=== PATIENT | female | born 1940 | race Caucasian/White ===

== ENCOUNTER 2020-08-22 08:57 | Outpatient (REF) | payer MEDICARE, SELFPAY | END 2020-08-22 08:58 | disposition home or self-care (01) | LOC: HO.RESP 08:57 | PROVIDERS: Visit Provider Hospitalist | DX: J44.9 Chronic obstructive pulmonary disease, unspecified (principal) | CPT/HCPCS: 94060; 94727; 94729; 99212 ==

== ENCOUNTER → 2021-01-23 15:07 | Outpatient (BNVA) | payer MEDICARE, SELFPAY | PROVIDERS: PCP Internal Medicine; Visit Provider Hospitalist | DX: R06.00 Dyspnea, unspecified (principal); J41.0 Simple chronic bronchitis; J01.00 Acute maxillary sinusitis, unspecified | CPT/HCPCS: 99212 ==

== ENCOUNTER → 2021-03-25 10:50 | Outpatient (BNVA) | payer MEDICARE, SELFPAY | PROVIDERS: PCP Family Medicine; Visit Provider Hospitalist | DX: R06.00 Dyspnea, unspecified (principal); J01.00 Acute maxillary sinusitis, unspecified; J41.0 Simple chronic bronchitis | CPT/HCPCS: 99212 ==

== ENCOUNTER 2021-05-30 09:24 | Outpatient (REF) | payer MEDICARE, SELFPAY ==
--- NOTE | ~2021-05-30 | XR_ITS ---
EXAMINATION: XR CHEST CLINICAL INFORMATION: Dyspnea COMPARISON: Previous chest x-ray March 2019 TECHNIQUE: 2 views of the chest were obtained. FINDINGS: The cardiac and mediastinal contours are stable. The lungs are clear. The lungs are well inflated. There is no pleural effusion or pneumothorax. There are degenerative changes of the spine. XR/XR chest 2V IMPRESSION: Well-inflated lungs. No evidence for acute disease in the chest.
== END 2021-05-30 09:25 | disposition home or self-care (01) ==
LOC: HO.XRAY 09:24
PROVIDERS: PCP Family Medicine; Visit Provider Hospitalist
DX: R06.00 Dyspnea, unspecified (principal); J41.0 Simple chronic bronchitis
CPT/HCPCS: 71046

== ENCOUNTER → 2021-10-22 11:12 | Outpatient (BNVA) | payer MEDICARE, SELFPAY | PROVIDERS: PCP Family Medicine; Visit Provider Hospitalist | DX: J41.0 Simple chronic bronchitis (principal); J01.00 Acute maxillary sinusitis, unspecified; Z79.899 Other long term (current) drug therapy | CPT/HCPCS: 99212 ==

== ENCOUNTER 2022-02-17 13:12 | Outpatient (REF) | payer MEDICARE, SELFPAY ==
--- NOTE | ~2022-02-17 | XR_ITS ---
EXAMINATION: XR CERVICAL SPINE CLINICAL INFORMATION: Neck pain. COMPARISON: Chest radiographs dated 05/30/2021. TECHNIQUE: 3 views of the cervical spine were obtained. FINDINGS: Mild cervicothoracic levoscoliosis is seen. There is normal cervical lordosis. Mild degenerative disc disease and grade 1 anterolisthesis is seen at C4-5 and C5-6. The vertebral bodies are intact. Mild to moderate multilevel facet arthropathy is seen. The odontoid process and spinous processes are intact. The soft tissues are unremarkable. XR/XR cervical spine 3V IMPRESSION: Mild cervical thoracic levoscoliosis and mild to moderate multilevel degenerative changes without acute abnormality.
== END 2022-02-17 13:13 | disposition home or self-care (01) ==
LOC: HO.HMGCX 13:12
PROVIDERS: Visit Provider Internal Medicine
DX: S13.9XXA Sprain of joints and ligaments of unspecified parts of neck, initial encounter (principal)
CPT/HCPCS: 72040

== ENCOUNTER → 2022-04-27 11:11 | Outpatient (BNVA) | payer MEDICARE, SELFPAY | PROVIDERS: PCP Family Medicine; Visit Provider Hospitalist | DX: M79.89 Other specified soft tissue disorders (principal); J41.0 Simple chronic bronchitis; R06.00 Dyspnea, unspecified | CPT/HCPCS: 99212 ==

== ENCOUNTER 2022-11-25 10:52 | Outpatient (REF) | payer MEDICARE, SELFPAY ==
--- NOTE | ~2022-11-25 | XR_ITS ---
EXAMINATION: XR CHEST CLINICAL INFORMATION: Dyspnea COMPARISON: Previous chest x-ray May 2021 TECHNIQUE: 2 views of the chest were obtained. FINDINGS: The cardiac and mediastinal contours are stable. Question small stable retrosternal nodule measuring 4 mm seen on the lateral view The lungs are otherwise clear. No pleural effusion or pneumothorax. Mild degenerative changes of the spine and scoliosis. XR/XR chest 2V IMPRESSION: No evidence for acute disease in the chest.
== END 2022-11-25 10:53 | disposition home or self-care (01) ==
LOC: HO.XRAY 10:52
PROVIDERS: PCP Family Medicine; Visit Provider Hospitalist
DX: R06.00 Dyspnea, unspecified (principal); J41.0 Simple chronic bronchitis; J01.00 Acute maxillary sinusitis, unspecified
CPT/HCPCS: 71046; 99212

== ENCOUNTER 2023-04-21 10:58 | Outpatient (REF) | payer MEDICARE, SELFPAY ==
--- NOTE | ~2023-04-21 | XR_ITS ---
EXAMINATION: XR CHEST CLINICAL INFORMATION: Solitary pulmonary nodule COMPARISON: 11/25/2022 TECHNIQUE: 3 views of the chest were obtained. FINDINGS: Similar appearance of previously questioned possible small stable 4 mm retrosternal pulmonary nodule. No evidence of pneumonia. Degenerative changes in the thoracic spine. No gross pleural effusion. No new focal consolidation to suggest pneumonia. Thoracolumbar scoliosis. Heart size is normal. XR/XR chest 2V IMPRESSION: Similar appearance of previously questioned possible small stable 4 mm retrosternal pulmonary nodule. No evidence of pneumonia.
== END 2023-04-21 10:59 | disposition home or self-care (01) ==
LOC: HO.XRAY 10:58
PROVIDERS: PCP Family Medicine; Visit Provider Hospitalist
DX: J41.0 Simple chronic bronchitis (principal); R06.00 Dyspnea, unspecified; J01.00 Acute maxillary sinusitis, unspecified; R91.1 Solitary pulmonary nodule; Z79.899 Other long term (current) drug therapy
CPT/HCPCS: 71046; 99212

== ENCOUNTER 2023-04-21 10:58 | Outpatient (AMB) | payer MEDICARE, SELFPAY ==
[2023-04-21 11:11] VITALS: BP 132/60; PULSE 57; O2SAT 95; BMI 27.2
--- NOTE | 2023-04-21 11:11 | A.OFFVIS_ITS ---
Intake Vital Signs 04/21/23 11:11 Height 5 ft 2 in Weight 149 lb BMI 27.2 BP 132/60 Blood Pressure Location Lt brachial Position Sitting Pulse 57 Pulse Source Pulse Oximeter Pulse Oximetry (%) 95 Oxygen Delivery Method Room Air Intake Visit Reasons: COPD Casualty Claims Supervisor Required: No Allergies codeine Allergy (Severe, Verified 04/21/23 11:12) Rapid Heartbeat morphine Allergy (Severe, Verified 04/21/23 11:12) Rapid Heartbeat quetiapine Allergy (Severe, Verified 04/21/23 11:12) Difficulty Breathing IV Contrast Dye Allergy (Severe, Uncoded 04/21/23 11:12) Rapid Heartbeat Sulfamethoxazole Allergy (Severe, Uncoded 04/21/23 11:12) Rapid Heartbeat HPI HPI Comments History of Present Illness Details The patient is a 83 y/o woman with a history of COPD. She was treated for COPD exacerbation during the last visit in this was a follow-up visit. Overall she is feeling a lot better. She completed the antibiotics and the prednisone. She is still having some cough which is nonproductive in nature. Mi [id number] severity. The inhalers have been helpful. We did review her blood work which resolved relatively benign. She however is having some difficulties with her medications because she hit the donut hole and cannot afford her Spiriva. Will try to find something more financially reasonable for the patient at this time. \ 11/25/2022 the patient is here for pulmon harsha follow-up visit. The patient overall has been doing fair. She has had significant headaches and sinus pressure. She has been struggling with this for some time. The patient was given loratadine but resulted in adverse effects and she could not take it. She also has a hard time tolerating prednisone because it affects her mood. She has been using her respiratory therapy with good effect. Denies any significant shortness of breath although she does have dyspnea with activity. Will have her undergo a chest x-ray. The meantime going to start her on additional nasal therapies to improve her nasal allergies are likely affecting her sinuses. Will be reasonable also to treat him hoarse for sinusitis with doxycycline. 04/21/2023 the patient is here for pulmo errol follow-up visit. The patient is still complaining of significant headaches. She feels like it is her sinus. She is been treated with multiple antibiotics for. It seems to be the case now lasting 4 months. She did have a sinus CT scan done at [facility] which I did review her. It appears that she does not have any evidence of sinusitis. The patient will be following up with ENT as well. I did recommend she gets evaluated for underlying headaches. The patient also having significant photosensitivity. She did follow-up with her eye doctor. At least from a respiratory status the patient is doing fairly well. She continues on the Spiriva and the Symbicort. She has not required her rescue inhaler. We did review her last chest x-ray demonstrating a small retrosternal pulmonary nodule. Will go ahead and repeat the chest x-ray at this time. The nodule still there we then will cuss a CT scan of the chest to better address the findings. [facility] Medical History (Updated 04/21/23 @ 11:33 by Randy Aquino MD) Pulmonary nodule Limb swelling Dyspnea COPD (chronic obstructive pulmonary disease) Social History (Updated 10/22/21 @ 11:31 by NUPUR Evans) Patient Tobacco Use Status: Former Tobacco user Tobacco use type: Cigarette Years Smoked: 35 years Review of Systems Const Reports headache(s) and Denies night sweats Eyes Reports photophobia ENT Denies change in voice, Reports headache(s), Denies lip swelling, Denies mouth pain, Reports neck pain, Reports sinus pain, Reports sinus pressure and Denies tongue swelling Card Denies chest pain, Reports leg edema and Reports dyspnea on exertion Resp Reports cough and Reports dyspnea on exertion GI Denies abdominal pain Musc Reports as per HPI, Reports back pain and Reports neck pain Neuro Denies Neuro-related abnormal movements and Reports headache(s) Psych Denies no additional complaints Dashawn/Lymph Denies easy bleeding and Denies lymphadenopathy Aller/Immun Denies lip swelling and Denies tongue swelling Physical Exam Vital Signs: Last Vital Signs Pulse 57 04/21/23 11:11 BP 132/60 04/21/23 11:11 Pulse Ox 95 04/21/23 11:11 Oxygen Delivery Method Room Air 04/21/23 11:11 BMI result Body Mass Index 27.2 Const Other: Patient in moderate distress due to pain. General: cooperative and healthy appearing Nutritional Appearance: well nourished Orientation/consciousness: patient oriented x3 Limitations: no limitations HEENT Head: Yes normal to inspection General nose exam: Abnormal external nose present and Nasal discharge present Eyes General: appearance normal, both eyes and all related structures Direct Ophthalmoscopy: photophobia Neck Neck: Yes supple Chest Chest palpation & inspection: normal palpation of entire chest wall Resp Effort & Inspection: normal respiratory effort Auscultation: diminished lung sounds Cardio Rate: regular rate Rhythm: regular rhythm Heart sounds: S1 normal heart sound present and S2 normal heart sound present GI Palpation (GI): Soft to palpation and nontender Auscultation: normal bowel sounds Neuro General: patient oriented x3 Assessment & Plan Assessment & Plan (1) Dyspnea: Comment: significant small airways disease. Responding very well to the bronchodilator therapy Code(s): R06.00 - Dyspnea, unspecified Qualifiers: Dyspnea type: dyspnea on exertion Qualified Code(s): R06.00 - Dyspnea, unspecified (2) COPD (chronic obstructive pulmonary disease): Code(s): J44.9 - Chronic obstructive pulmonary disease, unspecified Qualifiers: COPD type: chronic bronchitis Chronic bronchitis type: simple Qualifi ed Code(s): J41.0 - Simple chronic bronchitis (3) Sinusitis: Comment: ct SINUS was normal 04/20/23 Code(s): J32.9 - Chronic sinusitis, unspecified Qualifiers: Chronicity: subacute Sinusitis location: maxillary Qualified Code(s): J01.00 - Acute maxillary sinusitis, unspecified (4) Pulmonary nodule: Code(s): R91.1 - Solitary pulmonary nodule Plan short-acting beta agonist as needed continue Symbicort and Spiriva continue Fluticasone BID use Mucinex as needed CXR, if nodule persistent we will request a CT chest F/U 6 months Orders: Orders XR chest 2V Today R91.1 - Solitary pulmonary nodule Coding Level of Care Code Est Pt Level 4 (56418) Diagnoses Dyspnea on exertion R06.00 Dyspnea type: dyspnea on exertion Simple chronic bronchitis J41.0 COPD type: chronic bronchitis Chronic bronchitis type: simple Subacute maxillary sinusitis J01.00 Chronicity: subacute Sinusitis location: maxillary Pulmonary nodule R91.1 Time Spent (min) 17
== END 2023-04-21 11:38 | disposition home or self-care (01) ==
PROVIDERS: PCP Family Medicine; Visit Provider Hospitalist
DX: R06.00 Dyspnea, unspecified (principal); J41.0 Simple chronic bronchitis; J01.00 Acute maxillary sinusitis, unspecified; R91.1 Solitary pulmonary nodule
CPT/HCPCS: 99214

== ENCOUNTER 2023-07-07 12:47 | Outpatient (REF) | payer MEDICARE, SELFPAY ==
--- NOTE | ~2023-07-07 | CT_ITS ---
EXAMINATION: CT SINUS WITHOUT CONTRAST CLINICAL INFORMATION: Acute recurrent sinusitis. COMPARISON: No relevant prior imaging. TECHNIQUE: Drag Out Worker images were obtained. CT imaging of the sinuses was performed without contrast. Data was reformatted into multiplanar images at the acquisition workstation. This CT examination was performed using dose optimization techniques as appropriate, variously including the following: *Automated exposure control *Adjustment of mA and/or kV according to patient size (this includes techniques or standardized protocols for targeted exams where dose is matched to indication/reason for exam; i.e. extremities or head) *Use of iterative reconstruction technique DLP: 143 mGy-cm FINDINGS: Maxillary sinuses are well aerated and primary maxillary sinus ostia are patent. Uncinate processes are intact. No ostiomeatal unit dysfunction. Frontal sinuses are well aerated and frontal recesses are patent. There is trivial mucosal thickening within the ethmoid air cells. The sphenoid sinus is well aerated. Sphenoid sinus ostia are narrow or occluded. The nasal septum deviates to the right and there is a small rightward projecting nasal septal spur. Globes and extraocular muscles are symmetric. No abnormal retrobulbar mass or inflammation. Lamina papyracea and orbital floors are intact. Orbital apices are unremarkable. Limited visualization of the intracranial anatomy reveals no abnormal finding. Specifically no midline shift or hydrocephalus. CT/CT sinus wo IV con IMPRESSION: There is trivial mucosal thickening within the ethmoid air cells. Otherwise no active paranasal sinus disease. The sphenoid sinus ostia are narrow or occluded. The remainder of the major paranasal sinus drainage pathways are patent. The nasal septum deviates to the right and there is a small rightward projecting nasal septal spur.
== END 2023-07-07 12:48 | disposition home or self-care (01) ==
LOC: HO.CT 12:47
PROVIDERS: PCP Family Medicine; Visit Provider Hospitalist
DX: R91.1 Solitary pulmonary nodule (principal); J33.0 Polyp of nasal cavity; J01.91 Acute recurrent sinusitis, unspecified
CPT/HCPCS: 70486; 71250

== ENCOUNTER 2023-10-20 11:18 | Outpatient (AMB) | payer MEDICARE, SELFPAY ==
[2023-10-20 11:39] VITALS: BP 134/60; PULSE 60; O2SAT 93; BMI 28.2
--- NOTE | 2023-10-20 11:39 | A.OFFVIS_ITS ---
Intake Vital Signs 10/20/23 11:39 Height 5 ft 2 in Weight 154 lb BMI 28.2 BP 134/60 Blood Pressure Location Lt brachial Position Sitting Pulse 60 Pulse Source Pulse Oximeter Pulse Oximetry (%) 93 Oxygen Delivery Method Room Air Intake Visit Reasons: COPD Consultant Nurse Required: No Allergies codeine Allergy (Severe, Verified 10/20/23 11:42) Rapid Heartbeat morphine Allergy (Severe, Verified 10/20/23 11:42) Rapid Heartbeat quetiapine Allergy (Severe, Verified 10/20/23 11:42) Difficulty Breathing IV Contrast Dye Allergy (Severe, Uncoded 10/20/23 11:42) Rapid Heartbeat Sulfamethoxazole Allergy (Severe, Uncoded 10/20/23 11:42) Rapid Heartbeat HPI HPI Comments History of Present Illness Details The patient is a 83 y/o woman with a history of COPD. She was treated for COPD exacerbation during the last visit in this was a follow-up visit. Overall she is feeling a lot better. She completed the antibiotics and the prednisone. She is still having some cough which is nonproductive in nature. Mi [id number] severity. The inhalers have been helpful. We did review her blood work which resolved relatively benign. She however is having some difficulties with her medications because she hit the donut hole and cannot afford her Spiriva. Will try to find something more financially reasonable for the patient at this time. \ 11/25/2022 the patient is here for pulmon harsha follow-up visit. The patient overall has been doing fair. She has had significant headaches and sinus pressure. She has been struggling with this for some time. The patient was given loratadine but resulted in adverse effects and she could not take it. She also has a hard time tolerating prednisone because it affects her mood. She has been using her respiratory therapy with good effect. Denies any significant shortness of breath although she does have dyspnea with activity. Will have her undergo a chest x-ray. The meantime going to start her on additional nasal therapies to improve her nasal allergies are likely affecting her sinuses. Will be reasonable also to treat him hoarse for sinusitis with doxycycline. 04/21/2023 the patient is here for pulmo errol follow-up visit. The patient is still complaining of significant headaches. She feels like it is her sinus. She is been treated with multiple antibiotics for. It seems to be the case now lasting 4 months. She did have a sinus CT scan done at [facility] which I did review her. It appears that she does not have any evidence of sinusitis. The patient will be following up with ENT as well. I did recommend she gets evaluated for underlying headaches. The patient also having significant photosensitivity. She did follow-up with her eye doctor. At least from a respiratory status the patient is doing fairly well. She continues on the Spiriva and the Symbicort. She has not required her rescue inhaler. We did review her last chest x-ray demonstrating a small retrosternal pulmonary nodule. Will go ahead and repeat the chest x-ray at this time. The nodule still there we then will cuss a CT scan of the chest to better address the findings. 10/20/2023 the patient is here for a pulm onary follow-up visit. She continues to have significant frontal headaches. She did undergo CT scan of the sinuses which is reassuring. She is working closely with her pain specialist that she is having significant neck pain that may be contributing to her headaches. The patient also underwent a CT scan of the chest which was personally by me. The patient does have couple subcentimeter pulmonary nodules that will need follow-up. She also has [id number] emphysema secondary to her history of smoking. Patient continues on the Symbicort Spiriva which appeared to be effective. She also has a rescue inhaler but she does not use it often. At this point the patient will continue with current respiratory therapy and she will have a repeat CT scan sometime in June. Will follow-up after her CT scan. If she has any issues prior to that she will call for an earlier assessment. [facility] Medical History (Updated 04/21/23 @ 11:33 by Randy Aquino MD) Pulmonary nodule Limb swelling Dyspnea COPD (chronic obstructive pulmonary disease) Social History (Updated 10/22/21 @ 11:31 by NUPUR Evans) Patient Tobacco Use Status: Former Tobacco user Tobacco use type: Cigarette Years Smoked: 35 years Review of Systems Const Reports headache(s) and Denies night sweats Eyes Reports photophobia ENT Denies change in voice, Reports headache(s), Denies lip swelling, Denies mouth pain, Reports neck pain, Reports sinus pain, Reports sinus pressure and Denies tongue swelling Card Denies chest pain, Reports leg edema and Reports dyspnea on exertion Resp Reports cough and Reports dyspnea on exertion GI Denies abdominal pain Musc Reports as per HPI, Reports back pain and Reports neck pain Neuro Denies Neuro-related abnormal movements and Reports headache(s) Psych Denies no additional complaints Dashawn/Lymph Denies easy bleeding and Denies lymphadenopathy Aller/Immun Denies lip swelling and Denies tongue swelling Physical Exam Vital Signs: Last Vital Signs Pulse 60 10/20/23 11:39 BP 134/60 10/20/23 11:39 Pulse Ox 93 10/20/23 11:39 Oxygen Delivery Method Room Air 10/20/23 11:39 BMI result Body Mass Index 28.2 Const Other: Patient in moderate distress due to pain. General: cooperative and healthy appearing Nutritional Appearance: well nourished Orientation/consciousness: patient oriented x3 Limitations: no limitations HEENT Head: Yes normal to inspection General nose exam: Abnormal external nose present and Nasal discharge present Eyes General: appearance normal, both eyes and all related structures Direct Ophthalmoscopy: photophobia Neck Neck: Yes supple Chest Chest palpation & inspection: normal palpation of entire chest wall Resp Effort & Inspection: normal respiratory effort Auscultation: diminished lung sounds Cardio Rate: regular rate Rhythm: regular rhythm Heart sounds: S1 normal heart sound present and S2 normal heart sound present GI Palpation (GI): Soft to palpation and nontender Auscultation: normal bowel sounds Neuro General: patient oriented x3 Assessment & Plan Assessment & Plan (1) Dyspnea: Comment: significant small airways disease. Responding very well to the bronchodilator therapy Code(s): R06.00 - Dyspnea, unspecified Qualifiers: Dyspnea type: dyspnea on exertion Qualified Code(s): R06.00 - Dyspnea, unspecified (2) COPD (chronic obstructive pulmonary disease): Code(s): J44.9 - Chronic obstructive pulmonary disease, unspecified Qualifiers: COPD type: chronic bronchitis Chronic bronchitis type: simple Qualified Code(s): J41.0 - Simple chronic bronchitis (3) Sinusitis: Comment: ct SINUS was normal 04/20/23 Code(s): J32.9 - Chronic sinusitis, unspecified Qualifiers: Chronicity: subacute Sinusitis location: maxillary Qualified Code(s): J01.00 - Acute maxillary sinusitis, unspecified (4) Pulmonary nodule: Code(s): R91.1 - Solitary pulmonary nodule Plan short-acting beta agonist as needed continue Symbicort and Spiriva continue Fluticasone BID use Mucinex as needed Repeat CT chest 07/2024 Bloodwork F/U July 2024 Orders: Orders Complete Blood Count Auto Diff Today J01.00 - Acute maxillary sinusitis, unspecified, R91.1 - Solitary pulmonary nodule Erythrocyte Sedimentation Rate Today J01.00 - Acute maxillary sinusitis, unspecified, R91.1 - Solitary pulmonary nodule BHARATH Reflex Titer and Pattern Today J01.00 - Acute maxillary sinusitis, unspecified, R91.1 - Solitary pulmonary nodule Immunoglobulin E Today J01.00 - Acute maxillary sinusitis, unspecified, R91.1 - Solitary pulmonary nodule CT chest wo IV con 07/12/24 R91.1 - Solitary pulmonary nodule Coding Level of Care Code Est Pt Level 4 (12265) Diagnoses Dyspnea on exertion R06.00 Dyspnea type: dyspnea on exertion Simple chronic bronchitis J41.0 COPD type: chronic bronchitis Chronic bronchitis type: simple Subacute maxillary sinusitis J01.00 Chronicity: subacute Sinusitis location: maxillary Pulmonary nodule R91.1 Time Spent (min) 18
== END 2023-10-20 12:10 | disposition home or self-care (01) ==
PROVIDERS: PCP Family Medicine; Visit Provider Hospitalist
DX: R06.00 Dyspnea, unspecified (principal); J41.0 Simple chronic bronchitis; J01.00 Acute maxillary sinusitis, unspecified; R91.1 Solitary pulmonary nodule
CPT/HCPCS: 99214

== ENCOUNTER → 2023-10-20 11:18 | Outpatient (BNVA) | payer MEDICARE, SELFPAY | PROVIDERS: PCP Family Medicine; Visit Provider Hospitalist | DX: J01.00 Acute maxillary sinusitis, unspecified (principal); R91.1 Solitary pulmonary nodule; J41.0 Simple chronic bronchitis; R06.00 Dyspnea, unspecified | CPT/HCPCS: 99212 ==

== ENCOUNTER 2023-10-29 11:35 | Outpatient (REF) | payer MEDICARE, SELFPAY ==
[2023-10-29 11:46] LABS: MANUAL DIFF FLAG NO
[2023-10-29 12:19] LABS: Basophils Percent Auto 0.7 % (0-2); Eosinophils Absolute Auto 0.1 X10*3/uL (0.0-0.4); Hematocrit 39.9 % (37.0-47.0); Imm Gran Abs Auto 0.01 X10*3/uL (0.00-0.03); Imm Gran Pct Auto 0.2 % (0.0-0.4); Lymphocytes Absolute Auto 0.8 X10*3/uL (1.2-4.9); Lymphocytes Percent Auto 13.7 % (20-40); Mean Corpuscular HGB Conc 32.6 g/dl (31.0-35.0); Mean Corpuscular Volume 91.9 fL (80.0-98.0); Mean Platelet Volume 10.6 fL (9.4-12.3); Monocytes Absolute Auto 0.4 X10*3/uL (0.1-1.2); Monocytes Percent Auto 6.9 % (2-11); Neutrophils Absolute Auto 4.7 x10*3/uL (2.0-8.3); Neutrophils Percent Auto 77.5 % (45-73); Platelet Count 263 X10*3/uL (160-400); Red Blood Count 4.34 X10*6/uL (4.20-5.50); Red Cell Distribution Width 13.7 % (11.0-16.0); White Blood Count 6.1 X10*3/uL (4.8-10.8)
[2023-10-29 13:11] LABS: Erythrocyte Sedimentation Rate 22 MM/HR (0-20)
[2023-10-30 20:58] LABS: Anti Nuclear Antibody Screen NEGATIVE (NEGATIVE)
[2023-11-01 21:09] LABS: Immunoglobulin E 136 kU/L (<OR=114)
== END 2023-10-29 11:36 | disposition home or self-care (01) ==
LOC: HO.LAB 11:35
PROVIDERS: PCP Family Medicine; Visit Provider Hospitalist
DX: R91.1 Solitary pulmonary nodule (principal); J01.00 Acute maxillary sinusitis, unspecified
CPT/HCPCS: 36415; 82785; 85025; 85652; 86038

== ENCOUNTER 2023-11-18 08:31 | Outpatient (AMB) | payer MEDICARE, SELFPAY ==
--- NOTE | 2023-11-18 08:34 | MHC.OFFVIS ---
Vital Signs 11/18/23 08:35 Height 5 ft 2 in Weight 151 lb BMI 27.6 BP 124/60 Blood Pressure Location Lt brachial Position Sitting Pulse 52 Pulse Source Pulse Oximeter Pulse Oximetry (%) 96 Oxygen Delivery Method Room Air Intake Visit Reasons: Review lab results Fisher Eel Spear Required: No Allergies codeine Allergy (Severe, Verified 11/18/23 08:41) Rapid Heartbeat morphine Allergy (Severe, Verified 11/18/23 08:41) Rapid Heartbeat quetiapine Allergy (Severe, Verified 11/18/23 08:41) Difficulty Breathing IV Contrast Dye Allergy (Severe, Uncoded 11/18/23 08:41) Rapid Heartbeat Sulfamethoxazole Allergy (Severe, Uncoded 11/18/23 08:41) Rapid Heartbeat HPI Comments Details: The patient is a 83 y/o woman with a history of COPD. She was treated for COPD exacerbation during the last visit in this was a follow-up visit. Overall she is feeling a lot better. She completed the antibiotics and the prednisone. She is still having some cough which is nonproductive in nature. Ydgz-[id number] severity. The inhalers have been helpful. We did review her blood work which resolved relatively benign. She however is having some difficulties with her medications because she hit the donut hole and cannot afford her Spiriva. Will try to find something more financially reasonable for the patient at this time. \ 11/25/2022 the patient is here for pulmonary follow-up visit. The patient overall has been doing fair. She has had significant headaches and sinus pressure. She has been struggling with this for some time. The patient was given loratadine but resulted in adverse effects and she could not take it. She also has a hard time tolerating prednisone because it affects her mood. She has been using her respiratory therapy with good effect. Denies any significant shortness of breath although she does have dyspnea with activity. Will have her undergo a chest x-ray. The meantime going to start her on additional nasal therapies to improve her nasal allergies are likely affecting her sinuses. Will be reasonable also to treat him hoarse for sinusitis with doxycycline. 04/21/2023 the patient is here for pulmonary follow-up visit. The patient is still complaining of significant headaches. She feels like it is her sinus. She is been treated with multiple antibiotics for. It seems to be the case now lasting 4 months. She did have a sinus CT scan done at [facility] which I did review her. It appears that she does not have any evidence of sinusitis. The patient will be following up with ENT as well. I did recommend she gets evaluated for underlying headaches. The patient also having significant photosensitivity. She did follow-up with her eye doctor. At least from a respiratory status the patient is doing fairly well. She continues on the Spiriva and the Symbicort. She has not required her rescue inhaler. We did review her last chest x-ray demonstrating a small retrosternal pulmonary nodule. Will go ahead and repeat the chest x-ray at this time. The nodule still there we then will cuss a CT scan of the chest to better address the findings. 10/20/2023 the patient is here for a pulmonary follow-up visit. She continues to have significant frontal headaches. She did undergo CT scan of the sinuses which is reassuring. She is working closely with her pain specialist that she is having significant neck pain that may be contributing to her headaches. The patient also underwent a CT scan of the chest which was personally by me. The patient does have couple subcentimeter pulmonary nodules that will need follow-up. She also has [id number] emphysema secondary to her history of smoking. Patient continues on the Symbicort Spiriva which appeared to be effective. She also has a rescue inhaler but she does not use it often. At this point the patient will continue with current respiratory therapy and she will have a repeat CT scan sometime in June. Will follow-up after her CT scan. If she has any issues prior to that she will call for an earlier assessment. 11/18/2023 the patient is here for a pulmonary follow-up visit. The patient overall has been doing well. She still complaining of findings headaches from the headaches. Moderate severity. The lights still bothering her. She did try the Astelin nasal spray but she did not tolerated as it made her jittery and bad taste. She has been using the fluticasone nasal spray and also the singular at nighttime. She continues on the Symbicort and Spiriva. Will go ahead and start her on small dose of antihistamine therapy. I do believe that she needs it. We did review her blood work demonstrating an elevated IgE consistent with allergies. In addition to that she had a CT scan of the sinuses demonstrating thickening of the mucosa of the ethmoid sinuses all the other sinus or okay. Respiratory garcia patient is doing well. She will continue with the current respiratory therapy. If the patient is no better she will need a referral to Allergy. [facility] Medical History (Updated 11/18/23 @ 12:42 by Randy Aquino MD) Pulmonary nodule Limb swelling Dyspnea COPD (chronic obstructive pulmonary disease) Social History (Updated 10/22/21 @ 11:31 by Meeta Garsia Ascencion) Patient Tobacco Use Status: Former Tobacco user Tobacco use type: Cigarette Years Smoked: 35 years Review of Systems Const Reports headache(s) and Denies night sweats Eyes Reports photophobia ENT Denies change in voice, Reports headache(s), Denies lip swelling, Denies mouth pain, Reports neck pain, Reports sinus pain, Reports sinus pressure and Denies tongue swelling Card Denies chest pain, Reports leg edema and Reports dyspnea on exertion Resp Reports cough and Reports dyspnea on exertion GI Denies abdominal pain Musc Reports as per HPI, Reports back pain and Reports neck pain Neuro Denies Neuro-related abnormal movements and Reports headache(s) Psych Denies no additional complaints Dashawn/Lymph Denies easy bleeding and Denies lymphadenopathy Aller/Immun Denies lip swelling and Denies tongue swelling Physical Exam Vital Signs: Last Vital Signs Pulse 52 11/18/23 08:35 BP 124/60 11/18/23 08:35 Pulse Ox 96 11/18/23 08:35 Oxygen Delivery Method Room Air 11/18/23 08:35 BMI result Body Mass Index 27.6 Const Other: Patient in moderate distress due to pain. General: cooperative and healthy appearing Nutritional Appearance: well nourished Orientation/consciousness: patient oriented x3 Limitations: no limitations HEENT Head: Yes normal to inspection General nose exam: Abnormal external nose present and Nasal discharge present Eyes General: appearance normal, both eyes and all related structures Direct Ophthalmoscopy: photophobia Neck Neck: Yes supple Chest Chest palpation & inspection: normal palpation of entire chest wall Resp Effort & Inspection: normal respiratory effort Auscultation: clear to auscultation bilaterally Cardio Rate: regular rate Rhythm: regular rhythm Heart sounds: S1 normal heart sound present and S2 normal heart sound present GI Palpation (GI): Soft to palpation and nontender Auscultation: normal bowel sounds Neuro General: patient oriented x3 Assessment & Plan Assessment & Plan (1) Dyspnea: Comment: significant small airways disease. Responding very well to the bronchodilator therapy Code(s): R06.00 - Dyspnea, unspecified Category: Medical Qualifiers: Dyspnea type: dyspnea on exertion Qualified Code(s): R06.00 - Dyspnea, unspecified (2) COPD (chronic obstructive pulmonary disease): Code(s): J44.9 - Chronic obstructive pulmonary disease, unspecified Category: Medical Qualifiers: COPD type: chronic bronchitis Chronic bronchitis type: simple Qualified Code(s): J41.0 - Simple chronic bronchitis (3) Sinusitis: Comment: ct SINUS was normal 04/20/23 Code(s): J32.9 - Chronic sinusitis, unspecified Category: Medical Qualifiers: Chronicity: chronic Sinusitis location: ethmoidal Qualified Code(s): J32.2 - Chronic ethmoidal sinusitis (4) Pulmonary nodule: Code(s): R91.1 - Solitary pulmonary nodule Category: Medical Plan short-acting beta agonist as needed continue Symbicort and Spiriva No astelin start desloratidine continue Fluticasone daily start Neti bottle with distilled water and packet use Mucinex as needed Repeat CT chest 07/2024 F/U July 2024 Medications: New desloratadine (Clarinex) 5 mg PO DAILY 30 tabs 3RF 30 days Coding Level of Care Code Est Pt Level 4 (65306) Diagnoses Dyspnea on exertion R06.00 Dyspnea type: dyspnea on exertion Simple chronic bronchitis J41.0 COPD type: chronic bronchitis Chronic bronchitis type: simple Chronic ethmoidal sinusitis J32.2 Chronicity: chronic Sinusitis location: ethmoidal Pulmonary nodule R91.1 Time Spent (min) 17
[2023-11-18 08:35] VITALS: BP 124/60; PULSE 52; O2SAT 96; BMI 27.6
== END 2023-11-18 09:01 | disposition home or self-care (01) ==
PROVIDERS: PCP Family Medicine; Visit Provider Hospitalist
DX: R06.00 Dyspnea, unspecified (principal); J41.0 Simple chronic bronchitis; J32.2 Chronic ethmoidal sinusitis; R91.1 Solitary pulmonary nodule
CPT/HCPCS: 99214

== ENCOUNTER → 2023-11-18 08:31 | Outpatient (BNVA) | payer MEDICARE, SELFPAY | PROVIDERS: PCP Family Medicine; Visit Provider Hospitalist | DX: R06.00 Dyspnea, unspecified (principal); J41.0 Simple chronic bronchitis; J32.2 Chronic ethmoidal sinusitis; R91.1 Solitary pulmonary nodule | CPT/HCPCS: 99212 ==

== ENCOUNTER 2024-03-08 09:59 | Outpatient (AMB) | payer MEDICARE, SELFPAY ==
[2024-03-08 10:12] VITALS: BP 138/60; PULSE 60; O2SAT 96; BMI 27.1
--- NOTE | 2024-03-08 10:12 | MHC.OFFVIS ---
Vital Signs 03/08/24 10:12 Height 5 ft 2 in Weight 147 lb 14.883 oz BMI 27.1 BP 138/60 Blood Pressure Location Lt brachial Position Sitting Pulse 60 Pulse Source Pulse Oximeter Pulse Oximetry (%) 96 Oxygen Delivery Method Room Air Intake Visit Reasons: COPD Slip Cover Operator Required: No Allergies codeine Allergy (Severe, Verified 03/08/24 10:14) Rapid Heartbeat morphine Allergy (Severe, Verified 03/08/24 10:14) Rapid Heartbeat quetiapine Allergy (Severe, Verified 03/08/24 10:14) Difficulty Breathing IV Contrast Dye Allergy (Severe, Uncoded 03/08/24 10:14) Rapid Heartbeat Sulfamethoxazole Allergy (Severe, Uncoded 03/08/24 10:14) Rapid Heartbeat HPI Comments Details: The patient is a 84 y/o woman with a history of COPD. She was treated for COPD exacerbation during the last visit in this was a follow-up visit. Overall she is feeling a lot better. She completed the antibiotics and the prednisone. She is still having some cough which is nonproductive in nature. Nqdp-[id number]-[id number] severity. The inhalers have been helpful. We did review her blood work which resolved relatively benign. She however is having some difficulties with her medications because she hit the donut hole and cannot afford her Spiriva. Will try to find something more financially reasonable for the patient at this time. \ 11/25/2022 the patient is here for pulmonary follow-up visit. The patient overall has been doing fair. She has had significant headaches and sinus pressure. She has been struggling with this for some time. The patient was given loratadine but resulted in adverse effects and she could not take it. She also has a hard time tolerating prednisone because it affects her mood. She has been using her respiratory therapy with good effect. Denies any significant shortness of breath although she does have dyspnea with activity. Will have her undergo a chest x-ray. The meantime going to start her on additional nasal therapies to improve her nasal allergies are likely affecting her sinuses. Will be reasonable also to treat him hoarse for sinusitis with doxycycline. 04/21/2023 the patient is here for pulmonary follow-up visit. The patient is still complaining of significant headaches. She feels like it is her sinus. She is been treated with multiple antibiotics for. It seems to be the case now lasting 4 months. She did have a sinus CT scan done at [facility] which I did review her. It appears that she does not have any evidence of sinusitis. The patient will be following up with ENT as well. I did recommend she gets evaluated for underlying headaches. The patient also having significant photosensitivity. She did follow-up with her eye doctor. At least from a respiratory status the patient is doing fairly well. She continues on the Spiriva and the Symbicort. She has not required her rescue inhaler. We did review her last chest x-ray demonstrating a small retrosternal pulmonary nodule. Will go ahead and repeat the chest x-ray at this time. The nodule still there we then will cuss a CT scan of the chest to better address the findings. 10/20/2023 the patient is here for a pulmonary follow-up visit. She continues to have significant frontal headaches. She did undergo CT scan of the sinuses which is reassuring. She is working closely with her pain specialist that she is having significant neck pain that may be contributing to her headaches. The patient also underwent a CT scan of the chest which was personally by me. The patient does have couple subcentimeter pulmonary nodules that will need follow-up. She also has fwxu-tp-kpchjkiw emphysema secondary to her history of smoking. Patient continues on the Symbicort Spiriva which appeared to be effective. She also has a rescue inhaler but she does not use it often. At this point the patient will continue with current respiratory therapy and she will have a repeat CT scan sometime in June. Will follow-up after her CT scan. If she has any issues prior to that she will call for an earlier assessment. 11/18/2023 the patient is here for a pulmonary follow-up visit. The patient overall has been doing well. She still complaining of findings headaches from the headaches. Moderate severity. The lights still bothering her. She did try the Astelin nasal spray but she did not tolerated as it made her jittery and bad taste. She has been using the fluticasone nasal spray and also the singular at nighttime. She continues on the Symbicort and Spiriva. Will go ahead and start her on small dose of antihistamine therapy. I do believe that she needs it. We did review her blood work demonstrating an elevated IgE consistent with allergies. In addition to that she had a CT scan of the sinuses demonstrating thickening of the mucosa of the ethmoid sinuses all the other sinus or okay. Respiratory garcia patient is doing well. She will continue with the current respiratory therapy. If the patient is no better she will need a referral to Allergy. 03/08/2024 the patient is here for a pulmonary follow-up visit. Overall she is doing well from a respiratory status. Her allergies are better controlled at this time. She was able to back off on the allergy medicine. She continues on the Spiriva and Symbicort. This has been affecting beneficial. The patient gets the Spiriva donated. In addition to that she does have a CT scan scheduled for 07/31/2024 to follow-up with the pulmonary nodules. No further recommendations at this time. Will follow-up in 6-8 months. The patient has any issues or any abnormal findings on the CT scan will go ahead and see her sooner. [facility] Medical History (Updated 11/18/23 @ 12:42 by Randy Aquino MD) Pulmonary nodule Limb swelling Dyspnea COPD (chronic obstructive pulmonary disease) Social History (Updated 10/22/21 @ 11:31 by NUPUR Evans) Patient Tobacco Use Status: Former Tobacco user Tobacco use type: Cigarette Years Smoked: 35 years Review of Systems Const Denies headache(s) and Denies night sweats ENT Denies change in voice, Denies headache(s), Denies lip swelling, Denies mouth pain and Denies tongue swelling Card Denies chest pain and Reports dyspnea on exertion Resp Reports cough and Reports dyspnea on exertion GI Denies abdominal pain Musc Reports as per HPI and Reports back pain Neuro Denies Neuro-related abnormal movements and Denies headache(s) Psych Denies no additional complaints Dashawn/Lymph Denies easy bleeding and Denies lymphadenopathy Aller/Immun Denies lip swelling and Denies tongue swelling Physical Exam Vital Signs: Last Vital Signs Pulse 60 03/08/24 10:12 BP 138/60 03/08/24 10:12 Pulse Ox 96 03/08/24 10:12 Oxygen Delivery Method Room Air 03/08/24 10:12 BMI result Body Mass Index 27.1 Const Other: Patient in moderate distress due to pain. General: cooperative and healthy appearing Nutritional Appearance: well nourished Orientation/consciousness: patient oriented x3 Limitations: no limitations HEENT Head: Yes normal to inspection General nose exam: Abnormal external nose present and Nasal discharge present Eyes General: appearance normal, both eyes and all related structures Neck Neck: Yes supple Chest Chest palpation & inspection: normal palpation of entire chest wall Resp Effort & Inspection: normal respiratory effort Auscultation: diminished lung sounds Cardio Rate: regular rate Rhythm: regular rhythm Heart sounds: S1 normal heart sound present and S2 normal heart sound present GI Palpation (GI): Soft to palpation and nontender Auscultation: normal bowel sounds Neuro General: patient oriented x3 Assessment & Plan Assessment & Plan (1) Dyspnea: Comment: significant small airways disease. Responding very well to the bronchodilator therapy Code(s): R06.00 - Dyspnea, unspecified Category: Medical Qualifiers: Dyspnea type: dyspnea on exertion Qualified Code(s): R06.00 - Dyspnea, unspecified (2) COPD (chronic obstructive pulmonary disease): Code(s): J44.9 - Chronic obstructive pulmonary disease, unspecified Category: Medical Qualifiers: COPD type: chronic bronchitis Chronic bronchitis type: simple Qualified Code(s): J41.0 - Simple chronic bronchitis (3) Pulmonary nodule: Code(s): R91.1 - Solitary pulmonary nodule Category: Medical Plan short-acting beta agonist as needed continue Symbicort and Spiriva No astelin continue Fluticasone daily Neti bottle with distilled water and packet use Mucinex as needed Repeat CT chest 07/2024 F/U 6-8 months Coding Level of Care Code Est Pt Level 4 (05316) Diagnoses Dyspnea on exertion R06.00 Dyspnea type: dyspnea on exertion Simple chronic bronchitis J41.0 COPD type: chronic bronchitis Chronic bronchitis type: simple Pulmonary nodule R91.1 Time Spent (min) 16
== END 2024-03-08 10:34 | disposition home or self-care (01) ==
PROVIDERS: PCP Family Medicine; Visit Provider Hospitalist
DX: R06.00 Dyspnea, unspecified (principal); J41.0 Simple chronic bronchitis; R91.1 Solitary pulmonary nodule
CPT/HCPCS: 99214

== ENCOUNTER → 2024-03-08 09:59 | Outpatient (BNVA) | payer MEDICARE, SELFPAY | PROVIDERS: PCP Family Medicine; Visit Provider Hospitalist | DX: J41.0 Simple chronic bronchitis (principal); R06.00 Dyspnea, unspecified; R91.1 Solitary pulmonary nodule | CPT/HCPCS: 99212 ==

== ENCOUNTER 2024-06-26 10:52 | Outpatient (REF) | payer MEDICARE, SELFPAY ==
--- OUTSIDE RECORDS SUMMARY | 2024-06-26 10:56 | XMS_ITS | Continuity of Care Document ---
Author Organization [facility] Address [address] [place] [address] [address] [place] [phone] Phone Care Team Providers Care Breakfast Host Name Role Phone Giovanni OVALLE, MELECIO, [place], Jimy Unavailable U navailable Procedures Procedure Date Duplex Scan-extrem Veins; Uni/ CT & MA M Advance Directives Directive Yes / No Effective Date File Name No Information Encounters Encounter Description Practice Location Reason(s) For Visit Diagnoses Date Provider Providers Copied on Encounter [facility], [address] [place] [address] [address], [place], [id number], [place] tel:[phone] [facility] [place] Pain in left leg 4 Giovanni OVALLE, MELECIO, [place] Ahn. [address] [facility] 302, [facility] [place], [id number] , [place]. tel:[phone] Referring Provider: Gavin Villareal MD, 36[address] [facility] 207 3640 [facility] 207, [facility] [place], [address]. tel:[phone] Family History Family Member Type Diagnosis Age At Onset No Information Payers Payer name Insurance type Covered green party ID Authoriza tion(s) Medicare ALBERTO DELATORRE [id number] BCBS ALBERTO BRADLEY [id number] Social History Type Description Quantity Date Captured [...]
== END 2024-06-26 10:53 | disposition home or self-care (01) ==
LOC: HO.CT 10:52
PROVIDERS: PCP Family Medicine; Visit Provider Hospitalist
DX: R91.1 Solitary pulmonary nodule (principal)
CPT/HCPCS: 71250

== ENCOUNTER → 2024-06-26 10:54 | Outpatient (BNV) | payer MEDICARE, SELFPAY | PROVIDERS: PCP Family Medicine; Visit Provider Radiology Diagnostic Radiology | DX: R91.1 Solitary pulmonary nodule (principal); I25.84 Coronary atherosclerosis due to calcified coronary lesion | CPT/HCPCS: 71250 ==

== ENCOUNTER 2024-10-16 11:05 | Outpatient (AMB) | payer MEDICARE, SELFPAY ==
--- NOTE | 2024-10-16 11:07 | A.OFFVIS_ITS ---
Vital Signs 10/16/24 11:08 Height 5 ft 2 in Weight 126 lb 12.253 oz BMI 23.2 BP 126/60 Blood Pressure Location Lt brachial Position Sitting Pulse 61 Pulse Source Pulse Oximeter Pulse Oximetry (%) 95 Oxygen Delivery Method Room Air Intake Visit Reasons: COPD Allergies codeine Allergy (Severe, Verified 10/16/24 11:12) Rapid Heartbeat morphine Allergy (Severe, Verified 10/16/24 11:12) Rapid Heartbeat quetiapine Allergy (Severe, Verified 10/16/24 11:12) Difficulty Breathing IV Contrast Dye Allergy (Severe, Uncoded 10/16/24 11:12) Rapid Heartbeat Sulfamethoxazole Allergy (Severe, Uncoded 10/16/24 11:12) Rapid Heartbeat HPI Comments Details: The patient is a 84 y/o woman with a history of COPD. She was treated for COPD exacerbation during the last visit in this was a follow-up visit. Overall she is feeling a lot better. She completed the antibiotics and the prednisone. She is still having some cough which is nonproductive in nature. Hchi-af-zrflsggm severity. The inhalers have been helpful. We did review her blood work which resolved relatively benign. She however is having some difficulties with her medications because she hit the donut hole and cannot afford her Spiriva. Will try to find something more financially reasonable for the patient at this time. \ 11/25/2022 the patient is here for pulmonary follow-up visit. The patient overall has been doing fair. She has had significant headaches and sinus pressure. She has been struggling with this for some time. The patient was given loratadine but resulted in adverse effects and she could not take it. She also has a hard time tolerating prednisone because it affects her mood. She has been using her respiratory therapy with good effect. Denies any significant shortness of breath although she does have dyspnea with activity. Will have her undergo a chest x-ray. The meantime going to start her on additional nasal therapies to improve her nasal allergies are likely affecting her sinuses. Will be reasonable also to treat him hoarse for sinusitis with doxycycline. 04/21/2023 the patient is here for pulmonary follow-up visit. The patient is still complaining of significant headaches. She feels like it is her sinus. She is been treated with multiple antibiotics for. It seems to be the case now lasting 4 months. She did have a sinus CT scan done at [facility] which I did review her. It appears that she does not have any evidence of sinusitis. The patient will be following up with ENT as well. I did recommend she gets evaluated for underlying headaches. The patient also having significant photosensitivity. She did follow-up with her eye doctor. At least from a respiratory status the patient is doing fairly well. She continues on the Spiriva and the Symbicort. She has not required her rescue inhaler. We did review her last chest x-ray demonstrating a small retrosternal pulmonary nodule. Will go ahead and repeat the chest x-ray at this time. The nodule still there we then will cuss a CT scan of the chest to better address the findings. 10/20/2023 the patient is here for a pulmonary follow-up visit. She continues to have significant frontal headaches. She did undergo CT scan of the sinuses which is reassuring. She is working closely with her pain specialist that she is having significant neck pain that may be contributing to her headaches. The patient also underwent a CT scan of the chest which was personally by me. The patient does have couple subcentimeter pulmonary nodules that will need follow- up. She also has notc-he-ljxwxrgi emphysema secondary to her history of smoking. Patient continues on the Symbicort Spiriva which appeared to be effective. She also has a rescue inhaler but she does not use it often. At this point the patient will continue with current respiratory therapy and she will have a repeat CT scan sometime in June. Will follow-up after her CT scan. If she has any issues prior to that she will call for an earlier assessment. 11/18/2023 the patient is here for a pulmonary follow-up visit. The patient overall has been doing well. She still complaining of findings headaches from the headaches. Moderate severity. The lights still bothering her. She did try the Astelin nasal spray but she did not tolerated as it made her jittery and bad taste. She has been using the fluticasone nasal spray and also the singular at nighttime. She continues on the Symbicort and Spiriva. Will go ahead and start her on small dose of antihistamine therapy. I do believe that she needs it. We did review her blood work demonstrating an elevated IgE consistent with allergies. In addition to that she had a CT scan of the sinuses demonstrating thickening of the mucosa of the ethmoid sinuses all the other sinus or okay. Respiratory garcia patient is doing well. She will continue with the current respiratory therapy. If the patient is no better she will need a referral to Allergy. 03/08/2024 the patient is here for a pulmonary follow-up visit. Overall she is doing well from a respiratory status. Her allergies are better controlled at this time. She was able to back off on the allergy medicine. She continues on the Spiriva and Symbicort. This has been affecting beneficial. The patient gets the Spiriva donated. In addition to that she does have a CT scan scheduled for 07/31/2024 to follow-up with the pulmonary nodules. No further recommendations at this time. Will follow-up in 6-8 months. The patient has any issues or any abnormal findings on the CT scan will go ahead and see her soone 10/16/2024 the patient is here for a pulmonary follow-up visit. She has been having hard time with the breathing for the last few weeks. She did go on a prednisone taper that did improve her breathing significantly but then she ran out started getting worse again. She does use her respiratory inhalers as prescribed. She is wondering if she needs oxygen. She does state also that she has episodes of shortness of breath and chest tightness that wake her up at nighttime. Moderate severity. She does respond well to the nebulized treatment. The patient did have a CT scan back in 2023 which we personally reviewed. She appears to have a hiatal hernia. In addition to that emphysematous lungs were hyperinflated due to the COPD. We did go for a 6 minute walk test. The patient did not desaturate enough to need oxygen. Although she did go to 93 % for period of time. The patient will undergo an overnight oximetry while sleeping to see if she needs any oxygen with sleep. In the meantime because of a hiatal hernia on her pancreatic disease and gallbladder disease I worry that she could be having some micro aspirations resulting in bronchospasms at nighttime. Therefore did ask her to sleep elevated with risers or a wedge. In the meantime will start her on omeprazole to see if this provides some relief and also will do a lower dose prednisone for longer to help with the current wheezing. She will continue with the current respiratory therapy. Will follow-up in 2-3 months. [facility] Medical History (Updated 10/16/24 @ 21:48 by Randy Aquino MD) Hiatal hernia Pulmonary nodule Limb swelling Dyspnea COPD (chronic obstructive pulmonary disease) Social History Patient Tobacco Use Status: Former Tobacco user Tobacco use type: Cigarette Years Smoked: 35 years Review of Systems Const Denies headache(s), Denies night sweats and Reports weight loss ENT Denies change in voice, Denies headache(s), Denies lip swelling, Denies mouth pain and Denies tongue swelling Card Denies chest pain, Reports dyspnea and Reports dyspnea on exertion Resp Reports cough, Reports dyspnea, Reports dyspnea on exertion and Reports wheezing GI Denies abdominal pain Musc Reports as per HPI and Reports back pain Neuro Denies Neuro-related abnormal movements and Denies headache(s) Psych Denies no additional complaints Dashawn/Lymph Denies easy bleeding and Denies lymphadenopathy Aller/Immun Denies lip swelling, Denies tongue swelling and Reports wheezing Physical Exam Vital Signs: Last Vital Signs Pulse 61 10/16/24 11:08 BP 126/60 10/16/24 11:08 Pulse Ox 95 10/16/24 11:08 Oxygen Delivery Method Room Air 10/16/24 11:08 BMI result Body Mass Index 23.2 Const Other: Patient in moderate distress due to pain. General: cooperative and healthy appearing Nutritional Appearance: well nourished Orientation/consciousness: patient oriented x3 Limitations: no limitations HEENT Head: Yes normal to inspection General nose exam: Abnormal external nose present and Nasal discharge present Eyes General: appearance normal, both eyes and all related structures Neck Neck: Yes supple Chest Chest palpation & inspection: normal palpation of entire chest wall Resp Effort & Inspection: normal respiratory effort Auscultation: wheezes and diminished lung sounds Cardio Rate: regular rate Rhythm: regular rhythm Heart sounds: S1 normal heart sound present and S2 normal heart sound present GI Palpation (GI): Soft to palpation and nontender Auscultation: normal bowel sounds Neuro General: patient oriented x3 Assessment & Plan Assessment & Plan (1) Dyspnea: Comment: significant small airways disease. Responding very well to the bronchodilator therapy Code(s): R06.00 - Dyspnea, unspecified Category: Medical Qualifiers: Dyspnea type: dyspnea on exertion Qualified Code(s): R06.00 - Dyspnea, unspecified (2) COPD (chronic obstructive pulmonary disease): Code(s): J44.9 - Chronic obstructive pulmonary disease, unspecified Category: Medical Qualifiers: COPD type: chronic bronchitis Chronic bronchitis type: simple Qualified Code(s): J41.0 - Simple chronic bronchitis (3) Pulmonary nodule: Code(s): R91.1 - Solitary pulmonary nodule Category: Medical (4) Hiatal hernia: Code(s): K44.9 - Diaphragmatic hernia without obstruction or gangrene Category: Medical Plan short-acting beta agonist as needed continue Symbicort and Spiriva start Prednisone taper continue Fluticasone daily Neti bottle with distilled water and packet use Mucinex as needed sleep with HOB elevated start PPI reflux diet Overnight oximetry on RA F/U 3-4 months Orders: Orders Overnight Pulse Oximetry Today J41.0 - Simple chronic bronchitis Medications: New omeprazole 40 mg PO DAILY 30 days 30 caps 1RF prednisone PO daily; Take 2 tabs daily x 7 days, then 1 tab daily x 14 days 21 days 28 tabs 0RF Coding Level of Care Code Est Pt Level 4 (21469) Complex EM visit Add On G2211 Diagnoses Dyspnea on exertion R06.00 Dyspnea type: dyspnea on exertion Simple chronic bronchitis J41.0 COPD type: chronic bronchitis Chronic bronchitis type: simple Pulmonary nodule R91.1 Hiatal hernia K44.9 Time Spent (min) 17
[2024-10-16 11:08] VITALS: BP 126/60; PULSE 61; O2SAT 95; BMI 23.2
--- OUTSIDE RECORDS SUMMARY | 2024-10-16 13:15 | XMS_ITS | Clinical Summary ---
Author Organization [facility] [address] [facility] Address [address] [place] [address] Phone Care Team Providers Care Product Safety Associate Name Role Phone Gavin Villareal MD Primary Care Provider [phone] Allergies Active Allergy Reactions Criticality Noted Date Comments Codeine 07/24/2016 Iodinated Contrast Media 07/24/2016 Iv Contrast Dye Morphine 06/21/2017 Sulfa (Sulfonamide Antibiotics) 06/11 Sulfa Drugs Medications albuterol HFA (PROAIR HFA ; PROVENTIL HFA ; VENTOLIN HFA) 90 mcg/actuation inhaler Inhale 2 Puffs into the lungs every 4 hours as needed. Active atorvastatin (LIPITOR) 10 mg tablet Take 10 mg by mouth daily. Active BABY ASPIRIN ORAL Take 1 Tab by mouth daily. Active calcium carbonate-vitamin D3 600 mg-5 mcg (200 unit) per tablet Take by mouth. Active escitalopram (LEXAPRO) 10 mg tablet Take 10 mg by mouth daily. 2 tabs Active levothyroxine (SYNTHROID, LEVOTHROID) 75 mcg tablet Take 75 mcg by mouth daily. Active multivit-min/iron /folic acid/K (ADULTS MULTIVITAMIN ORAL) Multiple Vitamins-Mine rals (MULTIVITAMIN ADULT) Tab Take by mouth. Active omega-3 acid ethyl esters (LOVAZA) 1 gram capsule Take by mouth. Active traZODone (DESYREL) 50 mg tablet Take 50 mg by mouth at bedtime. Active Active Problems Problem Noted Date Diagnosed Date Hyperlipidemia 08/11/2017 Hypothyroid 08/11/2017 Rheumatoid arthritis, adult 08/11/2017 Chronic obstructive pulmonary disease 06/21/2017 Encounters Date Type Department Care Team Description 08/02/2024 Telephone Gastroenterology - [address] [phone] Qi Burkett MA 08/01/2024 Telephone Gastroenterology - [address] [place] [phone] Qi Burkett MA 07/31/2024 Telephone Gastroenterology - [address] [place] [phone] Qi Burkett MA 07/31/2024 Telephone Gastroenterology - [address] [place] [phone] Lissett Cano NP 07/28/2024 2:20 PM EST Office Visit Gastroenterology - [address] [facility] [address] [phone] Lissett Cano, RASHAD Right upper quadrant abdominal pain (Primary Dx) from Last 3 Months Medical History Medical History Date Comments Chronic obstructive pulmonar y disease ([facility]) 06/21/2017 DX:Chronic obstructive pulmo nary disease ([facility]) Hyperlipidemia 08/11/2017 DX:Hyperlipidemi a Hypothyroid 08/11/2017 DX:Hypothyroid Rheumatoid arthritis, adult ([facility]) 08/11/2017 DX:Rheumatoid arthritis, adult ([facility]) Social History Tobacco Use Types Packs/Day Years Used Date Smoking Tobacco: Former Smokeless Tobacco: Never Comments Unknown Sex and Gender Information Value Date Recorded Sex Assigned at Not on file Legal Sex Female 7:24 PM EST Gender Identity Not on file Sexual Orientation Not on file Obstetrics History Last Filed Vital Signs Vital Sign Reading Time Taken Comments Blood Pressure - - Pulse - - Temperature - - Respiratory Rate - - Oxygen Saturation - - Inhaled Oxygen Concentration - - Weight 62.1 kg (137 lb) 07/28/2024 2:36 PM EST Height 154.9 cm (5' 1 ) 07/28/2024 2:36 PM EST Body Mass Index 25.89 07/28/2024 2:36 PM EST Plan of Treatment Health Maintenance Due Date Last Done Comments Cholesterol Screening (Lipid Panel) 06/13/2022 Depression Screening 06/13/2022 Falls Risk Assessment 06/13/2022 Medicare Annual Wellness Visit 06/13/2022 Osteoporosis Screening (Bone Density Screening) 06/13/2022 Social Influencers of Health Screening 06/13/2022 COVID-19 Vaccine ( season) 2024 05/18/2021, 09/17/2020, 08/26/2020 Hypertension/CHF/CAD Annual BMP Blood Test 07/28/2025 07/28/2024 DTaP,Tdap,and Td Vaccines (3 - Td or Tdap) 07/22/2028 07/22/2018, 03/28/2008 Pneumococcal Vaccine: 50+ Years Completed 08/02/2015, 08/15/2008, 08/14/2004 Zoster Vaccines Completed 04/29/2019, 07/0 02/2019, 12/10/2010 RSV Immunization Adult Patients Completed 07/24/2023 Influenza Vaccine Completed 05/14/2024, , 05/11/2022, Additional history exists HIB Vaccines Aged Out No longer eligi ble based on patient's age to complete this topic HPV Vaccines Aged Out No longer eligi ble based on patient's age to complete this topic Hepatitis A Vaccines Aged Out No long er eligible based on patient's age to complete this topic Hepatitis B Vaccines Aged Out No long er eligible based on patient's age to complete this topic IPV Vaccines Aged Out No longer eligi ble based on patient's age to complete this topic MMR Vaccines Aged Out No longer eligi ble based on patient's age to complete this topic Meningococcal ACWY Vaccine Aged Out N o longer eligible based on patient's age to complete this topic Meningococcal B Vacine Aged Out No lo nger eligible based on patient's age to complete this topic RSV Immunization Patients Under 20 months Aged Out No longer eligible based on patient's age to complete this topic Varicella Vaccines Aged Out No longer eligible based on patient's age to complete this topic Procedures Procedure Name Priority Date/Time Associated Diagnosis Comments CBC WITH AUTO DIFFERENTIAL Routine 07/28/2024 3:11 PM EST Right upper quadrant abdominal pain LIPASE Routine 07/28/2024 3:11 PM EST Right upper quadrant pain AMYLASE Routine 07/28/2024 3:11 PM EST Right upper quadrant pain CBC AND DIFFERENTIAL Routine 07/28/2024 3:11 PM EST Right upper quadrant abdominal pain COMPREHENSIVE METABOLIC PANEL Routine 07/28/2024 3:11 PM EST Right upper quadrant abdominal pain from Last 3 Months Results * CBC auto differential (07/28/2024 3:11 PM EST) WBC 5.8 4.8 - 10.8 K/mcL LAB HEMETOLOGY METHOD 07/28/2024 6:25 PM [facility] RBC 4.20 3.80 - 4.80 M/mcL LAB HEMETOLOGY METHOD 07/28/2024 6:25 PM [facility] Hemoglobin 12.9 11.5 - 16.0 g/dL LAB HEMETOLOGY METHOD 07/28/2024 6:25 PM [facility] Hematocrit 39.9 35.0 - 47.0 % LAB HEMETOLOGY METHOD 07/28/2024 6:25 PM [facility] MCV 94.3 79.0 - 98.0 FL LAB HEMETOLOGY METHOD 07/28/2024 6:25 PM [facility] MCH 30.5 27.0 - 32.0 pcg LAB HEMETOLOGY METHOD 07/28/2024 6:25 PM [facility] MCHC 32.3 32.0 - 37.0 g/dL LAB HEMETOLOGY METHOD 07/28/2024 6:25 PM [facility] RDW 13.3 11.0 - 15.0 % LAB HEMETOLOGY METHOD 07/28/2024 6:25 PM [facility] Platelets 271 130 - 400 K/mcL LAB HEMETOLOGY METHOD 07/28/2024 6:25 PM [facility] MPV 10.9 7.0 - 11.0 FL LAB HEMETOLOGY METHOD 07/28/2024 6:25 PM [facility] NRBC 0.0 <1.0 % LAB HEMETOLOGY METHOD 07/28/2024 6:25 PM [facility] NRBC Absolute 0.00 <0.10 K/mcL LAB HEMETOLOGY METHOD 07/28/2024 6:25 PM [facility] Neutrophils Relative 69.0 % LAB HEMETOLOGY METHOD 07/28/2024 6:25 PM [facility] Lymphocytes Relative 20.7 % LAB HEMETOLOGY METHOD 07/28/2024 6:25 PM [facility] Monocytes Relative 8.0 % LAB HEMETOLOGY METHOD 07/28/2024 6:25 PM [facility] Eosinophils Relative 1.2 % LAB HEMETOLOGY METHOD 07/28/2024 6:25 PM [facility] Basophils Relative 0.9 % LAB HEMETOLOGY METHOD 07/28/2024 6:25 PM [facility] Immature Granulocytes Relative 0.2 % LAB HEMETOLOGY METHOD 07/28/2024 6:25 PM [facility] Neutrophils Absolute 3.98 1.50 - 7.00 K/mcL LAB HEMETOLOGY METHOD 07/28/2024 6:25 PM [facility] Lymphocytes Absolute 1.19 1.00 - 5.00 K/mcL LAB HEMETOLOGY METHOD 07/28/2024 6:25 PM [facility] Monocytes Absolute 0.46 0.20 - 1.00 K/mcL LAB HEMETOLOGY METHOD 07/28/2024 6:25 PM [facility] Eosinophils Absolute 0.07 0.00 - 0.50 K/mcL LAB HEMETOLOGY METHOD 07/28/2024 6:25 PM [facility] Basophils Absolute 0.05 0.00 - 0.20 K/mcL LAB HEMETOLOGY METHOD 07/28/2024 6:25 PM [facility] Immature Granulocytes Absolute 0.01 0.00 - 0.03 K/mcL LAB HEMETOLOGY METHOD 07/28/2024 6:25 PM EST [facility] Blood Venous blood specimen / Unknown Venipuncture / Unknown 07/28/2024 3:11 PM EST 07/28/2024 6:25 PM EST Lissett Cano SERVICE SUPERVISOR LAB BLOOD ORDERABLES Final Re sult Performing Organization Address City/[facility]/ZIP Co de Phone Number [facility] [address] [place] [address], [place] [phone] * Lipase (07/28/2024 3:11 PM EST) Lipase 22 13 - 75 unit/L LAB CHEMISTRY METHOD 07/28/2024 10:48 PM EST [facility] Blood Venous blood specimen / Unknown Venipuncture / Unknown 07/28/2024 3:11 PM EST 07/28/2024 10:48 PM EST us Lissett Cano SERVICE SUPERVISOR LAB BLOOD ORDERABLES Final Re sult Performing Organization Address [facility]/ZIP Co de Phone Number [facility] [address] [place] [address], [place] [phone] * Amylase (07/28/2024 3:11 PM EST) Amylase 81 25 - 115 unit/L LAB CHEMISTRY METHOD 07/28/2024 10:48 PM EST [facility] Blood Venous blood specimen / Unknown Venipuncture / Unknown 07/28/2024 3:11 PM EST 07/28/2024 10:48 PM EST us Lissett Cano SERVICE SUPERVISOR LAB BLOOD ORDERABLES Final Re sult Performing Organization Address City/[facility]/ZIP Co de Phone Number [facility] [address] [place] [address], [place] [phone] * Comprehensive metabolic panel (07/28/2024 3:11 PM EST) [facility] Sodium 138 133 - 145 mmol/L LAB CHEMISTRY METHOD 07/28/2024 10:56 PM [facility] Potassium 4.0 3.5 - 5.5 mmol/L LAB CHEMISTRY METHOD 07/28/2024 10:56 PM [facility] Chloride 105 96 - 110 mmol/L LAB CHEMISTRY METHOD 07/28/2024 10:56 PM [facility] CO2 29 21 - 32 mmol/L LAB CHEMISTRY METHOD 07/28/2024 10:56 PM [facility] Anion Gap 4 3 - 11 LAB CHEMISTRY METHOD 07/28/2024 10:56 PM [facility] Glucose 75 70 - 100 mg/dL LAB CHEMISTRY METHOD 07/28/2024 10:56 PM [facility] BUN 14 5 - 25 mg/dL LAB CHEMISTRY METHOD 07/28/2024 10:56 PM [facility] Creatinine 0.62 0.50 - 1.10 mg/dL LAB CHEMISTRY METHOD 07/28/2024 10:56 PM [facility] eGFR 89 >=60 mL/min/1. 73m2 LAB CHEMISTRY METHOD 07/28/2024 10:56 PM [facility] Comment:Calculation based on the??Chronic Kidney Disease Epidemiology Collaboration (CKD-EPI) equation refit??without adjustment for race. BUN/Creatinine Ratio 22.6 LAB CHEMISTRY METHOD 07/28/2024 10:56 PM [facility] Calcium 9.3 8.5 - 10.5 mg/dL LAB CHEMISTRY METHOD 07/28/2024 10:56 PM [facility] AST (SGOT) 16 10 - 42 unit/L LAB CHEMISTRY METHOD 07/28/2024 10:56 PM [facility] ALT (SGPT) 20 10 - 60 unit/L LAB CHEMISTRY METHOD 07/28/2024 10:56 PM EST [facility] Alkaline Phosphatase 72 42 - 121 unit/L LAB CHEMISTRY METHOD 07/28/2024 10:56 PM EST [facility] Total Protein 6.7 6.0 - 8.0 g/dL LAB CHEMISTRY METHOD 07/28/2024 10:56 PM EST [facility] Albumin 4.1 3.2 - 5.0 g/dL LAB CHEMISTRY METHOD 07/28/2024 10:56 PM [facility] Total Bilirubin 0.3 0.0 - 1.4 mg/dL LAB CHEMISTRY METHOD 07/28/2024 10:56 PM [facility] Blood Venous blood specimen / Unknown Venipuncture / Unknown 07/28/2024 3:11 PM EST 07/28/2024 10:48 PM EST Lissett Cano SERVICE SUPERVISOR LAB BLOOD ORDERABLES Final Re sult [facility] [address] [place] [address], from Last 3 Months Insurance MEDICARE [facility] Care Teams Product Safety Associate Relationship Specialty Start Date End Date Gavin Villareal MD [address] [phone] PCP - General Family Medicine 07/24/24
== END 2024-10-16 11:44 | disposition home or self-care (01) ==
LOC: HO.HPS 11:05
PROVIDERS: PCP Family Medicine; Visit Provider Hospitalist
DX: R06.00 Dyspnea, unspecified (principal); J41.0 Simple chronic bronchitis; R91.1 Solitary pulmonary nodule; K44.9 Diaphragmatic hernia without obstruction or gangrene
CPT/HCPCS: 99214; G2211

== ENCOUNTER → 2024-10-16 11:05 | Outpatient (BNVA) | payer MEDICARE, SELFPAY | PROVIDERS: PCP Family Medicine; Visit Provider Hospitalist | DX: J41.0 Simple chronic bronchitis (principal); R91.1 Solitary pulmonary nodule; R06.00 Dyspnea, unspecified; K44.9 Diaphragmatic hernia without obstruction or gangrene; Z87.891 Personal history of nicotine dependence | CPT/HCPCS: 99212 ==

== ENCOUNTER 2024-12-12 13:42 | Outpatient (AMB) | payer MEDICARE, SELFPAY ==
[2024-12-12 13:44] VITALS: BP 144/58; PULSE 61; O2SAT 94; BMI 22.4
--- NOTE | 2024-12-12 13:44 | A.OFFVIS_ITS ---
Vital Signs 12/12/24 13:44 Height 5 ft 2 in Weight 122 lb 5.705 oz BMI 22.4 BP 144/58 H Blood Pressure Location Lt brachial Position Sitting Pulse 61 Pulse Source Pulse Oximeter Pulse Oximetry (%) 94 Oxygen Delivery Method Room Air Intake Visit Reasons: Shorness of breath, chest tightness Header Set Up Operator Required: No Allergies codeine Allergy (Severe, Verified 12/12/24 16:47) Rapid Heartbeat morphine Allergy (Severe, Verified 12/12/24 16:47) Rapid Heartbeat quetiapine Allergy (Severe, Verified 12/12/24 16:47) Difficulty Breathing IV Contrast Dye Allergy (Severe, Uncoded 12/12/24 16:47) Rapid Heartbeat Sulfamethoxazole Allergy (Severe, Uncoded 12/12/24 16:47) Rapid Heartbeat HPI Comments Details: The patient is a 84 y/o woman with a history of COPD. She was treated for COPD exacerbation during the last visit in this was a follow-up visit. Overall she is feeling a lot better. She completed the antibiotics and the prednisone. She is still having some cough which is nonproductive in nature. [id number] severity. The inhalers have been helpful. We did review her blood work which resolved relatively benign. She however is having some difficulties with her medications because she hit the donut hole and cannot afford her Spiriva. Will try to find something more financially reasonable for the patient at this time. \ 11/25/2022 the patient is here for pulmonary follow-up visit. The patient overall has been doing fair. She has had significant headaches and sinus pressure. She has been struggling with this for some time. The patient was given loratadine but resulted in adverse effects and she could not take it. She also has a hard time tolerating prednisone because it affects her mood. She has been using her respiratory therapy with good effect. Denies any significant shortness of breath although she does have dyspnea with activity. Will have her undergo a chest x-ray. The meantime going to start her on additional nasal therapies to improve her nasal allergies are likely affecting her sinuses. Will be reasonable also to treat him hoarse for sinusitis with doxycycline. 04/21/2023 the patient is here for pulmonary follow-up visit. The patient is still complaining of significant headaches. She feels like it is her sinus. She is been treated with multiple antibiotics for. It seems to be the case now lasting 4 months. She did have a sinus CT scan done at [facility] which I did review her. It appears that she does not have any evidence of sinusitis. The patient will be following up with ENT as well. I did recommend she gets evaluated for underlying headaches. The patient also having significant photosensitivity. She did follow-up with her eye doctor. At least from a respiratory status the patient is doing fairly well. She continues on the Spiriva and the Symbicort. She has not required her rescue inhaler. We did review her last chest x-ray demonstrating a small retrosternal pulmonary nodule. Will go ahead and repeat the chest x-ray at this time. The nodule still there we then will cuss a CT scan of the chest to better address the findings. 10/20/2023 the patient is here for a pulmonary follow-up visit. She continues to have significant frontal headaches. She did undergo CT scan of the sinuses which is reassuring. She is working closely with her pain specialist that she is having significant neck pain that may be contributing to her headaches. The patient also underwent a CT scan of the chest which was personally by me. The patient does have couple subcentimeter pulmonary nodules that will need follow- up. She also has [id number] emphysema secondary to her history of smoking. Patient continues on the Symbicort Spiriva which appeared to be effective. She also has a rescue inhaler but she does not use it often. At this point the patient will continue with current respiratory therapy and she will have a repeat CT scan sometime in June. Will follow-up after her CT scan. If she has any issues prior to that she will call for an earlier assessment. 11/18/2023 the patient is here for a pulmonary follow-up visit. The patient overall has been doing well. She still complaining of findings headaches from the headaches. Moderate severity. The lights still bothering her. She did try the Astelin nasal spray but she did not tolerated as it made her jittery and bad taste. She has been using the fluticasone nasal spray and also the singular at nighttime. She continues on the Symbicort and Spiriva. Will go ahead and start her on small dose of antihistamine therapy. I do believe that she needs it. We did review her blood work demonstrating an elevated IgE consistent with allergies. In addition to that she had a CT scan of the sinuses demonstrating thickening of the mucosa of the ethmoid sinuses all the other sinus or okay. Respiratory garcia patient is doing well. She will continue with the current respiratory therapy. If the patient is no better she will need a referral to Allergy. 03/08/2024 the patient is here for a pulmonary follow-up visit. Overall she is doing well from a respiratory status. Her allergies are better controlled at this time. She was able to back off on the allergy medicine. She continues on the Spiriva and Symbicort. This has been affecting beneficial. The patient gets the Spiriva donated. In addition to that she does have a CT scan scheduled for 07/31/2024 to follow-up with the pulmonary nodules. No further recommendati ons at this time. Will follow-up in 6-8 months. The patient has any issues or any abnormal findings on the CT scan will go ahead and see her soone 10/16/2024 the patient is here for a pulmonary follow-up visit. She has been having hard time with the breathing for the last few weeks. She did go on a prednisone taper that did improve her breathing significantly but then she ran out started getting worse again. She does use her respiratory inhalers as prescribed. She is wondering if she needs oxygen. She does state also that she has episodes of shortness of breath and chest tightness that wake her up at nighttime. Moderate severity. She does respond well to the nebulized treatment. The patient did have a CT scan back in 2023 which we personally reviewed. She appears to have a hiatal hernia. In addition to that emphysematous lungs were hyperinflated due to the COPD. We did go for a 6 minute walk test. The patient did not desaturate enough to need oxygen. Although she did go to 93 % for period of time. The patient will undergo an overnight oximetry while sleeping to see if she needs any oxygen with sleep. In the meantime because of a hiatal hernia on her pancreatic disease and gallbladder disease I worry that she could be having some micro aspirations resulting in bronchospasms at nighttime. Therefore did ask her to sleep elevated with risers or a wedge. In the meantime will start her on omeprazole to see if this provides some relief and also will do a lower dose prednisone for longer to help with the current wheezing. She will continue with the current respiratory therapy. Will follow-up in 2-3 months. 12/12/2024 the patient is here for a pulmonary sick visit. She wishes seen about 2 months ago and the patient was given further antibiotics over the phone because of worsening respiratory symptoms. She was initially on doxycycline and then was not responding she was placed on Augmentin. Although give her diarrhea and she stopped it after a couple days. She went back on doxycycline but she just has not felt well. She feels very short of breath and also complaining of chest pressure and pain. The patient could not tolerate the symptoms and a amanda tita made her sick visit. During the visit we did take her for walking oximetry the patient did desaturate briefly to 88% walking on room air. She did good just on 1 L nasal cannula. She already has oxygen for the nighttime so which is added a portable tank order for her to have with be cylinders. In the meantime we also had get blood work. Her D-dimer did come back significantly elevated actually critically elevated at 1500. I did call her explained to her the seriousness of the matter the patient was agreeable to go to the ER today. [facility] Medical History (Updated 12/12/24 @ 23:22 by DESEAN Means) Bradycardia Hiatal hernia Pulmonary nodule Limb swelling Dyspnea COPD (chronic obstructive pulmonary disease) Social History Patient Tobacco Use Status: Former Tobacco user Tobacco use type: Cigarette Years Smoked: 35 years Smoked in Last 30 Days: No Use of substances other than those prescribed or required for medical reasons: No Advance Directives: Yes Advance Directives Information Provided: Yes Advance Directives on File: No Nutrition Risks: No Nutritional Risk Review of Systems Const Denies headache(s), Denies night sweats, Reports weakness and Reports weight loss ENT Denies change in voice, Denies headache(s), Denies lip swelling, Denies mouth pain and Denies tongue swelling Card Reports chest pain, Reports dyspnea and Reports dyspnea on exertion Resp Reports cough, Reports dyspnea, Reports dyspnea on exertion and Reports wheezing GI Denies abdominal pain Musc Reports as per HPI and Reports back pain Neuro Denies Neuro-related abnormal movements, Denies headache(s) and Reports weakness Psych Denies no additional complaints Dashawn/Lymph Denies easy bleeding and Denies lymphadenopathy Aller/Immun Denies lip swelling, Denies tongue swelling and Reports wheezing Physical Exam Vital Signs: Last Vital Signs Pulse 61 12/12/24 13:44 BP 144/58 H 12/12/24 13:44 Pulse Ox 94 12/12/24 13:44 Oxygen Delivery Method Room Air 12/12/24 13:44 BMI result Body Mass Index 22.4 Const Other: Patient in moderate distress due to pain. General: cooperative and healthy appearing Nutritional Appearance: well nourished Orientation/consciousness: patient oriented x3 Limitations: no limitations HEENT Head: Yes normal to inspection General nose exam: Abnormal external nose present and Nasal discharge present Eyes General: appearance normal, both eyes and all related structures Neck Neck: Yes supple Chest Chest palpation & inspection: normal palpation of entire chest wall Resp Effort & Inspection: normal respiratory effort Auscultation: no wheezes and diminished lung sounds Cardio Rate: regular rate Rhythm: regular rhythm Heart sounds: S1 normal heart sound present and S2 normal heart sound present GI Palpation (GI): Soft to palpation and nontender Auscultation: normal bowel sounds Neuro General: patient oriented x3 Office Procedures 6 Minute Walk Time:: 08:18 SPO2 % at rest: 95 Pulse at rest: 59 SPO2 % during excercise: 88 Pulse during excercise: 65 Distance in yards walked: 100 Stella Score: 6 Supplemental Oxygen: placed on 1l/min oxygen with activity and maintained pox 94% [id number] - 6 Minute Walk Assessment & Plan Assessment & Plan (1) Dyspnea: Comment: significant small airways disease. Responding very well to the bronchodilator therapy Code(s): R06.00 - Dyspnea, unspecified Category: Medical Qualifiers: Dyspnea type: dyspnea on exertion Qualified Code(s): R06.00 - Dyspnea, unspecified (2) COPD (chronic obstructive pulmonary disease): Code(s): J44.9 - Chronic obstructive pulmonary disease, unspecified Category: Medical Qualifiers: COPD type: chronic bronchitis Chronic bronchitis type: simple Qualified Code(s): J41.0 - Simple chronic bronchitis (3) Pulmonary nodule: Code(s): R91.1 - Solitary pulmonary nodule Category: Medical (4) Hiatal hernia: Code(s): K44.9 - Diaphragmatic hernia without obstruction or gangrene Category: Medical (5) Bradycardia: Code(s): R00.1 - Bradycardia, unspecified Category: Medical Plan short-acting beta agonist as needed continue Symbicort and Spiriva completed Prednisone taper continue Fluticasone daily Neti bottle with distilled water and packet use Mucinex as needed sleep with HOB elevated reflux diet Overnight oximetry on RA cardiology eval for bradycardia start oxygen 1l/min with activity and 2L/min while sleeping Addendum: Ddimer >1500 sent to the ED to r/o PE Orders: Orders Complete Blood Count Auto Diff 12/12/24 R00.1 - Bradycardia, unspecified, R06.00 - Dyspnea, unspecified Troponin-I High Sensitivity 12/12/24 R00.1 - Bradycardia, unspecified, R06.00 - Dyspnea, unspecified Basic Metabolic Panel 12/12/24 R00.1 - Bradycardia, unspecified, R06.00 - Dyspnea, unspecified Immunoglobulin E 12/12/24 R00.1 - Bradycardia, unspecified, R06.00 - Dyspnea, unspecified D Dimer High Sensitivity 12/12/24 R00.1 - Bradycardia, unspecified, R06.00 - Dyspnea, unspecified Venous Blood Gas 12/12/24 R00.1 - Bradycardia, unspecified, R06.00 - Dyspnea, unspecified Erythrocyte Sedimentation Rate 12/12/24 R00.1 - Bradycardia, unspecified, R06.00 - Dyspnea, unspecified XR chest 2V 12/12/24 R00.1 - Bradycardia, unspecified, R06.00 - Dyspnea, unspecified Referrals Cardiology Referral R00.1 - Bradycardia, unspecified Coding Level of Care Code Est Pt Level 5 (68380) Diagnoses Dyspnea on exertion R06.00 Dyspnea type: dyspnea on exertion Simple chronic bronchitis J41.0 COPD type: chronic bronchitis Chronic bronchitis type: simple Pulmonary nodule R91.1 Hiatal hernia K44.9 Bradycardia R00.1 CPT Codes Coding ([id number]) Time Spent (min) 70
--- OUTSIDE RECORDS SUMMARY | 2024-12-12 15:24 | XMS_ITS | Data Portability ---
Author Organization [facility], Main Office Address [address] [place] [address] Care Team Providers Care Peoplesoft Hcm Consultant Name Role Phone JASWINDER LIMON Conference Center Manager [phone] GARY AQUINO [employer] Faculty Member KAREN MAHONEY Vascular Surgeon [facility] RANCHO BENSON Phys. Med. & Rehab HEATHER VILLAREAL Primary Care Provider [phone] ROJAS GREENE Sewer Pipe Layer Helper [facility] Neurologist NAN COULTER Events Administrative Assistant MAGDI PATINO Senior Account Manager [facility] Ur[facility] Assessment Encounter Date Assessment Date Assessment LastModified by Organization Details LastModified Time 06/05/2024 06/05/2024 Apparent AECB wi th no evidence of severe resp insufficiency, so outpatient management is appropriate. 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 PHone follow up in 1-2 days. Viral testing as ordered. [email or web address] Not available 06/07/2024 17:18:13 Plan of Treatment Reminders Order Date Submit Date Provider Last Modified By Organization Details Last Modified Time Details Appointments [id number] 2024 11:15A Brittany Villareal MD Not available Not available Not available Lab rapid SARS CoV 2 Ag, QL IA, respir atory specim en 2024 025 [facility] In-Office Order, Internal Use Only DO Not Attach Compendium DO Not Attach Compendium, Do Not Delete/merge, [id number] 12/02/2024 11:38:32 strep group A, DNA, swab 2024 [email or web address] In-Office Order, Internal Use Only DO Not Attach Compendium DO Not Attach Compendium, Do Not Delete/merge, [id number] 12/02/2024 12:34:12 CMP, serum or plasma 2023 024 [facility] (Centralized Electronic Ordering - All Locations), Patient Can Go To The Location Of Their Choice, [id number] 06/16/2024 18:05:50 gamma- glutam yl transf erase (ggt), serum 2023 024 DEBBY [facility] (Centralized Electronic Ordering - All Locations), Patient Can Go To The Location Of Their Choice, [id number] 06/16/2024 18:05:53 amylas e + lipase , serum 2023 DEBB[facility] (Centralized Electronic Ordering - All Locations), Patient Can Go To The Location Of Their Choice, [id number] 06/16/2024 18:05:52 lactic acid, blood 2023 DEBB[facility] (Centralized Electronic Ordering - All Locations), Patient Can Go To The Location Of Their Choice, [id number] 06/16/2024 18:05:54 C reacti ve protei n, QN, serum or plasma 2023 024 [facility] (Centralized Electronic Ordering - All Locations), Patient Can Go To The Location Of Their Choice, [id number] 06/16/2024 18:05:54 CBC 2023 024 [facility] (Centralized Electronic Ordering - All Locations), Patient Can Go To The Location Of Their Choice, [id number] 06/16/2024 18:05:51 rapid flu (A+B) 2023 [facility] In-Office Order, Internal Use Only DO Not Attach Compendium DO Not Attach Compendium, Do Not Delete/merge, [id number] 06/05/2024 15:19:38 rsv (respi ratory syncyt ial virus) , sasha, della leblanc 2023 [place] In-Office Order, Internal Use Only DO Not Attach Compendium DO Not Attach Compendium, Do Not Delete/merge, [id number] 06/06/2024 08:56:59 Referral None record ed. Procedures None record ed. Surgeries None record ed. Imaging XR, ribs, unilat eral 2023 [facility], [address], [address], [place], [address], 06/16/2024 08:37:13 XR, abdome n - eval for any stool retent ion. 2023 024 [facility], [address], [address], [place], [address], 06/14/2024 19:58:51 Medication Orders doxycy virgen hyclat e 100 mg capsul e 2024 025 [facility] #[id number], [address] [place] [address], [id number], 12/02/2024 11:39:38 predni sone 20 mg tablet 2023 [facility]24 [id number], [address] [place] [address], [id number], 11/14/2024 14:10:14 Zithro max Z-Yuri 250 mg tablet 2023 024 [facility] #[id number], [address] [place] [address], [id number], 11/14/2024 14:09:59 Patient TargetsNo targets recorded. Patient Instructions Encounter Date Encounter Id Patient Instructions Last Modified By Organization Details Last Modified Time 06/05/2024 [id number] shortness of breath: care instructions [email or web address] Not available 06/05/2024 14:54:49 06/13/2024 [id number] medical record request* [email or web address] Not available 06/26/2024 10:30:08 high blood pressure: care instructions [email or web address] Not available 06/13/2024 12:00:10 learning about high blood pressure ckokar Not available 06/13/2024 12:00:10 11/22/2024 [id number] varicose veins: care instructions [email or web address] Not available 11/22/2024 11:53:58 high blood pressure: care instructions [email or web address] Not available 11/22/2024 11:53:58 learning about high blood pressure ckokar Not available 11/22/2024 11:53:58 chronic obstructive pulmonary disease (COPD): care instructions [email or web address] Not available 11/22/2024 11:51:43 learning about copd and how to prevent lung infections ckokar Not available 11/22/2024 11:51:43 Reason for Referral None Reported. Results Created Date Observation Date Name Description Value Unit Range Abnormal Flag Note LastModifiedBy Organization Detail LastModifiedTime 05/31/20 24 05/31/2024 CMP14 (REFL EX HGB A1C) glucose 103 mg/dL 70-99 above high normal Not Available [facility] ([facility]) [address] [place], [address], 06/01/2024 16:06:53 05/31/20 24 05/31/2024 CMP14 (REFL EX HGB A1C) BUN 13 mg/dL 8-27 normal Not Available [facility] ([facility]) [address] [place], [address], 06/01/2024 16:06:53 05/31/20 24 05/31/2024 CMP14 (REFL EX HGB A1C) creatinine 0.73 mg/dL 0.57-1 .00 normal Not Available [facility] ([facility]) [address] [place], [address], 06/01/2024 16:06:53 05/31/20 24 05/31/2024 CMP14 (REFL EX HGB A1C) eGFR 82 mL/mi n/1.7 3 >59 normal Not Available [facility] ([facility]) [address] [place], [address], 06/01/2024 16:06:53 05/31/20 24 05/31/2024 CMP14 (REFL EX HGB A1C) BUN/creatini ne ratio 18 12-28 normal Not Available [facility] ([facility]) [address] [place], [address], 06/01/2024 16:06:53 05/31/20 24 05/31/2024 CMP14 (REFL EX HGB A1C) sodium 143 mmol/ L 134-14 4 normal Not Available [facility] ([facility]) [address] [place], [address], 06/01/2024 16:06:53 05/31/20 24 05/31/2024 CMP14 (REFL EX HGB A1C) potassium 4.5 mmol/ L 3.5-5. 2 normal Not Available [facility] ([facility]) [address] [place], [address], 06/01/2024 16:06:53 05/31/20 24 05/31/2024 CMP14 (REFL EX HGB A1C) chloride 102 mmol/ L 96-106 normal Not Available [facility] ([facility]) [address] [place], [address], 06/01/2024 16:06:53 05/31/20 24 05/31/2024 CMP14 (REFL EX HGB A1C) carbon dioxide, total 23 mmol/ L 20-29 normal Not Available [facility] ([facility]) [address] [place], [address], 06/01/2024 16:06:53 05/31/20 24 05/31/2024 CMP14 (REFL EX HGB A1C) calcium 9.4 mg/dL 8.7-10 .3 normal Not Available [facility] ([facility]) [address] [place], [address], 06/01/2024 16:06:53 05/31/20 24 05/31/2024 CMP14 (REFL EX HGB A1C) protein, total 6.6 g/dL 6.0-8. 5 normal Not Available [facility] ([facility]) [address] [place], [address], 06/01/2024 16:06:53 05/31/20 24 05/31/2024 CMP14 (REFL EX HGB A1C) albumin 4.3 g/dL 3.7-4. 7 normal Not Available [facility] ([facility]) [address] [place], [address], 06/01/2024 16:06:53 05/31/20 24 05/31/2024 CMP14 (REFL EX HGB A1C) globulin, total 2.3 g/dL 1.5-4. 5 Not Available [facility] ([facility]) [address] [place], [address], 06/01/2024 16:06:53 05/31/20 24 05/31/2024 CMP14 (REFL EX HGB A1C) bilirubin, total 0.4 mg/dL 0.0-1. 2 normal Not Available [facility] ([facility]) [address] [place], [address], 06/01/2024 16:06:53 05/31/20 24 05/31/2024 CMP14 (REFL EX HGB A1C) alkaline phosphatase 73 IU/L 44-121 normal Not Available [facility] ([facility]) [address] [place], [address], 06/01/2024 16:06:53 05/31/20 24 05/31/2024 CMP14 (REFL EX HGB A1C) AST (SGOT) 22 IU/L 0-40 normal Not Available [facility] ([facility]) [address] [place], [address], 06/01/2024 16:06:53 05/31/20 24 05/31/2024 CMP14 (REFL EX HGB A1C) ALT (SGPT) 14 IU/L 0-32 normal Not Available [facility] ([facility]) [address] [place], [address], 06/01/2024 16:06:53 05/31/20 24 06/01/2024 CMP14 (REFL EX HGB A1C) hemoglobin A1C 5.4 % 4.8-5. 6 normal Predi abete s: 5.7 - 6.4 Diabe rodríguez: >6.4 Glyce lexie contr ol for adult s with diabe rodríguez: <7.0 Not Available [facility] ([facility]) [address] [facility], [place], [address], 06/01/2024 16:06:53 05/31/20 24 05/31/2024 TSH+F REE T4 TSH 1.930 uIU/m L 0.450- 4.500 normal Not Available [facility] ([facility]) [address] [place], [address], 06/01/2024 16:06:54 05/31/20 24 05/31/2024 TSH+F REE T4 T4,free(dire ct) 1.44 NG/dL 0.82-1 .77 normal Not Available [facility] ([facility]) [address] [place], [address], 06/01/2024 16:06:54 05/31/20 24 05/31/2024 CBC WITH DIFFE RENTI AL/PL ATELE T WBC 7.5 x10e3 /uL 3.4-10 .8 normal Eff ectiv e Decem eboni [address] [place] [id number] 5 WBC will be made* * non-o rdera ble as a stand -thelma e order code. Not Available [facility] ([facility]) [address] [place], [address], 06/01/2024 16:06:55 05/31/20 24 05/31/2024 CBC WITH DIFFE RENTI AL/PL ATELE T RBC 4.09 x10e6 /uL 3.77-5 .28 normal Not Available [facility] ([facility]) [address] [place], [address], 06/01/2024 16:06:55 05/31/20 24 05/31/2024 CBC WITH DIFFE RENTI AL/PL ATELE T hemoglobin 12.3 g/dL 11.1-1 5.9 normal Not Available [facility] ([facility]) [address] [place], [address], 06/01/2024 16:06:55 05/31/20 24 05/31/2024 CBC WITH DIFFE RENTI AL/PL ATELE T hematocrit 38.0 % 34.0-4 6.6 normal Not Available [facility] ([facility]) [address] [place], [address], 06/01/2024 16:06:55 05/31/20 24 05/31/2024 CBC WITH DIFFE RENTI AL/PL ATELE T MCV 93 fL 79-97 normal Not Available [facility] ([facility]) [address] [place], [address], 06/01/2024 16:06:55 05/31/20 24 05/31/2024 CBC WITH DIFFE RENTI AL/PL ATELE T MCH 30.1 pg 26.6-3 3.0 normal Not Available [facility] ([facility]) [address] [place], [address], 06/01/2024 16:06:55 05/31/20 24 05/31/2024 CBC WITH DIFFE RENTI AL/PL ATELE T MCHC 32.4 g/dL 31.5-3 5.7 normal Not Available [facility] ([facility]) [address] [place], [address], 06/01/2024 16:06:55 05/31/20 24 05/31/2024 CBC WITH DIFFE RENTI AL/PL ATELE T RDW 12.4 % 11.7-1 5.4 Not Available [facility] ([facility]) [address] [facility], [place], [address], 06/01/2024 16:06:55 05/31/20 24 05/31/2024 CBC WITH DIFFE RENTI AL/PL ATELE T platelets 289 x10e3 /uL 150-45 0 normal Not Available [facility] ([facility]) [address] [facility], [place], [address], 06/01/2024 16:06:55 05/31/20 24 05/31/2024 CBC WITH DIFFE RENTI AL/PL ATELE T neutrophils 75 % not estab. normal Not Available [facility] ([facility]) [address] [facility], [place], [address], 06/01/2024 16:06:55 05/31/20 24 05/31/2024 CBC WITH DIFFE RENTI AL/PL ATELE T lymphs 17 % not estab. normal Not Available [facility] ([facility]) [address] [facility], [place], [address], 06/01/2024 16:06:55 05/31/20 24 05/31/2024 CBC WITH DIFFE RENTI AL/PL ATELE T monocytes 6 % not estab. normal Not Available [facility] ([facility]) [address] [facility], [place], [address], 06/01/2024 16:06:55 05/31/20 24 05/31/2024 CBC WITH DIFFE RENTI AL/PL ATELE T eos 1 % not estab. normal Not Available [facility] ([facility]) [address] [place], [address], 06/01/2024 16:06:55 05/31/20 24 05/31/2024 CBC WITH DIFFE RENTI AL/PL ATELE T basos 1 % not estab. normal Not Available [facility] ([facility]) [address] [place], [address], 06/01/2024 16:06:55 05/31/20 24 05/31/2024 CBC WITH DIFFE RENTI AL/PL ATELE T immature cells MAINTAINABILITY ENGINEER Not Available [facility] ([facility]) [address] [place], [address], 06/01/2024 16:06:55 05/31/20 24 05/31/2024 CBC WITH DIFFE RENTI AL/PL ATELE T neutrophils (absolute) 5.6 x10e3 /uL 1.4-7. 0 normal Not Available [facility] ([facility]) [address] [place], [address], 06/01/2024 16:06:55 05/31/20 24 05/31/2024 CBC WITH DIFFE RENTI AL/PL ATELE T lymphs (absolute) 1.3 x10e3 /uL 0.7-3. 1 normal Not Available [facility] ([facility]) [address] [place], [address], 06/01/2024 16:06:55 05/31/20 24 05/31/2024 CBC WITH DIFFE RENTI AL/PL ATELE T monocytes(ab solute) 0.5 x10e3 /uL 0.1-0. 9 normal Not Available [facility] ([facility]) [address] [place], [address], 06/01/2024 16:06:55 05/31/20 24 05/31/2024 CBC WITH DIFFE RENTI AL/PL ATELE T eos (absolute) 0.1 x10e3 /uL 0.0-0. 4 normal Not Available [facility] ([facility]) [address] [place], [address], 06/01/2024 16:06:55 05/31/20 24 05/31/2024 CBC WITH DIFFE RENTI AL/PL ATELE T baso (absolute) 0.1 x10e3 /uL 0.0-0. 2 normal Not Available [facility] ([facility]) [address] [place], [address], 06/01/2024 16:06:55 05/31/20 24 05/31/2024 CBC WITH DIFFE RENTI AL/PL ATELE T immature granulocytes 0 % not estab. Not Available [facility] ([facility]) [address] [facility], [place], [address], 06/01/2024 16:06:55 05/31/20 24 05/31/2024 CBC WITH DIFFE RENTI AL/PL ATELE T immature grans (abs) 0.0 x10e3 /uL 0.0-0. 1 Not Available [facility] ([facility]) [address] [facility], [place], [address], 06/01/2024 16:06:55 05/31/20 24 05/31/2024 CBC WITH DIFFE RENTI AL/PL ATELE T NRBC MAINTAINABILITY ENGINEER Not Available [facility] ([facility]) [address] [place], [address], 06/01/2024 16:06:55 05/31/20 24 05/31/2024 CBC WITH DIFFE RENTI AL/PL ATELE T hematology comments: MAINTAINABILITY ENGINEER Not Available [facility] ([facility]) [address] [place], [address], 06/01/2024 16:06:55 05/31/20 24 05/31/2024 LIPID PANEL cholesterol, total 243 mg/dL 100-19 9 above high normal Not Available [facility] ([facility]) [address] [place], [address], 06/01/2024 16:06:56 05/31/20 24 05/31/2024 LIPID PANEL triglyceride s 69 mg/dL 0-149 normal Not Available [facility] ([facility]) [address] [place], [address], 06/01/2024 16:06:56 05/31/20 24 05/31/2024 LIPID PANEL HDL cholesterol 72 mg/dL >39 normal Not Available [facility] ([facility]) [address] [place], [address], 06/01/2024 16:06:56 05/31/20 24 05/31/2024 LIPID PANEL VLDL cholesterol qiana 12 mg/dL 5-40 Not Available [facility] ([facility]) [address] [place], [address], 06/01/2024 16:06:56 05/31/20 24 05/31/2024 LIPID PANEL LDL chol calc ([facility]) 159 mg/dL 0-99 above high normal Not Available [facility] ([facility]) [address] [place], [address], 06/01/2024 16:06:56 05/31/20 24 05/31/2024 LIPID PANEL LDL calc comment: MAINTAINABILITY ENGINEER Not Available [facility] ([facility]) [address] [facility], [place], [address], 06/01/2024 16:06:56 05/31/20 24 06/01/2024 MAGNE SIUM magnesium 2.2 mg/dL 1.6-2. 3 normal Not Available [facility] ([facility]) [address] [place], [address], 06/01/2024 16:06:57 06/05/20 24 06/05/2024 rapid flu (A+B) Flu A negati ve Not Available In-Office Order Internal Use Only DO Not Attach Compendium DO Not Attach Compendium, Do Not Delete/merge, [id number] 06/05/2024 14:54:31 06/05/20 24 06/05/2024 rapid flu (A+B) Flu B negati ve Not Available In-Office Order Internal Use Only DO Not Attach Compendium DO Not Attach Compendium, Do Not Delete/merge, [id number] 06/05/2024 14:54:31 06/06/20 24 06/06/2024 rsv (resp irato ry syncy tial virus ), rapid , nasop haryn geal RSV, RAPID negati ve Not Available In-Office Order Internal Use Only DO Not Attach Compendium DO Not Attach Compendium, Do Not Delete/merge, [id number] 06/05/2024 14:54:40 06/14/20 24 06/14/2024 COMP. METAB OLIC PANEL (14) glucose 137 mg/dL 70-99 above high normal Not Available [facility] ([facility]) [address] [place], [address], 06/16/2024 18:05:50 06/14/20 24 06/14/2024 COMP. METAB OLIC PANEL (14) BUN 16 mg/dL 8-27 normal Not Available [facility] ([facility]) [address] [place], [address], 06/16/2024 18:05:50 06/14/20 24 06/14/2024 COMP. METAB OLIC PANEL (14) creatinine 0.79 mg/dL 0.57-1 .00 normal Not Available [facility] ([facility]) [address] [place], [address], 06/16/2024 18:05:50 06/14/20 24 06/14/2024 COMP. METAB OLIC PANEL (14) eGFR 75 mL/mi n/1.7 3 >59 normal Not Available [facility] ([facility]) [address] [place], [address], 06/16/2024 18:05:50 06/14/20 24 06/14/2024 COMP. METAB OLIC PANEL (14) BUN/creatini ne ratio 20 12-28 normal Not Available [facility] ([facility]) [address] [place], [address], 06/16/2024 18:05:50 06/14/20 24 06/14/2024 COMP. METAB OLIC PANEL (14) sodium 142 mmol/ L 134-14 4 normal Not Available [facility] ([facility]) [address] [place], [address], 06/16/2024 18:05:50 06/14/20 24 06/14/2024 COMP. METAB OLIC PANEL (14) potassium 4.9 mmol/ L 3.5-5. 2 normal Not Available [facility] ([facility]) [address] [place], [address], 06/16/2024 18:05:50 06/14/20 24 06/14/2024 COMP. METAB OLIC PANEL (14) chloride 100 mmol/ L 96-106 normal Not Available [facility] ([facility]) [address] [place], [address], 06/16/2024 18:05:50 06/14/20 24 06/14/2024 COMP. METAB OLIC PANEL (14) carbon dioxide, total 25 mmol/ L 20-29 normal Not Available [facility] ([facility]) [address] [place], [address], 06/16/2024 18:05:50 06/14/20 24 06/14/2024 COMP. METAB OLIC PANEL (14) protein, total 6.7 g/dL 6.0-8. 5 normal Not Available [facility] ([facility]) [address] [place], [address], 06/16/2024 18:05:50 06/14/20 24 06/14/2024 COMP. METAB OLIC PANEL (14) albumin 4.4 g/dL 3.7-4. 7 normal Not Available [facility] ([facility]) [address] [place], [address], 06/16/2024 18:05:50 06/14/20 24 06/14/2024 COMP. METAB OLIC PANEL (14) globulin, total 2.3 g/dL 1.5-4. 5 Not Available [facility] ([facility]) [address] [facility], [place], [address], 06/16/2024 18:05:50 06/14/20 24 06/14/2024 COMP. METAB OLIC PANEL (14) bilirubin, total 0.4 mg/dL 0.0-1. 2 normal Not Available [facility] ([facility]) [address] [facility], [place], [address], 06/16/2024 18:05:50 06/14/20 24 06/14/2024 COMP. METAB OLIC PANEL (14) alkaline phosphatase 75 IU/L 44-121 normal Not Available [facility] ([facility]) [address] [facility], [place], [address], 06/16/2024 18:05:50 06/14/20 24 06/14/2024 COMP. METAB OLIC PANEL (14) AST (SGOT) 16 IU/L 0-40 normal Not Available [facility] ([facility]) [address] [facility] [place], [address], 06/16/2024 18:05:50 06/14/20 24 06/14/2024 COMP. METAB OLIC PANEL (14) ALT (SGPT) 14 IU/L 0-32 normal Not Available [facility] ([facility]) [address] [facility] [place], [address], 06/16/2024 18:05:50 06/14/20 24 06/15/2024 COMP. METAB OLIC PANEL (14) calcium 9.8 mg/dL 8.7-10 .3 normal Not Available [facility] ([facility]) [address] [facility] [place], [address], 06/16/2024 18:05:50 06/14/20 24 06/14/2024 CBC, PLATE LET, NO DIFFE RENTI AL WBC 5.3 x10e3 /uL 3.4-10 .8 normal Not Available [facility] ([facility]) [address] [facility], [place], [address], 06/16/2024 18:05:51 06/14/20 24 06/14/2024 CBC, PLATE LET, NO DIFFE RENTI AL RBC 4.43 x10e6 /uL 3.77-5 .28 normal Not Available [facility] ([facility]) [address] [facility], [place], [address], 06/16/2024 18:05:51 06/14/2006/14/2024 CBC, PLATE LET, NO DIFFE RENTI AL hemoglobin 13.8 g/dL 11.1-1 5.9 normal Not Available [facility] ([facility]) [address] [facility], [place], [address], 06/16/2024 18:05:51 06/14/20 24 06/14/2024 CBC, PLATE LET, NO DIFFE RENTI AL hematocrit 41.4 % 34.0-4 6.6 normal Not Available [facility] ([facility]) [address] [facility], [place], [address], 06/16/2024 18:05:51 06/14/20 24 06/14/2024 CBC, PLATE LET, NO DIFFE RENTI AL MCV 94 fL 79-97 normal Not Available [facility] ([facility]) [address] [place], [address], 06/16/2024 18:05:51 06/14/20 24 06/14/2024 CBC, PLATE LET, NO DIFFE RENTI AL MCH 31.2 pg 26.6-3 3.0 normal Not Available [facility] ([facility]) [address] [facility], [place], [address], 06/16/2024 18:05:51 06/14/20 24 06/14/2024 CBC, PLATE LET, NO DIFFE RENTI AL MCHC 33.3 g/dL 31.5-3 5.7 normal Not Available [facility] ([facility]) [address] [place], [address], 06/16/2024 18:05:51 06/14/20 24 06/14/2024 CBC, PLATE LET, NO DIFFE RENTI AL RDW 12.2 % 11.7-1 5.4 Not Available [facility] ([facility]) [address] [place], [address], 06/16/2024 18:05:51 06/14/20 24 06/14/2024 CBC, PLATE LET, NO DIFFE RENTI AL platelets 342 x10e3 /uL 150-45 0 normal Not Available [facility] ([facility]) [address] [place], [address], 06/16/2024 18:05:51 06/14/20 24 06/14/2024 CBC, PLATE LET, NO DIFFE RENTI AL NRBC MAINTAINABILITY ENGINEER Not Available [facility] ([facility]) [address] [place], [address], 06/16/2024 18:05:51 06/14/20 24 06/15/2024 NORBERTO+L IPASE amylase 80 U/L 31-110 normal Not Available [facility] ([facility]) [address] [place], [address], 06/16/2024 18:05:51 06/14/20 24 06/15/2024 NORBERTO+L IPASE lipase 23 U/L 14-85 normal Not Available [facility] ([facility]) [address] [place], [address], 06/16/2024 18:05:51 06/14/20 24 06/15/2024 GGT GGT 10 IU/L 0-60 normal Not Available [facility] ([facility]) [address] [place], [address], 06/16/2024 18:05:53 06/14/20 24 06/16/2024 LACTI C ACID, PLASM A lactic acid, plasma 15.2 mg/dL 4.8-25 .7 Not Available [facility] ([facility]) [address] [facility], [place], [address], 06/16/2024 18:05:54 06/14/20 24 06/15/2024 C-KYLER CTIVE PROTE IN, QUANT C-reactive protein, quant <1 mg/L 0-10 Not Available [facility] ([facility]) [address] [facility], [place], [address], 06/16/2024 18:05:54 07/28/19 25 07/28/2024 CBC WITH AUTO DIFFE RENTI AL WBC 5.8 K/mcL 4.8-10 .8 Not Available [address], [address], 07/28/2024 18:27:15 07/28/19 25 07/28/2024 CBC WITH AUTO DIFFE RENTI AL RBC 4.20 M/mcL 3.80-4 .80 Not Available [address], [address], 07/28/2024 18:27:15 07/28/19 25 07/28/2024 CBC WITH AUTO DIFFE RENTI AL hemoglobin 12.9 g/dL 11.5-1 6.0 Not Available [address], [address], 07/28/2024 18:27:15 07/28/19 25 07/28/2024 CBC WITH AUTO DIFFE RENTI AL hematocrit 39.9 % 35.0-4 7.0 Not Available [address], [address], 07/28/2024 18:27:15 07/28/19 25 07/28/2024 CBC WITH AUTO DIFFE RENTI AL MCV 94.3 fL 79.0-9 8.0 Not Available [address], [address], 07/28/2024 18:27:15 07/28/19 25 07/28/2024 CBC WITH AUTO DIFFE RENTI AL MCH 30.5 pcg 27.0-3 2.0 Not Available [address], [address], 07/28/2024 18:27:15 07/28/19 25 07/28/2024 CBC WITH AUTO DIFFE RENTI AL MCHC 32.3 g/dL 32.0-3 7.0 Not Available [address], [address], 07/28/2024 18:27:15 07/28/19 25 07/28/2024 CBC WITH AUTO DIFFE RENTI AL RDW 13.3 % 11.0-1 5.0 Not Available [address], [address], 07/28/2024 18:27:15 07/28/19 25 07/28/2024 CBC WITH AUTO DIFFE RENTI AL platelets 271 K/mcL 130-40 0 Not Available [address], [address], 07/28/2024 18:27:15 07/28/19 25 07/28/2024 CBC WITH AUTO DIFFE RENTI AL MPV 10.9 fL 7.0-11 .0 Not Available [address], [address], 07/28/2024 18:27:15 07/28/19 25 07/28/2024 CBC WITH AUTO DIFFE RENTI AL NRBC 0.0 % <1.0 Not Available [address], [address], 07/28/2024 18:27:15 07/28/19 25 07/28/2024 CBC WITH AUTO DIFFE RENTI AL NRBC absolute 0.00 K/mcL <0.10 Not Available [address], [address], 07/28/2024 18:27:15 07/28/19 25 07/28/2024 CBC WITH AUTO DIFFE RENTI AL neutrophils relative 69.0 % Not Available [address], [address], 07/28/2024 18:27:15 07/28/19 25 07/28/2024 CBC WITH AUTO DIFFE RENTI AL lymphocytes relative 20.7 % Not Available [address], [address], 07/28/2024 18:27:15 07/28/19 25 07/28/2024 CBC WITH AUTO DIFFE RENTI AL monocytes relative 8.0 % Not Available [address], [address], 07/28/2024 18:27:15 07/28/19 25 07/28/2024 CBC WITH AUTO DIFFE RENTI AL eosinophils relative 1.2 % Not Available [address], [address], 07/28/2024 18:27:15 07/28/19 25 07/28/2024 CBC WITH AUTO DIFFE RENTI AL basophils relative 0.9 % Not Available [address], [address], 07/28/2024 18:27:15 07/28/19 25 07/28/2024 CBC WITH AUTO DIFFE RENTI AL immature granulocytes relative 0.2 % Not Available [address], [address], 07/28/2024 18:27:15 07/28/19 25 07/28/2024 CBC WITH AUTO DIFFE RENTI AL neutrophils absolute 3.98 K/mcL 1.50-7 .00 Not Available [address], [address], 07/28/2024 18:27:15 07/28/19 25 07/28/2024 CBC WITH AUTO DIFFE RENTI AL lymphocytes absolute 1.19 K/mcL 1.00-5 .00 Not Available [address], [address], 07/28/2024 18:27:15 07/28/19 25 07/28/2024 CBC WITH AUTO DIFFE RENTI AL monocytes absolute 0.46 K/mcL 0.20-1 .00 Not Available [address], [address], 07/28/2024 18:27:15 07/28/19 25 07/28/2024 CBC WITH AUTO DIFFE RENTI AL eosinophils absolute 0.07 K/mcL 0.00-0 .50 Not Available [address], [address], 07/28/2024 18:27:15 07/28/19 25 07/28/2024 CBC WITH AUTO DIFFE RENTI AL basophils absolute 0.05 K/mcL 0.00-0 .20 Not Available [address], [address], 07/28/2024 18:27:15 07/28/19 25 07/28/2024 CBC WITH AUTO DIFFE RENTI AL immature granulocytes absolute 0.01 K/mcL 0.00-0 .03 Not Available [address], [address], 07/28/2024 18:27:15 07/28/19 25 07/28/2024 CBC WITH AUTO DIFFE RENTI AL note See Report [facility], [address], [place], [facility] [place] [address] Not Available [address], [address], 07/28/2024 18:27:15 07/28/19 25 07/28/2024 AMYLA SE amylase 81 unit/ L 25-115 Not Available [address], [address], 07/28/2024 22:49:39 07/28/19 25 07/28/2024 AMYLA SE note See Report [facility], [address] [facility], [place], [place] [address] Not Available [address], [address], 07/28/2024 22:49:39 07/28/19 25 07/28/2024 LIPAS E lipase 22 unit/ L 13-75 Not Available [address], [address], 07/28/2024 22:49:42 07/28/19 25 07/28/2024 LIPAS E note See Report [facility], [address] [facility], [place], [facility] [address] Not Available [address], [address], 07/28/2024 22:49:42 07/28/19 25 07/28/2024 COMPR EHENS SHIMON METAB OLIC PANEL sodium 138 mmol/ L 133-14 5 Not Available [address], [address], 07/28/2024 22:58:58 07/28/19 25 07/28/2024 COMPR EHENS SHIMON METAB OLIC PANEL potassium 4.0 mmol/ L 3.5-5. 5 Not Available [address], [address], 07/28/2024 22:58:58 07/28/19 25 07/28/2024 COMPR EHENS SHIMON METAB OLIC PANEL chloride 105 mmol/ L 96-110 Not Available [address], [address], 07/28/2024 22:58:58 07/28/19 25 07/28/2024 COMPR EHENS SHIMON METAB OLIC PANEL CO2 29 mmol/ L 21-32 Not Available [address], [address], 07/28/2024 22:58:58 07/28/19 25 07/28/2024 COMPR EHENS SHIMON METAB OLIC PANEL anion gap 4 3-11 Not Available [address], [address], 07/28/2024 22:58:58 07/28/19 25 07/28/2024 COMPR EHENS SHIMON METAB OLIC PANEL glucose 75 mg/dL 70-100 Not Available [address], [address], 07/28/2024 22:58:58 07/28/19 25 07/28/2024 COMPR EHENS SHIMON METAB OLIC PANEL BUN 14 mg/dL 5-25 Not Available [address], [address], 07/28/2024 22:58:58 07/28/19 25 07/28/2024 COMPR EHENS SHIMON METAB OLIC PANEL creatinine 0.62 mg/dL 0.50-1 .10 Not Available [address], [address], 07/28/2024 22:58:58 07/28/19 25 07/28/2024 COMPR EHENS SHIMON METAB OLIC PANEL eGFR 89 mL/mi n/1.7 3m2 >=60 Calcu latio n based on the?C hroni c Kidne y Disea se Epide miolo gy Colla borat ion (CKD- EPI) equat ion refit ?with out adjus tment for race. Not Available [address], [address], 07/28/2024 22:58:58 07/28/19 25 07/28/2024 COMPR EHENS SHIMON METAB OLIC PANEL BUN/creatini ne ratio 22.6 Not Available [address], [address], 07/28/2024 22:58:58 07/28/19 25 07/28/2024 COMPR EHENS SHIMON METAB OLIC PANEL calcium 9.3 mg/dL 8.5-10 .5 Not Available [address], [address], 07/28/2024 22:58:58 07/28/19 25 07/28/2024 COMPR EHENS SHIMON METAB OLIC PANEL AST (SGOT) 16 unit/ L 10-42 Not Available [address], [address], 07/28/2024 22:58:58 07/28/19 25 07/28/2024 COMPR EHENS SHIMON METAB OLIC PANEL ALT (SGPT) 20 unit/ L 10-60 Not Available [address], [address], 07/28/2024 22:58:58 07/28/19 25 07/28/2024 COMPR EHENS SHIMON METAB OLIC PANEL alkaline phosphatase 72 unit/ L 42-121 Not Available [address], [address], 07/28/2024 22:58:58 07/28/19 25 07/28/2024 COMPR EHENS SHIMON METAB OLIC PANEL total protein 6.7 g/dL 6.0-8. 0 Not Available [address], [address], 07/28/2024 22:58:58 07/28/19 25 07/28/2024 COMPR EHENS SHIMON METAB OLIC PANEL albumin 4.1 g/dL 3.2-5. 0 Not Available [address], [address], 07/28/2024 22:58:58 07/28/19 25 07/28/2024 COMPR EHENS SHIMON METAB OLIC PANEL total bilirubin 0.3 mg/dL 0.0-1. 4 Not Available [address], [address], 07/28/2024 22:58:58 07/28/19 25 07/28/2024 COMPR EHENS SHIMON METAB OLIC PANEL note See Report [facility], [address], [place], [facility] [place] [address] Not Available [address], [address], 07/28/2024 22:58:58 12/03/19 25 12/02/2024 strep group A, DNA, swab ID NOW Strep A 2 (rapid molecular test) negati ve Not Available In-Office Order Internal Use Only DO Not Attach Compendium DO Not Attach Compendium, Do Not Delete/merge, [id number] 12/02/2024 11:49:54 12/03/19 25 12/02/2024 rapid SARS CoV 2 Ag, QL IA, respi rator y speci men RAPID SARS COV 2 negati ve Not Available In-Office Order Internal Use Only DO Not Attach Compendium DO Not Attach Compendium, Do Not Delete/merge, [id number] 12/02/2024 11:24:46 06/14/20 24 06/14/2024 XR, ribs, unila teral No observ ation record ed. [email or web address] [facility] Orders [address], [place], [address], 06/16/2024 08:37:13 06/14/20 24 06/14/2024 XR, ribs, unila teral , w/ PA chest PA chest and left RIBS 5 views dated Dece er 2023. Compar dean chest x-rays from September 29, 2012. HISTOR Y: Pain. FINDIN GS: The cardia c silhou ette is within normal limits for size. Hilar and medias tinal struct ures are unrema rkable . No airspa ce infilt rate or pleura l effusi on is identi fied. No displa tejas rib fractu re or pneumo thorax is seen. IMPRES PAULINE: No eviden ce of acute pulmon harsha diseas e. No displa tejas rib fractu re or pneumo thorax is noted. Examin ation [id number]. Thank you for allowi tung me to partic ipate in the care of this patien t. WSN: [id number] Orderi tung Physic lindsey: Demetrio Villareal Dictat ed By: Alex Carr MD Dictat ed Date/T corinne: 7:53 pm Review ed By: Alex Carr MD Signed By: Alex Carr MD Signed Date/T corinne: 7:53 pm Transc ribed By: DEVAN Transc ribed Date/T corinne: 7:53 pm Patien t Class: [facility] [address] [place] [place] [address], [address], 06/16/2024 08:13:11 06/14/20 24 06/14/2024 XR, abdom en Supine view of the abdome n and pelvis dated [facility] er 2023. No prior studie s are availa ble. HISTOR Y: Pain. The bowel gas patter n is nonobs tructe d. There is a large calcif icatio n consis tent with a gallst one. Degene rative change s are presen t in the spine and hips. There is a convex left thorac olumba r scolio sis. IMPRES PAULINE: No eviden ce of bowel obstru ction. Cholel ithias is. Examin ation [id number]. Thank you for frank ruby me to partic ipate in the care of this patien t. WSN: [id number] Orderi ng Physic lindsey: Demetrio Villareal Dictat ed By: Alex Carr MD Dictat ed Date/T corinne: 7:54 pm Review ed By: Alex Carr MD Signed By: Alex Carr MD Signed Date/T corinne: 7:54 pm Transc ribed By: DEVAN Transc ribed Date/T corinne: 7:54 pm Patien t Class: Outpat ient [email or web address] [facility] (Outpt Imaging) [address], [place], [address], 06/16/2024 09:19:09 06/14/20 24 06/14/2024 XR, abdom en No observ ation record ed. [facility] Orders [address], [place], [address], 06/16/2024 08:37:22 06/28/20 24 06/27/2024 US, abdom en, limit ed US RUQ Reason : Gallst one on x-ray. COMPAR DEAN: Radiog raph 024. FINDIN GS: Liver: Normal in size and echote xture. No focal lesion . Smooth hepati c contou r. Main portal vein patent with normal hepato petal direct ion of flow. Gallbl adder: Solita ry mobile 2.3 cm gallst one. Rounde d hypere choic focus along the machine gun mechanic ior wall measur ing up to 0.2 cm may repres ent a polyp. Normal wall thickn ess. No perich olecys tic fluid. Negati ve Fortune sign. Biliar y Tree: No intrah epatic or extrah epatic bile duct dilati on is identi fied. Common duct measur es: 0.6 cm. Pancre as: No abnorm ality in the visual ized portio ns of the pancre as. Right kidney : 9.8 cm in length . Normal parenc hymal echote xture and thickn ess. No hydron ephros is, stone or mass. IMPRES PAULINE: Cholel ithias is withou t sonogr aphic eviden ce of acute cholec ystiti s. Probab le 0.2 cm gallbl adder polyp. Low Risk catego ry. Recomm end no follow -up per Johnathan Vegas et al. Manage ment of Incide ntally Detect ed Gallbl adder Polyps : Societ y of Radiol ogists in Ultras ound Consen lyudmila Confer ence Recomm endati ons. Radiol ogy 2021; 305:27 7-289. https: //doi. org/10 .1148/ radiol .10921 9 WSN: [id number] Orderi ng Physic lindsey: Demetrio Villareal Dictat ed By: Mervin aCrter MD Dictat ed Date/T corinne: 9:04 am Review ed By: Mervin Carter MD Signed By: Mervin Carter MD Signed Date/T corinne: 9:04 am Transc ribed By: DEVAN Transc ribed Date/T corinne: 8:40 am Patien t Class: Outpat ient [email or web address] [facility] (Outpt Imaging) [address] [place], [address], 06/30/2024 15:48:48 06/28/20 24 06/27/2024 US, abdom en, limit ed No observ ation record ed. [email or web address] [facility] (Ultrasound) [address] [place], [address], 06/28/2024 12:33:16 08/08/19 25 06/26/2024 CT, chest , w/o contr ast No observ ation record ed. [facility] (Medical Records) [address] [place], [address], 08/08/2024 13:51:40 Result Notes None recorded. Problems Name Problem SNOMED Code Status Onset Date Resolution Date Notes Provider Name and Address Organization Details Recorded Time Mammogra phy abnormal 650829396 Completed 12/24/2017 Chris Boss MD [address] [facility] [address], [place], [address] , [facility] 8 14:17:14 Inflamma tory disorder of extremit y 023674739 Completed 200801/23/2014 RECORDED 03/20/20 09 8:43AM BY BRICE SIERRA ON/ADD DUM ALBERTO Kaur, [facility] 6 10:53:01 Acute secretor y otitis media 573489693 Completed 200701/23/2014 IMPRESSI ON: LEFT TM WITH LARGE EFFUSION , PT WITH MILD VERTIGO, NOT DRIVING DUE TO THIS CURRENTL Y, TREAT WITH ZPAK; RECORDED 03/28/20 08 11:04AM BY ANEUDY CAMARGO MA, BRICE ON/ADDEN DUM ALBERTO Kaur, [facility] 6 10:53:01 Acute pharyngi tis 408512013 Completed 200701/23/2014 RECORDED 03/28/20 08 11:04AM BY ANEUDY CAMARGO MA, BRICE ON/ADD ALBERTO Boateng, [facility] 5 10:59:22 Acute sinusiti s 17071186 Completed 200701/23/2014 IMPRESSI ON: 1 WEEK OF SYMPTOMS , LOTS OF SINUS PRESSURE AND VERTIGO; RECORDED 03/28/20 08 11:04AM BY ANEUDY CAMARGO MA, ANNOTATI ON/ADD DUM ALBERTO Kaur, [facility] 6 11:07:08 Allergic rhinitis 39778719 Active Not Available [facility] 0 13:22:56 Anxiety state 418120753 Active Not Available [facility] 0 13:22:56 Screenin g for malignan t neoplasm of breast Completed 201101/23/2014 RECORDED 06/22/20 12 10:05AM BY ANEUDY CAMARGO MA, BRICE ON/ADDEN DUM ALBERTO Kaur, [facility] 6 10:53:01 Disorder of bursa of shoulder region 16460767 Completed 12/24/2017 Chris Bsos MD [address], [place], [address] , [facility] 8 14:16:54 Neck pain 08508318 Completed 201101/23/2014 RECORDED 06/22/20 12 10:05AM BY ANEUDY CAMARGO MA, ANNOTATI ON/ADDEN DUM Heather Villareal MD [address], [place], [address] , [facility] 2 09:56:35 Cough 42931145 Completed 201307/26/2014 RECORDED 07/25/19 14 2:43PM BY ANEUDY CAMARGO MA, OFFICE VISIT ALBERTO Kaur, [facility] 6 10:53:01 Concussi on injury of brain 846356826 Completed 201101/23/2014 STORY: BRIEF LOC AFTER FALL IN RESTAURA NT 06/06. CT HEAD NEGATIVE ; RECORDED 06/22/20 12 10:05AM BY ANEUDY CAMARGO MA, ANNOTATI ON/ADDEN DUM ALBERTO Kaur, [facility] 6 10:53:01 Respirat ory finding 351217542 Completed 200801/23/2014 RECORDED 03/20/20 09 8:42AM BY BRICE SIERRA ON/ADDEN DUM ALBERTO Kaur, [facility] 6 10:53:01 Essentia l hyperten pauline 25088837 Active Not Available [facility] 0 13:22:56 Malaise and fatigue 644712690 Completed 06/16/2016 ALBERTO Kaur, [facility] 6 11:07:17 Influenz a vaccine needed 69477428370 06 Completed 201201/23/2014 RECORDED 04/28/20 13 11:07AM BY ANEUDY CAMARGO MA, NURSE VISIT ALBERTO Kaur, [facility] 6 10:53:01 Adult health examinat ion Completed 201201/23/2014 RECORDED 10/14/19 13 1:06PM BY ANEUDY CAMARGO MA, ANNOTKAM ON/ADDEN DUM ALBERTO Kaur, [facility] 6 10:53:01 Gastroes ophageal reflux disease 483923031 Completed 201201/23/2014 RECORDED 09/30/19 13 1:08PM BY KOSTA ROD MA, ANNOTKAM ON/ADDEN DUM ALBERTO Kaur, [facility] 6 10:53:01 Gastroes ophageal reflux disease 367356944 Active Not Available [facility] 0 13:22:56 Pure hypercho lesterol emia 451388821 Completed 05/24/2023 Heather Villareal MD [address] [facility] [address], [facility] [place], [address] , [facility] 3 12:01:08 Hyperlip idemia 83093692 Active Not Available [facility] 0 13:22:56 Hypothyr oidism 49441268 Active Not Available [facility] 0 13:22:56 Hypothyr oidism 87373338 Completed 201201/23/2014 RECORDED 08/02/19 13 8:56AM BY ANEUDY CAMARGO MA, BRICE ON/ADDEN DUM ALBERTO Kaur, [facility] 6 10:53:01 Antibody measurem ent 3731503 Completed 201101/23/2014 RECORDED 06/22/20 12 10:05AM BY ANEUDY CAMARGO MA, ANNOTKAM ON/ADDEN DUM ALBERTO Kaur, [facility] 6 10:53:01 Influenz a with respirat ory manifest ation other than pneumoni a Completed 201201/23/2014 RECORDED 09/30/19 13 1:08PM BY KOSTA ROD MA, ANNOTATI ON/ADD DUM ALBERTO Kaur, [facility] 6 10:53:01 Lumbar sprain 863681434 Completed 200801/23/2014 RECORDED 03/20/20 09 8:43AM BY ALBERTO CALLAWAY, BRICE ON/ADD ALBERTO Kaur, [facility] 6 10:53:01 Active or passive immuniza tion Completed 200801/23/2014 RECORDED 08/15/19 09 11:18AM BY CHRIS BOSS MD, OFFICE VISIT ALBERTO Kaur, [facility] 6 10:53:01 Administ ration of viral vaccine Completed 201101/23/2014 RECORDED 06/22/20 12 10:05AM BY ANEUDY CAMARGO MA, ANNOTATI ON/ADD ALBERTO Kaur, [facility] 6 10:53:01 Administ ration of diphther ia and tetanus vaccine Completed 200701/23/2014 RECORDED 03/28/20 08 10:58AM BY ANEUDY CAMARGO MA, OFFICE VISIT ALBERTO Kaur, [facility] 6 10:53:01 Obesity 445986349 Completed 05/26/2024 Heather Villareal MD [address] [facility] [address], [place], [address] , [facility] 4 13:17:25 Neuralgi a 26756158 Completed 200601/23/2014 RESOLVED DATE: 12/16/19 07; RECORDED 12/16/19 07 2:03PM BY CHRIS BOSS MD, OFFICE VISIT ALBERTO Kaur, [facility] 6 10:53:01 Malignan t neoplasm of lip, oral cavity and pharynx 874307622 Completed 200701/23/2014 RECORDED 03/28/20 08 10:32PM BY CHRIS BOSS MD, ANNOTATI ON/ADDEN DUM ALBERTO Kaur, [facility] 6 10:53:01 Osteopor osis 31490869 Completed 12/24/2017 Chris Boss MD [address] [facility] [address], [place], [address] , [facility] 8 14:16:50 Osteopor osis 17326787 Completed 201201/23/2014 RECORDED 08/02/19 13 8:56AM BY ANEUDY CAMARGO MA, ANNOTATI ON/ADDEN DUM Chris Boss MD [address] [facility] [address], [place], [address] , [facility] 8 14:16:50 Pain in thoracic spine 098178245 Completed 200701/23/2014 RECORDED 03/28/20 08 10:32PM BY CHRIS BOSS MD, ANNOTATI ON/ADDEN DUM ALBERTO Kaur, [facility] 6 10:53:01 Parotiti s 35789155 Completed 200901/23/2014 RECORDED 12/26/19 10 1:32PM BY CHRIS BOSS MD, ANNOTATI ON/ADDEN DUM ALBERTO Kaur, [facility] 6 10:53:01 Speciali naresh medical examinat ion Completed 200701/23/2014 RECORDED 03/28/20 08 11:04AM BY ANEUDY CAMARGO MA, TRUDYATI ON/ADD ALBERTO Kaur, [facility] 6 10:53:01 Cramp in lower leg associat ed with rest 457466986 Completed 05/24/2023 Heather Villareal MD [address] [facility] [address] [address] , [facility] 3 12:00:10 Screenin g for malignan t neoplasm of colon Completed 200801/23/2014 RECORDED 03/20/20 09 8:42AM BY BRICE SIERRA ON/ ALBERTO Kaur [facility] 6 10:53:01 Urinary tract infectio us disease 80089153 Completed 06/16/2016 ALBERTO Kaur [facility] 6 11:07:26 Varicose veins of lower extremit y 90990636 Active Not Available [facility] 0 13:22:56 Candidal vulvovag initis 42764794 Completed 06/16/2016 ALBERTO Kaur, [facility] 6 11:07:30 Chronic obstruct shimon pulmonar y disease 65810699 Active Not Available [facility] 0 13:22:56 Fatigue 77421284 Completed 06/16/2016 ALBERTO Kaur [facility] 6 11:07:36 Inflamma tory disorder of extremit y 684433909 Completed 200802/15/2014 RECORDED 03/20/20 09 8:43AM BY ALBERTO CALLAWAY, BRICE ON/ADD ALBERTO Kaur [facility] 6 10:53:01 Acute secretor y otitis media 525759243 Completed 200702/15/2014 IMPRESSI ON: LEFT TM WITH LARGE EFFUSION , PT WITH MILD VERTIGO, NOT DRIVING DUE TO THIS CURRENTL Y, TREAT WITH ZPAK; RECORDED 03/28/20 08 11:04AM BY ANEUDY CAMARGO MA, ANNOTATI ON/ADDEN DUM ALBERTO Kaur, [facility] 6 10:53:01 Acute pharyngi tis 478647171 Completed 200702/15/2014 RECORDED 03/28/20 08 11:04AM BY ANEUDY CAMARGO MA, TRUDYATI ON/ADDEN DUM Sin tello MA null, [facility] 5 10:59:22 Acute sinusiti s 69015921 Completed 200702/15/2014 IMPRESSI ON: 1 WEEK OF SYMPTOMS , LOTS OF SINUS PRESSURE AND VERTIGO; RECORDED 03/28/20 08 11:04AM BY ANEUDY CAMARGO MA, BRICE ON/ADDEN DUM ALBERTO Kaur, [facility] 6 11:07:08 Screenin g for malignan t neoplasm of breast Completed 201102/15/2014 RECORDED 06/22/20 12 10:05AM BY ANEUDY CAMARGO MA, TRUDYATI ON/ADDEN DUM ALBERTO Kaur, [facility] 6 10:53:01 Neck pain 17958271 Completed 201102/15/2014 RECORDED 06/22/20 12 10:05AM BY ANEUDY CAMARGO MA, ANNOTATI ON/ADDEN DUM Heather Villareal MD [address] [facility] [address], [place], [address] , [facility] 2 09:56:35 Concussi on injury of brain 268233257 Completed 201102/15/2014 STORY: BRIEF LOC AFTER FALL IN RESTAURA NT 06/06. CT HEAD NEGATIVE ; RECORDED 06/22/20 12 10:05AM BY ANEUDY CAMARGO MA, ANNOTATI ON/ADDEN DUM ALBERTO Kaur, [facility] 6 10:53:01 Respirat ory finding 433551566 Completed 200802/15/2014 RECORDED 03/20/20 09 8:42AM BY ALBERTO CALLAWAY, ANNOTKAM ON/ADDEN DUM ALBERTO Kaur, [facility] 6 10:53:01 Feces contents abnormal 270330564 Completed 201307/26/2014 RECORDED 12/28/19 14 12:51PM BY CHRIS BOSS MD, PHONE ENCOUNTE R ALBERTO Kaur, [facility] 6 10:53:01 Influenz a vaccine needed 14609627991 06 Completed 201202/15/2014 RECORDED 04/28/20 13 11:07AM BY ANEUDY CAMARGO MA, NURSE VISIT ALBERTO Kaur, [facility] 6 10:53:01 Gastroes ophageal reflux disease 218444902 Completed 201202/15/2014 RECORDED 09/30/19 13 1:08PM BY KOSTA ROD MA, ANNOTKAM ON/ADDEN DUM ALBERTO Kaur, [facility] 6 10:53:01 Antibody measurem ent 0474423 Completed 201102/15/2014 RECORDED 06/22/20 12 10:05AM BY ANEUDY CAMARGO MA, ANNOTKAM ON/ADDEN DUM ALBERTO Kaur, [facility] 6 10:53:01 Influenz a with respirat ory manifest ation other than pneumoni a Completed 201202/15/2014 RECORDED 09/30/19 13 1:08PM BY KOSTA ROD MA, ANNOTKAM ON/ADDEN DUM ALBERTO Kaur, [facility] 6 10:53:01 Lumbar sprain 599362440 Completed 200802/15/2014 RECORDED 03/20/20 09 8:43AM BY ALBERTO CALLAWAY, ANNOTATI ON/ADDEN DUM ALBERTO Karu, [facility] 6 10:53:01 Active or passive immuniza tion Completed 200802/15/2014 RECORDED 08/15/19 09 11:18AM BY CHRIS BOSS MD, OFFICE VISIT ALBERTO Kaur, [facility] 6 10:53:01 Administ ration of viral vaccine Completed 201102/15/2014 RECORDED 06/22/20 12 10:05AM BY ANEUDY CAMARGO MA, ANNOTATI ON/ADDEN DUM ALBERTO Kaur, [facility] 6 10:53:01 Administ ration of diphther ia and tetanus vaccine Completed 200702/15/2014 RECORDED 03/28/20 08 10:58AM BY ANEUDY CAMARGO MA, OFFICE VISIT ALBERTO Kaur [facility] 6 10:53:01 Neuralgi a 06795588 Completed 200602/15/2014 RESOLVED DATE: 12/16/19 07; RECORDED 12/16/19 07 2:03PM BY CHRIS BOSS MD, OFFICE VISIT ALBERTO Kaur, [facility] 6 10:53:01 Malignan t neoplasm of lip, oral cavity and pharynx 802646667 Completed 200702/15/2014 RECORDED 03/28/20 08 10:32PM BY CHRIS BOSS MD, ANNOTATI ON/ADDEN DUM ALBERTO Kaur, [facility] 6 10:53:01 Pain in thoracic spine 968075241 Completed 200702/15/2014 RECORDED 03/28/20 08 10:32PM BY CHRIS BOSS MD, ANNOTATI ON/ADDEN DUM ALBERTO Kaur, [facility] 6 10:53:01 Parokarly s 11114553 Completed 200902/15/2014 RECORDED 12/26/19 10 1:32PM BY CHRIS BOSS MD, ANNOTATI ON/ADDEN DUM ALBERTO Kaur, [facility] 6 10:53:01 Lopez infante medical examinat ion Completed 200702/15/2014 RECORDED 03/28/20 08 11:04AM BY ANEUDY CAMARGO MA, ANNOTATI ON/ADDEN DUM ALBERTO Kaur, [facility] 6 10:53:01 Inflamma tory disorder of extremit y [id number] Completed 200802/16/2014 RECORDED 03/20/20 09 8:43AM BY BRICE SIERRA ON/ADDEN DUM ALBERTO Kaur, [facility] 6 10:53:01 Acute secretor y otitis media [id number] Completed 200702/16/2014 IMPRESSI ON: LEFT TM WITH LARGE EFFUSION , PT WITH MILD VERTIGO, NOT DRIVING DUE TO THIS CURRENTL Y, TREAT WITH ZPAK; RECORDED 03/28/20 08 11:04AM BY ANEUDY CAMARGO MA, ANNOTATI ON/ADDEN DUM ALBERTO Kaur, [facility] 6 10:53:01 Acute pharyngi tis [id number] Completed 200702/16/2014 RECORDED 03/28/20 08 11:04AM BY ANEUDY CAMARGO MA, ANNOTATI ON/ADDEN DUM ALBERTO Boateng MA - [facility] [facility] 5 10:59:22 Acute sinusiti s [id number] Completed 200702/16/2014 IMPRESSI ON: 1 WEEK OF SYMPTOMS , LOTS OF SINUS PRESSURE AND VERTIGO; RECORDED 03/28/20 08 11:04AM BY ANEUDY CAMARGO MA, BRICE ON/ADDEN DUM ALBERTO Kaur, [facility] 6 11:07:08 Screenin g for malignan t neoplasm of breast Completed 201102/16/2014 RECORDED 06/22/20 12 10:05AM BY ANEUDY CAMARGO MA, BRICE ON/ADDEN DUM ALBERTO Kaur, [facility] 6 10:53:01 Neck pain [id number] Completed 201102/16/2014 RECORDED 06/22/20 12 10:05AM BY ANEUDY CAMARGO MA, BRICE ON/ADDEN DUM Heather Villareal MD [address] [facility] [address], [place], [address] , [facility] 2 09:56:35 Concussi on injury of brain [id number] Completed 201102/16/2014 STORY: BRIEF LOC AFTER FALL IN RESTAURA NT 06/06. CT HEAD NEGATIVE ; RECORDED 06/22/20 12 10:05AM BY ANEUDY CAMARGO MA, BRICE ON/ADDEN DUM ALBERTO Kaur, [facility] 6 10:53:01 Respirat ory finding [id number] Completed 200802/16/2014 RECORDED 03/20/20 09 8:42AM BY BRICE SIERRA ON/ADDEN DUM ALBERTO Kaur, [facility] 6 10:53:01 Influenz a vaccine needed [id number] 06 Completed 201202/16/2014 RECORDED 04/28/20 13 11:07AM BY ANEUDY CAMARGO MA, NURSE VISIT ALBERTO Kaur, [facility] 6 10:53:01 Gastroes ophageal reflux disease [id number] Completed 201202/16/2014 RECORDED 09/30/19 13 1:08PM BY KOSTA ROD MA, BRICE ON/ADDEN DUM ALBERTO Kaur [facility] 6 10:53:01 Antibody measurem ent [id number] Completed 201102/16/2014 RECORDED 06/22/20 12 10:05AM BY ANEUDY CAMARGO MA, BRICE ON/ADDEN DUM ALBERTO Kaur [facility] 6 10:53:01 Influenz a with respirat ory manifest ation other than pneumoni a Completed 201202/16/2014 RECORDED 09/30/19 13 1:08PM BY KOSTA ROD MA, BRICE ON/ADDEN DUM ALBERTO Kaur, [facility] 6 10:53:01 Lumbar sprain [id number] Completed 200802/16/2014 RECORDED 03/20/20 09 8:43AM BY ALBERTO CALLAWAY, BRICE ON/ADDEN DUM ALBERTO Kaur [facility] 6 10:53:01 Active or passive immuniza tion Completed 200802/16/2014 RECORDED 08/15/19 09 11:18AM BY CHRIS BOSS MD, OFFICE VISIT ALBERTO Kaur [facility] 6 10:53:01 Administ ration of viral vaccine Completed 201102/16/2014 RECORDED 06/22/20 12 10:05AM BY ANEUDY CAMARGO MA, ANNOTATI ON/ADDEN DUM ALBERTO Kaur, [facility] 6 10:53:01 Administ ration of diphther ia and tetanus vaccine Completed 200702/16/2014 RECORDED 03/28/20 08 10:58AM BY ANEUDY CAMARGO MA, OFFICE VISIT ALBERTO Kaur, [facility] 6 10:53:01 Neuralgi a [id number] Completed 200602/16/2014 RESOLVED DATE: 12/16/19 07; RECORDED 12/16/19 07 2:03PM BY CHRIS BOSS MD, OFFICE VISIT ALBERTO Kaur, [facility] 6 10:53:01 Malignan t neoplasm of lip, oral cavity and pharynx [id number] Completed 200702/16/2014 RECORDED 03/28/20 08 10:32PM BY CHRIS BOSS MD, ANNOTATI ON/ADDEN DUM ALBERTO Kaur, [facility] 6 10:53:01 Pain in thoracic spine [id number] Completed 200702/16/2014 RECORDED 03/28/20 08 10:32PM BY CHRIS BOSS MD, ANNOTKAM ON/ADDEN DUM ALBERTO Kaur, [facility] 6 10:53:01 Parotiti s [id number] Completed 200902/16/2014 RECORDED 12/26/19 10 1:32PM BY CHRIS BOSS MD, ANNOTKAM ON/ADDEN DUM ALBERTO Kaur, [facility] 6 10:53:01 Lopez infante medical examinat ion Completed 200702/16/2014 RECORDED 03/28/20 08 11:04AM BY ANEUDY CAMARGO MA, ANNOTKAM ON/ADDEN DUM ALBERTO Kaur, [facility] 6 10:53:01 Degenera tion of lumbar interver tebral disc [id number] Active Not Available [facility] 0 13:22:56 Tubular adenoma 475243363 Active Not Available [facility] 0 13:22:56 Poor short-te rm memory 130127130 Active Not Available [facility] 0 13:22:56 On examinat ion - varicose veins Completed 06/16/2016 ALBERTO Kaur, [facility] 6 11:07:44 Menopaus e present [id number] Completed 05/22/2022 Heather Villareal MD [address], [place], [address] , [facility] 2 06:31:30 Osteopen ia [id number] Active 2014 Not Available [facility] 0 13:22:56 Acute sinusiti s [id number] Completed 06/16/2016 ALBERTO Kaur, [facility] 6 11:07:07 Vaginiti s [id number] Completed 06/16/2016 ALBERTO Kaur, [facility] 6 11:07:21 Acute exacerba tion of chronic obstruct shimon pulmonar y disease 962547662 Completed 12/24/2017 Chris Boss MD [address], [place], [address] , [facility] 8 14:17:10 Chronic neck pain 08425137321 07 Active 2018 Not Available [facility] 0 13:22:56 Cervical spondylo sis [id number] Active Not Available [facility] 0 13:22:56 Chavez' s esophagu s 559645869 Active 2021 Heather Villareal MD [address], [place], [address] , [facility] 2 08:18:35 Irritabl e bowel syndrome 17478933 Active 2021 Heather Villareal MD [address], [place], [address] , [facility] 2 12:12:58 Elevated blood-pr essure reading without diagnosi s of hyperten pauline 410214747 Completed 202103/04/2022 Heather Villareal MD [address], [place], [address] , [facility] 2 13:02:11 Pancreat ic insuffic iency 70728310 Active 2021 Heather Villareal MD [address], [place], [address] , [facility] 2 06:31:53 COVID-19 [id number] Completed 202110/15/2022 Soy Coleman MD [address], [place], [address] , [facility] 3 15:03:48 Generali zed aches and pains [id number] Completed 202105/26/2024 Heather Villareal MD [address], [place], [address] , [facility] 4 13:16:55 Dysuria [id number] Completed 202305/26/2024 Heather Villareal MD [address], [address] , [facility] 4 13:16:50 Increase d frequenc y of urinatio n 821575785 Completed 202305/26/2024 Heather Villareal MD [address], [address] , [facility] 4 13:17:01 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 2023 Heather Villareal MD [address], [place], [address] , [facility] 4 13:18:24 Cheryl geiger [id number] Active 2023 Heather Villareal MD [address], [place], [address] , [facility] 4 21:03:59 Vascular insuffic iency 30163300 Active 2024 Heather Villareal MD [address] [facility] [address], [place], [address] , [facility] 5 11:51:56 Acute pharyngi tis 570979521 Active 2024 Sin tello [place] [facility], [facility] 5 10:59:22 Problem Notes None recorded. Procedures Surgical History Date Name Laterality Status Provider Name and Address Organization Details Recorded Time 05/26/20 24 Advanced Care Planning completed Karis Silva [facility] 06/05/2024 13:16:09 02/22/20 24 Cataract Surgery completed Heather Villareal MD [address] [facility] [address] [facility], [place], [address], [facility] 05/26/2024 13:20:11 02/17/20 24 Most Recent Mammogram completed Elmira Black [facility] 02/18/2024 08:33:56 05/24/20 23 Advanced Care Planning completed Heather Villareal MD [address] [address], [place], [address], [facility] 05/23/2023 17:55:11 05/22/20 22 Advanced Care Planning completed Heather Villareal MD [address] [address], [place], [address], [facility] 05/22/2022 09:50:39 02/27/20 21 Advanced Care Planning completed Heather Villareal MD [address] [facility] [address], [place], [address], [facility] 02/26/2021 06:36:54 03/01/20 20 Six-Item Cognitive Test completed Aneudy johnson MA [facility] 03/01/2020 14:33:08 02/21/20 19 Mini-Cog Test completed Aneudy Dougherty-Mat ALBERTO johnson [facility] 02/20/2019 11:06:55 12/25/19 18 Mini-Cog Test completed Aneudy johnson MA [facility] 12/24/2017 13:31:17 12/17/19 18 Mammogram screening completed Batool Loza [facility] 12/16/2017 16:33:01 12/22/19 17 Fall Risk Assessment completed Aneudy johnson MA [facility] 12/21/2016 10:15:56 12/22/19 17 Mini-Cog Test completed Aneudy johnson MA [facility] 12/21/2016 10:16:43 07/31/19 16 Fall Risk Assessment completed Aneudy Dougherty-Cristopher johnson MA [facility] 07/31/2015 11:03:38 07/31/19 16 Mini-Cog Test completed Aneudy johnson MA [facility] 07/31/2015 11:06:58 03/20/20 15 Most Recent Bone Density completed Aneudy johnson MA [facility] 07/31/2015 10:54:43 07/26/19 15 Fall Risk Assessment completed Aneudy johnson MA [facility] 07/26/2014 10:39:22 07/26/19 15 Mini-Cog Test completed Aneudy johnson MA [facility] 07/26/2014 10:43:08 06/01/20 14 Date of Last Colonoscopy completed Aneudy johnson MA [facility] 12/21/2016 10:13:16 06/01/20 14 Colonoscopy completed Aneudy johnson MA [facility] 12/21/2016 10:13:08 06/01/20 14 endoscopy and biopsy of upper gastrointestinal tract completed Aneudy johnson MA [facility] 09/02/2019 09:18:07 Breast Biopsy completed Aneudy johnson MA [facility] 07/26/2014 10:25:34 Arthroscopic Surgery completed Aneudy johnson MA [facility] 07/26/2014 10:25:34 Imaging Results None recorded. Procedure Notes None recorded. Medical Equipment None Reported. Allergies Allergen ID Allergen Name Allergen Category Reaction Reaction Severity Criticality Documentation Date Start Date Code Code System Note Provider Name and Address Organization Details Recorded Time 88715 melon extract food Not available Not available Not available 07/31/2015 67921 10 RxNorm ALBERTO Orta [facility] 6 10:48:50 3373 codeine medicatio n tachycard ia Not available Not available 01/23/2014 2670 RxNorm ALBERTO Orta [facility] 0 14:14:39 3375 banana extract food,medi cation other Not available Not available 01/23/2014 59662 9 RxNorm RANDA Mary [address] [facility] [address] [address] , [facility] 5 21:22:42 3376 Iodinated contrast media (substanc e) medicatio n anaphylax is severe Not available 01/23/2014 23297 2004 SNOMED ALBERTO Orta [facility] 0 14:15:47 67770 methylpre dnisolone medicatio n tachycard ia Not available Not available 06/30/2022 6902 RxNorm ALBERTO Zaragoza [facility] 2 13:26:19 52466 ondansetr on medicatio n headache Not available Not available 06/30/2022 24418 RxNorm [place] null, [facility] 2 13:27:11 40262 Fioricet medicatio n Not available Not available [facility] 05/24/2023 90964 4 RxNorm confu pauline. Heather Villareal MD [address] [address], [facility] [address], [facility] 3 11:59:29 Medications Name Sig Start Date Stop Date Status Note LastModified by Organization Details LastModified Time nifedipin e ER 30 mg tablet,ex tended release 24 hr TAKE 1 TABLET BY MOUTH EVERY DAY FOR HYPERTEN PAULINE 2024 active Not Available Not Available Not Avai lable quetiapin e 25 mg tablet TAKE 1/2 TO 1 TABLET BY MOUTH DAILY AT BEDTIME NEEDED FOR INSOMNIA 12/06 completed Not Available Not Available Not Available celecoxib 200 mg capsule TAKE 1 CAPSULE BY MOUTH EVERY DAY 02/20 completed Not Available Not Available Not Available amoxicill in 500 mg capsule TAKE 2 CAPSULES BY MOUTH THREE TIMES DAILY FOR 7 DAYS 11/23 completed Not Available Not Available Not Available fluconazo le 100 mg tablet 10/02 completed Not Available Not Available Not Available azelastin e 0.05 % eye drops INSTILL 1 DROP IN AFFECTED EYE(S) TWICE DAILY 12/07 completed Not Available Not Available Not Available prednison e 10 mg tablet TAKE 2 TABLETS BY MOUTH DAILY FOR 7 DAYS THEN 1 TABLET DAILY FOR 14 DAYS 11/14 completed Not Available Not Available Not Available doxycycli ne hyclate 100 mg capsule TAKE 1 CAPSULE BY MOUTH TWICE DAILY FOR 7 DAYS DIRECTED active Not Available Not Available No t Available atorvasta tin 20 mg tablet TAKE 1 TABLET BY MOUTH DAILY IN THE EVENING 08/24 completed changed to simvasta tin Not Available Not Available Not Available clindamyc in HCl 300 mg capsule active Not Available Not Available Not Available albuterol sulfate 2.5 mg/3 mL (0.083 %) solution for nebulizat ion INHALE 3ML BY MOUTH VIA NEBULIZE R TWICE DAILY NEEDED FOR SHORTNES S OF BREATH OR WHEEZING active Not Available Not Available No t Available trazodone 50 mg tablet Take 2 tablets every day by oral route at bedtime. active Not Available Not Available No t Available cetirizin e 10 mg tablet Take 1 tablet every day by oral route for 30 days. 03/01 completed Not Available Not Available Not Available azithromy tierra 250 mg tablet TAKE 2 TABLETS BY MOUTH FOR 1 DAY THEN TAKE 1 TABLET BY MOUTH DAILY FOR 4 DAYS 11/14 completed Not Available Not Available Not Available ofloxacin 0.3 % eye drops INSTILL 1 DROP IN RIGHT EYE TWICE DAILY WHILE CONTACT LENS IN PLACE 05/26 completed Not Available Not Available Not Available fluconazo le 150 mg tablet TAKE 1 TABLET BY MOUTH ONCE MAY REFILL SECOND DOSE AFTER 72 HOURS IF SYMPTOMS OF YEAST INFECTIO N PERSIST 11/23 completed Not Available Not Available Not Available ranitidin e 300 mg tablet Take 1 tablet every day by oral route at bedtime for 90 days. 04/09 completed Not Available Not Available Not Available clarithro mycin 500 mg tablet Take 1 tablet twice a day by oral route for 10 days. active Not Available Not Available No t Available meloxicam 15 mg tablet Take 1 tablet every day by oral route for 30 days. 05/18 completed Not Available Not Available Not Available ondansetr on HCl 4 mg tablet TAKE 2 TABLETS BY MOUTH TWICE DAILY FOR 10 DAYS NEEDED 06/30 completed Not Available Not Available Not Available prednison e 20 mg tablet TAKE 2 TABLETS BY MOUTH ONCE DAILY FOR 5 DAYS THEN 1 TABLET DAILY FOR 5 DAYS 11/14 completed Not Available Not Available Not Available clonazepa m 0.5 mg tablet BID 06/25 completed RECORDED 06/25/20 10 9:44AM BY ANEUDY CAMARGO MA, OFFICE VISIT;QA YAM Not Available Not Available Not Available gabapenti n 400 mg capsule QHS / HS 01/14 completed RECORDED 03/03/20 07 1:19PM BY CHRIS BOSS MD, MEDICATI ON AUTO-JEANE CTIVATIO N;WILL TAPER AND STOP Not Available Not Available Not Available topiramat e 25 mg tablet Take 1 tablet by mouth at bedtime x 7d, then 1 in the am & 1 at bedtime x 7d, then 1 in the am & 2 at bedtime x 7d, then use 50mg pills. 02/20 completed Not Available Not Available Not Available nifedipin e ER 30 mg tablet,ex tended release TAKE 1 TABLET BY MOUTH EVERY DAY IN THE EVENING 05/26 completed Not Available Not Available Not Available doxepin 10 mg capsule TAKE 1 CAPSULE BY MOUTH EVERY DAY AT BEDTIME 12/27 completed Not Available Not Available Not Available sulfameth oxazole 800 mg-trimet hoprim 160 mg tablet BID 05/26 completed RECORDED 06/02/20 13 1:47PM BY TESSIE CELIS MEDICATI ON AUTO-JEANE CTIVATIO N; Not Available Not Available Not Available omeprazol e 40 mg capsule,d elayed release TAKE 1 CAPSULE BY MOUTH DAILY active Not Available Not Available No t Available doxycycli ne monohydra te 100 mg tablet TAKE 1 TABLET BY MOUTH TWICE DAILY FOR 14 DAYS 01/06 completed Not Available Not Available Not Available tramadol 50 mg tablet TAKE 1 TABLET BY MOUTH EVERY 6 HOURS NEEDED FOR PAIN. MAY FILL FOR LESSER QUANTITY active Not Available Not Available No t Available TobraDex 0.3 %-0.1 % eye ointment APPLY TO LOWER EYELID OF BOTH EYES AT BEDTIME FOR 2 WEEKS 06/05 completed Not Available Not Available Not Available pantopraz ole 20 mg tablet,de layed release TAKE 2 TABLETS BY MOUTH EVERY DAY 09/07 completed disconti nued due to concerns Not Available Not Available Not Available levothyro xine 75 mcg tablet TAKE 1 TABLET BY MOUTH EVERY DAY active Not Available Not Available No t Available ketorolac 0.5 % eye drops INSTILL 1 DROP INTO RIGHT EYE FOUR TIMES DAILY FOR 6 WEEKS POSTOPER ATIVELY 05/26 completed Not Available Not Available Not Available meloxicam 7.5 mg tablet Take 1 tablet every day by oral route for 10 days. 04/28 completed Not Available Not Available Not Available oxycodone -acetamin ophen 5 mg-325 mg tablet Q 4-6 HRS PRN active Not Available Not Available No t Available calcium 600 mg (as calcium carbonate 1,500 mg) tablet DAILY active RECORDED 06/22/20 12 10:10AM BY ANEUDY CAMARGO MA, OFFICE VISIT; Not Available Not Available Not Available flaxseed oil 1,000 mg capsule Take 1 capsule every day by oral route. active Not Available Not Available No t Available Fluticaso ne Propionat e (Inhal) 50 mcg/BLIST inhl powd Inhale 2 inhalati ons every day by inhalati on route as needed. 2012 active Not Available Not Available Not Avai lable amoxicill in 875 mg tablet Take 1 tablet twice a day by oral route for 14 days. 07/14 completed Not Available Not Available Not Available magnesium oxide 400 mg (241.3 mg magnesium ) tablet TAKE 1 TABLET BY MOUTH DAILY active Not Available Not Available No t Available Vitamin C 1,000 mg tablet Take 1 tablet every day by oral route. active contains billy hips and acerola Not Available Not Available Not Available lorazepam 0.5 mg tablet TAKE 1/2 TABLET BY MOUTH DAILY NEEDED active Not Available Not Available No t Available Fosamax 70 mg tablet Q WEEK 06/25 completed RECORDED 06/25/20 10 10:14AM BY CHRIS BOSS MD, ANNOTATI ON/ADDEN DUM; Not Available Not Available Not Available trazodone 100 mg tablet 09/02 completed unable to swallow due to size of pill Not Available Not Available Not Available benzonata te 100 mg capsule TAKE 1 CAPSULE BY MOUTH THREE TIMES DAILY FOR 10 DAYS NEEDED FOR COUGH 02/08 completed Not Available Not Available Not Available doxycycli ne monohydra te 100 mg capsule TAKE 1 CAPSULE BY MOUTH TWICE DAILY FOR 10 DAYS 02/08 completed Not Available Not Available Not Available pantopraz ole 40 mg tablet,de layed release Take 1 tablet as needed by oral route at bedtime for 90 days. 06/10 completed Not Available Not Available Not Available simvastat in 20 mg tablet TAKE 1 TABLET BY MOUTH EVERY DAY AT BEDTIME 06/05 completed Not Available Not Available Not Available erythromy tierra 5 mg/gram (0.5 %) eye ointment APPLY A THIN LAYER TO THE LOWER LIP OF EACH EYE THREE TIMES DAILY FOR 7 DAYS 11/23 completed Not Available Not Available Not Available oseltamiv ir 75 mg capsule 2 TIMES PER DAY FOR 5 DAYS FOR INFLUENZ A 08/07 completed RECORDED 09/30/19 13 1:08PM BY CHRIS BOSS MD, MEDICATI ON AUTO-JEANE CTIVATIO N; Not Available Not Available Not Available ranitidin e 300 mg capsule AT BEDTIME 2014 active Not Available Not Available Not Avai lable lidocaine 5 % topical patch APPLY 1 PATCH TO THE SKIN TOPICALL Y EVERY DAY MAY WEAR UP TO 12 HOURS 03/12 completed PA denied; pt states she doesn't need it Not Available Not Available Not Available polymyxin B sulfate 10,000 unit-trim ethoprim 1 mg/mL eye drops INSTILL 1 DROP INTO AFFECTED EYE(S) BY OPHTHALM IC ROUTE EVERY 6 HOURS FOR 7 DAYS 12/27 completed Not Available Not Available Not Available Advair Diskus 250 mcg-50 mcg/dose powder for inhalatio n Inhale 2 puffs twice a day by inhalati on route for 30 days. active Not Available Not Available No t Available monteluka st 10 mg tablet TAKE 1 TABLET BY MOUTH DAILY active Not Available Not Available No t Available hydroxyzi ne HCl 25 mg tablet Take 2 tablets twice a day by oral route for 30 days. 12/06 completed Not Available Not Available Not Available magnesium 250 mg tablet Take 1 tablet every day by oral route in the evening. 05/22 completed Not Available Not Available Not Available pravastat in 20 mg tablet TAKE 1 TABLET BY MOUTH EVERY DAY AT BEDTIME 2024 active Not Available Not Available Not Avai lable gabapenti n 100 mg capsule Take 1 capsule 3 times a day by oral route as needed for 30 days. 12/06 completed Not Available Not Available Not Available azelastin e 137 mcg (0.1 %) nasal spray [place] 1 spray twice a day by intranas al route in the evening for 30 days. 12/07 completed Not Available Not Available Not Available diazepam 10 mg tablet Take 1 tablet 30 minutes prior to procedur e. 2013 active Not Available Not Available Not Avai lable polyethyl bryce glycol 3350 17 gram/dose oral powder MIX AND DRINK 17 GRAMS BY MOUTH EVERY DAY 12/27 completed Not Available Not Available Not Available levofloxa tierra 500 mg tablet TAKE 1 TABLET BY MOUTH DAILY 02/26 completed Not Available Not Available Not Available methylpre dnisolone 4 mg tablets in a dose pack FOLLOW PACKAGE DIRECTIO NS 06/30 completed Not Available Not Available Not Available albuterol sulfate HFA 90 mcg/actua tion aerosol inhaler INHALE 2 PUFFS BY MOUTH EVERY 6 HOURS NEEDED FOR SHORTNES S OF BREATH OR WHEEZING active Not Available Not Available No t Available Terazol 7 0.4 % vaginal cream Insert 1 applicat orful every day by vaginal route at bedtime for 7 days. 11/15 completed Not Available Not Available Not Available fluticaso ne propionat e 50 mcg/actua tion nasal spray,lyudmila pension SHAKE LIQUID AND USE 2 SPRAYS IN EACH NOSTRIL DAILY active Not Available Not Available No t Available dicyclomi ne 10 mg capsule TAKE 1 CAPSULE BY MOUTH EVERY 8 HOURS DIRECTED 08/24 completed Not Available Not Available Not Available Calcium + D 600 mg-5 mcg (200 unit) tablet Take 3 tablets every day by oral route at dinner. 07/14 completed Not Available Not Available Not Available loratadin e 10 mg tablet TAKE 1 TABLET BY MOUTH DAILY 03/03 completed Pt stopped taking, made her restless Not Available Not Available Not Available naproxen 500 mg tablet 08/23 completed Not Available Not Available Not Available Motrin 400 mg tablet 08/28 completed RECORDED 08/28/19 11 2:19PM BY BRICE HOBBS ON/TAMIKA HOLLIS;THIS ORDER DISCONTI NUED PER MEDI-SPA N. Not Available Not Available Not Available diazepam 5 mg tablet active Not Available Not Available Not Available amoxicill in 875 mg-potass ium clavulana te 125 mg tablet TAKE 1 TABLET BY MOUTH TWICE DAILY FOR 10 DAYS active Not Available Not Available No t Available oxycodone 5 mg tablet TABLET 1 TABLET EVERY 4-6 HOURS NEEDED 11/22 completed Not Available Not Available Not Available clindamyc in 1 % lotion Apply 1 applicat ion as needed by topical route for 15 days. active Not Available Not Available No t Available Adult Aspirin 81 mg tablet Take 1 tablet every day by oral route. 08/12 completed Not Available Not Available Not Available albuterol (refill) 90 mcg/actua tion aerosol inhaler Q 4-6 HRS PRN COUGH/WH EEZE 2012 active RECORDED 07/25/19 14 2:43PM BY ANEUDY CAMARGO MA, OFFICE VISIT; Not Available Not Available Not Available azithromy tierra 500 mg tablet Take 1 tablet every day by oral route for 7 days. active Not Available Not Available No t Available escitalop magdi 10 mg tablet TAKE 2 TABLETS BY MOUTH EVERY MORNING active Not Available Not Available No t Available escitalop magdi 20 mg tablet 03/01 completed Not Available Not Available Not Available metaxalon e 800 mg tablet QID 04/16 completed RECORDED 04/25/20 07 11:13AM BY MILENA CAMACHO, MEDICATI ON AUTO-JAENE CTIVATIO N; Not Available Not Available Not Available topiramat e 50 mg tablet Take 1 tablet twice a day by oral route for 30 days. 02/20 completed Not Available Not Available Not Available Readi-Cat 2 2.1 % (w/v), 2.0 % (w/w) oral suspensio n Take 450 mL twice a day by oral route as directed for 1 day. 12/13 completed Not Available Not Available Not Available Hampton Saline 0.65 % nasal drops Take 1 drop every day by nasal route in the morning for 30 days. active Not Available Not Available No t Available nitrofura ntoin monohydra te/macroc rystals 100 mg capsule TAKE 1 CAPSULE BY MOUTH TWICE DAILY FOR 7 DAYS 02/24 completed Not Available Not Available Not Available chlorhexi dine gluconate 0.12 % mouthwash SWISH AND SPIT 15 ML BY MOUTH IN THE MORNING AND IN THE EVENING FOR 2 WEEKS 11/22 completed Not Available Not Available Not Available pancreati n 1,400 mg po 3 x day active Not Available Not Available No t Available B Complex 1 tablet po daily 04/09 completed Not Available Not Available Not Available Vicodin Q 6HR/PRN 04/16 completed RECORDED 04/25/20 07 11:13AM BY VICKI ANDERSON, GNP, MEDICATI ON AUTO-JEANE CTIVATIO N; Not Available Not Available Not Available Fish Oil DAILY 07/25 completed RECORDED 07/25/19 14 2:55PM BY ANEUDY CAMARGO MA, OFFICE VISIT; Not Available Not Available Not Available Citracal DAILY active RECORDED 07/25/19 14 2:43PM BY ANEUDY CAMARGO MA, OFFICE VISIT; Not Available Not Available Not Available Glucosami ne Complex 1 PO DAILY active Not Available Not Available No t Available multivita min 1 tablet po daily active Not Available Not Available No t Available Calcium 600 + D(3) 3 chewable s po per day 02/20 completed Not Available Not Available Not Available red yeast rice 600 mg capsule Take 1 capsule every day by oral route. 06/05 completed Not Available Not Available Not Available Zostavax (PF) 19,400 unit/0.65 mL subcutane ous suspensio n SAM X 1 12/23 completed RECORDED 12/25/19 11 12:55PM BY CHRIS BOSS MD, MEDICATI ON AUTO-JEANE CTIVATIO N; Not Available Not Available Not Available MoviPrep 100 gram-7.5 gram-2.69 1 gram oral powder packet active Not Available Not Available Not Available Symbicort 160 mcg-4.5 mcg/actua tion HFA aerosol inhaler INHALE 2 PUFFS BY MOUTH TWICE DAILY active Not Available Not Available No t Available Symbicort 80 mcg-4.5 mcg/actua tion HFA aerosol inhaler Inhale 2 puffs twice a day by inhalati on route for 90 days. 12/21 completed Not Available Not Available Not Available Mucinex 1,200 mg tablet, extended release Take 1 tablet every 12 hours by oral route for 7 days. 07/14 completed Not Available Not Available Not Available cholecalc iferol (vitamin D3) 50 mcg (2,000 unit) capsule Take 1 capsule every day by oral route. 04/09 completed Not Available Not Available Not Available Creon 12,000-38 ,000-60,0 00 unit capsule,d elayed release TAKE 2 CAPSULES BY MOUTH WITH MEALS AND 1 CAPSULE WITH SNACKS 09/07 completed on hold Not Available Not Available Not Available butalbita l-acetami nophen-ca ffeine 50 mg-300 mg-40 mg capsule TAKE 1 CAPSULE BY MOUTH EVERY 6 HOURS FOR 3 DAYS NEEDED FOR HEADACHE 11/23 completed Not Available Not Available Not Available Probiotic 1 capsule po daily active Not Available Not Available No t Available Systane (PF) active Not Available Not Available Not Available azelastin e 137 mcg-fluti casone 50 mcg/spray nasal spray [place] 1 spray twice a day by intranas al route for 30 days. 04/28 completed Not Available Not Available Not Available Tudorza Pressair 400 mcg/actua tion breath activated Inhale 1 puff twice a day by inhalati on route as directed for 30 days. 06/14 completed Not Available Not Available Not Available Spiriva Respimat 2.5 mcg/actua tion solution for inhalatio n Inhale 2 puffs every day by inhalati on route for 30 days. active gets free samples from a friend Not Available Not Available Not Available Complete [place] 700 mg-1,500 mg capsule Take 1 capsule every day by oral route. active Not Available Not Available No t Available peppermin t oil 50 mg capsule,d elayed release Take 1 capsule 3 times a day by oral route before meals. 11/23 completed Not Available Not Available Not Available Readi-Cat 2 2 % (w/v) oral suspensio n 08/29 completed Not Available Not Available Not Available Shingrix (PF) 50 mcg/0.5 mL intramusc ular suspensio n, kit 09/02 completed Not Available Not Available Not Available Clenpiq 10 mg-3.5 gram-12 gram/160 mL oral solution 11/25 completed Not Available Not Available Not Available COVID-19 test specimen collectio n TEST DIRECTED TODAY 06/10 completed Not Available Not Available Not Available Fluzone High-Dose Quad 2020-21 (PF) 240 mcg/0.7 mL IM syringe ADM 0.7ML IM UTD 08/23 completed Not Available Not Available Not Available BinaxNOW COVID-19 Ag Self Test kit TEST DIRECTED TODAY 01/06 completed Not Available Not Available Not Available Paxlovid 300 mg (150 mg x 2)-100 mg tablets in a dose pack TAKE 3 TABLETS BY MOUTH TWICE DAILY FOR 5 DAYS DIRECTED 06/23 completed Not Available Not Available Not Available Vitals Date Recorded Body height Body mass index (BMI) Body weight Heart rate Oxygen saturation Oxygen saturation in Arterial blood by Pulse oximetry Body temperature Systolic blood pressure Diastolic blood pressure Provider Name and Address Organization Details Last Updated DateTime 5 156.21 cm 23.8 kg/m2 66077.1 g 58 /min 94 % 94 % 97.8 [degF] 138 mm[Hg] 55 mm[Hg] Aneudy hernandez [facility] 5 14:09:37 Date Recorded Body height Body mass index (BMI) Body weight Heart rate Oxygen saturation Oxygen saturation in Arterial blood by Pulse oximetry Body temperature Systolic blood pressure Diastolic blood pressure Systolic blood pressure Diastolic blood pressure Provider Name and Address Organization Details Last Updated DateTime 5 156.21 cm 23.6 kg/m2 64355.2 3 g 66 /min 95 % 95 % 97.8 [degF] 151 mm[Hg] 61 mm[Hg] 136 mm[Hg] 60 mm[Hg] [facility] 5 11:57:40 Date Recorded Body height Body mass index (BMI) Body weight Heart rate Oxygen saturation Oxygen saturation in Arterial blood by Pulse oximetry Body temperature Systolic blood pressure Diastolic blood pressure Provider Name and Address Organization Details Last Updated DateTime 5 156.21 cm 23 kg/m2 32322.4 5 g 87 /min 96 % 96 % 98.2 [degF] 131 mm[Hg] 55 mm[Hg] [facility] 5 11:04:31 Date Recorded Body height Body mass index (BMI) Body weight Heart rate Oxygen saturation Oxygen saturation in Arterial blood by Pulse oximetry Body temperature Systolic blood pressure Diastolic blood pressure Provider Name and Address Organization Details Last Updated DateTime 4 156.21 cm 26.6 kg/m2 84992.7 1 g 64 /min 95 % 95 % 98.7 [degF] 158 mm[Hg] 67 mm[Hg] Katie Mahoney LPN [facility] 4 14:17:13 Date Recorded Body height Body mass index (BMI) Body weight Heart rate Oxygen saturation Oxygen saturation in Arterial blood by Pulse oximetry Body temperature Systolic blood pressure Diastolic blood pressure Systolic blood pressure Diastolic blood pressure Systolic blood pressure Diastolic blood pressure Provider Name and Address Organization Details Last Updated DateTime 4 156.21 cm 26 kg/m2 92600.9 3 g 65 /min 95 % 95 % 98.1 [degF] 154 mm[Hg] 65 mm[Hg] 137 mm[Hg] 65 mm[Hg] 136 mm[Hg] 70 mm[Hg] Aneudy hernandez MA [facility] 4 11:47:35 Social History Question Answer Notes LastModified by Organizat ion Details LastModified Time Tobacco Smoking Status [facility] 16:42:43 Do You Have An Advance Directive? Yes Power Of Surgical Clinical Reviewer And MOLST Information not available 05/24/2023 Is Blood Transfusion Acceptable In An Emergency? Yes Information not available 07/31/2015 What Is Your Level Of Caffeine Consumption? Moderate Coffee, 2 Cups A Day Information not available 02/26/2021 How Much Tobacco Do You Chew? None Information not available 07/31/2015 What Type Of Diet Are You Following? REGULAR Information not available 07/26/2014 Which Illicit Or Recreational Drugs Have You Used? None Information not available 07/26/2014 When Did You Quit Smoking? 16+yearssin shona loganolbymonrodolfo Information not available 11/22/2024 Live Alone Or With Others? Alone Information not available 07/26/2014 Do You Take Precautions To Prevent Distracted Driving? Yes Information not available 07/31/2015 How Often Do You Need To Have Someone Help You When You Read Instructions, Pamphlets, Or Other Written Material From Your Doctor Or Pharmacy? Never Information not available 07/31/2015 Have You Served In The ? No Information not available 06/16/2016 Have You Or Anyone In Your Household Had Any Of The Following Symptoms In The Last 14 Days: Sore Throat, Cough, Chills, Body Aches For Unknown Reasons, Shortness Of Breath For Unknown Reasons, Loss Of Smell, Loss Of Taste, Fever At Or Greater Than 100 Degrees Fahrenheit? No Information not available 03/01/2020 Are You Or Anyone In Your Household A Health Care Provider Or Emergency Responder? No Information not available 03/01/2020 To The Best Of Your Knowledge Have You Been In Close Proximity To Any Individual Who Tested Positive For COVID-19? No Information not available 03/01/2020 *AWV ONLY* Are You Presently Prescribed Opioid Medication By PCP Or Specialist? If YES -Provider Assess The Benefit For Other, Non-opioid Pain Therapies Instead, Even If The Patient Does Not Have OUD But Is Possibly At Risk. No Information not available 03/19/2020 Have You Recently Traveled To A COVID-19 High Risk Area Or Gathering In The Last 10 Days? No abolcun Information not available 08/23/2020 What Was The Date Of Your Most Recent Tobacco Screening? 11/22/2024 [facility] Information not available 11/22/2024 How Many Children Do You Have? 4 1 Due To Umbilical Cord Strangulation Information not available 01/25/2014 What Is Your Current Pack Years? 20-29packye ars Information not available 11/22/2024 Seat Belts Used Routinely Yes Information not available 07/31/2015 Are You Sexually Active? No Information not available 07/31/2015 Smoke Alarm In Home Yes Information not available 07/31/2015 At What Age Did You Start Smoking Tobacco? 27 1964 Information not available 11/22/2024 Are You Passively Exposed To Smoke? No Information not available 07/31/2015 How Much Tobacco Do You Smoke? 0.5 PPD Information not available 07/26/2014 Do You Use Sunscreen Routinely? No During The Summer Information not available 07/31/2015 How Many Years Have You Smoked Tobacco? 42 Information not available 07/31/2015 Sex: Unknown Functional Status Question Answer Note LastModified by Organizat ion Details LastModified Time Do you use any illicit or recreational drugs? No Information not available 02/26/2021 Do you or have you ever used any other forms of tobacco or nicotine? No Information not available 02/26/2021 What is your level of alcohol consumption? Occasional wine, 2 x month Information not available 07/26/2014 Do you or have you ever used smokeless tobacco? Never used smokeless tobacco Information not available 09/02/2019 Are you currently employed? Yes retired Information not available 07/26/2014 Are you able to walk? YESASSIST occasionally uses a cane Information not available 05/24/2023 Are you able to care for yourself? 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 Never used electronic cigarettes Information not available 09/02/2019 What is your exercise level? Occasional walking (in good weather) Information not available 02/26/2021 Mental Status None recorded. Family History Relationship Description Onset Age of this Age Resolved Age Notes LastModified by Organization Details LastModified Time Father Malignant tumor of kidney bsolivanmatto s Not available 01/25/2014 10:47:41 Father Asthma bsolivanmatto s Not available 01/25/2014 10:47:41 Mother Myocardial infarction bsolivanmatto s Not available 01/25/2014 10:47:41 Mother Type 1 diabetes mellitus bsolivanmatto s Not available 01/25/2014 10:47:41 Daughter Rheumatoid arthritis bsolivanmatto s Not available 01/25/2014 10:47:41 Daughter Total replacement of hip bsolivanmatto s Not available 01/25/2014 10:47:41 Son Asthma bsolivanmatto s Not available 01/25/2014 10:47:41 Son Back problem bsolivanmat to s Not available 01/25/2014 10:47:41 Sister Diabetes mellitus phelmuth Not available 2015 11:38:48 Sister Parkinson's disease ckokar Not available 2022 12:12:13 Medical History Condition Response Anxiety Disorder Y High Cholesterol Y Congestive Heart Failure (CHF) N Acid Reflux (GERD) Y Hypertension Y Hypothyroidism Y Depression Y COPD Y Gynecological History Statement/Question Response Date of Last Colonoscopy 06/01/2014 Most Recent Mammogram 02/17/2024 Most Recent Bone Density 03/20/2015 Obstetrics History GPAL:G 0 P 0 0 0 0 Immunizations Vaccine Type Date Status Note Provider Nam e and Address Organization Details Recorded Time Td (adult) 8 completed Xin magdaleno [facility] 04/16/2020 11:10:19 Influenza, split virus, trivalent, PF 5 completed Xin magdaleno [facility] 04/16/2020 11:10:20 Pneumococcal conjugate PCV 13 6 completed ALBERTO Chacko [facility] 03/04/2022 10:51:01 zoster recombinant 9 completed ALBERTO Chakco, [facility] 06/10/2021 15:33:36 zoster recombinant 9 completed ALBERTO Chacko, [facility] 06/10/2021 15:33:35 Influenza, high-dose, trivalent, PF 9 completed Xin magdaleno [facility] 04/16/2020 11:10:20 Influenza, high-dose, quadrivalent, PF 0 completed ALBERTO Zaragoza, [facility] 02/24/2022 11:04:29 COVID-19, mRNA, LNP-S, PF, 30 mcg/0.3 mL dose 1 completed AneudyALBERTO Nunez [facility] 06/10/2021 15:33:35 COVID-19, mRNA, LNP-S, PF, 30 mcg/0.3 mL dose 1 completed ALBERTO Chacko, [facility] 06/10/2021 15:33:35 Influenza, adjuvanted, quadrivalent, PF 1 completed ALBERTO Chacko, [facility] 06/10/2021 15:33:35 zoster live 1 completed ALBERTO Chacko, [facility] 06/10/2021 15:33:35 COVID-19, mRNA, LNP-S, PF, 30 mcg/0.3 mL dose 1 completed ALBERTO Chacko, [facility] 06/10/2021 15:33:35 Influenza, high-dose, trivalent, PF 8 completed ALBERTO Chacko, [facility] 06/10/2021 15:33:35 zoster live 9 completed ALBERTO Chacko, [facility] 06/10/2021 15:33:36 Influenza, split virus, trivalent, PF 4 completed ALBERTO Chacko, [facility] 03/04/2022 10:51:01 Td (adult), 2 Lf tetanus toxoid, preservative free, adsorbed 9 completed ALBERTO Chacko, [facility] 03/04/2022 10:51:01 Influenza, high-dose, trivalent, PF 6 completed ALBERTO Chacko, [facility] 03/04/2022 10:51:01 Influenza, high-dose, trivalent, PF 7 completed Aneudy Dallas MA null, [facility] 03/04/2022 10:51:01 Influenza, high-dose, quadrivalent, PF 2 completed Rancho Silveira MA null, [facility] 06/17/2022 10:59:18 Influenza, high-dose, quadrivalent, PF 3 completed Aneudy Dallas MA null, [facility] 04/28/2023 11:20:14 RSV, recombinant, protein subunit RSVpreF, adjuvant reconstituted, 0.5 mL, PF 4 completed Renata Castro MA null, [facility] 11/24/2023 10:53:14 Influenza, adjuvanted, trivalent, PF 4 completed Katie Mahoney LPN null, [facility] 06/05/2024 14:17:27 Pneumococcal conjugate PCV 13 6 completed Not Available [facility] 12/02/2024 10:42:35 Influenza, split virus, trivalent, preservative 3 completed Xin magdaleno, [facility] 04/16/2020 11:10:20 pneumococcal polysaccharide PPV23 5 completed Xin magdaleno, [facility] 04/16/2020 11:10:20 Influenza, split virus, trivalent, preservative 6 completed Xin Servin null, [facility] 04/16/2020 11:10:20 Influenza, split virus, trivalent, preservative 7 completed Xin Servin null, [facility] 04/16/2020 11:10:20 Influenza, split virus, trivalent, preservative 8 completed Xin magdaleno, [facility] 04/16/2020 11:10:20 pneumococcal polysaccharide PPV23 9 completed Xin magdaleno, [facility] 04/16/2020 11:10:20 Influenza, split virus, trivalent, preservative 9 completed Xin Servin null, [facility] 04/16/2020 11:10:20 Novel [id number], all formulations 0 completed Xin Servin null, [facility] 04/16/2020 11:10:20 Influenza, split virus, trivalent, preservative 0 completed Xin Servin null, [facility] 04/16/2020 11:10:20 Influenza, split virus, trivalent, preservative 1 completed Xin Servin null, [facility] 04/16/2020 11:10:20 Influenza, split virus, trivalent, preservative 2 completed Xin Servin null, [facility] 04/16/2020 11:10:20 Influenza, split virus, trivalent, preservative 3 completed Xin Servin null, [facility] 04/16/2020 11:10:20 Past Encounters Encounter ID Performer Location Encounter Start Date Encounter Closed Date Diagnosis/Indication Diagnosis SNOMED-CT Code Diagnosis ICD10 Code Diagnosis Note [id number] Chris Boss MD Main Office [address] [address] 01/25/2014 10:17:09 01/25/2014 11:36:27 Hypothyroidism 22296117 Essential hypertension 84016683 Hyperlipidemia 97086838 Chronic ob structive pulmonary disease 85051911 Fatigue 09070868 [id number] autoEComm erce [address] [facility] [place] [address] 08/19/2005 00:00:00 [id number] autoEComm erce [address] [facility] [address] [place] [address] 10/19/2005 00:00:00 [id number] autoEComm erce [address] [facility] [address] [place] [address] 02/02/2006 00:00:00 [id number] [place] [address] 05/07/2006 00:00:00 [id number] autoEComm erce [address] [facility] [address] [place] [address] 10/25/2006 00:00:00 [id number] autoEComm erce [address] [facility] [place] [address] 11/09/2006 00:00:00 [id number] autoEComm erce [address] [facility] [place] [address] 12/01/2006 00:00:00 [id number] autoEComm erce [address] [facility] [place] [address] 12/15/2006 00:00:00 [id number] autoEComm erce [address] [facility] [place] [address] 03/17/2007 00:00:00 [id number] autoEComm erce [address] [facility] [place] [address] 03/23/2007 00:00:00 [id number] autoEComm erce [address] [facility] [place] [address] 06/22/2007 00:00:00 [id number] autoEComm erce [address] [facility] [place] [address] 07/13/2007 00:00:00 [id number] autoEComm erce [address] [facility] [place] [address] 10/05/2007 00:00:00 [id number] autoEComm erce [address] [facility] [place] [address] 12/21/2007 00:00:00 [id number] autoEComm erce [address] [facility] [place] [address] 03/28/2008 00:00:00 [id number] autoEComm erce [address] [facility] [place] [address] 07/26/2008 00:00:00 [id number] [address] [place] [address] 08/15/2008 00:00:00 [id number] [address]Comm er[address] [place] [address] 09/25/2008 00:00:00 [id number] auto[employer]Comm erce [address] [place] [address] 03/20/2009 00:00:00 [id number] [address] erce [address] [place] [address] 09/18/2009 00:00:00 [id number] auto[address]Comm erce [address] [place] [address] 12/19/2009 00:00:00 [id number] autoEComm erce [address] [facility] [place] [address] 12/25/2009 00:00:00 [id number] autoEComm erce [address] [facility] [place] [address] 06/11/2010 00:00:00 [id number] autoEComm erce [address] [facility] [address] [place] [address] 06/25/2010 00:00:00 [id number] autoEComm erce [address] [facility] [place] [address] 12/22/2010 00:00:00 [id number] autoEComm erce [address] [facility] [place] [address] 06/17/2011 00:00:00 [id number] autoEComm erce [address] [facility] [place] [address] 12/23/2011 00:00:00 [id number] autoEComm erce [address] [facility] [address] [place] [address] 06/22/2012 00:00:00 [id number] autoEComm erce [address] [facility] [address] [place] [address] 09/29/2012 00:00:00 [id number] autoEComm erce [address] [facility] [place], [place] [address] 10/13/2012 00:00:00 [id number] autoEComm erce [address] [facility] [place], [place] [address] 12/14/2012 00:00:00 [id number] autoEComm erce [address] [facility] [place], [place] [address] 07/25/2013 00:00:00 [id number] Chris Boss MD Main Office [address] [facility] [address] [place] [address] 04/18/2014 11:22:53 04/18/2014 12:16:44 Neck pain [id number] [id number] Chris Boss MD Main Office [address] [address] [place] [address] 05/10/2014 16:24:32 05/10/2014 16:37:59 Needs influenza immunization [id number] Chris Boss MD Main Office [address] [facility] [address] [place] [address] 07/26/2014 10:28:44 07/26/2014 11:29:56 Adult health examination [id number] G0439 Hypothyroidism 57828164 Hyperlipidemia 83473832 Gastroesop hageal reflux disease 107034931 Tubular adenoma 400395259 05/2014 Poor short -term memory 689811260 Neck pain 78910745 [id number] Chris Boss MD Main Office [address] [facility] [address] [place] [address] 01/24/2015 10:27:30 01/24/2015 11:19:35 Hyperlipidemia 49036355 Hypothyroidism 74259633 Essential hypertension 79802529 On examina tion - varicose veins 643616647 Fatigue 52664669 Body mass index 30+ - obesity 895236512 Menopause present [id number] [id number] Chris Boss MD Main Office [address] [address] [place] [address] 04/03/2015 13:38:32 04/03/2015 14:35:36 Acute sinusitis 80079512 Vaginitis 74411438 [id number] Emily Navarrete PA-C Main Office [address] [address] [place] [address] 06/11/2015 11:28:13 06/11/2015 11:56:21 Acute exacerbation of chronic obstructive pulmonary disease 483436437 J44.1 Acute exacerb. of COPD. Start Zithromax at 500 mg qd for 1 week. Mucinex 600 mg BID. Increase Symbicort to 160 mcg 2 puffs BID and ProAir PRN. Rest and fluids. Return in 1 week if not significan tly improved. [id number] Chris Boss MD Main Office [address] [address] [place] [address] 07/31/2015 10:43:29 07/31/2015 11:42:24 Adult health examination 527107065 Z00.00 G0439 Essential hypertension 46448727 I10 Hypothyroidism 52081700 E03.9 Anxiety state 273438016 F41.1 Varicose v eins of lower extremity 53660015 I83.819 Administra tion of pneumococcal vaccine 96161637 Z23 Hyperlipidemia 24876904 E78.5 Chronic ob structive pulmonary disease 59736657 J44.9 [id number] Chris Boss MD Main Office [address] [address] [place] [address] 03/13/2016 10:58:43 03/13/2016 11:57:53 Pure hypercholesterolemia 071869269 E78.0 Essential hypertension 26909394 I10 Hypothyroidism 25803506 E03.9 Influenza vaccine needed 6122230892 106 Z23 Body mass index 30+ - obesity 970340846 Z68.30 Acute exac erbation of chronic obstructive pulmonary disease 822496102 J44.1 Followed by Dr. Aquino for pulmonary [id number] Chris Boss MD Main Office [address] [address] [place] [address] 06/16/2016 10:58:08 06/16/2016 11:46:36 Essential hypertension 27768504 I10 Hypothyroidism 01959944 E03.9 Hyperlipidemia 36727419 E78.5 [id number] Chris Boss MD Main Office [address] [address] [place] [address] 12/21/2016 10:00:17 12/21/2016 10:44:18 Adult health examination 800120363 Z00.00 Essential hypertension 38193996 I10 Hypothyroidism 06765742 E03.9 Anxiety state 368883576 F41.1 Hyperlipidemia 28502130 E78.5 Chronic ob structive pulmonary disease 97701531 J44.[address] Aquino [id number] RANDA Mary Main Office [address] [address] 04/09/2017 10:38:19 04/09/2017 11:55:00 Cough 70632658 R05 Likely associated with recent illness and allergic rhinitis, instructed to take plenty of fluids and have adequate rest. Acute sinusitis 29883466 J01.90 Discussed to start regimen of doxycyclin e and fluticason e as directed. Instructed to stay hydrated with adequate rest Allergic rhinitis 242168 04 J30.9 Advised to take cetirizine as directed throughout remainder of Fall season for relief. [id number] America choi MD Main Office [address] [address] 04/24/2017 10:29:53 04/26/2017 15:46:29 Influenza vaccine needed 3876832173 106 Z23 [id number] Emily Navarrete PA-C Main Office [address] [address] 06/14/2017 10:42:30 06/14/2017 11:29:30 Acute exacerbation of chronic obstructive pulmonary disease 023673921 J44.1 Pt has 5 day history of productive cough with yellow sputum and COPD.Start Doxycyclin e 100 mg BID for 10 days. Pt. had multiple side effects with Prednisone in the past. Would like not to take now.Start Mucinex 1200 mg BID. Continue inhalers as per pulmonolog ist. Pt. has pulm. f/u in July. Call office if symptoms are NOT improved in 2-3 days.Use proair inhaler as needed for symptomati c reliefFoll ow up if no improvemen t in symptoms or worsening symptoms [id number] Chris Boss MD Main Office [address] [address] 06/25/2017 10:52:48 06/25/2017 11:53:59 Essential hypertension 37676793 I10 Acute exac erbation of chronic bronchitis 271660626 J44.1 Candidiasis of vagina 72 274607 B37.3 [id number] Emily Navarrete PA-C Main Office [address] [address] [place] [address] 07/14/2017 12:55:11 07/14/2017 14:14:35 Chronic obstructive pulmonary disease 87441278 J44.9 Post COPD exacerbati on. Seen by pulmonolog ist and had steroid taper with improvemen t in symptoms. F/u with pulm. as scheduled . Essential hypertension 53095963 I10 sO FAR BORDERLINE ELEVATED WITHOUT MEDS. pt. IS ADVISED TO KEEP SODIUM DOWN and check BP at home. If BP is 150 or over systolic, pt. is advised to return to the office to be started on meds. Fatigue 97962988 R53.83 Ordered cbc to r/o anemia will tx if abnormal findings.H /o hypothyroi dism check TSH, pt on [id number] Alber Navarrete PA-C Main Office [address] [address] [place] [address] 11/15/2017 15:06:30 11/15/2017 16:55:17 Pain of wrist region 47715428 M25.531 will check xray for further eval - if + fx will refer to neos. if neg - then go to OT as dir. wear wrist splint [id number] Chris Boss MD Main Office [address] [address] [place] [address] 12/24/2017 13:11:33 12/24/2017 14:34:59 Essential hypertension 67915840 I10 Pure hypercholesterolemia 879610993 E78.00 Hypothyroidism 63265824 E03.9 Administra tion of diphtheria, pertussis, and tetanus vaccine 933196958 Z23 Varicella vaccination 68 888964 Z23 Varicose v eins of lower extremity 76940080 I83.819 Chronic constipation 236 447915 K59.09 Chronic ob structive pulmonary disease 43505835 J44.[address] Aquino Obesity 475245968 E66.9 Body mass index 30+ - obesity 166558695 Z68.32 Osteopenia 125119740 M85 .80 Mild on DEXA 2015. Repeat 2019 [id number] Chris Boss MD Main Office [address] [facility] [address] [place] [address] 07/22/2018 10:26:49 07/22/2018 11:47:38 Chronic obstructive pulmonary disease 32738540 J44.[address] Aquino Requires a tetanus booster 061895504 Z23 Hypothyroidism 19810183 E03.9 Chronic he adache disorder 942478215 G44.89 Chronic neck pain 459671 6248 107 M54.2 Dizziness 818862724 R42 Dyspnea on exertion 6084 5006 R06.09 [id number] Soy Coleman MD Main Office [address] [address] [place] [address] 12/12/2018 15:39:09 12/12/2018 16:39:58 Neck pain 87880102 M54.2 chronic - worse lately - no radicular symptoms - will get pmr eval, trial c celebrex - advised pt to stop advil but could still use tyl prn, cont moist heat [id number] Chris Boss MD Main Office [address] [address] [place] [address] 02/20/2019 10:39:53 02/20/2019 11:48:14 Adult health examination 079381738 Z00.00 Pure hypercholesterolemia 766691472 E78.00 Essential hypertension 59172055 I10 Hypothyroidism 45376471 E03.9 Skin tag 122716531 L91.8 Chronic neck pain 488333 9987 107 M54.2 Chronic ob structive pulmonary disease 62064221 J44.[address] Aquino Obesity 220828944 E66.9 Z68.30 [id number] Chris Boss MD Main Office [address] [address] [place] [address] 09/02/2019 09:11:20 09/02/2019 10:09:06 Essential hypertension 55118171 I10 Hypothyroidism 17043550 E03.9 Hyperlipidemia 91642563 E78.5 Chronic ob structive pulmonary disease 85679277 J44.[address] Aquino [id number] Soy Coleman MD Main Office [address] [address] [place] [address] 10/01/2019 08:46:45 10/11/2019 10:49:31 Pruritic disorder 630442059 L29.9 Sounds like an allergic reaction. Not sure it's related to the antibiotic . No evidence of systemic allergic reaction. See if prednisone helps while arranging office eval. Acute exac erbation of chronic bronchitis 360470061 J44.1 [id number] Soy Coleman MD Main Office [address] [address] [place] [address] 10/03/2019 08:57:36 10/03/2019 11:03:46 Allergic reaction 229577464 T78.40XD ? if related to recent infection or other potential allergen. Responding well to prednisone but pt has not tolerated very well. Will accelerate the taper by dropping to 30mg and decreasing dose by 10mg every 2 days. Advised to call if still having side effects or if symptoms recur. [id number] Chris Boss MD [address] [address] [place] [address] 03/01/2020 12:49:27 03/04/2020 11:06:45 Adult health examination 418231798 Z00.00 Essential hypertension 87255957 I10 Hypothyroidism 61883808 E03.9 Pure hypercholesterolemia 786058871 E78.00 Body mass index 30+ - obesity 550151385 E66.9 Cervical spondylosis 387 125324 M47.812 Chronic neck pain 541142 2794 107 M54.2 Chronic ob structive pulmonary disease 24159262 J44.[address] Miles Velasquez on of lumbar intervertebral disc 95151341 M51.36 Hyperlipidemia 77130610 E78.5 [id number] Soy Coleman MD [facility] [address] [address] [place] [address] 03/19/2020 08:35:12 03/19/2020 10:42:25 Chronic neck pain 0598418773 107 M54.2 encouraged pt to stop nsaids, cont tyl, moist heat, hep, and to give pssp a call for f/u visit - to consider jus injxn - - meanwhile, trial of low dose gabapentin - advised pt to cut traz dose at hs in 1/2 so as not to get too sedated [id number] [facility] [address] [facility] [address] [place] [address] 08/23/2020 08:22:44 08/23/2020 10:50:17 Chronic obstructive pulmonary disease 09192049 J44.[address] qAuino Cervical spondylosis 387 271748 M47.812 Chronic neck pain 362565 2616 107 M54.2 Essential hypertension 61862585 I10 Hyperlipidemia 31410252 E78.5 Hypothyroidism 41330551 E03.9 Body mass index 30+ - obesity 559094959 E66.9 Osteopenia 456684903 M85 .80 Mild on DEXA 2014. Fatigue 34738566 R53.83 [id number] Chris Boss MD [facility] [address] [address] [place], [place] [address] 12/06/2020 14:25:32 12/10/2020 12:45:18 Fatigue 17899316 R53.83 Hypothyroidism 30410423 E03.9 Essential hypertension 96745423 I10 Increased frequency of urination 029480592 R35.0 [id number] Heather Villareal MD Main Office [address] [place], [place] [address] 12/11/2020 09:56:12 12/11/2020 10:50:39 Abdominal pain 82973900 R10.9 I suspect this is unlikely IBD related as history not consistent (non bloody bowel movement and only had 2 episodes) However for reassuranc e will get ESR/CRP.-P atient symptoms are very vague and difuse given age will get CT with just PO contrast and not IV as she cannot tolerate IV contrast due to allergies. Counseling 692883865 Z71 .9 Referral for counseling with Sonia / SETH Bloom. Please provide patient with contact info to schedule their appointmen anjali [email or web address]# email: [email or web address] Acute conjunctivitis 531 48594 H10.33 poor vision due to cataracts was suppose to see Dr. England 2 weeks ago for f/u but missed apt. Advised her to reschedule sam.I suspect she has allergic vs bacterial conjunctiv itis (due to yellow crusting) Will have her to abx eye drop and antihistam ine eye drops. Anxiety state 477675187 F41.1 On celexa 10, does not want to increase does open to counseling , will give her referral for counseling . Essential hypertension 73974132 I10 HTN is on her problem list however I don't see her on any medication .Lifestyle modificati on advised, will f/u for BP check in 2 days if still elevated will start tx.Red flags discussed. [id number] Heather Villareal MD Main Office [address] [facility] [address] [place] [address] 12/13/2020 08:56:17 12/13/2020 09:47:23 Essential hypertension 69041769 I10 BP stable without medication . With dizziness and age will hold meds and provide cuff to check. Dizziness 732342903 R42 EKG WNLOrthost atic preformed: 122/80, 57 sukiuzk438 /82, 56 yammpg220/ 80, 60 standingDi x hallpike suggestive of BPPV, with advance age, soft HR will hold meclizine for now and opt for PT for BPPV.In addition HR on softer side which could be due to trazadone which patient did not want to adjust - will monitor. Abdominal pain 35742068 R10.9 Cw to have pain will do trial of PPI at bed time.Advis ed to avoid food triggers, avoid eating 2 hrs before bed and keeping head of bed elevated.C T pending. Hypothyroidism 09685649 E03.9 [id number] Heather Villareal MD Main Office [address] [address] 12/27/2020 09:30:12 12/27/2020 10:15:07 Essential hypertension 97182872 I10 BP stable without medication . With dizziness and age will hold meds advised to continue to check BP Cw lifestyle modificati on Dizziness 007080951 R42 Resolved - has PT if needed for BPPV Abdominal pain 35913536 R10.9 Resolved - result reviewed with patient Acute conjunctivitis 534 88405 H10.33 Stable with eye drops, refilled today. Gallstone 476403913 K80. 20 Asymptomat ic, counseling provided. Diverticul osis of colon without diverticulitis 441707942 K57.30 High fiber diet encouraged and education provided. Anxiety state 271844086 F41.1 Reached out to ashley Doss to hear back.[facility] [place] [id number] Heather Villareal MD Main Office [address] [facility] [address] [place] [address] 02/26/2021 10:26:46 02/26/2021 11:13:12 Adult health examination 830339889 Z00.00 Patient was counseled on healthy diet, exercise and nutrition due to Body mass index is 31.2 kg/m? ? ?. Last Colonoscop y: Date: 06/01/14 Result: Plan: in the process of obtaining path. Last Mammogram: Date: 12/16/17 Result: Birad-2 Plan:risk for breast ca needs genetic testing, declines genetic testing but ok to get mamogram. Last Pap smear No longer screening due to age. Bone density scan Date: 09/25/20 Result: osteopenia Plan: weight bearing exercise advised Vaccines: Td: 07/22/18 Zoster: 01/16/19, 04/29/19 PCV13: 08/02/15 PPSV23: 08/15/08 Influenza: 04/12/2020 Covid: 08/26/20, 09/17/20 Routine labs reviewed. Immunizati on status reviewed. Will screen based on risk factors. Regular dental and ophtho care advised as well as seat belt and sunscreen use. Distracted driving discussed. Medication reconciled . Advance directives discussed. Advance di rective discussed with patient 201589865 Z71.89 MOLST and HCP provided to patient she will review with family and bring back to me at next visit. Screening for malignant neoplasm of breast 863477316 Z12.39 high risk per screening in 2018, will repeat. Hypothyroidism 38924413 E03.9 stable on levothyrox ine [id number] Heather Villareal MD Main Office [address] [facility] [address] [place] [address] 06/10/2021 15:25:14 06/10/2021 16:46:13 Abdominal pain 96001832 R10.9 Epigastric pain, not worsened with eating or described by patient as reflux but concerning for GERD or gastritis. Had tolerated PPI in the past with positive response so will trial this again now w/ 20 mg BID.Will test for h. pylori to rule this out though seems less likely and may have false positive given starting PPI as above.No fevers, chills, no acute abdomen, no rebound tenderness and no indication for ED at this time.Will consider CT scan if any lab work derangemen t's. Hypothyroidism 55404170 E03.9 stable on levothyrox inewill retest TSH given ongoing fatigue and weakness Diarrhea 62812935 R19.7 Could consider c.diff given recent atbx use so will test for this as well but also seems less likely.Lik ariana IBS flare w/ intermitte nt diarrhea and constipati on secondary to dietary changes.Al so could consider diverticul osis but unlikely to be diverticul itis at this time. Malaise and fatigue 2717 36259 R53.81 pt concerned about having the flu given weakness and fatigue, will order testing but seems less likely. [id number] Heather Villareal MD Main Office [address] [facility] [address] [facility] [place] [address] 08/29/2021 11:23:00 08/29/2021 12:10:30 Chronic obstructive pulmonary disease 14369176 J44.9 No symptoms, stable on inhalerCw follow up with pulmonolog ist Dr. Aquino Chavez's esophagus 3029 23498 K22.70 Advised to follow up with GI to schedule EGD Tubular adenoma 34687626 7 D36.9 Over due for colonscopy advised follow up with GI as she had declined on recent visit.She tells me she will call them to schedule for October. Hypothyroidism 14106809 E03.9 stable on levothyrox inewill retest TSH Irritable bowel syndrome 32049948 K58.9 Good control with bentyl, refilled today. Essential hypertension 57780059 I10 BP stable without medication . With dizziness and age will hold meds advised to continue to check BP Cw lifestyle modificati on [id number] Heather Villareal MD Main Office [address] [facility] [address] [facility] [place] [address] 11/25/2021 13:41:42 11/25/2021 14:41:58 Upper abdominal pain 63967627 R10.10 DDx include:Ga stritis/Ga stroenteri tis: as tender in epigastric regionIBSA dvised to take PPI BIDHas had multiple imaging, is passing gas so unlikely obstructio nsHas EGD/colo with GI soon, also advised follow up with GI.Will get labs an stool studies again.Also advised at home covid testHydrat ion and BRAT diet discussedR ed flag discussed and when to go to ED. Diarrhea 74312054 R19.7 Will get stool studies Anxiety state 402130136 F41.1 Was following psychiatry PA who no longer reached out to her needs new therapist will provide referral. [id number] Heather Villareal MD Main Office [address] [facility] [address] [place] [address] 02/24/2022 11:01:35 02/24/2022 12:01:42 Acute cervical sprain 640881143 S13.4XXA Pt. reports doing well taking tramadol. recommend to take twice daily with tylenol ER in between or 600 mg of advil. Heat alternatin g with cold packs 10 min each every few hrs for 1-2 days. Elevated blood-pressure reading without diagnosis of hypertension 015821135 R03.0 likely secondary to pain. better pain control is advised. Pt. has AWV scheduled in 1 week to recheck BP. [id number] Heather Villareal MD Main Office [address] [facility] [address] [place] [address] 03/04/2022 10:44:38 03/04/2022 12:10:41 Screening for malignant neoplasm of breast 512243691 Z12.39 high risk per screening in 2018, will repeat. Hypothyroidism 77792755 E03.9 stable on levothyrox ine Cervical spondylosis 387 438682 M47.812 Will start light PT, Lidocaine patch.Shor t course of tramadol at bed time only. Risk of sedation discussed. Will also refer to physiatry. Dizziness 033311310 R42 I believe triggered to by neck issues.No red flags. Essential hypertension 78683673 I10 BP slightly elevated, could be due to discomfort at pain will hold adjustment . Chavez's esophagus 3029 70474 K22.70 On PPI concerned about bone health.dis cussed that we can consider reducing to 20mg next vist. Neck pain 73832419 M54.2 [id number] Heather Villareal MD Main Office [address] [facility] [address] [place] [address] 04/07/2022 10:58:42 04/07/2022 11:34:33 Cervical spondylosis 285858089 M47.812 Notes doing better with PT Essential hypertension 64583686 I10 BP well controlled today. Chavez's esophagus 3029 00263 K22.70 cw ppi given barretts [id number] Heather Villareal MD Main Office [address] [facility] [address] [facility] [place] [address] 05/22/2022 09:26:48 05/22/2022 10:24:40 Adult health examination 296670393 Z00.00 Patient was counseled on healthy diet, exercise and nutrition due to Body mass index is 29.9 kg/m? ? ?. Last Colonoscop y:Date: 01/07/22Res ult: tubular adenomaPla n: following GI Last Mammogram: Date: 04/07/21Res ult: Birad-2Pla n:risk for breast ca needs genetic testing, declines genetic testing but ok to get mammogram. Last Pap smearNo longer screening due to age. Bone density scanDate: 09/25/20Res ult: osteopenia Plan: weight bearing exercise advised Vaccines:T d: 07/22/18Zos ter: 01/16/19, 04/29/19PC V13: 08/02/15PPS V23: 08/15/08Infl uenza: 05/11/22Co vid: 08/26/20, 09/17/20, 05/18/21, bivalent advised Routine labs reviewed. Immunizati on status reviewed. Will screen based on risk factors. Regular dental and ophtho care advised as well as seat belt and sunscreen use. Distracted driving discussed. Medication reconciled . Advance directives discussed. Advance di rective discussed with patient 803216904 Z71.89 MOLST and HCP provided to patient she will review with family and bring back to me at next visit. Screening for malignant neoplasm of breast 465305064 Z12.39 high risk per screening in 2018, will repeat. Pure hypercholesterolemia 492673465 E78.00 [id number] Lasha Alejandro MD [facility] [address] [facility] [address] [facility] [place] [address] 06/17/2022 08:40:24 06/17/2022 13:53:40 COVID-19 673076171 U07.1 Hydration, rest, if feeling better quarantine x 5 days then mask for 5 days. If not better after 5 days quarantine for full 10 days. Tylenol/ advil as needed, OTC cough med as needed. Call/ return for worsening sx or concerns.- If sob or wheezing, take rescue inhaler and wait 30 mins if no relief use nebulizer txED precaution s reviewed- shortness of breath not relieved by proair and or nebulizer, nausea/ vomiting and unable to tolerate PO, Fever not resolved with tylenol or advil. please go to ED- Will f.u by phone in 1 week to ensure she is feeling better, she can call/ return for any concerns in the meantime.( she will stop statin while on paxlovid) Generalize d aches and pains 44775379 R52 patient states everythin g hurts, don't want to get up . Requests short script for tramadol to help with pain. Will refill, encouraged to ensure she is takign deep breaths, may lay prone as needed. Chronic ob structive pulmonary disease 31440762 J44.9 Using her inhalers and montelukas t as directed, not having any SOB at this time. [id number] MELIA DE LA FUENTE MD Main Office [address] [place] [address] 06/23/2022 14:42:14 06/23/2022 15:27:14 COVID-19 047804022 U07.1 - pt was diagnosed with COVID-19 on 06/17- pt was treated with paxlovid- pt continues to have fatigue and SOB- it could be that symptoms at this point are most likely due to rebound effects from the paxlovid- ordered blood work for (1) as pt is having diarrhea wanted to check diarrhea and (2) to ensure WBC count is not elevated which may indicate a secondary bacterial infection- pt is at high risk of developing complicati ons therefore will follow-up in one week Acute diarrhea 127106024 R19.7 - most likely due to paxlovid- pt just finished the course of medication therefore most likely still the likely cause her diarrhea- pt advised to stay hydrated with pedialyte or Gatorade- pt advised to continue the BRAT diet Chronic ob structive pulmonary disease 54331752 J44.9 - pt has hx of COPD and since being diagnosed with COVID-19 pt has been having SOB- will give course of steroids to help with SOB- c/w albuterol inhaler and nebulizer as needed- c/w spiriva and symbicort- ED precaution s given Nausea and vomiting 1692 1999 R11.2 - pt is complainin g of nausea, ordered zofran to be taking as needed Dysuria 54283445 R30.0 - pt complainin g of dysuria- will check UA, if positive will send antibiotic s [id number] Lasha Alejandro MD [facility] [address] [facility] [address] [place] [address] 06/24/2022 09:36:47 06/24/2022 10:33:00 COVID-19 704174244 U07.1 Hydration, rest, if feeling better quarantine x 5 days then mask for 5 days. If not better after 5 days quarantine for full 10 days. Tylenol/ advil as needed, OTC cough med as needed. Call/ return for worsening sx or concerns.- If sob or wheezing, take rescue inhaler and wait 30 mins if no relief use nebulizer txED precaution s reviewed- shortness of breath not relieved by proair and or nebulizer, nausea/ vomiting and unable to tolerate PO, Fever not resolved with tylenol or advil. please go to ED- Will f.u by phone in 1 week to ensure she is feeling better, she can call/ return for any concerns in the meantime.( she will stop statin while on paxlovid) [id number] MELIA DE LA FUENTE MD Main Office [address] [facility] [address] [place] [address] 06/30/2022 12:47:52 06/30/2022 14:10:27 COVID-19 375104503 U07.1 - pt was diagnosed with COVID-19 on 06/17- pt was treated with paxlovid- it could be that symptoms at this point are most likely due to rebound effects from the paxlovid- blood work was WNL Acute diarrhea 098581154 R19.7 - now resolved- most likely due to paxlovid- pt just finished the course of medication therefore most likely still the likely cause her diarrhea- pt advised to stay hydrated with pedialyte or Gatorade Chronic ob structive pulmonary disease 80520068 J44.9 - SOB has improved- pt did not complete course of steroids due to anxiety that occurred with medication - c/w albuterol inhaler and nebulizer as needed- c/w spiriva and symbicort- ED precaution s given Nausea and vomiting 1691999 R11.2 - resolved- pt is complainin g of nausea, ordered zofran to be taking as needed Fatigue 43906574 R53.83 - pt continues to have weakness after COVID-19- symptoms are most likely due to the virus- RTC in two week to check for improvemen t [id number] MELIA DE LA FUENTE MD Main Office [address] [facility] [address] [facility] [place] [address] 07/14/2022 10:43:57 07/14/2022 14:26:46 Fatigue 67756543 R53.83 - pt continues to have weakness after COVID-19- symptoms are most likely due to the virus- symptoms can last up to 3 months, there is concern however that patient could become physically decontione d because she is spending most of time either in bed or on the couch. COVID-19 365204223 U07.1 - pt was diagnosed with COVID-19 on 06/17- pt was treated with paxlovid- it could be that symptoms at this point are most likely due to rebound effects from the paxlovid- blood work was WNL Physical deconditioning 4806550206 9102 R68.89 - pt has spent about one month in bed or on the couch and there is concern that patient could start physically becoming weaker- pt advised that even though there is fatigue she should try to move around the house- recommende d physical therapy however patient refused- pt advised to continue MMV and possibly supplement with ensure- pt advised to get as much help from her family as she is currently living alone and managing alone [id number] Heather Villareal MD Main Office [address] [facility] [address] [facility] [place] [address] 08/24/2022 12:55:54 08/24/2022 13:38:05 Hyperlipidemia [id number] E78.5 We discussed, choosing wisely campaign regarding statin use, she has not had a stroke and heart attack and is now 82 we had a shared decision that we will do a low potent statin first then consider to discontinu e after. Essential hypertension 81355981 I10 Low sodium diet discussedC ounseled on medication adherence - will start ccb home bp has been elevated. Side affects discussed. Counseled on diet/exerc iseAdvised to keep BP daily BP log and technique counseled. Red flags of HTN emergency discussed and when to go to ED. [id number] Heather Villareal MD Main Office [address] [facility] [address] [facility] [place] [address] 09/07/2022 13:42:14 09/07/2022 14:22:08 Essential hypertension 29154762 I10 Low sodium diet discussedC ounseled on medication adherence - tolerating ccb without side affect, bp acceptable for age, will hold further adjustment .Counseled on diet/exerc iseAdvised to keep BP daily BP log and technique counseled. Red flags of HTN emergency discussed and when to go to ED. [id number] Soy Coleman MD Main Office [address] [facility] [address] [facility] [place] [address] 10/15/2022 14:07:23 10/15/2022 15:16:33 Chronic obstructive pulmonary disease 56458721 J44.9 Did not tolerate Medrol last Fall, so will try prednisone instead. Cough 01459794 R05.9 Currently it seems that allergies are triggering her COPD. Will focus on reducing inflammati on. INB/worse would consider CXR and possibly abx depending on symptoms. Allergic rhinitis 852133 04 J30.9 Try adding antihistam ine. Regular nasal saline irrigation advised as well. [id number] Heather Villareal MD Main Office [address] [facility] [address] [place] [address] 01/06/2023 13:09:16 01/06/2023 13:57:33 Essential hypertension 90710227 I10 BP stable. Continue medication s as directed. Limit amount of salts and carbs and sugars. Polyuria 61627407 R35.89 Cervical spondylosis [id number] 115816 M47.812 pt is requesting few tramadol for her neck pain. [id number] DESEAN RAMIREZ Main Office [address] [facility] [address] [place] [address] 03/03/2023 10:34:36 03/03/2023 11:15:41 Acute sinusitis 58396147 J01.90 [id number] Heather Villareal MD Main Office [address] [address] [place] [address] 03/05/2023 09:36:53 03/05/2023 10:24:15 Pain of shoulder region 03098010 M25.511 Will do meloxicam advised not use other otc nsaidWill get XR. Advised PT only if XR wnl.Will refer to physiatry as she will likely need injections , she cannot tolerated PO steroid inject but likely could do IM. [id number] Heather Villareal MD Main Office [address] [address] [place] [address] 04/05/2023 14:00:42 04/05/2023 15:35:08 Weight loss 63624439 R63.4 Weight stablized will continue to monitor. Acute sinusitis 98223832 J01.90 Will do doxy, since augmentin did not work. Advised to avoid sunlight and avoid ca2+ rich food. But take with food to avoid nausea.Cov id neg.Will do low dose prednisone since higher dose affects her stomach.Co vid today neg.Will also do flonase combo with azelastine .Will do azelastine . eye dropCont. ayr saline spray. Essential hypertension 49323642 I10 bp high today, she is in pain from sinuses, otherwise asymptomat ic, will have her keep checking bp.Will follow up 1mo. [id number] Heather Villareal MD Main Office [address] [address] [place] [address] 04/14/2023 13:47:28 04/14/2023 14:25:36 Essential hypertension 57263909 I10 bp better today. Sinusitis 13249152 J32.9 Cont, nasal spray, despite 2abx still having sx will get CT sinus and refer to ent. Watering of eyes have improved. [id number] Heather Villareal MD Main Office [address] [address] [place] [address] 04/28/2023 11:08:07 04/28/2023 12:25:52 Headache 58979714 R51.9 Likely migraine variant vs rebound headaches from excess analgesic use. Given all her meds and age will hold triptans will refer to neuro, will also get neuro imaging as she tells me she can't live with these headaches. Advised to avoid otc tylenol due to rebound and bc fioricet contains little tylenol.Co ol compress advised. Allergic rhinitis 290088 04 J30.9 Cont. current tx add [id number] Heather Villareal MD Main Office [address] [facility] [address] [facility] [place], [place] [address] 05/24/2023 11:08:52 05/24/2023 12:19:15 Advance directive discussed with patient 017597208 Z71.89 MOLST and HCP provided to patient she will review with family and bring back to me at next visit after reviewing he choices today. Adult heal th examination 388946638 Z00.00 Patient was counseled on healthy diet, exercise and nutrition due to Body mass index is 29.9 kg/m? ? ?. Last Colonoscop y:Date: 01/07/22Res ult: tubular adenomaPla n: following GI Last Mammogram: Date: 04/07/21Res ult: Birad-2Pla n:risk for breast ca needs genetic testing, declines genetic testing but ok to get mammogram. Last Pap smearNo longer screening due to age. Bone density scanDate: 09/25/20Res ult: osteopenia Plan: weight bearing exercise advised Vaccines:T d: 07/22/18Zos ter: 01/16/19, 04/29/19PC V13: 08/02/15PPS V23: 08/15/08PCV2 0: Advised she is eligibleIn fluenza: 04/19/23Cov id: 08/26/20, 09/17/20, 05/18/21, encouraged updated vaccineRSV : Encouraged Routine labs reviewed. Immunizati on status reviewed. Will screen based on risk factors. Regular dental and ophtho care advised as well as seat belt and sunscreen use. Distracted driving discussed. Medication reconciled . Advance directives discussed. Screening for malignant neoplasm of breast 124422150 Z12.39 high risk per screening in 2018, will repeat. Fatigue 59700224 R53.83 Z00.00 Hyperlipidemia 98703175 E78.5 Z00.00 We discussed, choosing wisely campaign regarding statin use, she has not had a stroke and heart attack and is now 82 we had a shared decision that we will do a low potent statin first then consider to discontinu e after. Essential hypertension 05703984 I10 Bp stable. Hypothyroidism 45428026 E03.9 stable on levothyrox ine Administra tion of pneumococcal vaccine 37077377 Z23 [id number] Heather Villareal MD Main Office [address] [facility] [address] [place] [address] 11/24/2023 10:40:09 11/24/2023 11:23:22 Allergic rhinitis 11689125 J30.9 Could not tolerate antihistam ine.Will refer to title i coordinator. Chronic ob structive pulmonary disease 84695017 J44.9 No symptoms, stable on inhalerCw follow up with pulmonolog ist Dr. Aquino Chronic neck pain 413658 4046 107 M54.2 Follows [facility] Chavez's esophagus 3029 92033 K22.70 cw ppi given barretts, follows GI Pain of left calf 483316 7794 970020 M79.662 Milton DVT score 1, calf tenderness present.Wi ll try to get urgent DVT r/o, if wnl coud be 2/2 to PVD.Milton DVT: 1 [id number] Lasha Alejandro MD Main Office [address] [facility] [address] [facility] [address] 12/02/2023 09:35:13 12/02/2023 10:08:16 Cough 48282836 R05.9 negative for flu Viral uppe r respiratory tract infection 601244304 J06.9 x4 days of URI symptoms; cough, congestion , body aches, fatigue-co nservative measuremen ts of steam showers, honey with tea, and neti pot provides some relief-PE; lungs were CTA b/l-in office flu test was negative-d iscussed with pt to continue with conservati ve measuremen ts and discussed OTC medication s for symptomati c relief [id number] MELIA DE LA FUENTE MD [facility] [address] [facility] [address] [facility] [place] [address] 12/05/2023 14:43:45 12/08/2023 10:10:28 Pneumonia 017146209 J18.9 - pt has been having a cough with worsening shortness of breath now for 7 days- concern that patient is now needing to use nebulized albuterol which patient does not usually use on a regular basis therefore due to this will treat with antibiotic s- will start patient on doxycline 100mg BID for 10 days- to help with SOB patient was give a short course of steroids 10mg for 5 days> pt cannot tolerate higher doses at it makes her anxious and agitated- Tylenol OTC, not to exceed package insert for pain or fever q4-6h advised prn. Counselled on not exceeding more than 3g/day. - Throat Lozenges otc prn for sore throat - adequate hydration enforced - saline sprays - Also advised can use a teaspoon honey for cough- return and ED precaution s given Dyspnea on exertion 6084 5006 R06.09 - please see above [id number] Lasha Alejandro MD Main Office [address] [facility] [address] [facility] [place] [address] 12/08/2023 14:27:23 12/08/2023 15:24:26 Cough 22079437 R05.9 She cannot take codeine because of tachycardi a. Acute exac erbation of chronic obstructive pulmonary disease 283456216 J44.1 Complete course of prednisone and doxycyclin e. [id number] Lasha Alejandro MD Main Office [address] [facility] [address] [facility] [place] [address] 02/09/2024 10:06:26 02/09/2024 10:34:35 Pre-surgery evaluation 029028846 Z01.818 No medical contraindi cations to proposed procedure. Edmundo Perioperat shimon Cardiac Risk was calculated and the risk for perioperat shimon MS is 0.1%. May proceed to surgery as planned.-n o ekg or labwork were requested by surgeon Cataract [id number] H26.9 pre-operat shimon medical clearance for right eye cataract surgery with Dr. Rojas Greene (NPI#: [id number] ) of [facility] on 02/22/24. Under topical anesthesia . Essential hypertension 69583745 I10 In office BP of 151/63 then 136/68-on nifedipine 30mg QD [id number] Soy Coleman MD Main Office [address] [place] [address] 03/14/2024 09:51:39 03/14/2024 11:59:44 Dysuria 35964941 R30.0 Urine dip is negative. Increased frequency of urination 395697569 R35.0 30 minutes spent assessing patient, reviewing labs and prior data.Uncle ar etiology of urinary frequency as urine dip is completely normal. Urine will be sent for culture. lower back pain x 3 days is likely flare of her lumbar arthropath y.Recommen d Tylenol ES for pain every 4-6 hrs. Advised her to return to clinic if symptoms worsens or no improvemen anjali Velasquez on of lumbar intervertebral disc 70148377 M51.36 Recommend to take otc pain meds, apply hitting pad and stretch. PT. was reassured. [id number] Heather Villareal MD Main Office [address] [place] [address] 05/26/2024 12:52:15 05/26/2024 14:03:49 Adult health examination 979308159 Z00.00 Patient was counseled on healthy diet, exercise and nutrition due to Body mass index is 27.3 kg/m? ? ?. Last Colonoscop y:Date: 01/07/22Res ult: tubular adenomaPla n: following GI Last Mammogram: Date: 02/17/24Resu lt: Birad-2Pla n: risk for breast ca needs genetic testing, declines genetic testing but ok to get mammogram. Last Pap smearNo longer screening due to age. Bone density scanDate: 09/25/20Res ult: osteopenia Plan: weight bearing exercise advised Vaccines:T d: 07/22/18Zos ter: 01/16/19, 04/29/19PC V13: 08/02/15PPS V23: 08/15/08PCV2 0: Advised she is eligibleIn fluenza: 05/14/2024 Covid: encouraged updated vaccineRSV : 07/24/23 Routine labs reviewed. Immunizati on status reviewed. Will screen based on risk factors. Regular dental and ophtho care advised as well as seat belt and sunscreen use. Distracted driving discussed. Medication reconciled . Advance directives discussed. Advance di rective discussed with patient 067029261 Z71.89 MOLST and HCP provided to patient she will review with family and bring back to me at next visit after reviewing he choices today. Fatigue 82295294 R53.83 Z00.00 R73.01 Hyperlipidemia 99750117 E78.5 Z00.00 Essential hypertension 34354388 I10 bp borderline she was little under the weather otherwise at home it was acceptable . She will come back in 2 weeks for a follow up. She is otherwise asymptomat ic, advised to bring bp cuff. Hypothyroidism 68617178 E03.9 stable on levothyrox ine [id number] Chris Boss MD Main Office [address] [facility] [address] [place] [address] 06/05/2024 14:06:12 06/05/2024 15:19:11 Acute exacerbation of chronic obstructive pulmonary disease 629511719 J44.[address] Aquino for pulmonary Dyspnea 568852038 R06.00 [id number] Heather Villareal MD Main Office [address] [place] [address] 06/13/2024 11:01:19 06/13/2024 12:13:27 Essential hypertension 34762957 I10 BP well controlled will continue current regimen. She brought home, cuff and it was compared to office cuff.Will continue current regimen. Upper abdominal pain 831 18364 R10.10 Was seen in urgent care, sx resolved will get notes. She will follow up PRN. Left upper quadrant pain 208184388 R10.12 Pain was sharp radiating to back.Sx better now.Ddx include constipati on, diverticul itis, pancreatit is. Given it is better will get labs and monitor for now. If sx worse will get CT for now xray to also check for stool retention might help.She will also follow GI.Denies urinary sx.Exam more consistent with rib pain. Discussed with patient the signs/symp toms warranted for a return to office visit and/or an ER visit. Patient understood and agreed with the plan. Rib pain 467240966 R07.8 1 suspected costo.Will get xray ensure no fx.Denies trauma hx.Warm compress advisedNo rash noted.If pain does not improve call for follow up. [id number] Heather Villareal MD Main Office [address] [facility] [address] [place] [address] 11/14/2024 13:49:54 11/14/2024 14:29:28 Laceration of ear region 786064952 S01.312A No signs of infection: Skin barrier is compromise d, advised otc bacitracin for 1 week. Avoid irritant like sunglasses , peroxide etoh.preca utions discussed. No role for PO abx for now. Follow up 11/22/24 [id number] Heather Villareal MD Main Office [address] [place] [address] 11/22/2024 11:12:31 11/22/2024 11:58:54 Chronic obstructive pulmonary disease 90825163 J44.9 No symptoms, stable on inhalerCw follow up with pulmonolog ist Dr. Miles barrera laceration 718079448 T14.8XXA Improving, no signs of infection. Chronic neck pain 893334 5262 107 M54.2 Follows [facility] Vascular insufficiency 77736845 I87.2 Essential hypertension 71524723 I10 BP well controlled will continue current regimen. She had brought home cuff in the past and it was comparable to office cuff.Will continue current regimen. Varicose v eins of lower extremity 92434765 I83.819 [id number] Lasha Alejandro MD Main Office [address] [place] [address] 12/02/2024 10:41:53 12/02/2024 11:41:07 Acute pharyngitis 167346763 J02.9 Still able to eat and swallow w/o problems making acute pharyngiti s less of an issue. Acute exac erbation of chronic obstructive pulmonary disease 730223841 J44.1 Breathing does not appear labored and exam is normal so will not do a course of prednisone . She will take an abx for a week and call if she worsens or the symptoms persist. Health Concerns Section Related Observation LastModified by Organization Detai ls LastModified Time None Recorded Concern Status LastModified by Organization Details LastModified Time None Recorded Advance Directives Directive Y: Power of Surgical Clinical Reviewer and MOL ST Payers Encounter Date Sequence Insurance Name Policy Number Policy Sanchez Covered Member ID Sanchez Member ID Guarantor Name 06/05/2024 1 [place] [employer] Staceybrent Christiebert [id number] Stacey Stevenson 06/05/2024 2 [place] [id number] Stacey Stevenson [id number] Stacey Stevenson 06/13/2024 1 [place] [facility] [employer] [place] Stacey C Stevenson [id number] Stacey Stevenson 06/13/2024 2 [place] [id number] Stacey Stevenson [id number] Stacey Stevenson 11/14/2024 1 [place] [facility] [employer] Stacey C Stevenson [id number] Stacey Stevenson 11/14/2024 2 [place] [id number] Stacey Stevenson [id number] Stacey Stevenson 11/22/2024 1 [place] [employer] [employer] Stacey Benito Graham [id number] Stacey Stevenson 11/22/2024 2 [place] [id number] Stacey Stevenson [id number] Stacey Stevenson 12/02/2024 1 [place] [employer] [employer] Stacey Stevenson [id number] Stacey Stevenson 12/02/2024 2 [place] [id number] Stacey Stevenson [id number] Stacey Stevenson Notes Date Note Type Note Provider Name and Address Organization Details Recorded Time 06/05/2024 text/html 84yo with histor y of COPD, presents with fatigue and symptoms of myalgias for 3d. Notes cough, which is slightly worse than baseline and productive of sputum. No fevers to her knowledge. COVID test negative. No GI symptoms, including no change in bowel habits, N/V/D. No symptoms. May have some worsening dyspnea, but not significantly different than baseline. Reports good adherence to inhaled medications for COPD Chris Boss MD [address] [address], [place], [address], [facility] 06/07/2024 17:19:13 06/13/2024 text/html Emergency Depart ment Follow-Up RecordReported bypatient.Discharge Informationname of ED Local Urgent Care; emergency department discharge date: (Please enter in format 'MM/DD/YYYY') (06/05/24); date of follow-up phone call: (Please enter in format 'MM/DD/YYYY') (06/13/24)Notes:Went for LUQ pain, had ECG done.Pain was sharp radiating to back.Pain much better today. She was supposed to go to ED but did not go.Hypertension F/UReported bypatient.Associated Symptoms:no dizziness; no lightheadedness; no chest pain; no shortness of breath; no palpitations; no edema; no calf pain with exertion Lifestyle:limiting/av oiding salt;not exercising regularly Medications:taking medications as directed; no side effects from medication; checks blood pressure at home, range: (home under 140/90) Heather Villareal MD [address] [address], [place], [phone], [facility] 06/13/2024 12:08:56 11/14/2024 text/html Skin LesionRepor radha bypatient.Location:le ft ear Quality:painful; tender; sore Duration:started 2 week(s) ago Onset/Timing:abrupt Context:no known trigger Associated Symptoms:no fever; no cold symptoms; no nausea; no vomiting; no diarrhea; no urinary symptoms; no skin flakes; no scabbing; no bruising; no draining; no lesions multiplying; no lesions spreadingNotes:Tried otc alcohol, peroxide Karis Silva null, [facility] 11/27/2024 13:06:14 11/22/2024 text/html Hypertension F/UReported bypatient.Associated Symptoms:no chest pain; no shortness of breath; no palpitations; no calf pain with exertion Lifestyle:limiting/av oiding salt;not exercising regularly Medications:taking medications as directed; no side effects from medication; checks blood pressure at home, range: (home under 140/90) Follow up for superficial laceration of ear, which is healing.-Also seen by pulm for COPD, is getting oxygen.-Followed by vascular for venous insufficiency. Heather Villareal MD [address], [phone], [facility] 11/22/2024 12:14:23 12/02/2024 text/html She has been hav ing a sore throat, body aches, LIANG and chills over the last 3 days. Also with fatigue and a mild dry cough. She denies any fever. Has taken tylenol and advil with some help. No known ill contacts. She states that she uses oxygen over night. She has COPD and is followed by Dr Aquino. Lasha Alejandro MD [address] [address], [place], [address], [facility] 12/02/2024 13:06:58 OBGyn Episode No OBEpisode recorded.
[2024-12-13 08:19] VITALS: PULSE 59; O2SAT 95
== END 2024-12-12 14:20 | disposition home or self-care (01) ==
LOC: HO.HPS 13:42
PROVIDERS: PCP Family Medicine; Visit Provider Hospitalist
DX: R06.00 Dyspnea, unspecified (principal); J41.0 Simple chronic bronchitis; R91.1 Solitary pulmonary nodule; K44.9 Diaphragmatic hernia without obstruction or gangrene; R00.1 Bradycardia, unspecified
CPT/HCPCS: 94618; 99215

== ENCOUNTER 2024-12-12 13:42 | Outpatient (REF) | payer MEDICARE, SELFPAY ==
--- NOTE | ~2024-12-12 | XR_ITS ---
EXAMINATION: XR CHEST CLINICAL INFORMATION: R06.00 - Dyspnea, unspecified COMPARISON: None available. TECHNIQUE: 2 views of the chest were obtained. FINDINGS: The lungs are hyperinflated but clear of acute process. The heart size and pulmonary vascularity is normal. There is mild dextroscoliosis. No gross bony abnormality seen. XR/XR chest 2V IMPRESSION: Hyperinflated lungs without acute process. Electronically signed by: Hank Arellano MD 12/12/2024 03:21 PM EDT
[2024-12-12 14:41] LABS: MANUAL DIFF FLAG NO
[2024-12-12 14:43] LABS: Venous Blood Gas Refer to POC result
[2024-12-12 14:44] LABS: Basophils Absolute Auto 0.1 X10*3/uL (0.0-0.2); Basophils Percent Auto 0.9 % (0-2); Eosinophils Absolute Auto 0.1 X10*3/uL (0.0-0.4); Hematocrit 37.7 % (37.0-47.0); Hemoglobin 12.7 g/dl (12.0-16.0); Imm Gran Abs Auto 0.01 X10*3/uL (0.00-0.03); Imm Gran Pct Auto 0.2 % (0.0-0.4); Lymphocytes Absolute Auto 0.8 X10*3/uL (1.2-4.9); Lymphocytes Percent Auto 12.3 % (20-40); Mean Corpuscular HGB Conc 33.7 g/dl (31.0-35.0); Mean Corpuscular Hemoglobin 30.9 pg (27.0-33.0); Mean Corpuscular Volume 91.7 fL (80.0-98.0); Mean Platelet Volume 10.5 fL (9.4-12.3); Monocytes Absolute Auto 0.5 X10*3/uL (0.1-1.2); Monocytes Percent Auto 7.2 % (2-11); Neutrophils Absolute Auto 5.1 x10*3/uL (2.0-8.3); Neutrophils Percent Auto 77.4 % (45-73); Platelet Count 191 X10*3/uL (160-400); Red Blood Count 4.11 X10*6/uL (4.20-5.50); Red Cell Distribution Width 14.2 % (11.0-16.0); White Blood Count 6.6 X10*3/uL (4.8-10.8)
[2024-12-12 14:47] LABS: VBG Base Excess 7.4 mmol/L; VBG HCO3 33 mmol/L (22-26); VBG pCO2 54 mmHg; VBG pO2 33 mmHg
[2024-12-12 14:55] LABS: D Dimer High Sensitivity 1527 NG/ML
[2024-12-12 14:56] LABS: Anion Gap 11 (12-20); Blood Urea Nitrogen 12 mg/dL (9-16); Calcium 9.4 mg/dL (8.4-10.2); Carbon Dioxide 30 mmol/L (22-29); Chloride 106 mmol/L (96-108); Estimated Glomerular Filt Rate > 60; Glucose Random 97 mg/dL (60-115); Potassium 4.1 mmol/L (3.3-5.1); Sodium 143 mmol/L (135-145)
[2024-12-12 15:20] LABS: Erythrocyte Sedimentation Rate 10 MM/HR (0-20)
[2024-12-12 15:24] LABS: Troponin-I High Sensitivity < 2.7 ng/L (<3.5-17.0)
[2024-12-13 06:08] LABS: Immunoglobulin E 222 kU/L (<OR=114)
== END 2024-12-12 13:43 | disposition home or self-care (01) ==
LOC: HO.XRAY 13:42
PROVIDERS: PCP Family Medicine; Visit Provider Hospitalist
DX: Z13.89 Encounter for screening for other disorder (principal)
CPT/HCPCS: 36415; 71046; 80048; 82785; 82803; 84484; 85025; 85379; 85652

== ENCOUNTER → 2024-12-12 14:40 | Outpatient (BNV) | payer MEDICARE, SELFPAY | PROVIDERS: PCP Family Medicine; Visit Provider Radiology Diagnostic Radiology | DX: R09.02 Hypoxemia (principal); J98.6 Disorders of diaphragm; R06.02 Shortness of breath | CPT/HCPCS: 71046 ==

== ENCOUNTER 2024-12-12 16:39 | Inpatient (IN) | payer MEDICARE, SELFPAY ==
--- NOTE | 2024-12-12 | ECG_ITS ---
Test Reason : CHEST PAIN Blood Pressure : */* mmHG Vent. Rate : 66 BPM Atrial Rate : 66 BPM P-R Int : 146 ms QRS Dur : 82 ms QT Int : 436 ms P-R-T Axes : 58 10 25 degrees QTcB Int : 457 ms Normal sinus rhythm Normal ECG No previous ECGs available Referred By: Micah Boggs Electronically Signed By: CATIE ALEXANDER
--- NOTE | ~2024-12-12 | NM_ITS ---
CLINICAL HISTORY: hypoxia, SOB NUCLEAR MEDICINE LUNG PERFUSION IMAGING Comparison: CR - XR CHEST 2V - 12/12/24 19:37 EDT Findings: Perfusion: 3.3mCi Tc 99m MAA Perfusion only imaging was performed. Heterogeneous perfusion with no segmental, subsegmental or lobar defect. Nonsegmental defects appear present bilaterally. Review of the above-mentioned chest radiographs demonstrates no significant pleural or pulmonary parenchymal abnormality. Impression: 1. No perfusion-chest radiographic mismatch to suggest possible pulmonary embolism. This document has been electronically signed by: Jania Garcia DO on 12/12/2024 20:16:55
--- NOTE | ~2024-12-12 | XR_ITS ---
CLINICAL HISTORY: sob 2 view chest x-ray Comparison: CR/SR - XR CHEST 2V - 12/12/24 14:56 EDT Findings: The lungs remain hyperaerated. No consolidation, pleural effusion or pneumothorax. Heart size is normal. Prominent aortic calcifications. No acute fracture. IMPRESSION: No acute cardiopulmonary process. This document has been electronically signed by: Jania Garcia DO on 12/12/2024 20:09:53
[2024-12-12 16:42] VITALS: BP 117/63; PULSE 67; RESP 20; TEMP 36.8; O2SAT 97; BMI 21.9
--- NOTE | 2024-12-12 17:04 | ED.GENADULT ---
HPI - General Adult General Chief complaint: Recheck/Abnormal Lab/Rx Stated complaint: ?DVT sent from PCP Time Seen by Provider: 12/12/24 18:19 Source: patient Limitations: no limitations History of Present Illness ED Provider: Marisa Teixeira PA-C HPI narrative: 84-year-old female with a history of COPD, hypothyroidism, hypertension, GERD who presents with lab abnormalities. Patient was seen by her wood turning lathe operator, Dr. Aquino today in the office. She had outpatient labs ordered, her dimer was markedly elevated, she was sent to the emergency department for an angiogram of her chest. Patient states she was recently treated for a COPD exacerbation within the last week, she completed a course of antibiotics and steroid. She seemed to be improving. Patient is hypoxic on room air 83%, she is now on 2 L nasal cannula, this is a new oxygen requirement. Related Data Home Medications ?Medication ?Instructions ?Recorded ?Confirmed escitalopram oxalate 10 mg tablet 20 mg PO DAILY 08/22/20 12/12/24 levothyroxine 75 mcg tablet 75 mcg PO DAILY 08/22/20 01/27/21 trazodone 50 mg tablet 50 mg PO BEDTIME 08/22/20 12/12/24 ascorbic acid (vitamin C) 1,000 mg 1 g PO Q6H 11/25/22 capsule flaxseed oil 1,000 mg capsule 1,000 mg PO DAILY 11/25/22 lactobacillus combination no.9 4 4,000 mmu cells PO DAILY 11/25/22 billion cell capsule (Adult 50 Plus Probiotic) nebulizers 11/25/22 nifedipine 30 mg tablet,extended 30 mg PO DAILY 11/25/22 12/12/24 release omega 0-aaf-rtv-fish oil 60 mg-90 1 cap PO DAILY 11/25/22 mg-500 mg capsule (Fish Oil) fiiaxudo-qhqu-qgcj 8 mg-folic 400 1 tab PO DAILY 10/20/23 mcg-K 50 mcg-lutein 300 mcg tablet (Centrum Silver Women) red yeast rice 600 mg tablet 600 mg PO DAILY 11/18/23 ffqivdppbh-xtrclb-lxxgyxxb-amylase 1,400 tab PO TID 10/16/24 600 mg tablet pravastatin 20 mg tablet 20 mg PO BEDTIME 12/12/24 12/12/24 Previous Rx's ?Medication ?Instructions ?Recorded tiotropium bromide 2.5 2 puff inhalation DAILY #4 grams 06/24/20 mcg/actuation mist for inhalation (Spiriva Respimat) albuterol sulfate 90 mcg/actuation 2 puff inhalation Q6H PRN 09/27/23 aerosol inhaler shortness of breath or wheezing #1 ea albuterol sulfate 2.5 mg/3 mL 2.5 mg (3 mL) inhalation BID 12/28/23 (0.083 %) solution for nebulization shortness of breath or wheezing 30 days #180 mL fluticasone propionate 50 2 spray intranasal DAILY #16 grams 01/21/24 mcg/actuation nasal spray,suspension Symbicort 160 mcg-4.5 2 puff PO BID #30.6 grams 05/01/24 mcg/actuation HFA aerosol inhaler (budesonide-formoterol) montelukast 10 mg tablet 10 mg PO DAILY #90 tabs 10/06/24 omeprazole 40 mg capsule,delayed 40 mg PO DAILY 30 days #30 caps 10/16/24 release Allergies Allergy/AdvReac Type Severity Reaction Status Date / Time codeine Allergy Severe Rapid Verified 12/12/24 16:47 Heartbeat morphine Allergy Severe Rapid Verified 12/12/24 16:47 Heartbeat quetiapine Allergy Severe Difficulty Verified 12/12/24 16:47 Breathing IV Contrast Dye Allergy Severe Rapid Uncoded 12/12/24 16:47 Heartbeat Sulfamethoxazole Allergy Severe Rapid Uncoded 12/12/24 16:47 Heartbeat Review of Systems Review of Systems: Yes all other systems are reviewed and are negative Constitutional: Constitutional: Denies fatigue and Denies fever(s) Cardiovascular: Cardiovascular: Reports chest pain, Reports dyspnea and Reports dyspnea on exertion Respiratory: Respiratory: Reports chest congestion, Reports cough, Reports dyspnea and Reports dyspnea on exertion Gastrointestinal: Gastrointestinal: Denies abdominal pain, Denies nausea and Denies vomiting Endocrine: Endocrine: Denies fatigue [facility] Past Medical History Attestation statement: The following information was validated with the patient. Medical History (Updated 12/12/24 @ 23:22 by DESEAN Means) Bradycardia Hiatal hernia Pulmonary nodule Limb swelling Dyspnea COPD (chronic obstructive pulmonary disease) Social History Social History Patient Tobacco Use Status: Former Tobacco user Tobacco use type: Cigarette Years Smoked: 35 years Smoked in Last 30 Days: No Use of substances other than those prescribed or required for medical reasons: No Advance Directives: Yes Advance Directives Information Provided: Yes Advance Directives on File: No Physical Exam ED Vital Signs: Vital Signs - 24 hr 12/12/24 16:42 12/12/24 17:19 12/12/24 19:45 Temperature 98.3 F 98.6 F Pulse Rate 67 65 66 Respiratory Rate 20 20 16 Blood Pressure 117/63 164/57 H 162/62 H Pulse Oximetry 97 98 95 Oxygen Delivery Method Room Air Nasal Cannula Nasal Cannula Oxygen Flow Rate 2 2 12/12/24 21:30 12/12/24 22:06 Temperature 98.2 F Pulse Rate 62 Respiratory Rate 24 H Blood Pressure 132/60 Pulse Oximetry 83 L 94 Oxygen Delivery Method Room Air Nasal Cannula Oxygen Flow Rate 2 BMI result Body Mass Index 21.9 Const Other: Alert Orientation/consciousness: patient oriented x3 Resp Other: tachypneic, no wheezing on exam, somewhat diminished Cardio Other: normal peripheral perfusion Skin Other: warm dry no rash Neuro General: patient oriented x3, gait normal, no focal motor deficits and CN's II-XI intact bilaterally Psych Other: cooperative Course Course Course Narrative: RME, this is a rapid medical exam performed by Caden Boggs please refer to primary provider for complete H&P- 84-year-old female presents for evaluation of shortness a breath, chest pain and pressure. She had an outpatient ultrasound that had a D-dimer that was elevated to 1527. she was sent by pulmonology, Dr. Aquino for a CT angiography. The patient does have a contrast dye allergy. I ordered labs, nuclear med study. Consultations Consultation #1: per Dr. Aquino Time: 18:26 Medical Decision Making Medical Decision Making MDM Narrative: 84-year-old female with a history of COPD, hypothyroidism, hypertension, GERD who presents with lab abnormalities. Patient was seen by her wood turning lathe operator, Dr. Aquino today in the office. She had outpatient labs ordered, her dimer was markedly elevated, she was sent to the emergency department for an angiogram of her chest. Patient states she was recently treated for a COPD exacerbation within the last week, she completed a course of antibiotics and steroid. She seemed to be improving. Patient is hypoxic on room air 83%, she is now on 2 L nasal cannula, this is a new oxygen requirement. problem: Age, COPD History: Per patient I have considered the following differential diagnoses: PE, COPD exacerbation, pneumonia, new heart failure, ACS , Progression of COPD Plan: Screening labs including cardiac enzymes, BNP , CXR and EKG obtained from triage. There was no evidence of new heart failure on CXR, 1st troponin not elevated, we will obtain a 2nd. We know her dimer was markedly elevated, V/Q scan was ordered, she actually is already on route to have the study performed. At this point, she is not actively wheezing or coughing to suggest active COPD exacerbation, furthermore she was just seen by her wood turning lathe operator today, he felt that she was doing well, it is simply the new hypoxia that sons her in. This could also be progression of her COPD. Labs: No leukocytosis, not anemic, dimer 1527, BNP 105, troponin x2 are flat < 2.7, 3.1, EKG: Normal sinus rhythm, rate of 66, no ischemic changes no ectopy QTC 457 V/Q scan:Perfusion only imaging was performed. Heterogeneous perfusion with no segmental, subsegmental or lobar defect. Nonsegmental defects appear present bilaterally. Review of the above-mentioned chest radiographs demonstrates no significant pleural or pulmonary parenchymal abnormality. Impression: 1. No perfusion-chest radiographic mismatch to suggest possible pulmonary embolism. Chest x-ray #1: XR/XR chest 2V IMPRESSION: Hyperinflated lungs without acute process CXR #2: Findings: The lungs remain hyperaerated. No consolidation, pleural effusion or pneumothorax. Heart size is normal. Prominent aortic calcifications. No acute fracture. IMPRESSION: No acute cardiopulmonary process. Lab Data 12/12/24 17:01 12/12/24 17:01 Labs: Lab Results 12/12/24 Range/Units 17:01 WBC 6.6 (4.8-10.8) X10*3/uL RBC 4.20 (4.20-5.50) X10*6/uL Hgb 12.9 (12.0-16.0) g/dl Hct 39.2 (37.0-47.0) % MCV 93.3 (80.0-98.0) fL MCH 30.7 (27.0-33.0) pg MCHC 32.9 (31.0-35.0) g/dl RDW 14.0 (11.0-16.0) % Plt Count 230 (160-400) X10*3/uL MPV 10.4 (9.4-12.3) fL Immature Gran % (Auto) 0.3 (0.0-0.4) % Neut % (Auto) 72.7 (45-73) % Lymph % (Auto) 16.7 L (20-40) % [place] % (Auto) 6.8 (2-11) % Eos % (Auto) 2.6 (0-4) % Baso % (Auto) 0.9 (0-2) % Lymph # (Auto) 1.1 L (1.2-4.9) X10*3/uL [place] # (Auto) 0.5 (0.1-1.2) X10*3/uL Eos # (Auto) 0.2 (0.0-0.4) X10*3/uL Baso # (Auto) 0.1 (0.0-0.2) X10*3/uL Abs Immat Gran (auto) 0.02 (0.00-0.03) X10*3/uL Absolute Neuts (auto) 4.8 (2.0-8.3) x10*3/uL Absolute Nucleated RBC 0.000 (0.0-0.012) X10*3/uL Nucleated RBC % (auto) 0.0 (0.0-0.2) /100WBC PT 11.6 (10.9-12.4) SEC INR 1.0 (0.9-1.1) Sodium 143 (135-145) mmol/L Potassium 4.0 (3.3-5.1) mmol/L Chloride 106 (96-108) mmol/L Carbon Dioxide 28 (22-29) mmol/L Anion Gap 13 (12-20) BUN 13 (9-16) mg/dL Creatinine 0.66 (0.5-1.4) mg/dL Estim Creat Clear Calc 51.9 Estimated GFR > 60 Random Glucose 90 (60-115) mg/dL Calcium 9.3 (8.4-10.2) mg/dL Magnesium 2.2 (1.6-2.6) mg/dL Total Bilirubin 0.4 (0.0-1.0) mg/dL AST 25 (5-31) U/L ALT 17 (0-31) U/L Alkaline Phosphatase 70 (39-117) U/L Troponin I High Sens 3.1 (<3.5-17.0) ng/L B-Natriuretic Peptide 105 H (<100) pg/mL Total Protein 6.7 (6.5-8.0) g/dL Albumin 4.5 (3.5-5.0) g/dL Discharge Plan Discharge Clinical Impression: Hypoxia COPD (chronic obstructive pulmonary disease) Qualifiers: COPD type: chronic bronchitis Chronic bronchitis type: simple Qualified Code(s): 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
[2024-12-12 17:11] LABS: MANUAL DIFF FLAG NO
[2024-12-12 17:16] LABS: Basophils Absolute Auto 0.1 X10*3/uL (0.0-0.2); Basophils Percent Auto 0.9 % (0-2); Eosinophils Absolute Auto 0.2 X10*3/uL (0.0-0.4); Eosinophils Percent Auto 2.6 % (0-4); Hematocrit 39.2 % (37.0-47.0); Hemoglobin 12.9 g/dl (12.0-16.0); Imm Gran Abs Auto 0.02 X10*3/uL (0.00-0.03); Imm Gran Pct Auto 0.3 % (0.0-0.4); Lymphocytes Absolute Auto 1.1 X10*3/uL (1.2-4.9); Lymphocytes Percent Auto 16.7 % (20-40); Mean Corpuscular HGB Conc 32.9 g/dl (31.0-35.0); Mean Corpuscular Hemoglobin 30.7 pg (27.0-33.0); Mean Corpuscular Volume 93.3 fL (80.0-98.0); Mean Platelet Volume 10.4 fL (9.4-12.3); Monocytes Absolute Auto 0.5 X10*3/uL (0.1-1.2); Monocytes Percent Auto 6.8 % (2-11); Neutrophils Absolute Auto 4.8 x10*3/uL (2.0-8.3); Neutrophils Percent Auto 72.7 % (45-73); Platelet Count 230 X10*3/uL (160-400); White Blood Count 6.6 X10*3/uL (4.8-10.8)
[2024-12-12 17:19] VITALS: BP 164/57; PULSE 65; RESP 20; O2SAT 98
[2024-12-12 17:29] LABS: Alanine Aminotransferase 17 U/L (0-31); Albumin Level 4.5 g/dL (3.5-5.0); Alkaline Phosphatase 70 U/L (39-117); Anion Gap 13 (12-20); Aspartate Amino Transferase 25 U/L (5-31); Bilirubin Total 0.4 mg/dL (0.0-1.0); Blood Urea Nitrogen 13 mg/dL (9-16); Calcium 9.3 mg/dL (8.4-10.2); Carbon Dioxide 28 mmol/L (22-29); Chloride 106 mmol/L (96-108); Creatinine Clr Calc Pharmacy 51.9; Estimated Glomerular Filt Rate > 60; Glucose Random 90 mg/dL (60-115); Magnesium 2.2 mg/dL (1.6-2.6); Sodium 143 mmol/L (135-145); Total Protein 6.7 g/dL (6.5-8.0)
[2024-12-12 17:33] LABS: B Type Natriuretic Peptide 105 pg/mL (<100)
[2024-12-12 17:36] LABS: Troponin-I High Sensitivity 3.1 ng/L (<3.5-17.0)
[2024-12-12 17:40] LABS: Prothrombin Time 11.6 SEC (10.9-12.4)
--- NOTE | 2024-12-12 19:08 | PC.NURSE ---
this rn assumed care of pt, pt in VQ scan at this time
--- NOTE | 2024-12-12 19:37 | MHC.EDTECH ---
ambulated pt to the bathroom
[2024-12-12 19:45] VITALS: BP 162/62; PULSE 66; RESP 16; TEMP 37; O2SAT 95
--- NOTE | 2024-12-12 19:49 | PC.NURSE ---
assumed care of pt, no pain reported, respirations even and unlabored. pt state shard to breath but stating 95% on 2L. VSS, waiting for imaging results, Pt thirsty.
--- NOTE | 2024-12-12 21:29 | PC.NURSE ---
Pt taken for ambulation trial, O2 83% on RA, provide aware, pt placed back on 2L when returned to room, went up to 95%.
[2024-12-12 21:30] VITALS: O2SAT 83
[2024-12-12 22:06] VITALS: BP 132/60; PULSE 62; RESP 24; TEMP 36.8; O2SAT 94
--- NOTE | 2024-12-12 23:29 | P.HPHOSP_ITS ---
History of Present Illness Date of Service: 12/12/24 Chief Complaint: sob 84-year-old female with a past medical history of HTN, HLD, hypothyroidism, COPD, GERD presented to the hospital with a chief complaint of shortness of breath. Patient mentioned that she has been having shortness of breath for over the past week to 10 days. Has followed with her application support developer who gave her nebulizers and Z-Yuri which she finished the course. Denies receiving any steroids. She has had routine blood work done which showed elevated D-dimer; and was asked to go to the ER for further evaluation. Reports he still feels short of breath and has cough. Denies any fevers. Denies any chest pain or palpitations. Denies any GI or symptoms. Review of all other systems is negative except mentioned above ER course: Per ER team, patient has no significant wheezing on examination; chest x-ray showed no acute findings. V/Q scan showed no evidence of PE. On ambulation patient desaturated to 83%. Placed on supplemental oxygen. Patient also reported chest pressure. EKG nonischemic. Troponin negative. [facility] Medical History (Updated 12/12/24 @ 23:22 by DESEAN Means) Bradycardia Hiatal hernia Pulmonary nodule Limb swelling Dyspnea COPD (chronic obstructive pulmonary disease) Social History Patient Tobacco Use Status: Former Tobacco user Tobacco use type: Cigarette Years Smoked: 35 years Smoked in Last 30 Days: No Use of substances other than those prescribed or required for medical reasons: No Advance Directives: Yes Advance Directives Information Provided: Yes Advance Directives on File: No Nutrition Risks: No Nutritional Risk Meds Allergies Allergy/AdvReac Type Severity Reaction Status Date / Time codeine Allergy Severe Rapid Verified 12/12/24 16:47 Heartbeat morphine Allergy Severe Rapid Verified 12/12/24 16:47 Heartbeat quetiapine Allergy Severe Difficulty Verified 12/12/24 16:47 Breathing IV Contrast Dye Allergy Severe Rapid Uncoded 12/12/24 16:47 Heartbeat Sulfamethoxazole Allergy Severe Rapid Uncoded 12/12/24 16:47 Heartbeat Home Medications ?Medication ?Instructions ?Recorded ?Confirmed ?Last Taken ?Type escitalopram oxalate 10 mg tablet 20 mg PO DAILY 08/22/20 12/12/24 Unknown History levothyroxine 75 mcg tablet 75 mcg PO DAILY 08/22/20 01/27/21 Unknown History trazodone 50 mg tablet 50 mg PO BEDTIME 08/22/20 12/12/24 Unknown History ascorbic acid (vitamin C) 1,000 mg 1 g PO Q6H 11/25/22 Unknown History capsule flaxseed oil 1,000 mg capsule 1,000 mg PO DAILY 11/25/22 Unknown History lactobacillus combination no.9 4 4,000 mmu cells PO DAILY 11/25/22 Unknown History billion cell capsule (Adult 50 Plus Probiotic) nebulizers 11/25/22 Unknown History nifedipine 30 mg tablet,extended 30 mg PO DAILY 11/25/22 12/12/24 Unknown History release omega 9-wbw-agz-fish oil 60 mg-90 1 cap PO DAILY 11/25/22 Unknown History mg-500 mg capsule (Fish Oil) fbhosxog-mqfc-sqwh 8 mg-folic 400 1 tab PO DAILY 10/20/23 Unknown History mcg-K 50 mcg-lutein 300 mcg tablet (Centrum Silver Women) red yeast rice 600 mg tablet 600 mg PO DAILY 11/18/23 Unknown History cgvsjwzsvd-pimczv-gozmfvub-amylase 1,400 tab PO TID 10/16/24 Unknown History 600 mg tablet pravastatin 20 mg tablet 20 mg PO BEDTIME 12/12/24 12/12/24 Unknown History Physical Exam 2 Vital Signs and Narrative: Vital Signs: Last Vital Signs Temp 98.2 F 12/12/24 22:06 Pulse 62 12/12/24 22:06 Resp 24 H 12/12/24 22:06 BP 132/60 12/12/24 22:06 Pulse Ox 94 12/12/24 22:06 O2 Del Method Nasal Cannula 12/12/24 22:06 O2 Flow Rate 2 12/12/24 22:06 BMI result Body Mass Index 21.9 Gen: Appears be in no acute distress HEENT: NCAT, Moist mucosa. Pulmonary: Vesicular breath sounds, fair air entry CVS: Normal S1-S2 Abdomen: BS+, Soft, Nontender Extremities: Warm well perfused Neuro: Alert and awake. Results Labs 12/13/24 04:46 12/13/24 04:46 Labs: Laboratory Results - last 24 hr 12/12/24 17:01 MCV 93.3 MCH 30.7 MCHC 32.9 RDW 14.0 Plt Count 230 MPV 10.4 Immature Gran % (Auto) 0.3 Neut % (Auto) 72.7 Lymph % (Auto) 16.7 L [place] % (Auto) 6.8 Eos % (Auto) 2.6 Baso % (Auto) 0.9 Lymph # (Auto) 1.1 L [place] # (Auto) 0.5 Eos # (Auto) 0.2 Baso # (Auto) 0.1 Abs Immat Gran (auto) 0.02 Absolute Neuts (auto) 4.8 Absolute Nucleated RBC 0.000 Nucleated RBC % (auto) 0.0 PT 11.6 INR 1.0 Anion Gap 13 Estim Creat Clear Calc 51.9 Estimated GFR > 60 Random Glucose 90 Calcium 9.3 Magnesium 2.2 Total Bilirubin 0.4 AST 25 ALT 17 Alkaline Phosphatase 70 Troponin I High Sens 3.1 B-Natriuretic Peptide 105 H Total Protein 6.7 Albumin 4.5 Assessment and Plan (1) Hypoxia: Status: Acute Plan 84-year-old female with a past medical history of HTN, HLD, hypothyroidism, COPD, GERD presented to the hospital with a chief complaint of shortness of breath. COPD: No significant wheezing noted on examination. DuoNebs p.r.n. Acute hypoxic respiratory failure: Patient is saturating 83% on ambulation. Supplemental oxygen with a goal of 88-93%. Trending pulse oximetry when ready for discharge Chest pain: Improved. EKG nonischemic. Troponin negative. Hypothyroidism: Continue home levothyroxine DVT prophylaxis: Lovenox Code status: Full code Quality Stroke Does the patient have a stroke diagnosis?: No VTE Prior VTE?: No VTE Risk Level:: Medical - moderate - high VTE Device Contraindication: Treatment Not Indicated VTE Drug Contraindication: N/A - Med Ordered
--- NOTE | 2024-12-12 23:48 | PC.NURSE ---
this rn at bedside with pt, pt requesting her night time medications at this time, pt able to verify them with this rn, aware.
[2024-12-13] VITALS (7 sets, daily range): BP systolic 144–152; BP diastolic 59–70; PULSE 59–77; RESP 16–20; TEMP 36.6–37.2; O2SAT 92–98; BMI 22.8
[2024-12-13] MEDS: Albuterol/Iprat 2.5/0.5MG 3 ML AMPUL.NEB INHALE ×2 (00:09→11:23)
[2024-12-13] MEDS: Acetaminophen 325 MG TABLET 650 MG PO ×3 (01:01→20:12)
--- NOTE | 2024-12-13 01:03 | PC.NURSE ---
pt medicated per mar tolerated well with water
[2024-12-13 05:03] LABS: MANUAL DIFF FLAG NO
[2024-12-13 05:05] LABS: Basophils Absolute Auto 0.1 X10*3/uL (0.0-0.2); Basophils Percent Auto 0.9 % (0-2); Eosinophils Absolute Auto 0.2 X10*3/uL (0.0-0.4); Eosinophils Percent Auto 2.8 % (0-4); Hematocrit 33.4 % (37.0-47.0); Hemoglobin 11.4 g/dl (12.0-16.0); Imm Gran Abs Auto 0.02 X10*3/uL (0.00-0.03); Imm Gran Pct Auto 0.3 % (0.0-0.4); Lymphocytes Absolute Auto 1.2 X10*3/uL (1.2-4.9); Lymphocytes Percent Auto 18.1 % (20-40); Mean Corpuscular HGB Conc 34.1 g/dl (31.0-35.0); Mean Corpuscular Hemoglobin 31.1 pg (27.0-33.0); Mean Platelet Volume 10.3 fL (9.4-12.3); Monocytes Absolute Auto 0.6 X10*3/uL (0.1-1.2); Monocytes Percent Auto 8.6 % (2-11); Neutrophils Absolute Auto 4.4 x10*3/uL (2.0-8.3); Neutrophils Percent Auto 69.3 % (45-73); Platelet Count 207 X10*3/uL (160-400); Red Blood Count 3.67 X10*6/uL (4.20-5.50); White Blood Count 6.4 X10*3/uL (4.8-10.8)
[2024-12-13 05:22] LABS: Alanine Aminotransferase 18 U/L (0-31); Albumin Level 3.9 g/dL (3.5-5.0); Alkaline Phosphatase 61 U/L (39-117); Anion Gap 12 (12-20); Aspartate Amino Transferase 22 U/L (5-31); Bilirubin Total 0.4 mg/dL (0.0-1.0); Blood Urea Nitrogen 13 mg/dL (9-16); Calcium 8.5 mg/dL (8.4-10.2); Carbon Dioxide 25 mmol/L (22-29); Chloride 110 mmol/L (96-108); Creatinine Clr Calc Pharmacy 59.1; Estimated Glomerular Filt Rate > 60; Glucose Random 91 mg/dL (60-115); Potassium 3.6 mmol/L (3.3-5.1); Sodium 143 mmol/L (135-145); Total Protein 5.8 g/dL (6.5-8.0)
[2024-12-13] MEDS: Levothyroxine Sodium 75 MCG TABLET PO (06:10)
[2024-12-13] MEDS: Enoxaparin Sodium 40 MG/0.4 ML SYRINGE SUBCUT (07:30)
--- NOTE | 2024-12-13 08:08 | PHA.MEDREC ---
Pharmacy Consult ? Medication Reconciliation Pharmacy has completed the medication reconciliation. Spoke to patient at bedside, she was knowledgeable about her medications and had a written list with her. Used this to confirm medications.
--- NOTE | 2024-12-13 09:11 | MHC.CM.PN ---
CM met with Patient at bedside and addressed IMM with her, providing Patient with the original and a copy has been placed on the chart. Patient lives alone in an apartment and she uses a cane to assist with mobility. Patient is agreeable to a referral to [facility]; home self care vs new [facility] is the tentative plan. CM has initiated and will follow for dc planning. PCP is Dr. Gavin Villareal and Son/HCP/Rafael will transport at time of dc.
[2024-12-13] MEDS: Montelukast Sodium 10 MG TABLET PO (10:43)
[2024-12-13] MEDS: Escitalopram Oxalate 20 MG TABLET PO (10:43)
[2024-12-13] MEDS: Magnesium Oxide 400 MG TABLET PO (10:43)
[2024-12-13] MEDS: NIFEdipine ER 30 MG TAB.ER.24 PO (10:44)
[2024-12-13] MEDS: Ascorbic Acid 500 MG TABLET PO ×2 (10:47→20:12)
[2024-12-13] MEDS: Multivitamin TABLET 1 TAB PO (10:48)
[2024-12-13] MEDS: methylPREDNISolone Sod Succ 40 MG/ML VIAL IVPUSH ×2 (10:55→20:13)
[2024-12-13] MEDS: 0.9 % Sodium Chloride Flush 3 ML SYRINGE IVFLUSH ×3 (10:55→20:13)
[2024-12-13] MEDS: Calcium Carbonate 750 MG TAB.CHEW PO (10:56)
--- NOTE | 2024-12-13 11:15 | HO.PM.IMPN ---
Subjective Subjective Date of Service: 12/13/24 Interval History: Shortness of breaths Physical Exam Vital Signs: Vital Signs: Last Vital Signs Temp 98.3 F 12/13/24 10:51 Pulse 77 12/13/24 10:51 Resp 20 12/13/24 10:51 BP 150/59 H 12/13/24 10:44 Pulse Ox 94 12/13/24 10:51 O2 Del Method Nasal Cannula 12/13/24 09:03 O2 Flow Rate 2 12/13/24 10:51 BMI result Body Mass Index 22.8 General: AO X 3, no acute distress Resp: Diminished bilateral, no accessory muscles used CVS: S1,S2,RRR GI: soft, non tender, non distended Neuro: motor grossly intact, alert Psych: appropriate affect, appropriate insight Objective Data Active Medications Acetaminophen (Acetaminophen 325 Mg Tablet) 650 mg PO Q6H PRN PRN Reason: Pain, Mild 1-3,fever,headache Last Admin: 12/13/24 01:01 Dose: 650 mg Documented By: WENDY Albuterol/Ipratropium (Albuterol/Iprat 2.5/0.5mg 3 Ml Ampul.Neb) 3 ml INHALE RQ4H WHILE AWAKE PRN PRN Reason: Shortness of Breath Last Admin: 12/13/24 00:09 Dose: 3 ml Documented By: XOCHITL Ascorbic Acid (Ascorbic Acid 500 Mg Tablet) 500 mg PO BID [facility] Last Admin: 12/13/24 10:47 Dose: 500 mg Documented By: DELORES Benzonatate (Benzonatate 100 Mg Capsule) 100 mg PO TID PRN PRN Reason: Cough Calcium Carbonate (Calcium Carbonate 750 Mg Tab.Chew) 750 mg PO Q4H PRN PRN Reason: Heartburn Calcium Carbonate (Calcium Carbonate 750 Mg Tab.Chew) 750 mg PO DAILY [facility] Last Admin: 12/13/24 10:56 Dose: 750 mg Documented By: DELORES Enoxaparin Sodium (Enoxaparin Sodium 40 Mg/0.4 Ml Syringe) 40 mg SUBCUT Q24H [facility] Last Admin: 12/13/24 07:30 Dose: 40 mg Documented By: CHITO Escitalopram Oxalate (Escitalopram Oxalate 20 Mg Tablet) 20 mg PO DAILY [facility] Last Admin: 12/13/24 10:43 Dose: 20 mg Documented By: DELORES Fluticasone/Vilanterol (Fluticasone/Vilanterol 200/25 Blst.W.Dev) 1 puff INHALE RDAILY [facility] Levothyroxine Sodium (Levothyroxine Sodium 75 Mcg Tablet) 75 mcg PO DAILY@0600 [facility] Last Admin: 12/13/24 06:10 Dose: 75 mcg Documented By: MIGUEL Magnesium Hydroxide (Milk Of Magnesia 30 Ml Oral.Susp) 30 ml PO DAILY PRN PRN Reason: Constipation Magnesium Oxide (Magnesium Oxide 400 Mg Tablet) 400 mg PO DAILY [facility] Last Admin: 12/13/24 10:43 Dose: 400 mg Documented By: DELORES Melatonin (Melatonin 3 Mg Tablet) 6 mg PO BEDTIME PRN PRN Reason: Insomnia Methylprednisolone Sodium Succinate (Methylprednisolone Sod Succ 40 Mg/Ml Vial) 40 mg IVPUSH Q12H [facility] Last Admin: 12/13/24 10:55 Dose: 40 mg Documented By: DELORES Montelukast Sodium (Montelukast Sodium 10 Mg Tablet) 10 mg PO DAILY [facility] Last Admin: 12/13/24 10:43 Dose: 10 mg Documented By: DELORES Multivitamins/Vitamin C (Multivitamin Tablet) 1 tab PO DAILY [facility] Last Admin: 12/13/24 10:48 Dose: 1 tab Documented By: DELORES Nifedipine (Nifedipine Er 30 Mg Tab.Er.24) 30 mg PO DAILY [facility] Last Admin: 12/13/24 10:44 Dose: 30 mg Documented By: DELORES Non-Formulary Medication (Tsvtfkdsho-Sfrgxv-Yfzjydds-Maryam) 1,400 tab PO TID [facility] Pravastatin Sodium (Pravastatin Sodium 20 Mg Tablet) 20 mg PO BEDTIME [facility] Sodium Chloride (0.9 % Sodium Chloride Flush 3 Ml Syringe) 3 ml IVFLUSH QSHIFT [facility] Last Admin: 12/13/24 10:55 Dose: 3 ml Documented By: DELORES Tramadol HCl (Tramadol Hcl 50 Mg Tablet) 50 mg PO Q6H PRN PRN Reason: Pain, Severe (Pain Scale 7-10) Trazodone HCl (Trazodone Hcl 50 Mg Tablet) 50 mg PO BEDTIME [facility] Labs 12/13/24 04:46 12/13/24 04:46 Labs: Laboratory Results - last 24 hr 12/12/24 12/13/24 17:01 04:46 MCV 93.3 91.0 MCH 30.7 31.1 MCHC 32.9 34.1 RDW 14.0 14.0 Plt Count 230 207 MPV 10.4 10.3 Immature Gran % (Auto) 0.3 0.3 Neut % (Auto) 72.7 69.3 Lymph % (Auto) 16.7 L 18.1 L [place] % (Auto) 6.8 8.6 Eos % (Auto) 2.6 2.8 Baso % (Auto) 0.9 0.9 Lymph # (Auto) 1.1 L 1.2 [place] # (Auto) 0.5 0.6 Eos # (Auto) 0.2 0.2 Baso # (Auto) 0.1 0.1 Abs Immat Gran (auto) 0.02 0.02 Absolute Neuts (auto) 4.8 4.4 Absolute Nucleated RBC 0.000 0.000 Nucleated RBC % (auto) 0.0 0.0 PT 11.6 INR 1.0 Anion Gap 13 12 Estim Creat Clear Calc 51.9 59.1 Estimated GFR > 60 > 60 Random Glucose 90 91 Calcium 9.3 8.5 D Magnesium 2.2 Total Bilirubin 0.4 0.4 AST 25 22 ALT 17 18 Alkaline Phosphatase 70 61 Troponin I High Sens 3.1 B-Natriuretic Peptide 105 H Total Protein 6.7 5.8 L Albumin 4.5 3.9 Assessment and Plan (1) Dyspnea: Status: Acute Plan 84F PMH COPD, hypothyroid, hypertension, hyperlipidemia sent in from pulmonary clinic for shortness of breath, hypoxia, elevated D-dimer Acute hypoxic respiratory failure due to COPD with acute decompensation Continue steroids and DuoNebs pulm eval V/Q scan negative for PE Hypothyroid Levothyroxine Hypertension Continue nifedipine DVT prophylaxis with Lovenox Full Code reason for continued hospitalization: Hypoxic Quality Stroke Does the patient have a stroke diagnosis?: No VTE Prior VTE?: No VTE Risk Level:: Medical - moderate - high VTE Device Contraindication: Treatment Not Indicated VTE Drug Contraindication: N/A - Med Ordered
[2024-12-13] MEDS: Fluticasone/Vilanterol 200/25 BLST.W.DEV 1 PUFF INHALE (11:23)
[2024-12-13] MEDS: traMADoL HCL 50 MG TABLET PO ×2 (11:40→19:05)
--- NOTE | 2024-12-13 12:24 | P.CONPL_ITS ---
History of Present Illness History of Present Illness Consult date: 12/13/24 Chief complaint: hypoxia Narrative: 84-year-old lady with underlying severe COPD on supplemental oxygen 1-2 L admitted on 12/12/2024 with complaints of slowly progressive dyspnea chest discomfort over approximately 10 days. On ER evaluation V/Q scan with no perfusion abnormalities, troponins negative, x-ray with no acute findings. Patient admitted for close monitoring. Examined this a.m., continues to complain of what appears to be chronic dyspnea and chest discomfort, maintaining normal O2 saturation on her baseline 1 L supplemental oxygen. Denying productive cough or wheezing. Review of Systems 2 Constitutional: Constitutional: Denies daytime sleepiness, Denies excessive sweating, Denies fatigue, Denies fever(s), Denies lethargy, Denies malaise, Denies night sweats, Denies snoring and Denies weight loss Eyes: Eyes: Denies blurry vision and Denies itchy eyes ENT: Denies nasal congestion, Denies post nasal drip, Denies sinus pain, Denies sinus pressure and Denies other ( Thrush) Cardiovascular: Cardiovascular: Denies chest pain, Denies pedal edema, Denies dyspnea, Reports dyspnea on exertion, Denies orthopnea and Denies paroxysmal nocturnal dyspnea Respiratory: Respiratory: Denies cough, Denies hemoptysis, Denies excessive phlegm production, Denies dyspnea, Reports dyspnea on exertion, Denies snoring and Denies wheezing Gastrointestinal: Gastrointestinal: Denies abdominal pain and Denies heartburn Musculoskeletal: Musculoskeletal: Denies myalgias, Denies arthralgias and Denies joint swelling Integumentary/Breasts: Skin/Breast: Denies rash Neurologic: Denies memory loss and Denies seizure-like activity Psychiatric: Psychiatric: Denies abnormal sleep pattern, Denies anxiety and Denies memory loss Endocrine: Endocrine: Denies excessive sweating, Denies fatigue and Denies heat intolerance Hematologic/Lymphatic: Hematologic/Lymphatic: Denies easy bruising Allergic/Immunologic: Allergic/Immunologic: Denies itchy eyes, Denies seasonal rhinorrhea and Denies wheezing PMFSH Past Medical History Medical History (Updated 12/13/24 @ 12:32 by José Antonio Sagastume MD) Bradycardia Hiatal hernia Pulmonary nodule Limb swelling Dyspnea COPD (chronic obstructive pulmonary disease) Social History Social History Household Members: None Housing: Apartment Do you presently have visiting nurse or other home services: No Patient Tobacco Use Status: Former Tobacco user Tobacco use type: Cigarette Years Smoked: 35 years service: No Meds Allergies Allergy/AdvReac Type Severity Reaction Status Date / Time codeine Allergy Severe Rapid Verified 12/12/24 16:47 Heartbeat morphine Allergy Severe Rapid Verified 12/12/24 16:47 Heartbeat quetiapine Allergy Severe Difficulty Verified 12/12/24 16:47 Breathing IV Contrast Dye Allergy Severe Rapid Uncoded 12/12/24 16:47 Heartbeat Sulfamethoxazole Allergy Severe Rapid Uncoded 12/12/24 16:47 Heartbeat Active Medications: Current Medications Acetaminophen (Acetaminophen 325 Mg Tablet) 650 mg PO Q6H PRN PRN Reason: Pain, Mild 1-3,fever,headache Last Admin: 12/13/24 01:01 Dose: 650 mg Albuterol/Ipratropium (Albuterol/Iprat 2.5/0.5mg 3 Ml Ampul.Neb) 3 ml INHALE RQ4H WHILE AWAKE PRN PRN Reason: Shortness of Breath Last Admin: 12/13/24 11:23 Dose: 3 ml Ascorbic Acid (Ascorbic Acid 500 Mg Tablet) 500 mg PO BID [facility] Last Admin: 12/13/24 10:47 Dose: 500 mg Benzonatate (Benzonatate 100 Mg Capsule) 100 mg PO TID PRN PRN Reason: Cough Calcium Carbonate (Calcium Carbonate 750 Mg Tab.Chew) 750 mg PO Q4H PRN PRN Reason: Heartburn Calcium Carbonate (Calcium Carbonate 750 Mg Tab.Chew) 750 mg PO DAILY [facility] Last Admin: 12/13/24 10:56 Dose: 750 mg Enoxaparin Sodium (Enoxaparin Sodium 40 Mg/0.4 Ml Syringe) 40 mg SUBCUT Q24H [facility] Last Admin: 12/13/24 07:30 Dose: 40 mg Escitalopram Oxalate (Escitalopram Oxalate 20 Mg Tablet) 20 mg PO DAILY [facility] Last Admin: 12/13/24 10:43 Dose: 20 mg Fluticasone/Vilanterol (Fluticasone/Vilanterol 200/25 Blst.W.Dev) 1 puff INHALE RDAILY [facility] Last Admin: 12/13/24 11:23 Dose: 1 puff Levothyroxine Sodium (Levothyroxine Sodium 75 Mcg Tablet) 75 mcg PO DAILY@0600 [facility] Last Admin: 12/13/24 06:10 Dose: 75 mcg Magnesium Hydroxide (Milk Of Magnesia 30 Ml Oral.Susp) 30 ml PO DAILY PRN PRN Reason: Constipation Magnesium Oxide (Magnesium Oxide 400 Mg Tablet) 400 mg PO DAILY [facility] Last Admin: 12/13/24 10:43 Dose: 400 mg Melatonin (Melatonin 3 Mg Tablet) 6 mg PO BEDTIME PRN PRN Reason: Insomnia Methylprednisolone Sodium Succinate (Methylprednisolone Sod Succ 40 Mg/Ml Vial) 40 mg IVPUSH Q12H [facility] Last Admin: 12/13/24 10:55 Dose: 40 mg Montelukast Sodium (Montelukast Sodium 10 Mg Tablet) 10 mg PO DAILY [facility] Last Admin: 12/13/24 10:43 Dose: 10 mg Multivitamins/Vitamin C (Multivitamin Tablet) 1 tab PO DAILY [facility] Last Admin: 12/13/24 10:48 Dose: 1 tab Nifedipine (Nifedipine Er 30 Mg Tab.Er.24) 30 mg PO DAILY [facility] Last Admin: 12/13/24 10:44 Dose: 30 mg Non-Formulary Medication (Hxcdqzdnaz-Ovxequ-Wnuwenbp-Maryam) 1,400 tab PO TID [facility] Pravastatin Sodium (Pravastatin Sodium 20 Mg Tablet) 20 mg PO BEDTIME [facility] Sodium Chloride (0.9 % Sodium Chloride Flush 3 Ml Syringe) 3 ml IVFLUSH QSHIFT [facility] Last Admin: 12/13/24 10:55 Dose: 3 ml Tramadol HCl (Tramadol Hcl 50 Mg Tablet) 50 mg PO Q6H PRN PRN Reason: Pain, Severe (Pain Scale 7-10) Last Admin: 12/13/24 11:40 Dose: 50 mg Trazodone HCl (Trazodone Hcl 50 Mg Tablet) 50 mg PO BEDTIME [facility] Home Medications ?Medication ?Instructions ?Recorded ?Confirmed ?Last Taken ?Type escitalopram oxalate 10 mg tablet 20 mg PO DAILY 08/22/20 12/13/24 12/12/24 09:00 History levothyroxine 75 mcg tablet 75 mcg PO DAILY@0600 08/22/20 12/13/24 12/12/24 09:00 History trazodone 50 mg tablet 50 mg PO BEDTIME 08/22/20 12/13/24 12/12/24 09:00 History ascorbic acid (vitamin C) 1,000 mg 1 g PO Q6H 11/25/22 12/13/24 12/12/24 09:00 History capsule flaxseed oil 1,000 mg capsule 1,000 mg PO DAILY 11/25/22 12/13/24 12/12/24 09:00 History lactobacillus combination no.9 4 4,000 mmu cells PO DAILY 11/25/22 12/13/24 12/12/24 09:00 History billion cell capsule (Adult 50 Plus Probiotic) nebulizers 11/25/22 Unknown History nifedipine 30 mg tablet,extended 30 mg PO DAILY 11/25/22 12/13/24 12/12/24 09:00 History release omega 9-sei-ozy-fish oil 60 mg-90 1 cap PO DAILY 11/25/22 12/13/24 12/12/24 09:00 History mg-500 mg capsule (Fish Oil) oepnxfva-rljc-rjef 8 mg-folic 400 1 tab PO DAILY 10/20/23 12/13/24 12/12/24 09:00 History mcg-K 50 mcg-lutein 300 mcg tablet (Centrum Silver Women) red yeast rice 600 mg tablet 600 mg PO DAILY 11/18/23 12/13/24 12/12/24 09:00 History bhnkvgtgzd-wchjbx-bvlhduly-amylase 1,400 tab PO TID 10/16/24 12/13/24 12/12/24 09:00 History 600 mg tablet pravastatin 20 mg tablet 20 mg PO BEDTIME 12/12/24 12/13/24 12/12/24 09:00 History calcium carbonate 600 mg PO DAILY 12/13/24 12/13/24 12/12/24 History magnesium oxide 400 mg (241.3 mg 400 mg PO DAILY 12/13/24 12/13/24 12/12/24 09:00 History magnesium) tablet polyethylene glycol 3350 17 gram 17 g PO DAILY PRN Constipation 12/13/24 12/13/24 12/12/24 History oral powder packet (Miralax) tramadol 50 mg tablet 50 mg PO Q6H PRN pain 12/13/24 12/13/24 12/12/24 09:00 History Physical Exam 2 Vital Signs: Vital Signs: Last Vital Signs Temp 98.3 F 12/13/24 10:51 Pulse 76 12/13/24 11:25 Resp 20 06/04/25 11:25 BP 150/59 H 12/13/24 10:44 Pulse Ox 94 12/13/24 10:51 O2 Del Method Nasal Cannula 12/13/24 09:03 O2 Flow Rate 2 12/13/24 10:51 BMI result Body Mass Index 22.8 Const: General: no acute distress and alert Nutritional Appearance: not obese Orientation/consciousness: Other orientation findings ( oriented) HEENT: Head: Yes atraumatic Eyes: General: appearance normal, both eyes and all related structures S clerae: sclerae normal EOM: EOMs intact bilaterally Neck: Neck: Yes supple Lymphatic: no lymphadenopathy noted Resp: Effort & Inspection: normal respiratory effort and no use of accessory muscles Auscultation: clear to auscultation bilaterally Cardio: Rate: regular rate Rhythm: regular rhythm Heart sounds: no gallops, no murmurs and no rubs Skin: General skin exam: other ( warm) Extrem: General: No clubbing, No cyanosis and No edema Results Laboratory Findings 12/13/24 04:46 12/13/24 04:46 ABG, PT/INR, D-dimer: PT/INR, D-dimer PT 11.6 SEC (10.9-12.4) 12/12/24 17:01 INR 1.0 (0.9-1.1) 12/12/24 17:01 Abnormal lab findings: Abnormal Labs 12/12/24 12/13/24 17:01 04:46 RBC 3.67 L Hgb 11.4 L Hct 33.4 L Lymph % (Auto) 16.7 L 18.1 L Lymph # (Auto) 1.1 L Chloride 110 H B-Natriuretic Peptide 105 H Total Protein 5.8 L Assessment and Plan (1) COPD (chronic obstructive pulmonary disease): Qualifiers: COPD type: chronic bronchitis Chronic bronchitis type: simple Q ualified Code(s): J41.0 - Simple chronic bronchitis Status: Acute (2) Supplemental oxygen dependent: Status: Acute (3) Dyspnea: Qualifiers: Dyspnea type: dyspnea on exertion Qualified Code(s): R06.00 - Dyspnea, unspecified Status: Acute Plan Impression: 84-year-old lady with underlying severe supplemental oxygen dependent COPD admitted with slowly progressive dyspnea, with essentially negative workup including chest x-ray, V/Q scan, troponin levels, and baseline symptoms. Recommendation: Agree with brief prednisone course and continuation of home bronchodilator regimen. Procedures Date of Service Date of Service: 12/13/24
[2024-12-13] MEDS: guaiFENesin LA 600 MG TAB.ER.12H PO ×2 (14:48→20:12)
[2024-12-13] MEDS: traZODone HCL 50 MG TABLET PO (20:12)
[2024-12-13] MEDS: Pravastatin Sodium 20 MG TABLET PO (20:12)
[2024-12-14] VITALS (8 sets, daily range): BP systolic 109–154; BP diastolic 57–69; PULSE 59–69; RESP 15–18; TEMP 35.8–37.4; O2SAT 92–95
[2024-12-14] MEDS: Levothyroxine Sodium 75 MCG TABLET PO (05:52)
[2024-12-14 07:01] LABS: Hematocrit 39.1 % (37.0-47.0); Hemoglobin 13.2 g/dl (12.0-16.0); Mean Corpuscular HGB Conc 33.8 g/dl (31.0-35.0); Mean Corpuscular Hemoglobin 30.6 pg (27.0-33.0); Mean Corpuscular Volume 90.7 fL (80.0-98.0); Mean Platelet Volume 10.7 fL (9.4-12.3); Platelet Count 265 X10*3/uL (160-400); Red Blood Count 4.31 X10*6/uL (4.20-5.50)
[2024-12-14 07:21] LABS: Anion Gap 11 (12-20); Blood Urea Nitrogen 13 mg/dL (9-16); Calcium 9.6 mg/dL (8.4-10.2); Carbon Dioxide 29 mmol/L (22-29); Chloride 107 mmol/L (96-108); Creatinine Clr Calc Pharmacy 61.2; Estimated Glomerular Filt Rate > 60; Glucose Random 118 mg/dL (60-115); Potassium 4.1 mmol/L (3.3-5.1); Sodium 143 mmol/L (135-145)
[2024-12-14] MEDS: Fluticasone/Vilanterol 200/25 BLST.W.DEV 1 PUFF INHALE (08:22)
[2024-12-14] MEDS: Enoxaparin Sodium 40 MG/0.4 ML SYRINGE SUBCUT (08:39)
[2024-12-14] MEDS: Acetaminophen 325 MG TABLET 650 MG PO ×2 (08:39→18:08)
[2024-12-14] MEDS: guaiFENesin LA 600 MG TAB.ER.12H PO ×2 (08:40→20:09)
[2024-12-14] MEDS: Ascorbic Acid 500 MG TABLET PO ×2 (08:40→20:09)
[2024-12-14] MEDS: traMADoL HCL 50 MG TABLET PO ×2 (08:40→18:08)
[2024-12-14] MEDS: Montelukast Sodium 10 MG TABLET PO (08:40)
[2024-12-14] MEDS: Multivitamin TABLET 1 TAB PO (08:40)
[2024-12-14] MEDS: NIFEdipine ER 30 MG TAB.ER.24 PO (08:40)
[2024-12-14] MEDS: methylPREDNISolone Sod Succ 40 MG/ML VIAL IVPUSH ×2 (08:40→20:09)
[2024-12-14] MEDS: Magnesium Oxide 400 MG TABLET PO (08:40)
[2024-12-14] MEDS: Calcium Carbonate 750 MG TAB.CHEW PO (08:40)
[2024-12-14] MEDS: 0.9 % Sodium Chloride Flush 3 ML SYRINGE IVFLUSH ×2 (08:40→16:53)
[2024-12-14] MEDS: Escitalopram Oxalate 20 MG TABLET PO (08:40)
--- NOTE | 2024-12-14 10:58 | MHC.CM.PN ---
Addendum entered by Loretta Banegas 12/14/24 13:21: When Patient is medically cleared for dc, both [facility] & [facility] (first choice) have accepted Patient, pending bed availability at time of dc. Original Note: Per PT/Susi, PT is recommending STR. Patient and Daughter have requested referrals be made to [facility] & [facility]. CM will follow.
--- NOTE | 2024-12-14 11:13 | P.PNIM_ITS ---
Subjective Subjective Date of Service: 12/14/24 Interval History: Shortness of breath Physical Exam 2 Vital Signs: Vital Signs: Last Vital Signs Temp 98.5 F 12/14/24 07:42 Pulse 69 12/14/24 10:53 Resp 15 12/14/24 08:23 BP 121/57 L 12/14/24 07:42 Pulse Ox 95 12/14/24 07:42 O2 Del Method Nasal Cannula 12/14/24 07:42 O2 Flow Rate 2 12/14/24 07:42 BMI result Body Mass Index 22.8 Const: General: no acute distress and alert Nutritional Appearance: not obese Orientation/consciousness: Other orientation findings ( oriented) HEENT: Head: Yes atraumatic Eyes: General: appearance normal, both eyes and all related structures S clerae: sclerae normal EOM: EOMs intact bilaterally Neck: Neck: Yes supple Lymphatic: no lymphadenopathy noted Resp: Effort & Inspection: normal respiratory effort and no use of accessory muscles Auscultation: clear to auscultation bilaterally Cardio: Rate: regular rate Rhythm: regular rhythm Heart sounds: no gallops, no murmurs and no rubs Skin: General skin exam: other ( warm) Extrem: General: No clubbing, No cyanosis and No edema Objective Data Active Medications Acetaminophen (Acetaminophen 325 Mg Tablet) 650 mg PO Q6H PRN PRN Reason: Pain, Mild 1-3,fever,headache Last Admin: 12/14/24 08:39 Dose: 650 mg Documented By: GIL Albuterol/Ipratropium (Albuterol/Iprat 2.5/0.5mg 3 Ml Ampul.Neb) 3 ml INHALE RQ4H WHILE AWAKE PRN PRN Reason: Shortness of Breath Last Admin: 12/13/24 11:23 Dose: 3 ml Documented By: TERESA Ascorbic Acid (Ascorbic Acid 500 Mg Tablet) 500 mg PO BID [facility] Last Admin: 12/14/24 08:40 Dose: 500 mg Documented By: GIL Benzonatate (Benzonatate 100 Mg Capsule) 100 mg PO TID PRN PRN Reason: Cough Calcium Carbonate (Calcium Carbonate 750 Mg Tab.Chew) 750 mg PO Q4H PRN PRN Reason: Heartburn Calcium Carbonate (Calcium Carbonate 750 Mg Tab.Chew) 750 mg PO DAILY [facility] Last Admin: 12/14/24 08:40 Dose: 750 mg Documented By: GIL Enoxaparin Sodium (Enoxaparin Sodium 40 Mg/0.4 Ml Syringe) 40 mg SUBCUT Q24H [facility] Last Admin: 12/14/24 08:39 Dose: 40 mg Documented By: GIL Escitalopram Oxalate (Escitalopram Oxalate 20 Mg Tablet) 20 mg PO DAILY [facility] Last Admin: 12/14/24 08:40 Dose: 20 mg Documented By: GIL Fluticasone/Vilanterol (Fluticasone/Vilanterol 200/25 Blst.W.Dev) 1 puff INHALE RDAILY [facility] Last Admin: 12/14/24 08:22 Dose: 1 puff Documented By: OCTAVIANO Guaifenesin (Guaifenesin La 600 Mg Tab.Er.12h) 600 mg PO BID [facility] Last Admin: 12/14/24 08:40 Dose: 600 mg Documented By: GIL Levothyroxine Sodium (Levothyroxine Sodium 75 Mcg Tablet) 75 mcg PO DAILY@0600 [facility] Last Admin: 12/14/24 05:52 Dose: 75 mcg Documented By: KULDIP-KATEZEB Magnesium Hydroxide (Milk Of Magnesia 30 Ml Oral.Susp) 30 ml PO DAILY PRN PRN Reason: Constipation Magnesium Oxide (Magnesium Oxide 400 Mg Tablet) 400 mg PO DAILY [facility] Last Admin: 12/14/24 08:40 Dose: 400 mg Documented By: GIL Melatonin (Melatonin 3 Mg Tablet) 6 mg PO BEDTIME PRN PRN Reason: Insomnia Methylprednisolone Sodium Succinate (Methylprednisolone Sod Succ 40 Mg/Ml Vial) 40 mg IVPUSH Q12H [facility] Last Admin: 12/14/24 08:40 Dose: 40 mg Documented By: GIL Montelukast Sodium (Montelukast Sodium 10 Mg Tablet) 10 mg PO DAILY [facility] Last Admin: 12/14/24 08:40 Dose: 10 mg Documented By: GIL Multivitamins/Vitamin C (Multivitamin Tablet) 1 tab PO DAILY [facility] Last Admin: 12/14/24 08:40 Dose: 1 tab Documented By: GIL Nifedipine (Nifedipine Er 30 Mg Tab.Er.24) 30 mg PO DAILY [facility] Last Admin: 12/14/24 08:40 Dose: 30 mg Documented By: ISRAELING Non-Formulary Medication (Wkxjpipkwo-Jrzmdo-Eahonhez-Maryam) 1,400 tab PO TID [facility] Pravastatin Sodium (Pravastatin Sodium 20 Mg Tablet) 20 mg PO BEDTIME [facility] Last Admin: 12/13/24 20:12 Dose: 20 mg Documented By: CELINE Sodium Chloride (0.9 % Sodium Chloride Flush 3 Ml Syringe) 3 ml IVFLUSH QSHIFT [facility] Last Admin: 12/14/24 08:40 Dose: 3 ml Documented By: GIL Tramadol HCl (Tramadol Hcl 50 Mg Tablet) 50 mg PO Q6H PRN PRN Reason: Pain, Severe (Pain Scale 7-10) Last Admin: 12/14/24 08:40 Dose: 50 mg Documented By: GIL Trazodone HCl (Trazodone Hcl 50 Mg Tablet) 50 mg PO BEDTIME [facility] Last Admin: 12/13/24 20:12 Dose: 50 mg Documented By: CELINE Labs 12/14/24 06:23 12/14/24 06:23 Labs: Laboratory Results - last 24 hr 12/14/24 06:23 MCV 90.7 MCH 30.6 MCHC 33.8 RDW 14.0 Plt Count 265 D MPV 10.7 Absolute Nucleated RBC 0.000 Nucleated RBC % (auto) 0.0 Anion Gap 11 L Estim Creat Clear Calc 61.2 Estimated GFR > 60 Random Glucose 118 H Calcium 9.6 D Assessment and Plan (1) Dyspnea: Status: Acute Plan 84F PMH COPD, hypothyroid, hypertension, hyperlipidemia sent in from pulmonary clinic for shortness of breath, hypoxia, elevated D-dimer Acute hypoxic respiratory failure due to COPD with acute decompensation Continue steroids and DuoNebs pulm appreciated V/Q scan negative for PE PT eval Hypothyroid Levothyroxine Hypertension Continue nifedipine DVT prophylaxis with Lovenox Full Code reason for continued hospitalization: Hypoxic Quality Stroke Does the patient have a stroke diagnosis?: No VTE Prior VTE?: No VTE Risk Level:: Medical - moderate - high VTE Device Contraindication: Treatment Not Indicated VTE Drug Contraindication: N/A - Med Ordered
[2024-12-14] MEDS: traZODone HCL 100 MG TABLET PO (20:09)
[2024-12-14] MEDS: Pravastatin Sodium 20 MG TABLET PO (20:09)
[2024-12-15] VITALS: BP 140/62; PULSE 54; RESP 16; TEMP 36.7; O2SAT 95
[2024-12-15 04:00] VITALS: BP 136/62; PULSE 52; RESP 16; TEMP 36.7; O2SAT 95
[2024-12-15] MEDS: Levothyroxine Sodium 75 MCG TABLET PO (06:06)
[2024-12-15 07:23] VITALS: BP 132/60; PULSE 53; RESP 20; TEMP 36.3; O2SAT 97
[2024-12-15] MEDS: Fluticasone/Vilanterol 200/25 BLST.W.DEV 1 PUFF INHALE (07:38)
[2024-12-15 07:40] VITALS: PULSE 58; RESP 15; O2SAT 97
[2024-12-15] MEDS: Ascorbic Acid 500 MG TABLET PO (09:06)
[2024-12-15] MEDS: Calcium Carbonate 750 MG TAB.CHEW PO (09:06)
[2024-12-15] MEDS: guaiFENesin LA 600 MG TAB.ER.12H PO (09:06)
[2024-12-15] MEDS: Montelukast Sodium 10 MG TABLET PO (09:06)
[2024-12-15] MEDS: NIFEdipine ER 30 MG TAB.ER.24 PO (09:06)
[2024-12-15] MEDS: 0.9 % Sodium Chloride Flush 3 ML SYRINGE IVFLUSH (09:06)
[2024-12-15] MEDS: Magnesium Oxide 400 MG TABLET PO (09:06)
[2024-12-15] MEDS: Escitalopram Oxalate 20 MG TABLET PO (09:06)
[2024-12-15] MEDS: methylPREDNISolone Sod Succ 40 MG/ML VIAL IVPUSH (09:06)
[2024-12-15] MEDS: Multivitamin TABLET 1 TAB PO (09:06)
[2024-12-15] MEDS: Enoxaparin Sodium 40 MG/0.4 ML SYRINGE SUBCUT (09:07)
--- NOTE | 2024-12-15 10:36 | P.DS_ITS ---
DS: Providers Provider Date of Service: 12/15/24 Date of admission: 12/12/24 23:28 Date of discharge: 12/15/24 Primary care physician: Gavin Villareal MD Consults: 12/13/24 08:02 Consult to Pulmonology Routine Consulting Provider: [facility] [place] [facility] Reason for consultation: sent in from pulm office for hypoxia DS: Diagnosis Discharge Diagnosis (1) Dyspnea: Status: Acute DS: Summary Hospital Course Hospital Course: from initial hpi: 84-year-old female with a past medical history of HTN, HLD, hypothyroidism, COPD, GERD presented to the hospital with a chief complaint of shortness of breath. Patient mentioned that she has been having shortness of breath for over the past week to 10 days. Has followed with her bacon skin lifter who gave her nebulizers and Z-Yuri which she finished the course. Denies receiving any steroids. She has had routine blood work done which showed elevated D-dimer; and was asked to go to the ER for further evaluation. Reports he still feels short of breath and has cough. Denies any fevers. Denies any chest pain or palpitations. Denies any GI or symptoms. Review of all other systems is negative except mentioned above ER course: Per ER team, patient has no significant wheezing on examination; chest x-ray showed no acute findings. V/Q scan showed no evidence of PE. On ambulation patient desaturated to 83%. Placed on supplemental oxygen. Patient also reported chest pressure. EKG nonischemic. Troponin negative. hospital course: Patient was admitted for acute hypoxic respiratory failure due to COPD with acut e decompensation. Was treated with steroids and DuoNebs. V/Q scan ruled out PE. Was seen by Pulmonary who felt this was mostly chronic and likely requires chronic oxygen. Was seen by PT recommended short-term rehab to which patient will be discharged and she is expected to require less than 30 days. For hypothyroidism was continued on levothyroxine. For hypertension was continued on nifedipine. Time Attestation Discharge Coordination Time (in mins): 37 Quality: Safe Use of Opioids Does Pt have an Active Cancer Diagnosis on the Problem List?: No Quality: Stroke Does the patient have a stroke diagnosis?: No Physical Exam Vital Signs: Vital Signs: Last Vital Signs Temp 97.4 F 12/15/24 07:23 Pulse 58 12/15/24 07:40 Resp 15 12/15/24 07:40 BP 132/60 12/15/24 07:23 Pulse Ox 97 12/15/24 07:23 O2 Del Method Nasal Cannula 12/15/24 07:23 O2 Flow Rate 2 12/15/24 07:23 BMI result Body Mass Index 22.8 Const: General: no acute distress and alert Nutritional Appearance: not obese Orientation/consciousness: Other orientation findings ( oriented) HEENT: Head: Yes atraumatic Eyes: General: appearance normal, both eyes and all related structures Sclerae: sclerae normal EOM: EOMs intact bilaterally Neck: Neck: Yes supple Lymphatic: no lymphadenopathy noted Resp: Effort & Inspection: normal respiratory effort and no use of accessory muscles Auscultation: clear to auscultation bilaterally Cardio: Rate: regular rate Rhythm: regular rhythm Heart sounds: no gallops, no murmurs and no rubs Skin: General skin exam: other ( warm) Extrem: General: No clubbing, No cyanosis and No edema Discharge Plan Discharge Anticipated Discharge Date/Time: 12/15/24 10:27 Patient Disposition: [facility] Discharge Diagnosis: copd Referrals: Gavin Villareal MD [Primary Care Provider] - 1 Week Discharge Medications: New prednisone 20 mg tablet 40 mg PO DAILY Qty: 10 0RF Continued Spiriva Respimat 2.5 mcg/actuation mist 2 puff inhalation DAILY Qty: 4 3RF albuterol sulfate 90 mcg/actuation HFA aerosol inhaler 2 puff inhalation Q6H PRN (Reason: shortness of breath or wheezing) Qty: 1 0RF albuterol sulfate 2.5 mg /3 mL (0.083 %) solution for nebulization 2.5 mg inhalation BID 30 Days Qty: 180 11RF fluticasone propionate 50 mcg/actuation spray,suspension 2 spray intranasal DAILY Qty: 16 0RF budesonide-formoterol [Symbicort] 160-4.5 mcg/actuation HFA aerosol inhaler 2 puff PO BID Qty: 30.6 3RF montelukast 10 mg tablet 10 mg PO DAILY Qty: 90 0RF pravastatin 20 mg tablet 20 mg PO BEDTIME tramadol 50 mg tablet 50 mg PO Q6H PRN (Reason: pain) magnesium oxide 400 mg (241.3 mg magnesium) tablet 400 mg PO DAILY polyethylene glycol 3350 [Miralax] 17 gram Powder In Packet 17 g PO DAILY PRN (Reason: Constipation) calcium carbonate 600 mg calcium (1,500 mg) Tablet 600 mg PO DAILY escitalopram oxalate 10 mg tablet 20 mg PO DAILY trazodone 50 mg tablet 50 mg PO BEDTIME levothyroxine 75 mcg tablet 75 mcg PO DAILY@0600 (DME) nebulizers Misc See Rx Instructions .Route Rx Instructions: As directed nifedipine 30 mg tablet extended release 30 mg PO DAILY Adult 50 Plus Probiotic 4 billion cell capsule 4,000 mmu cells PO DAILY Rx Instructions: administer with a meal flaxseed oil 1,000 mg capsule 1,000 mg PO DAILY Rx Instructions: administer with a meal omega 0-noa-ljx-fish oil [Fish Oil] 60-90-500 mg capsule 1 cap PO DAILY ascorbic acid (vitamin C) 1,000 mg capsule 1 g PO Q6H Centrum Silver Women 8 mg iron-400 mcg-50 mcg tablet 1 tab PO DAILY red yeast rice 600 mg tablet 600 mg PO DAILY Rx Instructions: give with meal/snack slfgtsoxue-itqcbf-hnxleilz-jesenia 600 mg tablet 1,400 tab PO TID Discharge Orders: Discharge Order (Routine); Ordered 12/15/24 Ordered By: Asa Omalley Diet: Advance to usual diet Activity on Discharge: As tolerated Stand Alone Forms: Patient Portal Discharge page Print Language: Citizen Of [place] Care Plan Goals: recovery Health Concerns: copd Plan of Treatment: 5 days prednisone, o2 for goal sa02 90% rehab Assessment: see above
--- NOTE | 2024-12-15 11:00 | MHC.CM.PN ---
Addendum entered by Renata Jurado 12/15/24 11:12: PT IS AWARE OF DC TIME AND STATES SHE WILL UPDATE FAMILY Original Note: PT WILL DC TO [facility] AT 1300 HOURS VIA [facility]
[2024-12-15 11:02] VITALS: BP 149/77; PULSE 62; RESP 20; TEMP 37.2; O2SAT 93
[2024-12-15] MEDS: Acetaminophen 325 MG TABLET 650 MG PO (12:53)
[2024-12-15] MEDS: traMADoL HCL 50 MG TABLET PO (12:54)
== END 2024-12-15 13:28 | disposition skilled nursing facility (03) | DRG 190 ==
LOC: HO.ED 23:22 → HO.EDOVER 12-13 00:14 → HO.IMC 12-13 07:18
PROVIDERS: Physician Assistant; Admitting Provider Hospitalist; Emergency Provider Emergency Medicine; PCP Family Medicine; Visit Provider Internal Medicine
DX: J44.1 Chronic obstructive pulmonary disease with (acute) exacerbation (principal); J96.01 Acute respiratory failure with hypoxia; I10 Essential (primary) hypertension; E03.9 Hypothyroidism, unspecified; Z99.81 Dependence on supplemental oxygen; Z79.51 Long term (current) use of inhaled steroids; Z79.890 Hormone replacement therapy; Z79.899 Other long term (current) drug therapy
CPT/HCPCS: 36415; 71046; 78580; 80048; 80053; 82785; 82803; 83735; 83880; 84484; 85025; 85027; 85379; 85610; 85652; 93005; 94618; 94640; 97162; 99212; 99285; A9540; J1650; J2919

== ENCOUNTER → 2024-12-12 16:51 | Outpatient (BNV) | payer MEDICARE, SELFPAY | PROVIDERS: Admitting Provider Hospitalist; Emergency Provider Emergency Medicine; PCP Family Medicine; Visit Provider Internal Medicine | DX: R07.9 Chest pain, unspecified (principal) | CPT/HCPCS: 93010 ==

== ENCOUNTER → 2024-12-12 23:28 | Outpatient (BNV) | payer MEDICARE, SELFPAY | PROVIDERS: Admitting Provider Hospitalist; Emergency Provider Emergency Medicine; PCP Family Medicine; Visit Provider Internal Medicine Pulmonary Disease | DX: J41.0 Simple chronic bronchitis (principal); Z99.81 Dependence on supplemental oxygen; R06.00 Dyspnea, unspecified | CPT/HCPCS: 99222 ==

== ENCOUNTER → 2024-12-12 23:28 | Outpatient (BNV) | payer MEDICARE, SELFPAY | PROVIDERS: Admitting Provider Hospitalist; Emergency Provider Emergency Medicine; PCP Family Medicine; Visit Provider Internal Medicine | DX: J96.01 Acute respiratory failure with hypoxia (principal); R06.00 Dyspnea, unspecified | CPT/HCPCS: 99223; 99232; 99233; 99239 ==

== ENCOUNTER 2025-01-18 11:08 | Outpatient (AMB) | payer MEDICARE, SELFPAY ==
--- OUTSIDE RECORDS SUMMARY | 2023-11-24 11:00 | XMS_ITS | Continuity of Care Document ---
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 Milling Machine Operator Name Role Phone Giovanni OVALLE, MELECIO, [place], Jimy Unavailable U navailable Procedures Procedure Date Duplex Scan-extrem Veins; Uni/ CT & MA M Advance Directives Directive Yes / No Effective Date File Name No Information Encounters Encounter Description Practice Location Reason(s) For Visit Diagnoses Date Provider Providers Copied on Encounter [facility], [address] [place] [address] [address], [place], [id number], [place] tel:[phone] [facility] [place] Pain in left leg 4 Giovanni OVALLE, MELECIO, [place] Ahn. 36[address] [facility] 302, [facility] [place], [id number] , [place]. tel:[phone] Referring Provider: Gavin Villareal MD, [address] [facility] [address] [facility] 207, [facility] [place], [address]. tel:[phone] Family History Family Member Type Diagnosis Age At Onset No Information Payers Payer name Insurance type Covered democrat ID Authoriza tion(s) Medicare ALBERTO DELATORRE [id number] BCBS ALBERTO BRADLEY [id number] Social History Type Description Quantity Date Captured [...]
[2025-01-18 11:10] VITALS: BP 124/54; PULSE 53; O2SAT 98; BMI 23.0
--- NOTE | 2025-01-18 11:10 | A.OFFVIS_ITS ---
Vital Signs 01/18/25 11:10 Height 5 ft 2 in Weight 125 lb 10.616 oz BMI 23.0 BP 124/54 L Blood Pressure Location Lt brachial Position Sitting Pulse 53 Pulse Source Pulse Oximeter Pulse Oximetry (%) 98 Oxygen Delivery Method Room Air Intake Visit Reasons: COPD Draw Frame Runner Required: No Accompanied by: Daughter Allergies codeine Allergy (Severe, Verified 01/18/25 11:15) Rapid Heartbeat morphine Allergy (Severe, Verified 01/18/25 11:15) Rapid Heartbeat quetiapine Allergy (Severe, Verified 01/18/25 11:15) Difficulty Breathing IV Contrast Dye Allergy (Severe, Uncoded 12/12/24 16:47) Rapid Heartbeat Sulfamethoxazole Allergy (Severe, Uncoded 12/12/24 16:47) Rapid Heartbeat HPI Comments Details: The patient is a 84 y/o woman with a history of COPD. She was treated for COPD exacerbation during the last visit in this was a follow-up visit. Overall she is feeling a lot better. She completed the antibiotics and the prednisone. She is still having some cough which is nonproductive in nature. Ufrj-tz-[id number] severity. The inhalers have been helpful. We did review her blood work which resolved relatively benign. She however is having some difficulties with her medications because she hit the donut hole and cannot afford her Spiriva. Will try to find something more financially reasonable for the patient at this time. \ 11/25/2022 the patient is here for pulmonary follow-up visit. The patient overall has been doing fair. She has had significant headaches and sinus pressure. She has been struggling with this for some time. The patient was given loratadine but resulted in adverse effects and she could not take it. She also has a hard time tolerating prednisone because it affects her mood. She has been using her respiratory therapy with good effect. Denies any significant shortness of breath although she does have dyspnea with activity. Will have her undergo a chest x-ray. The meantime going to start her on additional nasal therapies to improve her nasal allergies are likely affecting her sinuses. Will be reasonable also to treat him hoarse for sinusitis with doxycycline. 04/21/2023 the patient is here for pulmonary follow-up visit. The patient is still complaining of significant headaches. She feels like it is her sinus. She is been treated with multiple antibiotics for. It seems to be the case now lasting 4 months. She did have a sinus CT scan done at [facility] which I did review her. It appears that she does not have any evidence of sinusitis. The patient will be following up with ENT as well. I did recommend she gets evaluated for underlying headaches. The patient also having significant photosensitivity. She did follow-up with her eye doctor. At least from a respiratory status the patient is doing fairly well. She continues on the Spiriva and the Symbicort. She has not required her rescue inhaler. We did review her last chest x-ray demonstrating a small retrosternal pulmonary nodule. Will go ahead and repeat the chest x-ray at this time. The nodule still there we then will cuss a CT scan of the chest to better address the findings. 10/20/2023 the patient is here for a pulmonary follow-up visit. She continues to have significant frontal headaches. She did undergo CT scan of the sinuses which is reassuring. She is working closely with her pain specialist that she is having significant neck pain that may be contributing to her headaches. The patient also underwent a CT scan of the chest which was personally by me. The patient does have couple subcentimeter pulmonary nodules that will need follow- up. She also has [id number]-vn-ropduulm emphysema secondary to her history of smokin g. Patient continues on the Symbicort Spiriva which appeared to be effective. She also has a rescue inhaler but she does not use it often. At this point the patient will continue with current respiratory therapy and she will have a repeat CT scan sometime in June. Will follow-up after her CT scan. If she has any issues prior to that she will call for an earlier assessment. 11/18/2023 the patient is here for a pulmonary follow-up visit. The patient overall has been doing well. She still complaining of findings headaches from the headaches. Moderate severity. The lights still bothering her. She did try the Astelin nasal spray but she did not tolerated as it made her jittery and bad taste. She has been using the fluticasone nasal spray and also the singular at nighttime. She continues on the Symbicort and Spiriva. Will go ahead and start her on small dose of antihistamine therapy. I do believe that she needs it. We did review her blood work demonstrating an elevated IgE consistent with allergies. In addition to that she had a CT scan of the sinuses demonstrating thickening of the mucosa of the ethmoid sinuses all the other sinus or okay. Respiratory garcia patient is doing well. She will continue with the current respiratory therapy. If the patient is no better she will need a referral to Allergy. 03/08/2024 the patient is here for a pulmonary follow-up visit. Overall she is doing well from a respiratory status. Her allergies are better controlled at this time. She was able to back off on the allergy medicine. She continues on the Spiriva and Symbicort. This has been affecting beneficial. The patient gets the Spiriva donated. In addition to that she does have a CT scan scheduled for 07/31/2024 to follow-up with the pulmonary nodules. No further recommendations at this time. Will follow-up in 6-8 months. The patient has any issues or any abnormal findings on the CT scan will go ahead and see her soone 10/16/2024 the patient is here for a pulmonary follow-up visit. She has been having hard time with the breathing for the last few weeks. She did go on a prednisone taper that did improve her breathing significantly but then she ran out started getting worse again. She does use her respiratory inhalers as prescribed. She is wondering if she needs oxygen. She does state also that she has episodes of shortness of breath and chest tightness that wake her up at nighttime. Moderate severity. She does respond well to the nebulized treatment. The patient did have a CT scan back in 2023 which we personally reviewed. She appears to have a hiatal hernia. In addition to that emphysematous lungs were hyperinflated due to the COPD. We did go for a 6 minute walk test. The patient did not desaturate enough to need oxygen. Al though she did go to 93 % for period of time. The patient will undergo an overnight oximetry while sleeping to see if she needs any oxygen with sleep. In the meantime because of a hiatal hernia on her pancreatic disease and gallbladder disease I worry that she could be having some micro aspirations resulting in bronchospasms at nighttime. Therefore did ask her to sleep elevated with risers or a wedge. In the meantime will start her on omeprazole to see if this provides some relief and also will do a lower dose prednisone for longer to help with the current wheezing. She will continue with the current respiratory therapy. Will follow-up in 2-3 months. 12/12/2024 the patient is here for a pulmonary sick visit. She wishes seen about 2 months ago and the patient was given further antibiotics over the phone because of worsening respiratory symptoms. She was initially on doxycycline and then was not responding she was placed on Augmentin. Although give her diarrhea and she stopped it after a couple days. She went back on doxycycline but she just has not felt well. She feels very short of breath and also complaining of chest pressure and pain. The patient could not tolerate the symptoms and a longer made her sick visit. During the visit we did take her for walking oximetry the patient did desaturate briefly to 88% walking on room air. She did good just on 1 L nasal cannula. She already has oxygen for the nighttime so which is added a portable tank order for her to have with be cylinders. In the meantime we also had get blood work. Her D-dimer did come back significantly elevated actually critically elevated at 1500. I did call her explained to her the seriousness of the matter the patient was agreeable to go to the ER today. 01/18/2025 the patient is here for pulmonary follow-up visit. She was hospitalized briefly and subsequently went to rehab. She has been home now for few weeks and it has been on VNA. She still has issues with shortness of breath with activity moderate severity. She does desaturate down to the low 80s. She is still waiting to be set up with the oxygen at home. I did reach out to the [employer] company, [employer] to help her facilitate the portable oxygen concentrator for better portability outside of the home and also oxygen to use at nighttime. She does continue to use her respiratory medications as prescribed. We did review her blood work. Her CO2 is slightly elevated consistent with chronic hypercarbic respiratory failure. Will go ahead and monitor her closely. Right now she needs to be careful with any opiates or any medications that can suppress her respiratory drive. If her CO2 worsens we may need to talk about having her undergo an in-lab sleep study. Will follow-up with a repeat blood gas in 3-4 months. If he has any issues prior to the next visit she will call for further recommendations. [facility] Medical History (Updated 12/20/24 @ 00:02 by Background Debbie) Bradycardia Hiatal hernia Pulmonary nodule Limb swelling Dyspnea COPD (chronic obstructive pulmonary disease) Social History Household Members: None Housing: Apartment Do you presently have visiting nurse or other home services: No Patient Tobacco Use Status: Former Tobacco user Tobacco use type: Cigarette Years Smoked: 35 years service: No Review of Systems Const Denies headache(s), Denies night sweats, Reports weakness and Reports weight loss ENT Denies change in voice, Denies headache(s), Denies lip swelling, Denies mouth pain and Denies tongue swelling Card Reports chest pain, Reports dyspnea and Reports dyspnea on exertion Resp Reports cough, Reports dyspnea, Reports dyspnea on exertion and Reports wheezing GI Denies abdominal pain Musc Reports as per HPI and Reports back pain Neuro Denies Neuro-related abnormal movements, Denies headache(s) and Reports weakness Psych Denies no additional complaints Dashawn/Lymph Denies easy bleeding and Denies lymphadenopathy Aller/Immun Denies lip swelling, Denies tongue swelling and Reports wheezing Physical Exam Vital Signs: Last Vital Signs Pulse 53 01/18/25 11:10 BP 124/54 L 01/18/25 11:10 Pulse Ox 98 01/18/25 11:10 Oxygen Delivery Method Room Air 01/18/25 11:10 BMI result Body Mass Index 23.0 Const Other: Patient in moderate distress due to pain. General: cooperative and healthy appearing Nutritional Appearance: well nourished Orientation/consciousness: patient oriented x3 Limitations: no limitations HEENT Head: Yes normal to inspection General nose exam: Abnormal external nose present and Nasal discharge present Eyes General: appearance normal, both eyes and all related structures Neck Neck: Yes supple Chest Chest palpation & inspection: normal palpation of entire chest wall Resp Effort & Inspection: normal respiratory effort Auscultation: no wheezes and diminished lung sounds Cardio Rate: regular rate Rhythm: regular rhythm Heart sounds: S1 normal heart sound present and S2 normal heart sound present GI Palpation (GI): Soft to palpation and nontender Auscultation: normal bowel sounds Neuro General: patient oriented x3 Assessment & Plan Assessment & Plan (1) Dyspnea: Comment: significant small airways disease. Responding very well to the bronchodilator therapy Code(s): R06.00 - Dyspnea, unspecified Category: Medical Qualifiers: Dyspnea type: dyspnea on exertion Qualified Code(s): R06.00 - Dyspnea, unspecified (2) COPD (chronic obstructive pulmonary disease): Code(s): J44.9 - Chronic obstructive pulmonary disease, unspecified Category: Medical Qualifiers: COPD type: chronic bronchitis Chronic bronchitis type: simple Qualified Code(s): J41.0 - Simple chronic bronchitis (3) Pulmonary nodule: Code(s): R91.1 - Solitary pulmonary nodule Category: Medical (4) Hiatal hernia: Code(s): K44.9 - Diaphragmatic hernia without obstruction or gangrene Category: Medical Plan short-acting beta agonist as needed continue Symbicort and Spiriva continue Fluticasone daily Neti bottle with distilled water and packet use Mucinex as needed sleep with HOB elevated reflux diet start oxygen 1l/min with activity and 2L/min while sleeping, POC for better portability outside of the home overnight oximetry on RA F/U 3-4 months Orders: Orders Overnight Pulse Oximetry Today J41.0 - Simple chronic bronchitis Coding Level of Care Code Est Pt Level 4 (08663) Complex EM visit Add On G2211 Diagnoses Dyspnea on exertion R06.00 Dyspnea type: dyspnea on exertion Simple chronic bronchitis J41.0 COPD type: chronic bronchitis Chronic bronchitis type: simple Pulmonary nodule R91.1 Hiatal hernia K44.9 Time Spent (min) 18
--- OUTSIDE RECORDS SUMMARY | 2025-01-18 11:52 | XMS_ITS | Encounter Summary ---
Author Organization [facility] Address [address] [place] [id number] Care Team Providers Care Bulking Machine Operator Name Role Phone Gavin Villareal MD Primary Care Provider [phone] Encounter Details Date Type Department Care Team (Late st Contact Info) Description 12/22/2024 Lab Requisition [facility] - Main Lab [address] [facility] [place] [phone] Hai Lockett MD [address] [place] [id number] Encounter for other general examination Social History Tobacco Use Types Packs/Day Years Used Date Smoking Tobacco: Former Smokeless Tobacco: Never Comments Unknown Sex and Gender Information Value Date Recorded Sex Assigned at Not on file Legal Sex Female 7:24 PM EST Gender Identity Not on file Sexual Orientation Not on file documented as of this encounter Plan of Treatment Upcoming Encounters Date Type Department Care Team (Late st Contact Info) Description 01/24/2025 2:20 PM EDT Office Visit Gastroenterology - [address] [facility] [address] [place] [phone] Verónica Luis PA [address] [facility] [address] [place] [address] documented as of this encounter Procedures Procedure Name Priority Date/Time Associated Diagnosis Comments PROCALCITONIN Routine 12/22/2024 6:07 AM EDT Encounter for other general examination CBC WITH AUTO DIFFERENTIAL Routine 12/22/2024 6:07 AM EDT Encounter for other general examination CBC AND DIFFERENTIAL Routine 12/22/2024 6:07 AM EDT Encounter for other general examination LIPASE Routine 12/22/2024 6:07 AM EDT Encounter for other general examination COMPREHENSIVE METABOLIC PANEL Routine 12/22/2024 6:07 AM EDT Encounter for other general examination documented in this encounter Results * (ABNORMAL) CBC auto differential (12/22/2024 6:07 AM EDT) [facility] WBC 7.6 4.8 - 10.8 K/mcL LAB HEMETOLOGY METHOD 12/22/2024 8:46 AM [facility] RBC 4.00 3.80 - 4.80 M/mcL LAB HEMETOLOGY METHOD 12/22/2024 8:46 AM [facility] Hemoglobin 12.4 11.5 - 16.0 g/dL LAB HEMETOLOGY METHOD 12/22/2024 8:46 AM [facility] Hematocrit 38.7 35.0 - 47.0 % LAB HEMETOLOGY METHOD 12/22/2024 8:46 AM [facility] MCV 96.5 79.0 - 98.0 FL LAB HEMETOLOGY METHOD 12/22/2024 8:46 AM [facility] MCH 30.9 27.0 - 32.0 pcg LAB HEMETOLOGY METHOD 12/22/2024 8:46 AM [facility] MCHC 32.0 32.0 - 37.0 g/dL LAB HEMETOLOGY METHOD 12/22/2024 8:46 AM [facility] RDW 14.5 11.0 - 15.0 % LAB HEMETOLOGY METHOD 12/22/2024 8:46 AM [facility] Platelets 250 130 - 400 K/mcL LAB HEMETOLOGY METHOD 12/22/2024 8:46 AM [facility] MPV 10.8 7.0 - 11.0 FL LAB HEMETOLOGY METHOD 12/22/2024 8:46 AM [facility] NRBC 0.0 <1.0 % LAB HEMETOLOGY METHOD 12/22/2024 8:46 AM [facility] NRBC Absolute 0.00 <0.10 K/mcL LAB HEMETOLOGY METHOD 12/22/2024 8:46 AM [facility] Neutrophils Relative 81.8 % LAB HEMETOLOGY METHOD 12/22/2024 8:46 AM [facility] Lymphocytes Relative 7.7 % LAB HEMETOLOGY METHOD 12/22/2024 8:46 AM [facility] Monocytes Relative 7.9 % LAB HEMETOLOGY METHOD 12/22/2024 8:46 AM [facility] Eosinophils Relative 1.7 % LAB HEMETOLOGY METHOD 12/22/2024 8:46 AM [facility] Basophils Relative 0.4 % LAB HEMETOLOGY METHOD 12/22/2024 8:46 AM [facility] Immature Granulocytes Relative 0.5 % LAB HEMETOLOGY METHOD 12/22/2024 8:46 AM [facility] Neutrophils Absolute 6.24 1.50 - 7.00 K/mcL LAB HEMETOLOGY METHOD 12/22/2024 8:46 AM [facility] Lymphocytes Absolute 0.59(L) 1.00 - 5.00 K/mcL LAB HEMETOLOGY METHOD 12/22/2024 8:46 AM [facility] Monocytes Absolute 0.60 0.20 - 1.00 K/mcL LAB HEMETOLOGY METHOD 12/22/2024 8:46 AM [facility] Eosinophils Absolute 0.13 0.00 - 0.50 K/mcL LAB HEMETOLOGY METHOD 12/22/2024 8:46 AM EDT [facility] Basophils Absolute 0.03 0.00 - 0.20 K/mcL LAB HEMETOLOGY METHOD 12/22/2024 8:46 AM EDT [facility] Immature Granulocytes Absolute 0.04(H) 0.00 - 0.03 K/mcL LAB HEMETOLOGY METHOD 12/22/2024 8:46 AM EDT [facility] Blood Venous blood specimen / Unknown Venipuncture / Unknown 12/22/2024 6:07 AM EDT 12/22/2024 8:08 AM EDT us Hai Lokcett MD LAB BLOOD ORDERABLES Final Resu lt [facility] [address] [place] [address], * (ABNORMAL) Procalcitonin (12/22/2024 6:07 AM EDT) Procalcitonin 0.17(H) <=0.16 ng/mL LAB CHEMISTRY METHOD 12/22/2024 11:10 AM EDT [facility] Blood Venous blood specimen / Unknown Venipuncture / Unknown 12/22/2024 6:07 AM EDT 12/22/2024 8:08 AM EDT Narrative [facility] - 12/22/2024 11:10 AM EDT Procalcitonin > 2.00 ng/ml: Procalcitonin Levels above 2.00 ng/ml, on the first day of ICU admission represent a high risk for progression to severe sepsis and/or septic shock. Procalcitonin < 0.50 ng/ml: Procalcitonin levels below 0.50 ng/ml on the first day of ICU admission represent a low risk for progression to severe sepsis and/or septic shock. Concentrations <0.5 ng/mL do not exclude an infection, on account of local ized infections (without systemic signs) which can be associated with such low concentrations, or a systemic infection in its initial stages (<6 hours). Furthermore, increased procalcitonin can occur without infection. PCT concentrations between 0.5 and 2.0 ng/mL should be interpreted taking into account the patient's history. It is recommended to retest PCT within 6-24 hours if any concentrations <2.0 ng/mL are obtained. us Hai Lockett MD LAB BLOOD ORDERABLES Final Resu lt Performing Organization Address [facility] Co de Phone Number [facility] [address] [place] [address], [place] [phone] * Lipase (12/22/2024 6:07 AM EDT) Pathologist [facility] Lipase 14 13 - 75 unit/L LAB CHEMISTRY METHOD 12/22/2024 10:07 AM EDT [facility] Blood Venous blood specimen / Unknown Venipuncture / Unknown 12/22/2024 6:07 AM EDT 12/22/2024 8:08 AM EDT us Hai Lockett MD LAB BLOOD ORDERABLES Final Resu lt Performing Organization Address [facility] de Phone Number [facility] [address] [place] [address], [place] [phone] * (ABNORMAL) Comprehensive metabolic panel (12/22/2024 6:07 AM EDT) Pathologist [facility] Sodium 138 133 - 145 mmol/L LAB CHEMISTRY METHOD 12/22/2024 10:10 AM EDT [facility] Potassium 3.9 3.5 - 5.5 mmol/L LAB CHEMISTRY METHOD 12/22/2024 10:10 AM EDT [facility] Chloride 102 96 - 110 mmol/L LAB CHEMISTRY METHOD 12/22/2024 10:10 AM EDT [facility] CO2 29 21 - 32 mmol/L LAB CHEMISTRY METHOD 12/22/2024 10:10 AM EDT [facility] Anion Gap 7 3 - 11 LAB CHEMISTRY METHOD 12/22/2024 10:10 AM [facility] Glucose 71 70 - 100 mg/dL LAB CHEMISTRY METHOD 12/22/2024 10:10 AM [facility] BUN 15 5 - 25 mg/dL LAB CHEMISTRY METHOD 12/22/2024 10:10 AM [facility] Creatinine 0.52 0.50 - 1.10 mg/dL LAB CHEMISTRY METHOD 12/22/2024 10:10 AM [facility] eGFR 93 >=60 mL/min/1. 73m2 LAB CHEMISTRY METHOD 12/22/2024 10:10 AM [facility] Comment:Calculation based on the Chronic Kidney Disease Epidemiology Collaboration (CKD-EPI) equation refit without adjustment for race. BUN/Creatinine Ratio 28.8 LAB CHEMISTRY METHOD 12/22/2024 10:10 AM [facility] Calcium 8.3(L) 8.5 - 10.5 mg/dL LAB CHEMISTRY METHOD 12/22/2024 10:10 AM [facility] AST (SGOT) 26 10 - 42 unit/L LAB CHEMISTRY METHOD 12/22/2024 10:10 AM [facility] ALT (SGPT) 70(H) 10 - 60 unit/L LAB CHEMISTRY METHOD 12/22/2024 10:10 AM [facility] Alkaline Phosphatase 67 42 - 121 unit/L LAB CHEMISTRY METHOD 12/22/2024 10:10 AM [facility] Total Protein 5.3(L) 6.0 - 8.0 g/dL LAB CHEMISTRY METHOD 12/22/2024 10:10 AM [facility] Albumin 3.1(L) 3.2 - 5.0 g/dL LAB CHEMISTRY METHOD 12/22/2024 10:10 AM [facility] Total Bilirubin 0.4 0.0 - 1.4 mg/dL LAB CHEMISTRY METHOD 12/22/2024 10:10 AM EDT [facility] Blood Venous blood specimen / Unknown Venipuncture / Unknown 12/22/2024 6:07 AM EDT 12/22/2024 8:08 AM EDT us Hai Lockett MD LAB BLOOD ORDERABLES Final Resu lt [facility] [address] [place] [address], documented in this encounter Visit Diagnoses Diagnosis Encounter for other general examination documented in this encounter Additional Health Concerns Infection Onset Date Last Indicated Resolved Time Rotavirus 12/22/2024 12/22/2024 Gastrointestinal Rule-Out 12/23/2024 12/22/2024 2:40 PM EDT documented as of this encounter Care Teams Bulking Machine Operator Relationship Specialty Start Date End Date Gavin Villareal MD [address] [phone] PCP - General Family Medicine 07/24/24 documented as of this encounter
--- OUTSIDE RECORDS SUMMARY | 2025-01-18 11:53 | XMS_ITS | Data Portability ---
Author Organization [facility], Main Office Address [address] [place] [address] Care Team Providers Care Lead Massage Therapist Name Role Phone JASWINDER LIMON Whipped Topping Finisher GARY AQUINO High School Music Instructor KAREN MAHONEY Vascular Surgeon [facility] RANCHO BENSON Phys. Med. & Rehab [phone] HEATHER VILLAREAL Primary Care Provider [phone] ROJAS GREENE Combination Saw Operator [facility] Neurologist NAN COULTER Solution Spec MAGDI PATINO Antisubmarine Weapons Officer [facility] Assessment Encounter Date Assessment Date Assessment LastModified by Organization Details LastModified Time 01/05/2025 01/05/2025 Discussed with patient the signs/symptom s warranted for a return to office visit and/or an ER visit. Patient understood and agreed with the plan. [email or web address] Not available 01/05/2025 10:46:40 Plan of Treatment Reminders Order Date Submit Date Provider Last Modified By Organization Details Last Modified Time Details Appointments [email or web address] 2024 11:15A M Heather Villareal MD Not available Not available Not available Lab TSH + free T4, serum 2024 0801/2 025 [email or web address] [facility] (Centralized Electronic Ordering - All Locations), Patient Can Go To The Location Of Their Choice, [id number] 01/05/2025 10:24:20 rapid SARS CoV 2 Ag, QL IA, respira tory specime n 2024 [email or web address] In-Office Order, Internal Use Only DO Not Attach Compendium DO Not Attach Compendium, Do Not Delete/merge, [id number] 12/02/2024 11:38:32 strep group A, DNA, swab 2024 [email or web address] In-Office Order, Internal Use Only DO Not Attach Compendium DO Not Attach Compendium, Do Not Delete/merge, [id number] 12/02/2024 12:34:12 Referral None recorde d. Procedures None recorde d. Surgeries None recorde d. Imaging None recorde d. Medication Orders cyclosp orine 0.05 % eye drops in a dropper ette [facility]24 [id number] [address], [place], [phone], 01/05/2025 10:27:04 doxycyc line hyclate 100 mg capsule 2024 025 [id number], [address], [place], [phone], 12/16/2024 05:00:54 Patient TargetsNo targets recorded. Patient Instructions Encounter Date Encounter Id Patient Instructions Last Modified By Organization Details Last Modified Time 11/22/2024 [id number] varicose veins: care instructions [email or web address] Not available [...] Abnormal Flag Note LastModifiedBy Organization Detail LastModifiedTime 12/17/1912/16/2024 CBC WITH AUTO DIFFE RENTI AL WBC 7.2 K/mcL 4.8-10 .8 Not Available [facility]/S Dept [facility] [place], [address], 12/16/2024 10:53:38 12/17/19 25 12/16/2024 CBC WITH AUTO DIFFE RENTI AL RBC 3.60 M/mcL 3.80-4 .80 low Not Available [facility] [address] [place], [place] [address]Native [place] [facility] [place], [address], 12/16/2024 10:53:38 12/17/19 25 12/16/2024 CBC WITH AUTO DIFFE RENTI AL hemoglobin 11.1 g/dL 11.5-1 6.0 low Not Available [facility] [address] [place] [address] [facility] [place], [address], 12/16/2024 10:53:38 12/17/19 25 12/16/2024 CBC WITH AUTO DIFFE RENTI AL hematocrit 34.2 % 35.0-4 7.0 low Not Available [facility] Native [place], [address], 12/16/2024 10:53:38 12/17/19 25 12/16/2024 CBC WITH AUTO DIFFE RENTI AL MCV 95.3 fL 79.0-9 8.0 Not Available [facility] [address] [place] [address] [facility], [address], 12/16/2024 10:53:38 12/17/19 25 12/16/2024 CBC WITH AUTO DIFFE RENTI AL MCH 30.9 pcg 27.0-3 2.0 Not Available [facility] [address] [place], [place] [address]Native [facility], [address], 12/16/2024 10:53:38 12/17/19 25 12/16/2024 CBC WITH AUTO DIFFE RENTI AL MCHC 32.5 g/dL 32.0-3 7.0 Not Available [facility] [address] [place], [place] [address], [place], [address], 12/16/2024 10:53:38 12/17/19 25 12/16/2024 CBC WITH AUTO DIFFE RENTI AL RDW 14.3 % 11.0-1 5.0 Not Available [facility] [address] [place] [address], [address], 12/16/2024 10:53:38 12/17/19 25 12/16/2024 CBC WITH AUTO DIFFE RENTI AL platelets 227 K/mcL 130-40 0 Not Available [facility] [address] [place] [address], [address], 12/16/2024 10:53:38 12/17/19 25 12/16/2024 CBC WITH AUTO DIFFE RENTI AL MPV 11.3 fL 7.0-11 .0 high Not Available [facility] [address] [place] [address], [address], 12/16/2024 10:53:38 12/17/19 25 12/16/2024 CBC WITH AUTO DIFFE RENTI AL NRBC 0.0 % <1.0 Not Available [facility] [address] [place] [address], [address], 12/16/2024 10:53:38 12/17/19 25 12/16/2024 CBC WITH AUTO DIFFE RENTI AL NRBC absolute 0.00 K/mcL <0.10 Not Available [facility] [address] [place] [address], [address], 12/16/2024 10:53:38 12/17/19 25 12/16/2024 CBC WITH AUTO DIFFE RENTI AL neutrophils relative 60.2 % Not Available [facility] [address] [place] [address] [place], [address], 12/16/2024 10:53:38 12/17/19 25 12/16/2024 CBC WITH AUTO DIFFE RENTI AL lymphocytes relative 29.6 % Not Available [facility] [address] [place] [address] [place], [address], 12/16/2024 10:53:38 12/17/19 25 12/16/2024 CBC WITH AUTO DIFFE RENTI AL monocytes relative 7.6 % Not Available [facility] [address] [place] [address] [place], [address], 12/16/2024 10:53:38 12/17/19 25 12/16/2024 CBC WITH AUTO DIFFE RENTI AL eosinophils relative 1.5 % Not Available [facility] [address] [place] [address] [place], [address], 12/16/2024 10:53:38 12/17/19 25 12/16/2024 CBC WITH AUTO DIFFE RENTI AL basophils relative 0.8 % Not Available [facility] [address] [place] [address] [place], [address], 12/16/2024 10:53:38 12/17/19 25 12/16/2024 CBC WITH AUTO DIFFE RENTI AL immature granulocytes relative 0.3 % Not Available [facility] [address] [place] [address] [place], [address], 12/16/2024 10:53:38 12/17/19 25 12/16/2024 CBC WITH AUTO DIFFE RENTI AL neutrophils absolute 4.36 K/mcL 1.50-7 .00 Not Available [facility] [address] [place] [address] [place], [address], 12/16/2024 10:53:38 12/17/19 25 12/16/2024 CBC WITH AUTO DIFFE RENTI AL lymphocytes absolute 2.14 K/mcL 1.00-5 .00 Not Available [facility] [address] [place], [place] [address] [place], [address], 12/16/2024 10:53:38 12/17/19 25 12/16/2024 CBC WITH AUTO DIFFE RENTI AL monocytes absolute 0.55 K/mcL 0.20-1 .00 Not Available [facility] [address] [place], [place] [address] [place], [address], 12/16/2024 10:53:38 12/17/19 25 12/16/2024 CBC WITH AUTO DIFFE RENTI AL eosinophils absolute 0.11 K/mcL 0.00-0 .50 Not Available [facility] [address] [place] [address] [place], [address], 12/16/2024 10:53:38 12/17/19 25 12/16/2024 CBC WITH AUTO DIFFE RENTI AL basophils absolute 0.06 K/mcL 0.00-0 .20 Not Available [facility] [address] [place] [address] [place], [address], 12/16/2024 10:53:38 12/17/19 25 12/16/2024 CBC WITH AUTO DIFFE RENTI AL immature granulocytes absolute 0.02 K/mcL 0.00-0 .03 Not Available [facility] [address] [place], [place] [address] [place], [address], 12/16/2024 10:53:38 12/17/19 25 12/16/2024 CBC WITH AUTO DIFFE RENTI AL note See Report [facility], [address], [place] car[place], [place] [address] Not Available [facility]/S Dept [address] [place], [place] [address], [place], [address], 12/16/2024 10:53:38 12/17/19 25 12/16/2024 MAGNE SIUM magnesium 2.3 mg/dL 1.9-2. 6 Not Available [facility]/S Dept [facility] [place], [address], 12/16/2024 11:27:28 12/17/19 25 12/16/2024 MAGNE SIUM note See Report [facility], [address], Sprin gfiel d, [place] [address] Not Available [facility]/S Dept [facility] [place], [address], 12/16/2024 11:27:28 12/17/19 25 12/16/2024 COMPR EHENS SHIMON METAB OLIC PANEL sodium 144 mmol/ L 133-14 5 Not Available [facility]/S Dept [facility] [place], [address], 12/16/2024 11:29:09 12/17/19 25 12/16/2024 COMPR EHENS SHIMON METAB OLIC PANEL potassium 4.0 mmol/ L 3.5-5. 5 Not Available [facility]/S Dept [address] [place], [place] [address], [address], 12/16/2024 11:29:09 12/17/19 25 12/16/2024 COMPR EHENS SHIMON METAB OLIC PANEL chloride 109 mmol/ L 96-110 Not Available [facility] Dept [facility] [place], [address], 12/16/2024 11:29:09 12/17/19 25 12/16/2024 COMPR EHENS SHIMON METAB OLIC PANEL CO2 30 mmol/ L 21-32 Not Available [facility] Dept [facility] [place], [address], 12/16/2024 11:29:09 12/17/19 25 12/16/2024 COMPR EHENS SHIMON METAB OLIC PANEL anion gap 5 3-11 Not Available [facility]/S Dept [address] [place] [address], [address], 12/16/2024 11:29:09 12/17/19 25 12/16/2024 COMPR EHENS SHIMON METAB OLIC PANEL glucose 67 mg/dL 70-100 low Not Available [facility]/S Dept [address] [place] [address], [address], 12/16/2024 11:29:09 12/17/19 25 12/16/2024 COMPR EHENS SHIMON METAB OLIC PANEL BUN 18 mg/dL 5-25 Not Available [facility]/S Dept [address] [place] [address], [address], 12/16/2024 11:29:09 12/17/19 25 12/16/2024 COMPR EHENS SHIMON METAB OLIC PANEL creatinine 0.55 mg/dL 0.50-1 .10 Not Available [facility]/S Dept [address] [place] [address], [address], 12/16/2024 11:29:09 12/17/19 25 12/16/2024 COMPR EHENS SHIMON METAB OLIC PANEL eGFR 92 mL/mi n/1.7 3m2 >=60 Calcu latio n based on the Chron ic Kidne y Disea se Epide miolo gy Colla borat ion (CKD- EPI) equat ion refit witho ut adjus tment for race. Not Available [facility]/ Dept [address] [place] [address], [address], 12/16/2024 11:29:09 12/17/19 25 12/16/2024 COMPR EHENS SHIMON METAB OLIC PANEL BUN/creatini ne ratio 32.7 Not Available [facility]/S Dept [facility] [address], [place], [address], 12/16/2024 11:29:12/17/19 25 12/16/2024 COMPR EHENS SHIMON METAB OLIC PANEL calcium 8.4 mg/dL 8.5-10 .5 low Not Available [facility] [address], [facility] [place], [address], 12/16/2024 11:29:09 12/17/19 25 12/16/2024 COMPR EHENS SHIMON METAB OLIC PANEL AST (SGOT) 16 unit/ L 10-42 Not Available [facility] [address], [place], [address], 12/16/2024 11:29:12/17/19 25 12/16/2024 COMPR EHENS SHIMON METAB OLIC PANEL ALT (SGPT) 25 unit/ L 10-60 Not Available [facility] [address], [place], [address], 12/16/2024 11:29:12/17/19 25 12/16/2024 COMPR EHENS SHIMON METAB OLIC PANEL alkaline phosphatase 59 unit/ L 42-121 Not Available [facility] [place], [address], 12/16/2024 11:29:09 12/17/19 25 12/16/2024 COMPR EHENS SHIMON METAB OLIC PANEL total protein 5.2 g/dL 6.0-8. 0 low Not Available [facility] [place], [address], 12/16/2024 11:29:09 12/17/19 25 12/16/2024 COMPR EHENS SHIMON METAB OLIC PANEL albumin 3.1 g/dL 3.2-5. 0 low Not Available [facility]/S Dept [facility] [place], [address], 12/16/2024 11:29:09 12/17/19 25 12/16/2024 COMPR EHENS SHIMON METAB OLIC PANEL total bilirubin 0.2 mg/dL 0.0-1. 4 Not Available [facility] [place], [address], 12/16/2024 11:29:09 12/17/19 25 12/16/2024 COMPR EHENS SHIMON METAB OLIC PANEL note See Report [facility], [address], Jasein deandre d, [place]ts [address] Not Available [facility]/S Dept [facility] [place], [address], 12/16/2024 11:29:09 12/22/19 25 12/21/2024 COMPL ETE BLOOD COUNT WBC 11.9 K/mcL 4.8-10 .8 high Not Available [facility] [place], [address], 12/21/2024 09:14:12 12/22/19 25 12/21/2024 COMPL ETE BLOOD COUNT RBC 4.40 M/mcL 3.80-4 .80 Not Available [facility] [address] [place] [address] [facility], [address], 12/21/2024 09:14:12 12/22/19 25 12/21/2024 COMPL ETE BLOOD COUNT hemoglobin 13.5 g/dL 11.5-1 6.0 Not Available [facility] [place], [address], 12/21/2024 09:14:12 12/22/19 25 12/21/2024 COMPL ETE BLOOD COUNT hematocrit 42.5 % 35.0-4 7.0 Not Available [facility] [place], [address], 12/21/2024 09:14:12 12/22/1912/21/2024 COMPL ETE BLOOD COUNT MCV 97.3 fL 79.0-9 8.0 Not Available [address] [place], [address], 12/21/2024 09:14:12 12/22/1912/21/2024 COMPL ETE BLOOD COUNT MCH 30.9 pcg 27.0-3 2.0 Not Available [facility] [address] [place], [place] [address], [address], 12/21/2024 09:14:12 12/22/1912/21/2024 COMPL ETE BLOOD COUNT MCHC 31.8 g/dL 32.0-3 7.0 low Not Available [address] [place], [address], 12/21/2024 09:14:12 12/22/1912/21/2024 COMPL ETE BLOOD COUNT RDW 14.6 % 11.0-1 5.0 Not Available [facility] [address] [place], [place] [address], [address], 12/21/2024 09:14:12 12/22/1912/21/2024 COMPL ETE BLOOD COUNT platelets 307 K/mcL 130-40 0 Not Available [address] [place], [address], 12/21/2024 09:14:12 12/22/1912/21/2024 COMPL ETE BLOOD COUNT MPV 10.9 fL 7.0-11 .0 Not Available [address], [address], 12/21/2024 09:14:12 12/22/19 25 12/21/2024 COMPL ETE BLOOD COUNT NRBC 0.0 % <1.0 Not Available [facility]/S Dept [facility] [place], [address], 12/21/2024 09:14:12 12/22/19 25 12/21/2024 COMPL ETE BLOOD COUNT NRBC absolute 0.00 K/mcL <0.10 Not Available [facility] [place], [address], 12/21/2024 09:14:12 12/22/19 25 12/21/2024 COMPL ETE BLOOD COUNT note See Report [facility], [address] [facility] [address], Jasein rhondaiel d, [facility] [place] [address] Not Available [facility] [place], [address], 12/21/2024 09:14:12 12/22/19 25 12/21/2024 BASIC METAB OLIC PANEL sodium 140 mmol/ L 133-14 5 Not Available [facility] [place], [address], 12/21/2024 09:50:08 12/22/19 25 12/21/2024 BASIC METAB OLIC PANEL potassium 4.0 mmol/ L 3.5-5. 5 Not Available [facility] [place], [address], 12/21/2024 09:50:08 12/22/19 25 12/21/2024 BASIC METAB OLIC PANEL chloride 101 mmol/ L 96-110 Not Available [facility] [place], [address], 12/21/2024 09:50:08 12/22/19 25 12/21/2024 BASIC METAB OLIC PANEL CO2 33 mmol/ L 21-32 high Not Available [facility] [address] [place] [address] [place], [address], 12/21/2024 09:50:08 12/22/19 25 12/21/2024 BASIC METAB OLIC PANEL anion gap 6 3-11 Not Available [facility] [address] [place], [place] [address]wy [facility] [place], [address], 12/21/2024 09:50:08 12/22/19 25 12/21/2024 BASIC METAB OLIC PANEL glucose 74 mg/dL 70-100 Not Available [facility] [address] [place], [place] [address], [place], [address], 12/21/2024 09:50:08 12/22/19 25 12/21/2024 BASIC METAB OLIC PANEL BUN 23 mg/dL 5-25 Not Available [facility] [address] [place], [place] [address], [place], [address], 12/21/2024 09:50:08 12/22/19 25 12/21/2024 BASIC METAB OLIC PANEL creatinine 0.56 mg/dL 0.50-1 .10 Not Available [facility] [address] [place], [place] [address], [place], [address], 12/21/2024 09:50:08 12/22/19 25 12/21/2024 BASIC METAB OLIC PANEL eGFR 91 mL/mi n/1.7 3m2 >=60 Calcu latio n based on the Chron ic Kidne y Disea se Epide miolo gy Colla borat ion (CKD- EPI) equat ion refit witho ut adjus tment for race. Not Available [facility] [address] [place], [place] [address], [place], [address], 12/21/2024 09:50:08 12/22/19 25 12/21/2024 BASIC METAB OLIC PANEL BUN/creatini ne ratio 41.1 Not Available [facility]/S Dept [facility] [place], [address], 12/21/2024 09:50:08 12/22/19 25 12/21/2024 BASIC METAB OLIC PANEL calcium 8.6 mg/dL 8.5-10 .5 Not Available [facility] [place], [address], 12/21/2024 09:50:08 12/22/19 25 12/21/2024 BASIC METAB OLIC PANEL note See Report [facility], [address], [place] gfiel d, [place] [address] Not Available [facility]/S Dept [facility] [place], [address], 12/21/2024 09:50:08 12/23/19 25 12/22/2024 CBC WITH AUTO DIFFE RENTI AL WBC 7.6 K/mcL 4.8-10 .8 Not Available [facility]/S Dept [facility] [place], [address], 12/22/2024 08:48:18 12/23/1912/22/2024 CBC WITH AUTO DIFFE RENTI AL RBC 4.00 M/mcL 3.80-4 .80 Not Available [facility] [place], [address], 12/22/2024 08:48:18 12/23/19 25 12/22/2024 CBC WITH AUTO DIFFE RENTI AL hemoglobin 12.4 g/dL 11.5-1 6.0 Not Available [facility]/S Dept [facility] [place], [address], 12/22/2024 08:48:18 12/23/19 25 12/22/2024 CBC WITH AUTO DIFFE RENTI AL hematocrit 38.7 % 35.0-4 7.0 Not Available [facility]/S Dept [facility] Dejon Faroo[address] [facility] [place], [address], 12/22/2024 08:48:18 12/23/1912/22/2024 CBC WITH AUTO DIFFE RENTI AL MCV 96.5 fL 79.0-9 8.0 Not Available [facility] Dept [facility] Dejon Farooqwy, [facility] [place], [address], 12/22/2024 08:48:18 12/23/1912/22/2024 CBC WITH AUTO DIFFE RENTI AL MCH 30.9 pcg 27.0-3 2.0 Not Available [facility]/S Dept [facility] [place], [address], 12/22/2024 08:48:18 12/23/1912/22/2024 CBC WITH AUTO DIFFE RENTI AL MCHC 32.0 g/dL 32.0-3 7.0 Not Available [facility]/S Dept [facility] [place], [address], 12/22/2024 08:48:18 12/23/1912/22/2024 CBC WITH AUTO DIFFE RENTI AL RDW 14.5 % 11.0-1 5.0 Not Available [facility]/S Dept [address] [place], [place] [address] [facility], [address], 12/22/2024 08:48:18 12/23/1912/22/2024 CBC WITH AUTO DIFFE RENTI AL platelets 250 K/mcL 130-40 0 Not Available [facility]/S Dept [address] [place], [place] [address], [address], 12/22/2024 08:48:18 12/23/1912/22/2024 CBC WITH AUTO DIFFE RENTI AL MPV 10.8 fL 7.0-11 .0 Not Available [facility]/S Dept [facility] [place], [address], 12/22/2024 08:48:18 12/23/19 25 12/22/2024 CBC WITH AUTO DIFFE RENTI AL NRBC 0.0 % <1.0 Not Available [facility]/S Dept [address] [place], [place] [address]lety [facility] [place], [address], 12/22/2024 08:48:18 12/23/1912/22/2024 CBC WITH AUTO DIFFE RENTI AL NRBC absolute 0.00 K/mcL <0.10 Not Available [facility]/ Dept [address] [address] [place], [place] [address]le[facility] [place], [address], 12/22/2024 08:48:18 12/23/1912/22/2024 CBC WITH AUTO DIFFE RENTI AL neutrophils relative 81.8 % Not Available [facility] [address] [place], [place] [address] [place], [address], 12/22/2024 08:48:18 12/23/19 25 12/22/2024 CBC WITH AUTO DIFFE RENTI AL lymphocytes relative 7.7 % Not Available [facility]/S Dept [address] [place], [place] [address]le[facility] [place], [address], 12/22/2024 08:48:18 12/23/1912/22/2024 CBC WITH AUTO DIFFE RENTI AL monocytes relative 7.9 % Not Available [facility] [address] [place], [place] [address] [place], [address], 12/22/2024 08:48:18 12/23/1912/22/2024 CBC WITH AUTO DIFFE RENTI AL eosinophils relative 1.7 % Not Available [facility] [address] [place], [place] [address], [address], 12/22/2024 08:48:18 12/23/19 25 12/22/2024 CBC WITH AUTO DIFFE RENTI AL basophils relative 0.4 % Not Available [facility] [address] [place] [address] [facility] [place], [address], 12/22/2024 08:48:18 12/23/1912/22/2024 CBC WITH AUTO DIFFE RENTI AL immature granulocytes relative 0.5 % Not Available [facility] [address] [place] [address] [place], [address], 12/22/2024 08:48:18 12/23/19 25 12/22/2024 CBC WITH AUTO DIFFE RENTI AL neutrophils absolute 6.24 K/mcL 1.50-7 .00 Not Available [facility] [address] [place] [address] [place], [address], 12/22/2024 08:48:18 12/23/1912/22/2024 CBC WITH AUTO DIFFE RENTI AL lymphocytes absolute 0.59 K/mcL 1.00-5 .00 low Not Available [facility] [address] [place] [address] [place], [address], 12/22/2024 08:48:18 12/23/1912/22/2024 CBC WITH AUTO DIFFE RENTI AL monocytes absolute 0.60 K/mcL 0.20-1 .00 Not Available [facility] [address] [place] [address] [place], [address], 12/22/2024 08:48:18 12/23/19 25 12/22/2024 CBC WITH AUTO DIFFE RENTI AL eosinophils absolute 0.13 K/mcL 0.00-0 .50 Not Available [facility] [address] [place], [address], 12/22/2024 08:48:18 12/23/19 25 12/22/2024 CBC WITH AUTO DIFFE RENTI AL basophils absolute 0.03 K/mcL 0.00-0 .20 Not Available [facility] Dept [facility] [place], [address], 12/22/2024 08:48:18 12/23/19 25 12/22/2024 CBC WITH AUTO DIFFE RENTI AL immature granulocytes absolute 0.04 K/mcL 0.00-0 .03 high Not Available [facility] Dept [facility] [place], [address], 12/22/2024 08:48:18 12/23/19 25 12/22/2024 CBC WITH AUTO DIFFE RENTI AL note See Report high [facility], [address], [place], [place] [address] Not Available [facility] Dept [facility] [place], [address], 12/22/2024 08:48:18 12/23/19 25 12/22/2024 LIPAS E lipase 14 unit/ L 13-75 Not Available [facility]/S Dept [address] [place] [address] [facility] [place], [address], 12/22/2024 10:09:23 12/23/19 25 12/22/2024 LIPAS E note See Report [facility], [address], [place]fiel [place], [place] [address] Not Available [facility] Dept [facility] [place], [address], 12/22/2024 10:09:23 12/23/19 25 12/22/2024 COMPR EHENS SHIMON METAB OLIC PANEL sodium 138 mmol/ L 133-14 5 Not Available [facility] Dept [facility] [place], [address], 12/22/2024 10:11:50 12/23/19 25 12/22/2024 COMPR EHENS SHIMON METAB OLIC PANEL potassium 3.9 mmol/ L 3.5-5. 5 Not Available [facility] [place], [address], 12/22/2024 10:11:50 12/23/19 25 12/22/2024 COMPR EHENS SHIMON METAB OLIC PANEL chloride 102 mmol/ L 96-110 Not Available [facility] [address], [place], [address], 12/22/2024 10:11:50 12/23/19 25 12/22/2024 COMPR EHENS SHIMON METAB OLIC PANEL CO2 29 mmol/ L 21-32 Not Available [facility] [address], [place], [address], 12/22/2024 10:11:50 12/23/19 25 12/22/2024 COMPR EHENS SHIMON METAB OLIC PANEL anion gap 7 3-[address] [facility] [place], [address], 12/22/2024 10:11:50 12/23/19 25 12/22/2024 COMPR EHENS SHIMON METAB OLIC PANEL glucose 71 mg/dL 70-100 Not Available [facility] [address], [facility] [place], [address], 12/22/2024 10:11:50 12/23/19 25 12/22/2024 COMPR EHENS SHIMON METAB OLIC PANEL BUN 15 mg/dL 5-25 Not Available [facility] [address], [place], [address], 12/22/2024 10:11:50 12/23/19 25 12/22/2024 COMPR EHENS SHIMON METAB OLIC PANEL creatinine 0.52 mg/dL 0.50-1 .10 Not Available [facility]/S Dept [address] [place] [address] Pkw[address], [place], [address], 12/22/2024 10:11:50 12/23/19 25 12/22/2024 COMPR EHENS SHIMON METAB OLIC PANEL eGFR 93 mL/mi n/1.7 3m2 >=60 Calcu latio n based on the Chron ic Kidne y Disea se Epide miolo gy Colla borat ion (CKD- EPI) equat ion refit witho ut adjus tment for race. Not Available [facility]/S Dept [address] [place] [address] [place], [address], 12/22/2024 10:11:50 12/23/19 25 12/22/2024 COMPR EHENS SHIMON METAB OLIC PANEL BUN/creatini ne ratio 28.8 Not Available [facility]/S Dept [address] [place] [address] [place], [address], 12/22/2024 10:11:50 12/23/19 25 12/22/2024 COMPR EHENS SHIMON METAB OLIC PANEL calcium 8.3 mg/dL 8.5-10 .5 low Not Available [facility] Dept [address] [place] [address] [place], [address], 12/22/2024 10:11:50 12/23/19 25 12/22/2024 COMPR EHENS SHIMON METAB OLIC PANEL AST (SGOT) 26 unit/ L 10-42 Not Available [facility] Dept [address] [place] [address] [place], [address], 12/22/2024 10:11:50 12/23/19 25 12/22/2024 COMPR EHENS SHIMON METAB OLIC PANEL ALT (SGPT) 70 unit/ L 10-60 high Not Available [facility] Dept [facility] [place], [address], 12/22/2024 10:11:50 12/23/19 25 12/22/2024 COMPR EHENS SHIMON METAB OLIC PANEL alkaline phosphatase 67 unit/ L 42-121 Not Available [facility] [place], [address], 12/22/2024 10:11:50 12/23/19 25 12/22/2024 COMPR EHENS SHIMON METAB OLIC PANEL total protein 5.3 g/dL 6.0-8. 0 low Not Available [facility] [place], [address], 12/22/2024 10:11:50 12/23/19 25 12/22/2024 COMPR EHENS SHIMON METAB OLIC PANEL albumin 3.1 g/dL 3.2-5. 0 low Not Available [facility] [place], [address], 12/22/2024 10:11:50 12/23/19 25 12/22/2024 COMPR EHENS SHIMON METAB OLIC PANEL total bilirubin 0.4 mg/dL 0.0-1. 4 Not Available [facility] [address] [place], [place] [address], [address], 12/22/2024 10:11:50 12/23/19 25 12/22/2024 COMPR EHENS SHIMON METAB OLIC PANEL note See Report [facility], [address], [place]ony carrera d, [place] [address] Not Available [facility]/S Dept [facility] [place], [address], 12/22/2024 10:11:50 12/23/19 25 12/22/2024 PROCA LCITO DAKOTAH procalcitoni n 0.17 NG/mL <=0.16 high Not Available [facility] [address] [place] [address], [address], 12/22/2024 11:13:05 12/23/19 25 12/22/2024 PROCA LCITO DAKOTAH note See Report high [facility], [address], [place], [place] [address] Not Available [facility]/S Dept [address] [place] [address] [place], [address], 12/22/2024 11:13:05 12/24/19 25 12/22/2024 GASTR OINTE VILLA L PATHO GENS MOLEC ULAR STUDY campylobacte r detection by PCR Not Detect ed not detect ed Not Available [facility] [address] [place] [address] [place], [address], 12/23/2024 14:43:08 12/24/19 25 12/22/2024 GASTR OINTE VILLA L PATHO GENS MOLEC ULAR STUDY plesiomonas shigelloides detection by PCR Not Detect ed not detect ed Not Available [facility] [address] [place] [address] [place], [address], 12/23/2024 14:43:08 12/24/19 25 12/22/2024 GASTR OINTE VILLA L PATHO GENS MOLEC ULAR STUDY salmonella detection by PCR Not Detect ed not detect ed Not Available [facility] [address] [place] [address] [place], [address], 12/23/2024 14:43:08 12/24/19 25 12/22/2024 GASTR OINTE VILLA L PATHO GENS MOLEC ULAR STUDY vibrio detection by PCR Not Detect ed not detect ed Not Available [facility] [address] [place] [address], [address], 12/23/2024 14:43:08 12/24/19 25 12/22/2024 GASTR OINTE VILLA L PATHO GENS MOLEC ULAR STUDY vibrio cholerae detection by PCR Not Detect ed not detect ed Not Available [facility] [address] [place] [address], [address], 12/23/2024 14:43:08 12/24/19 25 12/22/2024 GASTR OINTE VILLA L PATHO GENS MOLEC ULAR STUDY yersinia enterocoliti ca detection by PCR Not Detect ed not detect ed Not Available [facility] [address] [place] [address] [place], [address], 12/23/2024 14:43:08 12/24/19 25 12/22/2024 GASTR OINTE VILLA L PATHO GENS MOLEC ULAR STUDY enteroaggreg ative E coli eaec detection by PCR Not Detect ed not detect ed Not Available [facility] [address] [place] [address], [address], 12/23/2024 14:43:08 12/24/19 25 12/22/2024 GASTR OINTE VILLA L PATHO GENS MOLEC ULAR STUDY enteropathog enic E coli epec detection Not Detect ed not detect ed Not Available [facility] [address] [place] [address] [place], [address], 12/23/2024 14:43:08 12/24/19 25 12/22/2024 GASTR OINTE VILLA L PATHO GENS MOLEC ULAR STUDY enterotoxige liu E coli etec ltst detection Not Detect ed not detect ed Not Available [facility] [address] [place] [address], [address], 12/23/2024 14:43:08 12/24/19 25 12/22/2024 GASTR OINTE VILLA L PATHO GENS MOLEC ULAR STUDY shiga-like toxin producing E coli stec stx1 stx2 det Not Detect ed not detect ed Not Available [facility] [address] [place] [address], [address], 12/23/2024 14:43:08 12/24/19 25 12/22/2024 GASTR OINTE VILLA L PATHO GENS MOLEC ULAR STUDY shigella enteroinvasi ve E coli eiec detection Not Detect ed not detect ed Not Available [facility] [address] [place] [address], [address], 12/23/2024 14:43:08 12/24/19 25 12/22/2024 GASTR OINTE VILLA L PATHO GENS MOLEC ULAR STUDY cryptosporid ium detection by PCR Not Detect ed not detect ed Not Available [facility] [address] [place] [address], [address], 12/23/2024 14:43:08 12/24/19 25 12/22/2024 GASTR OINTE VILLA L PATHO GENS MOLEC ULAR STUDY cyclospora cayetanensis detection by PCR Not Detect ed not detect ed Not Available [facility] [address] [place] [address], [address], 12/23/2024 14:43:08 12/24/19 25 12/22/2024 GASTR OINTE VILLA L PATHO GENS MOLEC ULAR STUDY entamoeba histolytica detection by PCR Not Detect ed not detect ed Not Available [facility] [address] [place] [address], [address], 12/23/2024 14:43:08 12/24/19 25 12/22/2024 GASTR OINTE VILLA L PATHO GENS MOLEC ULAR STUDY giardia lamblia detection by PCR Not Detect ed not detect ed Not Available [facility] [address] [place] [address], [address], 12/23/2024 14:43:08 12/24/19 25 12/22/2024 GASTR OINTE VILLA L PATHO GENS MOLEC ULAR STUDY adenovirus F 40 41 detection by PCR Not Detect ed not detect ed Not Available [facility] [address] [place], [place] [address], [address], 12/23/2024 14:43:08 12/24/19 25 12/22/2024 GASTR OINTE VILLA L PATHO GENS MOLEC ULAR STUDY astrovirus detection by PCR Not Detect ed not detect ed Not Available [facility] [address] [place], [place] [address], [address], 12/23/2024 14:43:08 12/24/19 25 12/22/2024 GASTR OINTE VILLA L PATHO GENS MOLEC ULAR STUDY norovirus GI gii detection by PCR Not Detect ed Not Available [facility] [address] [place], [place] [address]le[facility] [place], [address], 12/23/2024 14:43:08 12/24/19 25 12/22/2024 GASTR OINTE VILLA L PATHO GENS MOLEC ULAR STUDY sapovirus detection by PCR Not Detect ed not detect ed Not Available [facility] [address] [place], [place] [address], [address], 12/23/2024 14:43:08 12/24/19 25 12/22/2024 GASTR OINTE VILLA L PATHO GENS MOLEC ULAR STUDY rotavirus A detection by PCR Detect ed not detect ed abnormal Not Available [facility] [address] [place], [place] [address], [address], 12/23/2024 14:43:08 12/24/19 25 12/23/2024 GASTR OINTE VILLA L PATHO GENS MOLEC ULAR STUDY .note See Note Origi nal Order ing Provi lelo: SHANTHI [facility] - Labor atory - [address], [place], [place] [address] Not Available [facility] Dept [facility] [address], [place], [address], 12/23/2024 14:43:08 12/27/19 25 12/26/2024 MAGNE SIUM magnesium 2.3 mg/dL 1.9-2. 6 Not Available [facility]/S Dept [address] [place], [place] [address], [place], [address], 12/26/2024 12:52:37 12/27/19 25 12/26/2024 MAGNE SIUM note See Report [facility], [address], [place], [place] [address] Not Available [facility]/S Dept [address] [place], [place] [address], [place], [address], 12/26/2024 12:52:37 12/27/19 25 12/26/2024 BASIC METAB OLIC PANEL sodium 143 mmol/ L 133-14 5 Not Available [facility] Dept [facility] [address], [place], [address], 12/26/2024 12:52:38 12/27/19 25 12/26/2024 BASIC METAB OLIC PANEL potassium 4.3 mmol/ L 3.5-5. 5 Not Available [facility]/S Dept [address] [place], [place] [address], [place], [address], 12/26/2024 12:52:38 12/27/19 25 12/26/2024 BASIC METAB OLIC PANEL chloride 104 mmol/ L 96-110 Not Available [facility]/S Dept [address] [place], [place] [address], [place], [address], 12/26/2024 12:52:38 12/27/19 25 12/26/2024 BASIC METAB OLIC PANEL CO2 32 mmol/ L 21-32 Not Available [facility] [address] [place] [address] [place], [address], 12/26/2024 12:52:38 12/27/19 25 12/26/2024 BASIC METAB OLIC PANEL anion gap 7 3-11 Not Available [facility] [address] [place], [place] [address] [place], [address], 12/26/2024 12:52:38 12/27/19 25 12/26/2024 BASIC METAB OLIC PANEL glucose 67 mg/dL 70-100 low Not Available [facility] [address] [place] [address] [facility] [place], [address], 12/26/2024 12:52:38 12/27/19 25 12/26/2024 BASIC METAB OLIC PANEL BUN 13 mg/dL 5-25 Not Available [facility] [address] [place] [address] [place], [address], 12/26/2024 12:52:38 12/27/19 25 12/26/2024 BASIC METAB OLIC PANEL creatinine 0.60 mg/dL 0.50-1 .10 Not Available [facility] [address] [place] [address] [place] [place], [address], 12/26/2024 12:52:38 12/27/19 25 12/26/2024 BASIC METAB OLIC PANEL eGFR 90 mL/mi n/1.7 3m2 >=60 Calcu latio n based on the Chron ic Kidne y Disea se Epide miolo gy Colla borat ion (CKD- EPI) equat ion refit witho ut adjus tment for race. Not Available [facility] [address] [place] [address] [place], [address], 12/26/2024 12:52:38 12/27/19 25 12/26/2024 BASIC METAB OLIC PANEL BUN/creatini ne ratio 21.7 Not Available [facility] [place], [address], 12/26/2024 12:52:38 12/27/19 25 12/26/2024 BASIC METAB OLIC PANEL calcium 7.9 mg/dL 8.5-10 .5 low Not Available [facility] [address] [place] [address] [place] [place], [address], 12/26/2024 12:52:38 12/27/19 25 12/26/2024 BASIC METAB OLIC PANEL note See Report low [facility], [address], [facility], [facility] [place] [address] Not Available [facility] [address] [place] [address] [place] [place], [address], 12/26/2024 12:52:38 12/27/19 25 12/26/2024 THYRO ID STIMU LATIN G HORMO NE TSH 7.82 mciu/ mL 0.40-4 .00 high Not Available [facility] [address] [place] [address] [place] [facility] [place], [address], 12/26/2024 14:08:04 12/27/19 25 12/26/2024 THYRO ID STIMU LATIN G HORMO NE note See Report high [facility], [address], [place], [facility] [place] [address] Not Available [facility]/S Dept [address] [place], [place] [address]lety [facility] [place], [address], 12/26/2024 14:08:04 12/28/19 25 12/26/2024 THYRO XINE FREE free T4 0.88 NG/dL 0.70-1 .80 Not Available [facility] [address] [place], [place] [address]lety [facility] [place], [address], 12/27/2024 15:15:44 12/28/19 25 12/26/2024 THYRO XINE FREE note See Report [facility], [address], [place]in [place]re d, [place] [address] Not Available [facility] U[facility]S Dept [address], [place], [address], 12/27/2024 15:15:44 12/03/19 25 12/02/2024 strep group A, DNA, swab ID NOW Strep A 2 (rapid molecular test) negati ve Not Available In-Office Order Internal Use Only DO Not Attach Compendium DO Not Attach Compendium, Do Not Delete/merge, [id number] 12/02/2024 11:49:54 12/03/19 25 12/02/2024 rapid SARS CoV 2 Ag, QL IA, respi rator y speci men RAPID SARS COV 2 negati ve Not Available In-Office Order Internal Use Only DO Not Attach Compendium DO Not Attach Compendium, Do Not Delete/merge, [id number] 12/02/2024 11:24:46 12/13/19 25 12/12/2024 XR, chest , 2 view No observ ation record ed. [email or web address] [facility] (Medical Records) [address] [place] [address], [address], 12/13/2024 08:02:24 12/13/19 25 12/12/2024 XR, chest No observ ation [facility] ed. [facility] [address] [place] [address], [address], 12/13/2024 08:00:31 12/13/19 25 12/12/2024 NM, lung scan, venti latio n/per fusio n No observ ation record ed. [facility] (Medical Records) [address] [place] [address], [address], 12/13/2024 08:01:11 Result Notes None recorded. Problems Name Problem SNOMED Code Status Onset Date Resolution Date Notes Provider Name and Address Organization Details Recorded Time Mammogra phy abnormal 308119934 Completed 12/24/2017 Chris Boss MD [address], [place], [address] , [facility] 8 14:17:14 Inflamma tory disorder of extremit y 654935040 Completed 200801/23/2014 RECORDED 03/20/20 09 8:43AM BY ALBERTO CALLAWAY, BRICE ON/ADDEN DUM ALBERTO Kaur, [facility] 6 10:53:01 Acute secretor y otitis media 292663334 Completed 200701/23/2014 IMPRESSI ON: LEFT TM WITH LARGE EFFUSION , PT WITH MILD VERTIGO, NOT DRIVING DUE TO THIS CURRENTL Y, TREAT WITH ZPAK; RECORDED 03/28/20 08 11:04AM BY ANEUDY CAMARGO MA, BRICE ON/ADDEN DUM ALBERTO Kaur, [facility] 6 10:53:01 Acute pharyngi tis [id number] Completed 200701/23/2014 RECORDED 03/28/20 08 11:04AM BY ANEUDY CAMARGO MA, BRICE ON/ADDEN DUM ALBERTO Boateng, [facility] 5 10:59:22 Acute sinusiti s 46190112 Completed 200701/23/2014 IMPRESSI ON: 1 WEEK OF SYMPTOMS , LOTS OF SINUS PRESSURE AND VERTIGO; RECORDED 03/28/20 08 11:04AM BY ANEUDY CAMARGO MA, BRICE ON/ADDEN DUM ALBERTO Kaur, [facility] 6 11:07:08 Allergic rhinitis [id number] Active Not Available [facility] 0 13:22:56 Anxiety state [id number] Active Not Available [facility] 0 13:22:56 Screenin g for malignan t neoplasm of breast Completed 201101/23/2014 RECORDED 06/22/20 12 10:05AM BY ANEUDY CAMARGO MA, ANNOTATI ON/ADDEN DUM ALBERTO Kaur, [facility] 6 10:53:01 Disorder of bursa of shoulder region [id number] Completed 12/24/2017 Chris Boss MD [address], [place], [address] , [facility] [facility] 8 14:16:54 Neck pain [id number] Completed 201101/23/2014 RECORDED 06/22/20 12 10:05AM BY ANEUDY CAMARGO MA, ANNOTATI ON/ADDEN DUM Heather Villareal MD [address], [place], [address] , [facility] 2 09:56:35 Cough [id number] Completed 201307/26/2014 RECORDED 07/25/19 14 2:43PM BY ANEUDY CAMARGO MA, OFFICE VISIT ALBERTO Kaur, [facility] 6 10:53:01 Concussi on injury of brain [id number] Completed 201101/23/2014 STORY: BRIEF LOC AFTER FALL IN [facility] NT 06/06. CT HEAD NEGATIVE ; RECORDED 06/22/20 12 10:05AM BY ANEUDY CAMARGO MA, ANNOTKAM ON/ADDEN DUM ALBERTO Kaur, [facility] 6 10:53:01 Respirat ory finding [id number] Completed 200801/23/2014 RECORDED 03/20/20 09 8:42AM BY BRICE SIERRA ON/ADDEN DUM ALBERTO Kaur, [facility] 6 10:53:01 [facility] l hyperten pauline 39425359 Active Not Available [facility] 0 13:22:56 Malaise and fatigue 823723660 Completed 06/16/2016 ALBERTO Kaur, [facility] 6 11:07:17 Influenz a vaccine needed 14557334876 06 Completed 201201/23/2014 RECORDED 04/28/20 13 11:07AM BY ANEUDY CAMARGO MA, NURSE VISIT ALBERTO Kaur, [facility] 6 10:53:01 Adult health examinat ion Completed 201201/23/2014 RECORDED 10/14/19 13 1:06PM BY ANEUDY CAMARGO MA, ANNOTATI ON/ADDEN DUM ALBERTO Kaur, [facility] 6 10:53:01 Gastroes ophageal reflux disease 181122582 Completed 201201/23/2014 RECORDED 09/30/19 13 1:08PM BY KOSTA ROD MA, ANNOTATI ON/ADDEN DUM ALBERTO Kaur, [facility] 6 10:53:01 Gastroes ophageal reflux disease 515952545 Active Not Available 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 3 12:01:08 Hyperlip idemia 87625700 Active Not Available [facility] 0 13:22:56 Hypothyr oidism 01631307 Active Not Available [facility] 0 13:22:56 Hypothyr oidism 11061961 Completed 201201/23/2014 RECORDED 08/02/19 13 8:56AM BY ANEUDY CAMARGO MA, ANNOTATI ON/ADDEN DUM ALBERTO Kaur, [facility] 6 10:53:01 Antibody measurem ent [id number] Completed 201101/23/2014 RECORDED 06/22/20 12 10:05AM BY ANEUDY CAMARGO MA, ANNOTATI ON/ADDEN DUM ALBERTO Kaur, [facility] 6 10:53:01 Influenz a with respirat ory manifest ation other than pneumoni a Completed 201201/23/2014 RECORDED 09/30/19 13 1:08PM BY KOSTA ROD MA, ANNOTATI ON/ADDEN DUM ALBERTO Kaur, [facility] 6 10:53:01 Lumbar sprain 774138687 Completed 200801/23/2014 RECORDED 03/20/20 09 8:43AM BY ALBERTO CALLAWAY, BRICE ON/ADDEN DUM ALBERTO Kaur, [facility] 6 10:53:01 Active or passive immuniza tion Completed 200801/23/2014 RECORDED 08/15/19 09 11:18AM BY CHRIS BOSS MD, OFFICE VISIT ALBERTO Kaur [facility] 6 10:53:01 Administ ration of viral vaccine Completed 201101/23/2014 RECORDED 06/22/20 12 10:05AM BY ANEUDY CAMARGO MA, ANNOTATI ON/ADDEN DUM ALBERTO Kaur, [facility] 6 10:53:01 Administ ration of diphther ia and tetanus vaccine Completed 200701/23/2014 RECORDED 03/28/20 08 10:58AM BY ANEUDY CAMARGO MA, OFFICE VISIT ALBERTO Kaur, [facility] 6 10:53:01 Obesity 693157864 Completed 05/26/2024 Heather Villareal MD [address], [place], [address] , [facility] 4 13:17:25 Neuralbety a 42180085 Completed 200601/23/2014 RESOLVED DATE: 12/16/19 07; RECORDED 12/16/19 07 2:03PM BY CHRIS BOSS MD, [facility] 10:[facility]01 Malignan t neoplasm of lip, oral cavity and pharynx 133060328 Completed 200701/23/2014 RECORDED 03/28/20 08 10:32PM BY CHRIS BOSS MD, ANNOTATI ON/ADDEN DUM [facility] 6 10:53:01 Osteopor osis 49207136 Completed 12/24/2017 Chris Boss MD [address], [place], [address] , [facility] 8 14:16:50 Osteopor osis 26082474 Completed 201201/23/2014 RECORDED 08/02/19 13 8:56AM BY ANEUDY CAMARGO MA, ANNOTATI ON/ADDEN DUM Chris Boss MD [address], [place], [address] , [facility] 8 14:16:50 Pain in thoracic spine 243867117 Completed 200701/23/2014 RECORDED 03/28/20 08 10:32PM BY CHRIS BOSS MD, ANNOTATI ON/ADDEN DUM ALBERTO Kaur, [facility] 6 10:53:01 Malgorzata hudson 74527126 Completed 200901/23/2014 RECORDED 12/26/19 10 1:32PM BY CHRIS BOSS MD, ANNOTATI ON/ADDEN DUM ALBERTO Kaur, [facility] 6 10:53:01 Lopez infante medical examinat ion Completed 200701/23/2014 RECORDED 03/28/20 08 11:04AM BY ANEUDY CAMARGO MA, BRICE ON/ADDEN DUM ALBERTO Kaur, [facility] 6 10:53:01 Cramp in lower leg associat ed with rest 222878743 Completed 05/24/2023 Heather Villareal MD [address] [facility] [address], [place], [address] , [facility] 3 12:00:10 Screenin g for malignan t neoplasm of colon Completed 200801/23/2014 RECORDED 03/20/20 09 8:42AM BY BRICE SIERRA ON/ADD ALBERTO Kaur, [facility] 6 10:53:01 Urinary tract infectio us disease 81178676 Completed 06/16/2016 ALBERTO Kaur, [facility] 6 11:07:26 Varicose veins of lower extremit y 24477461 Active Not Available [facility] 0 13:22:56 Candidal vulvovag initis 61807934 Completed 06/16/2016 ALBERTO Kaur, [facility] 6 11:07:30 Chronic obstruct shimon pulmonar y disease 70169278 Active Not Available [facility] 0 13:22:56 Fatigue 53304407 Completed 06/16/2016 ALBERTO Kaur, [facility] 6 11:07:36 Inflamma tory disorder of extremit y 727034152 Completed 200802/15/2014 RECORDED 03/20/20 09 8:43AM BY BRICE SIERRA ON/ADDEN DUM ALBERTO Kaur, [facility] 6 10:53:01 Acute secretor y otitis media 560776920 Completed 200702/15/2014 IMPRESSI ON: LEFT TM WITH LARGE EFFUSION , PT WITH MILD VERTIGO, NOT DRIVING DUE TO THIS CURRENTL Y, TREAT WITH ZPAK; RECORDED 03/28/20 08 11:04AM BY ANEUDY CAMARGO MA, BRICE ON/ADDEN DUM ALBERTO Kaur, [facility] 6 10:53:01 Acute pharyngi tis 288989231 Completed 200702/15/2014 RECORDED 03/28/20 08 11:04AM BY ANEUDY CAMARGO MA, BRICE ON/ADDEN DUM ALBERTO Boateng, [facility] 5 10:59:22 Acute sinusiti s 19806011 Completed 200702/15/2014 IMPRESSI ON: 1 WEEK OF SYMPTOMS , LOTS OF SINUS PRESSURE AND VERTIGO; RECORDED 03/28/20 08 11:04AM BY ANEUDY CAMARGO MA, BRICE ON/ADD DUM ALBERTO Kaur, [facility] 6 11:07:08 Screenin g for malignan t neoplasm of breast Completed 201102/15/2014 RECORDED 06/22/20 12 10:05AM BY ANEUDY CAMARGO MA, BRICE ON/ADDEN DUM ALBERTO Kaur, [facility] 6 10:53:01 Neck pain 36696934 Completed 201102/15/2014 RECORDED 06/22/20 12 10:05AM BY ANEUDY CAMARGO MA, BRICE ON/ADDEN DUM Heather Villareal MD [address] [address], [place], [address] , [facility] 2 09:56:35 Concussi on injury of brain 990215618 Completed 201102/15/2014 STORY: BRIEF LOC AFTER FALL IN [facility] NT 06/06. CT HEAD NEGATIVE ; RECORDED 06/22/20 12 10:05AM BY ANEUDY CAMARGO MA, ANNOTATI ON/ADDEN DUM ALBERTO Kaur, [facility] 6 10:53:01 Respirat ory finding 091249432 Completed 200802/15/2014 RECORDED 03/20/20 09 8:42AM BY BRICE SIERRA ON/ADDEN DUM ALBERTO Kaur, [facility] 6 10:53:01 Feces contents abnormal 218255325 Completed 201307/26/2014 RECORDED 12/28/19 14 12:51PM BY CHRIS BOSS MD, PHONE ENCOUNTE R ALBERTO Kaur, [facility] 6 10:53:01 Influenz a vaccine needed 32836315980 06 Completed 201202/15/2014 RECORDED 04/28/20 13 11:07AM BY ANEUDY CAMARGO MA, NURSE VISIT ALBERTO Kaur, [facility] 6 10:53:01 Gastroes ophageal reflux disease 718628224 Completed 201202/15/2014 RECORDED 09/30/19 13 1:08PM BY KOSTA ROD MA, ANNOTKAM ON/ADDEN DUM ALBERTO Kaur, [facility] 6 10:53:01 Antibody measurem ent [id number] Completed 201102/15/2014 RECORDED 06/22/20 12 10:05AM BY ANEUDY CAMARGO MA, ANNOTKAM ON/ADDEN DUM ALBERTO Kaur, [facility] 6 10:53:01 Influenz a with respirat ory manifest ation other than pneumoni a Completed 201202/15/2014 RECORDED 09/30/19 13 1:08PM BY KOSTA ROD MA, ANNOTATI ON/ADDEN DUM ALBERTO Kaur [facility] 6 10:53:01 Lumbar sprain 873147269 Completed 200802/15/2014 RECORDED 03/20/20 09 8:43AM BY ALBERTO CALLAWAY, ANNOTATI ON/ADDEN DUM ALBERTO Kaur [facility] 6 10:53:01 Active or passive immuniza tion Completed 200802/15/2014 RECORDED 08/15/19 09 11:18AM BY CHRIS BOSS MD, OFFICE VISIT ALBERTO Kaur [facility] 6 10:53:01 Administ ration of viral vaccine Completed 201102/15/2014 RECORDED 06/22/20 12 10:05AM BY ANEUDY CAMARGO MA, ANNOTATI ON/ADDEN DUM ALBERTO Kaur [facility] 6 10:53:01 Administ ration of diphther ia and tetanus vaccine Completed 200702/15/2014 RECORDED 03/28/20 08 10:58AM BY ANEUDY CAMARGO MA, OFFICE VISIT ALBERTO Kaur [facility] 6 10:53:01 Neuralgi a 80858376 Completed 200602/15/2014 RESOLVED DATE: 12/16/19 07; RECORDED 12/16/19 07 2:03PM BY CHRIS BOSS MD, OFFICE VISIT ALBERTO Kaur [facility] 6 10:53:01 Malignan t neoplasm of lip, oral cavity and pharynx 513722228 Completed 200702/15/2014 RECORDED 03/28/20 08 10:32PM BY CHRIS BOSS MD, ANNOTATI ON/ADDEN DUM ALBERTO Kaur, [facility] 6 10:53:01 Pain in thoracic spine 734274385 Completed 200702/15/2014 RECORDED 03/28/20 08 10:32PM BY CHRIS BOSS MD, ANNOTATI ON/ADDEN DUM ALBERTO Kaur, [facility] 6 10:53:01 Parotiti s 89615117 Completed 200902/15/2014 RECORDED 12/26/19 10 1:32PM BY CHRIS BOSS MD, ANNOTKAM ON/ADDEN DUM ALBERTO Kaur, [facility] 6 10:53:01 [facility] naresh medical examinat ion Completed 200702/15/2014 RECORDED 03/28/20 08 11:04AM BY ANEUDY CAMARGO MA, BRICE ON/ADDEN DUM ALBERTO Kaur, [facility] 6 10:53:01 Inflamma tory disorder of extremit y 189164497 Completed 200802/16/2014 RECORDED 03/20/20 09 8:43AM BY BRICE SIERRA ON/ADDEN DUM ALBERTO Kaur, [facility] 6 10:53:01 Acute secretor y otitis media 764583356 Completed 200702/16/2014 IMPRESSI ON: LEFT TM WITH LARGE EFFUSION , PT WITH MILD VERTIGO, NOT DRIVING DUE TO THIS CURRENTL Y, TREAT WITH ZPAK; RECORDED 03/28/20 08 11:04AM BY ANEUDY CAMARGO MA, BRICE ON/ADDEN DUM ALBERTO Kaur, [place] - [facility] 6 10:53:01 Acute pharyngi tis 340434475 Completed 200702/16/2014 RECORDED 03/28/20 08 11:04AM BY ANEUDY CAMARGO MA, ANNOTATI ON/ADDEN DUM ALBERTO Boateng, [facility] 5 10:59:22 Acute sinusiti s 53562524 Completed 200702/16/2014 IMPRESSI ON: 1 WEEK OF SYMPTOMS , LOTS OF SINUS PRESSURE AND VERTIGO; RECORDED 03/28/20 08 11:04AM BY ANEUDY CAMARGO MA, BRICE ON/ADDEN DUM ALBERTO Kaur, [facility] 6 11:07:08 Screenin g for malignan t neoplasm of breast Completed 201102/16/2014 RECORDED 06/22/20 12 10:05AM BY ANEUDY CAMARGO MA, BRICE ON/ADDEN DUM ALBERTO Kaur, [facility] 6 10:53:01 Neck pain 58972822 Completed 201102/16/2014 RECORDED 06/22/20 12 10:05AM BY ANEUDY CAMARGO MA, ANNOTKAM ON/ADDEN DUM Heather Villareal MD [address] [facility] [address], [place], [address] , [facility] 2 09:56:35 Concussi on injury of brain 799594829 Completed 201102/16/2014 STORY: BRIEF LOC AFTER FALL IN [facility] NT 06/06. CT HEAD NEGATIVE ; RECORDED 06/22/20 12 10:05AM BY ANEUDY CAMARGO MA, ANNOTKAM ON/ADDEN DUM ALBERTO Kaur, [facility] 6 10:53:01 Respirat ory finding 456862863 Completed 200802/16/2014 RECORDED 03/20/20 09 8:42AM BY ALBERTO CALLAWAY, BRICE ON/ADDEN DUM ALBERTO Kaur, [facility] 6 10:53:01 Influenz a vaccine needed 69345270238 06 Completed 201202/16/2014 RECORDED 04/28/20 13 11:07AM BY ANEUDY CAMARGO MA, NURSE VISIT ALBERTO Kaur, [facility] 6 10:53:01 Gastroes ophageal reflux disease 864705618 Completed 201202/16/2014 RECORDED 09/30/19 13 1:08PM BY KOSTA ROD MA, BRICE ON/ADDEN DUM ALBERTO Kaur, [facility] 6 10:53:01 Antibody measurem ent [id number] Completed 201102/16/2014 RECORDED 06/22/20 12 10:05AM BY ANEUDY CAMARGO MA, BRICE ON/ADDEN DUM ALBERTO Kaur, [facility] 6 10:53:01 Influenz a with respirat ory manifest ation other than pneumoni a Completed 201202/16/2014 RECORDED 09/30/19 13 1:08PM BY KOSTA ROD MA, BRICE ON/ADDEN DUM ALBERTO Kaur, [facility] 6 10:53:01 Lumbar sprain 529414348 Completed 200802/16/2014 RECORDED 03/20/20 09 8:43AM BY BRICE SIERRA ON/ADDEN DUM ALBERTO Kaur, [facility] 6 10:53:01 Active or passive immuniza tion Completed 200802/16/2014 RECORDED 08/15/19 09 11:18AM BY CHRIS BOSS MD, OFFICE VISIT ALBERTO Kaur [facility] 6 10:53:01 Administ ration of viral vaccine Completed 201102/16/2014 RECORDED 06/22/20 12 10:05AM BY ANEUDY CAMARGO MA, ANNOTATI ON/ADDEN DUM ALBERTO Kaur [facility] 6 10:53:01 Administ ration of diphther ia and tetanus vaccine Completed 200702/16/2014 RECORDED 03/28/20 08 10:58AM BY ANEUDY CAMARGO MA, OFFICE VISIT ALBERTO Kaur [facility] 6 10:53:01 Neuralgi a 80407934 Completed 200602/16/2014 RESOLVED DATE: 12/16/19 07; RECORDED 12/16/19 07 2:03PM BY CHRIS BOSS MD, OFFICE VISIT ALBERTO Kaur [facility] 6 10:53:01 Malignan t neoplasm of lip, oral cavity and pharynx 954007669 Completed 200702/16/2014 RECORDED 03/28/20 08 10:32PM BY CHRIS BOSS MD, ANNOTATI ON/ADDEN DUM ALBERTO Kaur [facility] 6 10:53:01 Pain in thoracic spine 523184713 Completed 200702/16/2014 RECORDED 03/28/20 08 10:32PM BY CHRIS BOSS MD, ANNOTATI ON/ADDEN DUM ALBERTO Kaur [facility] 6 10:53:01 Malgorzata hudson 85792384 Completed 200902/16/2014 RECORDED 12/26/19 10 1:32PM BY CHRIS BOSS MD, ANNOTATI ON/ADDEN DUM ALBERTO Kaur [facility] 6 10:53:01 Speciali naresh medical examinat ion Completed 200702/16/2014 RECORDED 03/28/20 08 11:04AM BY ANEUDY CAMARGO MA, ANNOTATI ON/ADDEN DUM ALBERTO Kaur, [facility] 6 10:53:01 Degenera tion of lumbar interver tebral disc 46146174 Active Not Available [facility] 0 13:22:56 Tubular adenoma 027910464 Active Not Available [facility] 0 13:22:56 Poor short-te rm memory 912739111 Active Not Available [facility] 0 13:22:56 On examinat ion - varicose veins Completed 06/16/2016 ALBERTO Kaur, [facility] 6 11:07:44 Menopaus e present 198006736 Completed 05/22/2022 Heather Villareal MD [address], [place], [address] , [facility] 2 06:31:30 Osteopen ia 411386459 Active 2014 Not Available [facility] 0 13:22:56 Acute sinusiti s 87386312 Completed 06/16/2016 ALBERTO Kaur, [facility] 6 11:07:07 Vaginiti s 03041388 Completed 06/16/2016 ALBERTO Kaur, [facility] 6 11:07:21 Acute exacerba tion of chronic obstruct shimon pulmonar y disease 160381436 Completed 12/24/2017 Chris Boss MD [address], [place], [address] , [facility] 8 14:17:10 Chronic neck pain 12725851828 07 Active 2018 Not Available [facility] 0 13:22:56 Cervical spondylo sis 512442907 Active Not Available [facility] 0 13:22:56 Chavez' s esophagu s 303608085 Active 2021 Heather Villareal MD [address], [place], [address] , [facility] 2 08:18:35 Irritabl e bowel syndrome 29845093 Active 2021 Heather Villareal MD [address], [place], [address] , [facility] 2 12:12:58 Elevated blood-pr essure reading without diagnosi s of hyperten pauline 495387443 Completed 202103/04/2022 Heather Villareal MD [address], [place], [address] , [facility] 2 13:02:11 Pancreat ic insuffic iency 77683474 Active 2021 Heather Villareal MD [address], [place], [address] , [facility] 2 06:31:53 COVID-19 590646223 Completed 202110/15/2022 Soy Coleman MD [address], [place], [address] , [facility] 3 15:03:48 Generali zed aches and pains 21888463 Completed 202105/26/2024 Heather Villareal MD [address], [place], [address] , [facility] 4 13:16:55 Dysuria 96338344 Completed 202305/26/2024 Heather Villareal MD [address], [place], [address] , [facility] 4 13:16:50 Increase d frequenc y of urnicholastio n 091309225 Completed 202305/26/2024 Heather Villareal MD [address], [place], [address] , [facility] 4 13:17:01 Ex-smoke r 0339084 Active 2023 Heather Villareal MD [address], [place], [address] , [facility] 4 13:18:24 Cheryl geiger 264866018 Active 2023 Heather Villareal MD [address] [facility] [address], [place], [address] , [facility] 4 21:03:59 Vascular insuffic iency 30925404 Active 2024 Heather Villareal MD [address] [facility] [address], [place], [address] , [facility] 5 11:51:56 Acute pharyngi tis 614430104 Active 2024 Sin tello [place] [facility], [facility] 5 10:59:22 Problem Notes None recorded. Procedures Surgical History Date Name Laterality Status Provider Name and Address Organization Details Recorded Time 05/26/20 24 Advanced Care Planning completed Karis Silva [facility] 06/05/2024 13:16:09 02/22/20 24 Cataract Surgery completed Heather Villareal MD [address] [address], [place], [address], [facility] 05/26/2024 13:20:11 02/17/20 24 Most Recent Mammogram completed Elmira Black [facility] 02/18/2024 08:33:56 05/24/20 23 Advanced Care Planning completed Heather Villareal MD [address] [address], [place], [address], [facility] 05/23/2023 17:55:11 05/22/20 22 Advanced Care Planning completed Heather Villareal MD [address] [facility] [address], [place], [address], [facility] 05/22/2022 09:50:39 02/27/20 21 Advanced Care Planning completed Heather Villareal MD [address] [facility] [address], [place], [address], [facility] 02/26/2021 06:36:54 03/01/20 20 Six-Item Cognitive Test completed Aneudy johnson [place] [facility] 03/01/2020 14:33:08 02/21/20 19 Mini-Cog Test completed Aneudy johnson [place] [facility] 02/20/2019 11:06:55 12/25/19 18 Mini-Cog Test completed Aneudy Dougherty-Cristopher johnson [place] [facility] 12/24/2017 13:31:17 12/17/19 18 Mammogram screening completed Batool Loza [facility] 12/16/2017 16:33:01 12/22/19 17 Fall Risk Assessment completed Aneudy johnson [place] [facility] 12/21/2016 10:15:56 12/22/19 17 Mini-Cog Test completed Aneudy johnson [place] [facility] 12/21/2016 10:16:43 07/31/19 16 Fall Risk Assessment completed Aneudy Dougherty-Cristopher johnson [place] [facility] 07/31/2015 11:03:38 07/31/19 16 Mini-Cog Test completed Aneudy johnson [place] [facility] 07/31/2015 11:06:58 03/20/20 15 Most Recent Bone Density completed Aneudy johnson [place] [facility] 07/31/2015 10:54:43 07/26/19 15 Fall Risk Assessment completed Aneudy johnson [place] [facility] 07/26/2014 10:39:22 07/26/19 15 Mini-Cog Test completed Aneudy johnson [place] [facility] 07/26/2014 10:43:08 06/01/20 14 Date of Last Colonoscopy completed Aneudy johnson [place] [facility] 12/21/2016 10:13:16 06/01/20 14 Colonoscopy completed Aneudy johnson [place] [facility] 12/21/2016 10:13:08 06/01/20 14 endoscopy and biopsy of upper gastrointestinal tract completed Aneudy johnson [place] [facility] 09/02/2019 09:18:07 Breast Biopsy completed Aneudy johnson [place] [facility] 07/26/2014 10:25:34 Arthroscopic Surgery completed Aneudy johnson [place] [facility] 07/26/2014 10:25:34 Imaging Results None recorded. Procedure Notes None recorded. Medical Equipment None Reported. Allergies Allergen ID Allergen Name Allergen Category Reaction Reaction Severity Criticality Documentation Date Start Date Code Code System Note Provider Name and Address Organization Details Recorded Time 60850 melon extract food Not available Not available Not available 07/31/2015 75531 [address] [facility] 6 10:48:50 3373 codeine medicatio n tachycard ia Not available Not available 01/23/2014 26[address] [facility] 0 14:14:39 3375 banana extract food,medi cation other Not available Not available 01/23/2014 24564 9 RxNorm RANDA Mary [address] [facility] [address], [facility] [place], [address], [facility] 5 21:22:42 3376 Iodinated contrast media (substanc e) medicatio n anaphylax is severe Not available 01/23/2014 64272 2004 S[address]O Farah, [facility] 0 14:15:47 48809 methylpre dnisolone medicatio n tachycard ia Not available Not available 06/30/2022 6902 RxNorm ALBERTO Zaragoza, [facility] 2 13:26:19 60947 ondansetr on medicatio n headache Not available Not available 06/30/2022 00993 RxNorm ALBERTO Zaragoza, [facility] 2 13:27:11 08244 Fioricet medicatio n Not available Not available low 05/24/2023 26866 4 RxNorm confu pauline. Heather Villareal MD [address] [facility] [address], [facility] 3 11:59:29 Medications Name Sig Start Date Stop Date Status Note LastModified by Organization Details LastModified Time nifedipin e ER 30 mg tablet,ex tended release 24 hr TAKE 1 TABLET BY MOUTH EVERY DAY FOR HYPERTEN PAULINE 01/05 completed Not Available Not Available Not Available quetiapin e 25 mg tablet TAKE 1/2 [...] Available doxycycli ne hyclate 100 mg capsule Take 1 capsule twice a day by oral route as directed for 7 days. 12/16 completed Not Available Not Available Not Available atorvasta tin 20 mg tablet TAKE [...] Not Available Not Available No t Available senna 8.6 mg tablet TAKE 2 TABLETS BY MOUTH EVERY DAY NEEDED active Not Available Not Available No [...] 1:19PM BY CHRIS BOSS MD, MEDICATI ON AUTO-NICHOLAS CTIVATIO N;WILL TAPER AND STOP Not Available Not Available Not Available topiramat e 25 mg tablet Take 1 tablet by mouth at bedtime x 7d, then 1 in the am & 1 at bedtime x 7d, then 1 in the am & 2 at bedtime x 7d, then use 50mg pills. 02/20 completed Not Available Not Available Not Available meclizine 12.5 mg tablet TAKE 1 TABLET BY MOUTH THREE TIMES DAILY FOR 7 DAYS 01/05 completed Not Available Not Available Not Available [...] completed RECORDED 06/02/20 13 1:47PM BY TESSIE CELIS, MEDICATI ON AUTO-NICHOLAS CTIVATIO N; Not Available Not Available Not Available omeprazol e 40 mg capsule,d elayed release TAKE 1 CAPSULE BY MOUTH DAILY 01/05 completed Not Available Not Available Not Available [...] tablet TAKE 1 TABLET BY MOUTH DAILY NEEDED active Not [...] 10 10:14AM BY CHRIS BOSS MD, ANNOTATI ON/TAMIKA DUM; Not Available Not Available Not Available [...] 1:08PM BY CHRIS BOSS MD, MEDICATI ON AUTO-NICHOLAS CTIVATIO N; Not Available Not Available Not [...] e 137 mcg (0.1 %) nasal spray [place] 1 spray twice a day by intranas [...] 08/28 completed RECORDED 08/28/19 11 2:19PM BY TESSIE DEGUTIS, ANNOTATI ON/ADDEN DUM;THIS ORDER DISCONTI NUED PER MEDI-SPA N. Not Available Not Available Not Available diazepam 5 mg tablet active Not Available Not Available Not Available amoxicill in 875 mg-potass ium clavulana te 125 mg tablet TAKE 1 TABLET BY MOUTH TWICE DAILY FOR 10 DAYS 01/05 completed Not Available Not Available Not Available oxycodone 5 mg tablet TABLET 1 [...] 07 11:13AM BY MILENA CAMACHO, MEDICATI ON AUTO-NICHOLAS CTIVATIO N; Not Available Not Available Not Available cyclospor ine 0.05 % eye drops in a dropperet te INSTILL 1 DROP INTO AFFECTED EYE(S) BY OPHTHALM IC ROUTE EVERY 12 HOURS 2024 active Not Available Not Available Not Avai lable topiramat e 50 mg tablet Take 1 tablet twice a day by oral route for 30 days. 02/20 completed Not Available Not Available Not Available Readi-Cat 2 2.1 % (w/v), 2.0 % (w/w) oral suspensio n Take 450 mL twice a day by oral route as directed for 1 day. 12/13 completed Not Available Not Available Not Available [place] Saline 0.65 % nasal drops Take 1 [...] 07 11:13AM BY MILENA CAMACHO, MEDICATI ON AUTO-NICHOLAS CTIVATIO N; Not Available Not Available Not [...] 12:55PM BY CHRIS BOSS MD, MEDICATI ON AUTO-NICHOLAS CTIVATIO N; Not Available Not Available Not Available MoviPrep 100 gram-7.5 gram-2.69 1 gram oral powder packet active Not Available Not Available Not Available calcium 600 mg (as carbonate )-vitamin D3 10 mcg (400 unit) tablet Take 1 tablet every day by oral route as directed . 2024 active Not Available Not Available Not Avai lable Symbicort 160 mcg-4.5 mcg/actua tion HFA aerosol [...] 137 mcg-fluti casone 50 mcg/spray nasal spray [place] 1 spray twice a day by intranas [...] Not Available Not Available Not Available Complete [place] 700 mg-1,500 mg capsule Take 1 capsule [...] Not Available Not Available Fluzone High-Dose Quad (PF) 240 mcg/0.7 mL IM syringe ADM [...] blood by Pulse oximetry Body temperature Systolic And Diastolic Provider Name and Address Organization Details Last Updated DateTime 5 156.21 cm 23.8 kg/m2 10986.1 g 58 /min 94 % 94 % 97.8 [degF] 138/55 mm[Hg] Aneudy hernandez [facility] 5 14:09:37 Date Recorded Body height Body mass index (BMI) Body weight Heart rate Oxygen saturation Oxygen saturation in Arterial blood by Pulse oximetry Body temperature Systolic And Diastolic Systolic And Diastolic Provider Name and Address Organization Details Last Updated DateTime 5 156.21 cm 23.6 kg/m2 90229.2 3 g 66 /min 95 % 95 % 97.8 [degF] 151/61 mm[Hg] 136/60 mm[Hg] Carissa Smith [facility] 5 11:57:40 Date Recorded Body height Body mass index (BMI) Body weight Heart rate Oxygen saturation Oxygen saturation in Arterial blood by Pulse oximetry Body temperature Systolic And Diastolic Provider Name and Address Organization Details Last Updated DateTime 5 156.21 cm 23 kg/m2 20171.4 5 g 87 /min 96 % 96 % 98.2 [degF] 131/55 mm[Hg] Sin jacinto MA [facility] 5 11:04:31 Date Recorded Body height Body mass index (BMI) Body weight Oxygen saturation Oxygen saturation in Arterial blood by Pulse oximetry Heart rate Body temperature Systolic And Diastolic Provider Name and Address Organization Details Last Updated DateTime 5 156.21 cm 22.9 kg/m2 14355.8 6 g 96 % 96 % 73 /min 97.6 [degF] 129/77 mm[Hg] Renata Castro MA [facility] 5 10:10:27 Social History Question Answer Notes LastModified by Organizat ion Details LastModified Time Tobacco Smoking Status [facility] 16:42:43 Do You Have An Advance Directive? Yes Power Of Standpipe Tender And MOLST Information not available 05/24/2023 Is [...] When Did You Quit Smoking? 16+yearssin shona boltonsydnie albarranbymatt Information not available 11/22/2024 Live Alone Or [...] Of Your Most Recent Tobacco Screening? 11/22/2024 [employer]el[employer] Information not available 11/22/2024 How Many Children Do You Have? 4 1 Due To Umbilical Cord Strangulation Information not available 01/25/2014 What Is Your Current Pack Years? 20-29packye renee [employer]el[employer] Information not available 11/22/2024 Seat Belts Used Routinely Yes Information not available 07/31/2015 Are You Sexually Active? No Information not available 07/31/2015 Smoke Alarm In Home Yes Information not available 07/31/2015 At What Age Did You Start Smoking Tobacco? 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 04/16/2020 11:10:19 Influenza, split virus, trivalent, PF [address] [facility] 04/16/2020 11:10:20 Pneumococcal conjugate PCV 13 [address] [facility] 03/04/2022 10:51:01 zoster recombinant [address] [facility] 06/10/2021 15:33:36 zoster recombinant [address] [facility] 06/10/2021 15:33:35 Influenza, high-dose, trivalent, PF [address] [facility] 04/16/2020 11:10:20 Influenza, high-dose, quadrivalent, PF 0 completed ALBERTO Zaragoza, [facility] 02/24/2022 11:04:29 COVID-19, mRNA, LNP-S, PF, 30 mcg/0.3 mL dose 1 completed ALBERTO Chacko, [facility] 06/10/2021 15:33:35 COVID-19, mRNA, LNP-S, PF, 30 mcg/0.3 mL dose 1 completed ALBERTO Chacko, [facility] 06/10/2021 15:33:35 Influenza, adjuvanted, quadrivalent, PF 1 completed ALBERTO Chacko, [facility] 06/10/2021 15:33:35 zoster live 1 completed ALBERTO Chacko, [facility] 06/10/2021 15:33:35 COVID-19, mRNA, LNP-S, PF, 30 mcg/0.3 mL dose 1 completed ALBERTO Chacko, [facility] 06/10/2021 15:33:35 Influenza, high-dose, trivalent, PF 8 completed ALBERTO Chacko, [facility] 06/10/2021 15:33:35 zoster live 9 completed ALBERTO Chacko, [facility] 06/10/2021 15:33:36 Influenza, split virus, trivalent, PF 4 completed ALBERTO Chacko, [facility] 03/04/2022 10:51:01 Td (adult), 2 Lf tetanus toxoid, preservative free, adsorbed [address] [facility] 03/04/2022 10:51:01 Influenza, high-dose, trivalent, PF 6 completed Aneudy Dallas MA null, [facility] 03/04/2022 10:51:01 Influenza, high-dose, trivalent, PF 7 completed Aneudy Dallas MA null, [facility] 03/04/2022 10:51:01 Influenza, high-dose, quadrivalent, PF 2 completed Rancho Silveira MA null, [facility] 06/17/2022 10:59:18 Influenza, high-dose, quadrivalent, PF 3 completed Aneudy Dallas MA null, [facility] 04/28/2023 11:20:14 RSV, recombinant, protein subunit RSVpreF, adjuvant reconstituted, 0.5 mL, PF 4 completed Renata Castro MA null, [facility] 11/24/2023 10:53:14 Influenza, adjuvanted, trivalent, PF 4 completed Katie Mahoney LPN null, [facility] 06/05/2024 14:17:27 Pneumococcal conjugate PCV 13 6 completed Not Available [facility] 01/05/2025 10:03:43 Influenza, split virus, trivalent, preservative 3 completed Xin magdaleno, [facility] 04/16/2020 11:10:20 pneumococcal polysaccharide PPV23 5 completed Xin magdaleno, [facility] 04/16/2020 11:10:20 Influenza, split virus, trivalent, preservative 6 completed Xin magdaleno, [facility] 04/16/2020 11:10:20 Influenza, split virus, trivalent, preservative 7 completed Xin magdaleno, [facility] 04/16/2020 11:10:20 Influenza, split virus, trivalent, preservative 8 completed Xin Servin null, [facility] 04/16/2020 11:10:20 pneumococcal polysaccharide PPV23 9 completed Xin Servin null, [facility] 04/16/2020 11:10:20 Influenza, split virus, trivalent, preservative 9 completed Xin Servin null, [facility] 04/16/2020 11:10:20 Novel Ulveohuto-[id number], all formulations 0 completed Xin Servin null, [facility] 04/16/2020 11:10:20 Influenza, split virus, trivalent, preservative 0 completed Xin Servin null, [facility] 04/16/2020 11:10:20 Influenza, split virus, trivalent, preservative 1 completed Xin Servin null, [facility] 04/16/2020 11:10:20 Influenza, split virus, trivalent, preservative 2 completed Xin Servin null, [facility] 04/16/2020 11:10:20 Influenza, split virus, trivalent, preservative 3 completed Xin Servin null, [facility] 04/16/2020 11:10:20 Past Encounters Encounter ID Performer Location Encounter Start Date Encounter Closed Date Diagnosis/Indication Diagnosis SNOMED-CT Code Diagnosis ICD10 Code Diagnosis Note [id number] Chris Boss MD Main Office [address] [facility] [address] [place] [address] 01/25/2014 10:17:09 01/25/2014 11:36:27 Hypothyroidism 29705430 Essential hypertension 40013798 Hyperlipidemia 83874727 Chronic ob structive pulmonary disease 08177076 Fatigue 56278063 [id number] [facility] [id number] [facility] [address] [place] [address] 08/19/2005 00:00:00 [id number] [facility] [address] [facility] [address] [place] [address] 10/19/2005 00:00:00 [id number] [address] [place] [address] 02/02/2006 00:00:00 [id number] autoEComm erce [address] [place] [address] 05/07/2006 00:00:00 [id number] autoEComm erce [address] [place] [address] 10/25/2006 00:00:00 [id number] autoEComm erce [address] [place] [address] 11/09/2006 00:00:00 [id number] autoEComm erce [address] [facility] [address] [place] [address] 12/01/2006 00:00:00 [id number] autoEComm erce [address] [facility] [address] [place] [address] 12/15/2006 00:00:00 [id number] autoEComm erce [address] [facility] [place] [address] 03/17/2007 00:00:00 [id number] autoEComm erce [address] [facility] [address] [place] [address] 03/23/2007 00:00:00 [id number] autoEComm erce [address] [facility] [place] [address] 06/22/2007 00:00:00 [id number] autoEComm erce [address] [facility] [address] [place] [address] 07/13/2007 00:00:00 [id number] autoEComm erce [address] [place] [address] 10/05/2007 00:00:00 [id number] autoEComm erce [address] [facility] [place] [address] 12/21/2007 00:00:00 [id number] autoEComm erce [address] [place] [address] 03/28/2008 00:00:00 [id number] autoEComm erce [address] [place] [address] 07/26/2008 00:00:00 [id number] autoEComm erce [address] [facility] [address] [place] [address] 08/15/2008 00:00:00 [id number] autoEComm erce [address] [place] [address] 09/25/2008 00:00:00 [id number] autoEComm erce [address] [facility] [address] [place] [address] 03/20/2009 00:00:00 [id number] autoEComm erce [address] [facility] [place] [address] 09/18/2009 00:00:00 [id number] autoEComm erce [address] [facility] [place] [address] 12/19/2009 00:00:00 [id number] autoEComm erce [address] [facility] [place] [address] 12/25/2009 00:00:00 [id number] autoEComm erce [address] [facility] [place] [address] 06/11/2010 00:00:00 [id number] autoEComm erce [address] [facility] [place] [address] 06/25/2010 00:00:00 [id number] autoEComm erce [address] [facility] [place] [address] 12/22/2010 00:00:00 [id number] autoEComm erce [address] [facility] [place] [address] 06/17/2011 00:00:00 [id number] autoEComm erce [address] [facility] [place] [address] 12/23/2011 00:00:00 [id number] autoEComm erce [address] [facility] [place], [place] [address] 06/22/2012 00:00:00 [id number] autoEComm erce [address] [facility] [place], [place] [address] 09/29/2012 00:00:00 [id number] autoEComm erce [address] [facility] [place], [place] [address] 10/13/2012 00:00:00 [id number] autoEComm erce [address] [facility] [place], [place] [address] 12/14/2012 00:00:00 [id number] autoEComm erce [address] [facility] [place], [place] [address] 07/25/2013 00:00:00 [id number] Chris Boss MD Main Office [address] [address] [place] [address] 04/18/2014 11:22:53 04/18/2014 12:16:44 Neck pain 28108669 [id number] Chris Boss MD Main Office [address] [address] [place] [address] 05/10/2014 16:24:32 05/10/2014 16:37:59 Needs influenza immunization 562487033 [id number] Chris Boss MD Main Office [address] [address] [place] [address] 07/26/2014 10:28:44 07/26/2014 11:29:56 Adult health examination 726498503 G0439 Hypothyroidism 33712307 Hyperlipidemia 86182568 Gastroesop hageal reflux disease 363063998 Tubular adenoma 045794022 05/2014 Poor short -term memory 685660215 Neck pain 45152473 [id number] Chris Boss MD Main Office [address] [address] [place] [address] 01/24/2015 10:27:30 01/24/2015 11:19:35 Hyperlipidemia 02363797 Hypothyroidism 68650352 Essential hypertension 82380374 On examina tion - varicose veins 207819101 Fatigue 37797665 Body mass index 30+ - obesity 667228852 Menopause present 727806472 [id number] Chris Boss MD Main Office [address] [address] [place] [address] 04/03/2015 13:38:32 04/03/2015 14:35:36 Acute sinusitis 05063951 Vaginitis 79536727 [id number] Emily Navarrete PA-C Main Office [address] [place] [address] 06/11/2015 11:28:13 06/11/2015 11:56:21 Acute exacerbation of chronic obstructive pulmonary disease 481412915 J44.1 Acute exacerb. of COPD. Start Zithromax at 500 mg qd for 1 week. Mucinex 600 mg BID. Increase Symbicort to 160 mcg 2 puffs BID and ProAir PRN. Rest and fluids. Return in 1 week if not significan tly improved. [id number] Chris Boss MD Main Office [address] [address] [place] [address] 07/31/2015 10:43:29 07/31/2015 11:42:24 Adult health examination 117532346 Z00.00 G0439 Essential hypertension 87019921 I10 Hypothyroidism 97920094 E03.9 Anxiety state 793268386 F41.1 Varicose v eins of lower extremity 97666015 I83.819 Administra tion of pneumococcal vaccine 99646809 Z23 Hyperlipidemia 02884195 E78.5 Chronic ob structive pulmonary disease 06671003 J44.9 [id number] Chris Boss MD Main Office [address] [address] [place] [address] 03/13/2016 10:58:43 03/13/2016 11:57:53 Pure hypercholesterolemia 552952438 E78.0 Essential hypertension 93081357 I10 Hypothyroidism 55240174 E03.9 Influenza vaccine needed 9463240676 106 Z23 Body mass index 30+ - obesity 446537178 Z68.30 Acute exac erbation of chronic obstructive pulmonary disease 217352088 J44.[address] Aquino for pulmonary [id number] Chris Boss MD Main Office [address] [address] [place] [address] 06/16/2016 10:58:08 06/16/2016 11:46:36 Essential hypertension 47901613 I10 Hypothyroidism 65548684 E03.9 Hyperlipidemia 27068036 E78.5 [id number] Chris Boss MD Main Office [address] [place] [address] 12/21/2016 10:00:17 12/21/2016 10:44:18 Adult health examination 161508269 Z00.00 Essential hypertension 30263942 I10 Hypothyroidism 40465279 E03.9 Anxiety state 499161497 F41.1 Hyperlipidemia 92237168 E78.5 Chronic ob structive pulmonary disease 70753713 J44.[address] Aquino [id number] RANDA Mary Main Office [address] [place] [address] 04/09/2017 10:38:19 04/09/2017 11:55:00 Cough 09604763 R05 Likely associated with recent illness and allergic rhinitis, instructed to take plenty of fluids and have adequate rest. Acute sinusitis 26580178 J01.90 Discussed to start regimen of doxycyclin e and fluticason e as directed. Instructed to stay hydrated with adequate rest Allergic rhinitis 101815 04 J30.9 Advised to take cetirizine as directed throughout remainder of Fall season for relief. [id number] America choi MD Main Office [address] [address] 04/24/2017 10:29:53 04/26/2017 15:46:29 Influenza vaccine needed 7130819419 106 Z23 [id number] Emily Navarrete PA-C Main Office [address] [address] 06/14/2017 10:42:30 06/14/2017 11:29:30 Acute exacerbation of chronic obstructive pulmonary disease 117162124 J44.1 Pt has 5 day history of [...] improvemen t in symptoms or worsening symptoms [id number] Chris Boss MD Main Office [address] [address] [place] [address] 06/25/2017 10:52:48 06/25/2017 11:53:59 Essential hypertension 44882487 I10 Acute exac erbation of chronic bronchitis 714852623 J44.1 Candidiasis of vagina 72 516205 B37.3 [id number] Emily Navarrete PA-C Main Office [address] [address] [place] [address] 07/14/2017 12:55:11 07/14/2017 14:14:35 Chronic obstructive pulmonary disease 26420248 J44.9 Post COPD exacerbati on. Seen by pulmonolog ist and had steroid taper with improvemen t in symptoms. F/u with pulm. as scheduled . Essential hypertension 97705297 I10 sO FAR BORDERLINE ELEVATED WITHOUT MEDS. pt. IS ADVISED TO KEEP SODIUM DOWN and check BP at home. If BP is 150 or over systolic, pt. is advised to return to the office to be started on meds. Fatigue 35129926 R53.83 Ordered cbc to r/o anemia will tx if abnormal findings.H /o hypothyroi dism check TSH, pt on [id number] Alber Navarrete PA-C Main Office [address] [address] [place] [address] 11/15/2017 15:06:30 11/15/2017 16:55:17 Pain of wrist region 55066634 M25.531 will check xray for further eval - if + fx will refer to neos. if neg - then go to OT as dir. wear wrist splint [id number] Chris Boss MD Main Office [address] [address] [place] [address] 12/24/2017 13:11:33 12/24/2017 14:34:59 Essential hypertension 39977535 I10 Pure hypercholesterolemia 029558652 E78.00 Hypothyroidism 35977108 E03.9 Administra tion of diphtheria, pertussis, and tetanus vaccine 117741121 Z23 Varicella vaccination 68 603062 Z23 Varicose v eins of lower extremity 84796993 I83.819 Chronic constipation 236 651760 K59.09 Chronic ob structive pulmonary disease 56982835 J44.[address] Aquino Obesity 612064688 E66.9 Body mass index 30+ - obesity 367067485 Z68.32 Osteopenia 562522414 M85 .80 Mild on DEXA 2015. Repeat 2019 [id number] Chris Boss MD Main Office [address] [address] 07/22/2018 10:26:49 07/22/2018 11:47:38 Chronic obstructive pulmonary disease 68809637 J44.[address] Aquino Requires a tetanus booster 586437551 Z23 Hypothyroidism 20397719 E03.9 Chronic he adache disorder 539474080 G44.89 Chronic neck pain 995480 1604 107 M54.2 Dizziness 831033066 R42 Dyspnea on exertion 6084 5006 R06.09 [id number] Soy Coleman MD Main Office [address] [address] 12/12/2018 15:39:09 12/12/2018 16:39:58 Neck pain 54031540 M54.2 chronic - worse lately - no radicular symptoms - will get pmr eval, trial c celebrex - advised pt to stop advil but could still use tyl prn, cont moist heat [id number] Chris Boss MD Main Office [address] [address] 02/20/2019 10:39:53 02/20/2019 11:48:14 Adult health examination 305842201 Z00.00 Pure hypercholesterolemia 163506594 E78.00 Essential hypertension 31721147 I10 Hypothyroidism 42498548 E03.9 Skin tag 789616713 L91.8 Chronic neck pain 893043 2186 107 M54.2 Chronic ob structive pulmonary disease 16764870 J44.[address] Aquino Obesity 051011446 E66.9 Z68.30 [id number] Chris Boss MD Main Office [address] [address] 09/02/2019 09:11:20 09/02/2019 10:09:06 Essential hypertension 89913585 I10 Hypothyroidism 50087277 E03.9 Hyperlipidemia 61053496 E78.5 Chronic ob structive pulmonary disease 47130318 J44.[address] Aquino [id number] Soy Coleman MD Main Office [address] [address] [place] [address] 10/01/2019 08:46:45 10/11/2019 10:49:31 Pruritic disorder 070361102 L29.9 Sounds like an allergic reaction. Not sure it's related to the antibiotic . No evidence of systemic allergic reaction. See if prednisone helps while arranging office eval. Acute exac erbation of chronic bronchitis 671835571 J44.1 [id number] Soy Coleman MD Main Office [address] [address] [place] [address] 10/03/2019 08:57:36 10/03/2019 11:03:46 Allergic reaction 039543633 T78.40XD ? if related to recent infection or other potential allergen. Responding well to prednisone but pt has not tolerated very well. Will accelerate the taper by dropping to 30mg and decreasing dose by 10mg every 2 days. Advised to call if still having side effects or if symptoms recur. [id number] Chris Boss MD [address] [place] [address] 03/01/2020 12:49:27 03/04/2020 11:06:45 Adult health examination 384407282 Z00.00 Essential hypertension 84308507 I10 Hypothyroidism 75588684 E03.9 Pure hypercholesterolemia 307680791 E78.00 Body mass index 30+ - obesity 850429974 E66.9 Cervical spondylosis 387 223181 M47.812 Chronic neck pain 402731 1524 107 M54.2 Chronic ob structive pulmonary disease 23471827 J44.[address] Miles Velasquez on of lumbar intervertebral disc 52204737 M51.36 Hyperlipidemia 59361099 E78.5 [id number] Soy Coleman MD [facility] [address] [place] [address] [place] [address] 03/19/2020 08:35:12 03/19/2020 10:42:25 Chronic neck pain 7536934229 107 M54.2 encouraged pt to stop nsaids, cont tyl, moist heat, hep, and to give pssp a call for f/u visit - to consider jus injxn - - meanwhile, trial of low dose gabapentin - advised pt to cut traz dose at hs in 1/2 so as not to get too sedated [id number] Chris Boss MD [facility] [address] [place] [address] 08/23/2020 08:22:44 08/23/2020 10:50:17 Chronic obstructive pulmonary disease 43853978 J44.[address] Aquino Cervical spondylosis 387 386766 M47.812 Chronic neck pain 133407 1411 107 M54.2 Essential hypertension 53805163 I10 Hyperlipidemia 68534093 E78.5 Hypothyroidism 56219043 E03.9 Body mass index 30+ - obesity 819101566 E66.9 Osteopenia 753677496 M85 .80 Mild on DEXA 2015. Fatigue 08664944 R53.83 [id number] Chris Boss MD [facility] [address] [facility] [address] [facility] [place] [address] 12/06/2020 14:25:32 12/10/2020 12:45:18 Fatigue 20705368 R53.83 Hypothyroidism 91131219 E03.9 Essential hypertension 15843898 I10 Increased frequency of urination 857730759 R35.0 [id number] Heather Villareal MD Main Office [address] [place] [address] 12/11/2020 09:56:12 12/11/2020 10:50:39 Abdominal pain 85780921 R10.9 I suspect this is unlikely IBD related as history not consistent (non bloody bowel movement and only had 2 episodes) However for reassuranc e will get ESR/CRP.-P atient symptoms are very vague and difuse given age will get CT with just PO contrast and not IV as she cannot tolerate IV contrast due to allergies. Counseling 598317904 Z71 .9 Referral for counseling with SOFIE / SETH Bloom. Please provide patient with contact info to schedule their appointlatanya alba Ph#[phone] email: [email or web address] Acute conjunctivitis 537 [address]2020 H10.33 poor vision due to cataracts was suppose to see Dr. England 2 weeks ago for f/u but missed apt. Advised her to reschedule sam.I suspect she has allergic vs bacterial conjunctiv itis (due to yellow crusting) Will have her to abx eye drop and antihistam ine eye drops. Anxiety state 717754541 F41.1 On celexa 10, does not want to increase does open to counseling , will give her referral for counseling . Essential hypertension 93479682 I10 HTN is on her problem list however I don't see her on any medication .Lifestyle modificati on advised, will f/u for BP check in 2 days if still elevated will start tx.Red flags discussed. [id number] Heather Villareal MD Main Office [address] [facility] [address] [place] [address] 12/13/2020 08:56:17 12/13/2020 09:47:23 Essential hypertension 12277704 I10 BP stable without medication . With dizziness and age will hold meds and provide cuff to check. Dizziness 203075358 R42 EKG WNLOrthost atic preformed: 122/80, 57 [id number] /82, 56 [id number]/ 80, 60 standingDi x hallpike suggestive of BPPV, with advance age, soft HR will hold meclizine for now and opt for PT for BPPV.In addition HR on softer side which could be due to trazadone which patient did not want to adjust - will monitor. Abdominal pain 29517426 R10.9 Cw to have pain will do trial of PPI at bed time.Advis ed to avoid food triggers, avoid eating 2 hrs before bed and keeping head of bed elevated.C T pending. Hypothyroidism 78780982 E03.9 [id number] Heather Villareal MD Main Office [address] [facility] [address] [place] [address] 12/27/2020 09:30:12 12/27/2020 10:15:07 Essential hypertension 28597967 I10 BP stable without medication . With dizziness and age will hold meds advised to continue to check BPCw lifestyle modificati on Dizziness 073692365 R42 Resolved - has PT if needed for BPPV Abdominal pain 37081224 R10.9 Resolved - result reviewed with patient Acute conjunctivitis 537 33870 H10.33 Stable with eye drops, refilled today. Gallstone 559469023 K80. 20 Asymptomat ic, counseling provided. Diverticul osis of colon without diverticulitis 823566927 K57.30 High fiber diet encouraged and education provided. Anxiety state 766118880 F41.1 Reached out to [facility], waitng to hear back[facility] [place] [id number] Heather Villareal MD Main Office [address] [place] [address] 02/26/2021 10:26:46 02/26/2021 11:13:12 Adult health examination 193592284 Z00.00 Patient was counseled on healthy diet, exercise and nutrition due to Body mass index is 31.2 kg/m . Last Colonoscop y: Date: 06/01/14 Result: Plan: [...] discussed. Advance di rective discussed with patient 900744880 Z71.89 MOLST and HCP provided to patient she will review with family and bring back to me at next visit. Screening for malignant neoplasm of breast 048793153 Z12.39 high risk per screening in 2018, will repeat. Hypothyroidism 57006272 E03.9 stable on levothyrox ine [id number] Heather Villareal MD Main Office [address] [place] [address] 06/10/2021 15:25:14 06/10/2021 16:46:13 Abdominal pain 95684664 R10.9 Epigastric pain, not worsened with eating [...] if any lab work derangemen t's. Hypothyroidism 16563786 E03.9 stable on levothyrox inewill retest TSH given ongoing fatigue and weakness Diarrhea 16773654 R19.7 Could consider c.diff given recent atbx use so will test for this as well but also seems less likely.Lik ariana IBS flare w/ intermitte nt diarrhea and constipati on secondary to dietary changes.Al so could consider diverticul osis but unlikely to be diverticul itis at this time. Malaise and fatigue 2717 56694 R53.81 pt concerned about having the flu given weakness and fatigue, will order testing but seems less likely. [id number] Heather Villareal MD Main Office [address] [facility] [address] [facility] [place] [address] 08/29/2021 11:23:00 08/29/2021 12:10:30 Chronic obstructive pulmonary disease 63685579 J44.9 No symptoms, stable on inhalerCw follow up with pulmonolog ist Dr. Aquino Chavez's esophagus 3029 90567 K22.70 Advised to follow up with GI to schedule EGD Tubular adenoma 66516120 7 D36.9 Over due for colonscopy advised follow up with GI as she had declined on recent visit.She tells me she will call them to schedule for October. Hypothyroidism 97875272 E03.9 stable on levothyrox inewill retest TSH Irritable bowel syndrome 95970651 K58.9 Good control with bentyl, refilled today. Essential hypertension 04584070 I10 BP stable without medication . With dizziness and age will hold meds advised to continue to check BPCw lifestyle modificati on [id number] Heather Villareal MD Main Office [address] [facility] [address] [facility] [place] [address] 11/25/2021 13:41:42 11/25/2021 14:41:58 Upper abdominal pain 08768854 R10.10 DDx include:Ga stritis/Ga stroenteri tis: as tender in epigastric regionIBSA dvised to take PPI BIDHas had multiple imaging, is passing gas so unlikely obstructio nsHas EGD/colo with GI soon, also advised follow up with GI.Will get labs an stool studies again.Also advised at home covid testHydrat ion and BRAT diet discussedR ed flag discussed and when to go to ED. Diarrhea 40859223 R19.7 Will get stool studies Anxiety state 035603046 F41.1 Was following psychiatry PA who no longer reached out to her needs new therapist will provide referral. [id number] Heather Villareal MD Main Office [address] [facility] [address] [facility] [place] [address] 02/24/2022 11:01:35 02/24/2022 12:01:42 Acute cervical sprain 349767268 S13.4XXA Pt. reports doing well taking tramadol. recommend to take twice daily with tylenol ER in between or 600 mg of advil. Heat alternatin g with cold packs 10 min each every few hrs for 1-2 days. Elevated blood-pressure reading without diagnosis of hypertension 197232926 R03.0 likely secondary to pain. better pain control is advised. Pt. has AWV scheduled in 1 week to recheck BP. [id number] Heather Villareal MD Main Office [address] [place] [address] 03/04/2022 10:44:38 03/04/2022 12:10:41 Screening for malignant neoplasm of breast 004164256 Z12.39 high risk per screening in 2018, will repeat. Hypothyroidism 87126753 E03.9 stable on levothyrox ine Cervical spondylosis 387 088743 M47.812 Will start light PT, Lidocaine patch.Shor t course of tramadol at bed time only. Risk of sedation discussed. Will also refer to physiatry. Dizziness 588379023 R42 I believe triggered to by neck issues.No red flags. Essential hypertension 53687684 I10 BP slightly elevated, could be due to discomfort at pain will hold adjustment . Chavez's esophagus 3029 42251 K22.70 On PPI concerned about bone health.dis cussed that we can consider reducing to 20mg next vist. Neck pain 25742876 M54.2 [id number] Heather Villareal MD Main Office [address] [place] [address] 04/07/2022 10:58:42 04/07/2022 11:34:33 Cervical spondylosis 655709705 M47.812 Notes doing better with PT Essential hypertension 62005109 I10 BP well controlled today. Chavez's esophagus 3029 90648 K22.70 cw ppi given barretts [id number] Heather Villareal MD Main Office [address] [place] [address] 05/22/2022 09:26:48 05/22/2022 10:24:40 Adult health examination 667268985 Z00.00 Patient was counseled on healthy diet, exercise and nutrition due to Body mass index is 29.9 kg/m . Last Colonoscop y:Date: 01/07/22Res ult: tubular adenomaPla [...] discussed. Advance di rective discussed with patient 546873560 Z71.89 MOLST and HCP provided to patient she will review with family and bring back to me at next visit. Screening for malignant neoplasm of breast 067978448 Z12.39 high risk per screening in 2018, will repeat. Pure hypercholesterolemia 578609058 E78.00 [id number] Lasha Alejandro MD [facility] [address] [facility] [address] [place] [address] 06/17/2022 08:40:24 06/17/2022 13:53:40 COVID-19 771792320 U07.1 Hydration, rest, if feeling better quarantine [...] on paxlovid) Generalize d aches and pains 43031728 R52 patient states everythin g hurts, don't want to get up . Requests short script for tramadol to help with pain. Will refill, encouraged to ensure she is takign deep breaths, may lay prone as needed. Chronic ob structive pulmonary disease 73789794 J44.9 Using her inhalers and montelukas t as directed, not having any SOB at this time. [id number] MELIA DE LA FUENTE MD Main Office [address] [address] [place] [address] 06/23/2022 14:42:14 06/23/2022 15:27:14 COVID-19 375753913 U07.1 - pt was diagnosed with COVID-19 [...] will follow-up in one week Acute diarrhea 897641984 R19.7 - most likely due to paxlovid- pt just finished the course of medication therefore most likely still the likely cause her diarrhea- pt advised to stay hydrated with pedialyte or Gatorade- pt advised to continue the BRAT diet Chronic ob structive pulmonary disease 90409328 J44.9 - pt has hx of COPD and since being diagnosed with COVID-19 pt has been having SOB- will give course of steroids to help with SOB- c/w albuterol inhaler and nebulizer as needed- c/w spiriva and symbicort- ED precaution s given Nausea and vomiting 1692 1999 R11.2 - pt is complainin g of nausea, ordered zofran to be taking as needed Dysuria 27179108 R30.0 - pt complainin g of dysuria- will check UA, if positive will send antibiotic s [id number] Lasha Alejandro MD Telehealt h [address] [facility] [address] [facility] [place] [address] 06/24/2022 09:36:47 06/24/2022 10:33:00 COVID-19 510833623 U07.1 Hydration, rest, if feeling better quarantine [...] she will stop statin while on paxlovid) [id number] MELIA DE LA FUENTE MD Main Office [address] [facility] [address] [place] [address] 06/30/2022 12:47:52 06/30/2022 14:10:27 COVID-19 671190495 U07.1 - pt was diagnosed with COVID-19 on 06/17- pt was treated with paxlovid- it could be that symptoms at this point are most likely due to rebound effects from the paxlovid- blood work was WNL Acute diarrhea 343773635 R19.7 - now resolved- most likely due to paxlovid- pt just finished the course of medication therefore most likely still the likely cause her diarrhea- pt advised to stay hydrated with pedialyte or Gatorade Chronic ob structive pulmonary disease 70578954 J44.9 - SOB has improved- pt did not complete course of steroids due to anxiety that occurred with medication - c/w albuterol inhaler and nebulizer as needed- c/w spiriva and symbicort- ED precaution s given Nausea and vomiting 1692 1999 R11.2 - resolved- pt is complainin g of nausea, ordered zofran to be taking as needed Fatigue 41076822 R53.83 - pt continues to have weakness after COVID-19- symptoms are most likely due to the virus- RTC in two week to check for improvemen t [id number] MELIA DE LA FUENTE MD Main Office [address] [facility] [address] [place] [address] 07/14/2022 10:43:57 07/14/2022 14:26:46 Fatigue 84212235 R53.83 - pt continues to have weakness after COVID-19- symptoms are most likely due to the virus- symptoms can last up to 3 months, there is concern however that patient could become physically decontione d because she is spending most of time either in bed or on the couch. COVID-19 876983234 U07.1 - pt was diagnosed with COVID-19 on 06/17- pt was treated with paxlovid- it could be that symptoms at this point are most likely due to rebound effects from the paxlovid- blood work was WNL Physical deconditioning 4520282678 9102 R68.89 - pt has spent about [...] is currently living alone and managing alone [id number] Heather Villareal MD Main Office [address] [facility] [address] [place] [address] 08/24/2022 12:55:54 08/24/2022 13:38:05 Hyperlipidemia 74699709 E78.5 We discussed, choosing wisely campaign regarding statin use, she has not had a stroke and heart attack and is now 82 we had a shared decision that we will do a low potent statin first then consider to discontinu e after. Essential hypertension 62513145 I10 Low sodium diet discussedC ounseled on medication adherence - will start ccb home bp has been elevated. Side affects discussed. Counseled on diet/exerc iseAdvised to keep BP daily BP log and technique counseled. Red flags of HTN emergency discussed and when to go to ED. [id number] Heather Villareal MD Main Office [address] [address] [place] [address] 09/07/2022 13:42:14 09/07/2022 14:22:08 Essential hypertension 72947741 I10 Low sodium diet discussedC ounseled on medication adherence - tolerating ccb without side affect, bp acceptable for age, will hold further adjustment .Counseled on diet/exerc iseAdvised to keep BP daily BP log and technique counseled. Red flags of HTN emergency discussed and when to go to ED. [id number] Soy Coleman MD Main Office [address] [facility] [address] [place] [address] 10/15/2022 14:07:23 10/15/2022 15:16:33 Chronic obstructive pulmonary disease 64682777 J44.9 Did not tolerate Medrol last Fall, so will try prednisone instead. Cough 88240194 R05.9 Currently it seems that allergies are triggering her COPD. Will focus on reducing inflammati on. INB/worse would consider CXR and possibly abx depending on symptoms. Allergic rhinitis 827226 04 J30.9 Try adding antihistam ine. Regular nasal saline irrigation advised as well. [id number] Heather Villareal MD Main Office [address] [facility] [address] [place] [address] 01/06/2023 13:09:16 01/06/2023 13:57:33 Essential hypertension 41843793 I10 BP stable. Continue medication s as directed. Limit amount of salts and carbs and sugars. Polyuria 75145712 R35.89 Cervical spondylosis 387 658242 M47.812 pt is requesting few tramadol for her neck pain. [id number] DESEAN RAMIREZ Main Office [address] [address] [place] [address] 03/03/2023 10:34:36 03/03/2023 11:15:41 Acute sinusitis 00961075 J01.90 [id number] Heather Villareal MD Main Office [address] [place] [address] 03/05/2023 09:36:53 03/05/2023 10:24:15 Pain of shoulder region 38172178 M25.511 Will do meloxicam advised not use other otc nsaidWill get XR. Advised PT only if XR wnl.Will refer to physiatry as she will likely need injections , she cannot tolerated PO steroid inject but likely could do IM. [id number] Heather Villareal MD Main Office [address] [address] [place] [address] 04/05/2023 14:00:42 04/05/2023 15:35:08 Weight loss 47509537 R63.4 Weight stablized will continue to monitor. Acute sinusitis 60965008 J01.90 Will do doxy, since augmentin did not work. Advised to avoid sunlight and avoid ca2+ rich food. But take with food to avoid nausea.Cov id neg.Will do low dose prednisone since higher dose affects her stomach.Co vid today neg.Will also do flonase combo with azelastine .Will do azelastine . eye dropCont. ayr saline spray. Essential hypertension 60329117 I10 bp high today, she is in pain from sinuses, otherwise asymptomat ic, will have her keep checking bp.Will follow up 1mo. [id number] Heather Villareal MD Main Office [address] [address] [place] [address] 04/14/2023 13:47:28 04/14/2023 14:25:36 Essential hypertension 20369519 I10 bp better today. Sinusitis 70814409 J32.9 Cont, nasal spray, despite 2abx still having sx will get CT sinus and refer to ent. Watering of eyes have improved. [id number] Heather Villareal MD Main Office [address] [facility] [address] [place] [address] 04/28/2023 11:08:07 04/28/2023 12:25:52 Headache 70250347 R51.9 Likely migraine variant vs rebound headaches from excess analgesic use. Given all her meds and age will hold triptans will refer to neuro, will also get neuro imaging as she tells me she can't live with these headaches. Advised to avoid otc tylenol due to rebound and bc fioricet contains little tylenol.Co ol compress advised. Allergic rhinitis 805273 04 J30.9 Cont. current tx add [id number] Heather Villareal MD Main Office [address] [facility] [address] [place] [address] 05/24/2023 11:08:52 05/24/2023 12:19:15 Advance directive discussed with patient 658264264 Z71.89 MOLST and HCP provided to patient she will review with family and bring back to me at next visit after reviewing he choices today. Adult heal th examination 684119512 Z00.00 Patient was counseled on healthy diet, exercise and nutrition due to Body mass index is 29.9 kg/m . Last Colonoscop y:Date: 01/07/22Res ult: tubular adenomaPla [...] discussed. Screening for malignant neoplasm of breast 097343043 Z12.39 high risk per screening in 2018, will repeat. Fatigue 85972248 R53.83 Z00.00 Hyperlipidemia 31054194 E78.5 Z00.00 We discussed, choosing wisely campaign regarding statin use, she has not had a stroke and heart attack and is now 82 we had a shared decision that we will do a low potent statin first then consider to discontinu e after. Essential hypertension 39812141 I10 Bp stable. 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 Chronic ob structive pulmonary disease 06357007 J44.9 No symptoms, stable on inhalerCw follow up with pulmonolog ist Dr. Aquino Chronic neck pain 804128 0953 107 M54.2 Follows [facility] Chavez's esophagus 3029 87868 K22.70 cw ppi given barretts, follows GI Pain of left calf 744483 2665 493052 M79.662 Milton DVT score 1, calf tenderness present.Wi ll try to get urgent DVT r/o, if wnl coud be 2/2 to PVD.Milton DVT: 1 [id number] Lasha Alejandro MD Main Office [address] [facility] [address] [place] [address] 12/02/2023 09:35:13 12/02/2023 10:08:16 Cough 11279942 R05.9 negative for flu Viral uppe r respiratory tract infection 448601349 J06.9 x4 days of URI symptoms; cough, congestion , body aches, fatigue-co nservative measuremen ts of steam showers, honey with tea, and neti pot provides some relief-PE; lungs were CTA b/l-in office flu test was negative-d iscussed with pt to continue with conservati ve measuremen ts and discussed OTC medication s for symptomati c relief [id number] MELIA DE LA FUENTE [facility] [address] [facility] [address] [facility] [place] [address] 12/05/2023 14:43:45 12/08/2023 10:10:28 Pneumonia 927411624 J18.9 - pt has been having a [...] 6084 5006 R06.09 - please see above [id number] Lasha Alejandro MD Main Office [address] [place] [address] 12/08/2023 14:27:23 12/08/2023 15:24:26 Cough 70929250 R05.9 She cannot take codeine because of tachycardi a. Acute exac erbation of chronic obstructive pulmonary disease 992600826 J44.1 Complete course of prednisone and doxycyclin e. [id number] Lasha Alejandro MD Main Office [address] [facility] [address] [facility] [address] 02/09/2024 10:06:26 02/09/2024 10:34:35 Pre-surgery evaluation 425143901 Z01.818 No medical contraindi cations to proposed procedure. Edmundo Perioperat shimon Cardiac Risk was calculated and the risk for perioperat shimon [place] is 0.1%. May proceed to surgery as planned.-n o ekg or labwork were requested by surgeon Cataract 426969553 H26.9 pre-operat shimon medical clearance for right eye cataract surgery with Dr. Rojas Greene (NPI#: [id number] ) of [facility] on 02/22/24. Under topical anesthesia . Essential hypertension 95052579 I10 In office BP of 151/63 then 136/68-on nifedipine 30mg QD [id number] Soy Coleman MD Main Office [address] [place] [address] 03/14/2024 09:51:39 03/14/2024 11:59:44 Dysuria 49387786 R30.0 Urine dip is negative. Increased frequency of urination 792782248 R35.0 30 minutes spent assessing patient, reviewing [...] anjali Velasquez on of lumbar intervertebral disc 90327594 M51.36 Recommend to take otc pain meds, apply hitting pad and stretch. PT. was reassured. [id number] Heather Villareal MD Main Office [address] [place] [address] 05/26/2024 12:52:15 05/26/2024 14:03:49 Adult health examination 601436266 Z00.00 Patient was counseled on healthy diet, exercise and nutrition due to Body mass index is 27.3 kg/m . Last Colonoscop y:Date: 01/07/22Res ult: tubular adenomaPla [...] discussed. Advance di rective discussed with patient 777014871 Z71.89 MOLST and HCP provided to patient she will review with family and bring back to me at next visit after reviewing he choices today. Fatigue 28096443 R53.83 Z00.00 R73.01 Hyperlipidemia 60078041 E78.5 Z00.00 Essential hypertension 78638757 I10 bp borderline she was little under the weather otherwise at home it was acceptable . She will come back in 2 weeks for a follow up. She is otherwise asymptomat ic, advised to bring bp cuff. Hypothyroidism 15169084 E03.9 stable on levothyrox ine [id number] Chris Boss MD Main Office [address] [facility] [address] [facility] [place] [address] 06/05/2024 14:06:12 06/05/2024 15:19:11 Acute exacerbation of chronic obstructive pulmonary disease 905930858 J44.[address] Aquino for pulmonary Dyspnea 782575988 R06.00 [id number] Heather Villareal MD Main Office [address] [facility] [address] [facility] [place] [address] 06/13/2024 11:01:19 06/13/2024 12:13:27 Essential hypertension 97975435 I10 BP well controlled will continue current regimen. She brought home, cuff and it was compared to office cuff.Will continue current regimen. Upper abdominal pain 831 39794 R10.10 Was seen in urgent care, sx resolved will get notes. She will follow up PRN. Left upper quadrant pain 627507436 R10.12 Pain was sharp radiating to back.Sx [...] and agreed with the plan. Rib pain 639396428 R07.8 1 suspected costo.Will get xray ensure no fx.Denies trauma hx.Warm compress advisedNo rash noted.If pain does not improve call for follow up. [id number] Heather Villareal MD Main Office [address] [facility] [address] [facility] [place] [address] 11/14/2024 13:49:54 11/14/2024 14:29:28 Laceration of ear region 889374677 S01.312A No signs of infection: Skin barrier is compromise d, advised otc bacitracin for 1 week. Avoid irritant like sunglasses , peroxide etoh.preca utions discussed. No role for PO abx for now. Follow up 11/22/24 [id number] Heather Villareal MD Main Office [address] [facility] [address] [facility] [place] [address] 11/22/2024 11:12:31 11/22/2024 11:58:54 Chronic obstructive pulmonary disease 66234372 J44.9 No symptoms, stable on inhalerCw follow up with pulmonolog ist Dr. Miles barrera laceration 245828204 T14.8XXA Improving, no signs of infection. Chronic neck pain 022244 3014 107 M54.2 Follows [facility] Vascular insufficiency 86662687 I87.2 Essential hypertension 01434662 I10 BP well controlled will continue current regimen. She had brought home cuff in the past and it was comparable to office cuff.Will continue current regimen. Varicose v eins of lower extremity 21355381 I83.819 [id number] Lasha Alejandro MD Main Office [address] [facility] [address] [place] [address] 12/02/2024 10:41:53 12/02/2024 11:41:07 Acute pharyngitis 179651650 J02.9 Still able to eat and swallow w/o problems making acute pharyngiti s less of an issue. Acute exac erbation of chronic obstructive pulmonary disease 248261596 J44.1 Breathing does not appear labored and exam is normal so will not do a course of prednisone . She will take an abx for a week and call if she worsens or the symptoms persist. [id number] Lasha Alejandro MD Main Office [address] [facility] [address] [facility] [place] [address] 01/05/2025 10:02:19 01/05/2025 10:32:26 Essential hypertension 06071553 I10 -bp in office at goal-c/w current regimen Hypothyroidism 71439087 E03.9 -had elevated TSH of 7.82>will repeat levels in 6 weeks-like ly elevated d/t recent illness/ex acerbation Dry eyes 583051391 H04.1 23 Transition of care 68186 41159 105 Z78.9 reviewed rehabilita tion documentat ion Acute exac erbation of chronic obstructive pulmonary disease 389217676 J44.1 -completed 5 day course of prednisone -f/u with pulmonolog y who prescribed a portable O2 tank-used O2 nightly-in office O2 sat of 96% Anxiety state 209300687 F41.1 c/w escitalopr am 20mg QD Health Concerns Section Related Observation LastModified by Organization Detai ls LastModified Time None Recorded Concern Status LastModified by Organization Details LastModified Time None Recorded Advance Directives Directive Y: Power of Standpipe Tender and MOL ST Payers Insurance Date Sequence Insurance Name Policy Number Policy Sanchez Covered Member ID Sanchez Member ID Guarantor Name 01/05/2025 1 [place] Stacey Stevenson [id number] Stacey Stevenson 01/15/2025 2 [place] [id number] Stacey Stevenson [id number] Stacey Stevenson Notes Date Note Type Note Provider Name and Address Organization Details Recorded Time 11/14/2024 text/html Skin LesionRepor radha bypatient.Location:le ear Quality:painful; tender; sore Duration:started 2 week(s) ago Onset/Timing:abrupt Context:no known trigger Associated Symptoms:no fever; no cold symptoms; no nausea; no vomiting; no diarrhea; no urinary symptoms; no skin flakes; no scabbing; no bruising; no draining; no lesions multiplying; no lesions spreadingNotes:Tried otc alcohol, peroxide Karis magdaleno, [facility] 11/27/2024 13:06:14 11/22/2024 text/html Hypertension F/UReported bypatient.Associated [...] for venous insufficiency. Heather Villareal MD [address], [phone], [facility] 11/22/2024 12:14:23 12/02/2024 text/html She has been [...] by Dr Aquino. Lasha Alejandro MD [address] [address], [place], [phone], [facility] 12/02/2024 13:06:58 01/05/2025 text/html Hospitalization Contact RecordFor follow up, patient reports hospital: snf, admit date: (12/15/2024), date of discharge: (12/28/2024), and date of contact: (12/29/2024).Medicare covered inpatient stay? yesMedicare CLYDE with in 48 working hours? yesHigh Complexity code valid on or before:DecemberModerate Complexity code valid on or before:JanuaryHCP on file? noMOLST on file? noDischarge Summary available? yes84 year old female transferred to [facility] from [facility] for further medical management and conditioning due to acute exacerbation of COPD.During SNF stay patient received OT, PT, Senior Living . services were 5 days a week for 3 hours. Patient made great improvements with rehab program.Patient also completed 5 days course of prednisone during SNF stay , completed course on 12/20/2024. Discharge home with Philip ZAPATA, initial visit will be today 12/29/2024 .Jailkeeper CLYDE call to patient regarding discharge status. Patient is happy to be home. Report breathing is stable using nebulizer and inhaler as needed. reports is in a cool area due to weather becoming warmer. Noted has ac on .Appetite and fluid intake is well , aware activities as tolerated . denies chest pain, excessive shortness of breath, nausea , vomiting, numbness, tingling, visual changes, headaches or gait imbalance, uses walker or cane for assistance as needed .Patient does reports some weakness and fatigue feels its from her thryoid being mildly elevated .Reviewed discharge medications with patient does have questioning regarding thyroid med sent to provider for review.Patient will be calling cook pressure to sent up Apurva for hospital follow up on 01/05/2025 . DESEAN RAMIREZ [address] [facility] [address], [place], [address], [facility] 01/05/2025 12:37:51 OBGyn Episode No OBEpisode recorded.
== END 2025-01-18 11:46 | disposition home or self-care (01) ==
LOC: HO.HPS 11:09
PROVIDERS: PCP Family Medicine; Visit Provider Hospitalist
DX: R06.00 Dyspnea, unspecified (principal); J41.0 Simple chronic bronchitis; R91.1 Solitary pulmonary nodule; K44.9 Diaphragmatic hernia without obstruction or gangrene
CPT/HCPCS: 99214; G2211

== ENCOUNTER → 2025-01-18 11:08 | Outpatient (BNVA) | payer MEDICARE, SELFPAY | PROVIDERS: PCP Family Medicine; Visit Provider Hospitalist | DX: J41.0 Simple chronic bronchitis (principal); R06.00 Dyspnea, unspecified; R91.1 Solitary pulmonary nodule; K44.9 Diaphragmatic hernia without obstruction or gangrene | CPT/HCPCS: 99212 ==

== ENCOUNTER 2025-04-25 12:44 | Outpatient (AMB) | payer MEDICARE, SELFPAY ==
--- NOTE | 2025-04-25 13:00 | MHC.OFFVIS ---
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: No Accompanied by: Self / Same As Patient Allergies codeine Allergy (Severe, Verified 01/18/25 11:15) Rapid Heartbeat morphine Allergy (Severe, Verified 01/18/25 11:15) Rapid Heartbeat quetiapine Allergy (Severe, Verified 01/18/25 11:15) Difficulty Breathing IV Contrast Dye Allergy (Severe, Uncoded 12/12/24 16:47) Rapid Heartbeat Sulfamethoxazole Allergy (Severe, Uncoded 12/12/24 16:47) Rapid Heartbeat Medication List - Last Reconciled 04/25/25 by Zeeshan Lima MD albuterol sulfate 2.5 mg (3 mL) inhalation BID 30 days albuterol sulfate 90 mcg/actuation (Ventolin HFA) 2 puffs inhalation Q6H PRN ascorbic acid (vitamin C) 1 g PO Q6H calcium carbonate 600 mg PO DAILY escitalopram oxalate 20 mg PO DAILY flaxseed oil 1,000 mg PO DAILY fluticasone propionate 50 mcg/actuation 2 sprays intranasal DAILY lactobacillus combination no.9 (Adult 50 Plus Probiotic) 4,000 mmu cells PO DAILY levothyroxine 75 mcg PO DAILY@0600 magnesium oxide 400 mg PO DAILY montelukast 10 mg PO DAILY ygaxcjuz-hay-sgbd-FA-vit K-lut 8 mg iron-400 mcg-50 mcg (Centrum Silver Women) 1 tab PO DAILY nebulizers As directed omega 2-fza-wmo-fish oil 60-90-500 mg (Fish Oil) 1 cap PO DAILY vhrnefayvn-oeqtcp-mgxmkfjk-jesenia 600 mg 1,400 tabs PO TID polyethylene glycol 3350 (Miralax) 17 grams PO DAILY PRN pravastatin 20 mg PO BEDTIME Symbicort 160-4.5 mcg/actuation (budesonide-formoterol) 2 puffs PO BID NS tiotropium bromide 2.5 mcg/actuation (Spiriva Respimat) 2 puffs inhalation DAILY tramadol 50 mg PO Q6H PRN trazodone 50 mg PO BEDTIME HPI Comments Details: The patient is an 85-year-old female presenting with bradycardia and COPD symptoms. The patient reports a low heart rate identified during a clinic visit, although she has no history of heart attacks, blockages, or congestive heart failure. She denies any episodes of dizziness or syncope. The patient has a history of Chronic Obstructive Pulmonary Disease, which primarily manifests as dyspnea, especially during physical exertion. Chest pains at different times where she feels like a tightening. Not clear if it is just from COPD. She quit smoking 14 years ago and uses supplemental oxygen as needed at home. There is a family history of heart disease, with her mother and grandmother having of heart attacks. [facility] Medical History Bradycardia Hiatal hernia Pulmonary nodule Limb swelling Dyspnea COPD (chronic obstructive pulmonary disease) Family History (Updated 04/25/25 @ 13:08 by Mary Arroyo CMA) Mother Heart attack Social History Household Members: None Housing: Apartment Do you presently have visiting nurse or other home services: No Patient Tobacco Use Status: Former Tobacco user Tobacco use type: Cigarette Years Smoked: 35 years service: No Review of Systems Const Denies chills, Denies fatigue, Denies fever(s), Denies frequent falls, Denies weakness, Denies weight gain and Denies weight loss ENT Denies dizziness Card Denies chest pain, Denies leg edema, Denies lightheadedness, Denies palpitations, Denies dyspnea and Denies dyspnea on exertion Resp Denies cough, Denies dyspnea and Denies dyspnea on exertion GI Denies hematochezia Musc Denies abnormal gait, Denies muscle weakness, Denies numbness, Denies radiating pain into limb and Denies tingling Neuro Denies abnormal gait, Denies dizziness, Denies frequent falls, Denies numbness, Denies tingling and Denies weakness Endo Denies fatigue and Denies palpitations Physical Exam Vital Signs: Last Vital Signs Pulse 57 04/25/25 13:03 BP 120/54 L 04/25/25 13:03 BMI result Body Mass Index 23.1 Const General: comfortable and no acute distress Orientation/consciousness: patient oriented x3 HEENT Other: Unremarkable Head: Yes normal to inspection Neck Neck: Yes normal visual inspection Chest Chest palpation & inspection: normal inspection of the chest Resp Auscultation: crackles Cardio Palpation: normal PMI Heart sounds: S1 normal heart sound present, S2 normal heart sound present, no gallops, no murmurs and no rubs GI Palpation (GI): Soft to palpation Back/Spine/Pelvis Other: unremarkable Skin General skin exam: no rashes or lesions noted Neuro General: patient oriented x3 Extrem General: Yes normal to inspection Psych Mental Status: mental status grossly normal Assessment & Plan Assessment & Plan (1) Bradycardia: Code(s): R00.1 - Bradycardia, unspecified Category: Medical (2) Coronary artery calcification seen on CT scan: Code(s): I25.10 - Atherosclerotic heart disease of ho-chunk coronary artery without angina pectoris Category: Medical (3) COPD (chronic obstructive pulmonary disease): Code(s): J44.9 - Chronic obstructive pulmonary disease, unspecified Category: Medical Qualifiers: COPD type: chronic bronchitis Chronic bronchitis type: simple Qualified Code(s): J41.0 - Simple chronic bronchitis Plan Pertinent cardiac data reviewed. A prior EKGs shows sinus rhythm at 59/Min. Normal NM interval and no ischemic findings. Her heart rates are generally in the 50s and 60s on vital sign reviewed. A chest CT scan shows severe coronary artery calcification. With regard to the referral for bradycardia, she has got no overt symptoms like presyncope. Available EKGs do not show any high-grade AV block or profound bradycardia. We will do a 3 day monitor for further evaluation. With regard to severe coronary calcification on CT scan, again this is not unusual in this age group. She has got no overt symptoms either like exertional angina but she describes some nonspecific chest pains. Could be just related to COPD but we can do more comprehensive workup with an echocardiogram and stress test for more detailed evaluation. Follow-up after the above. Discussion Notes I discussed with the patient the need for further cardiac evaluation due to her low heart rate, including a heart ultrasound and a home heart monitor. We also talked about ordering a stress test to ensure comprehensive cardiac assessment. Patient was informed and verbally consented to the use of an ambient scribe for clinic note documentation during this visit. Orders: Orders ECG 3 day holter monitor Today R00.1 - Bradycardia, unspecified CA lexiscan stress w batool Today I20.9 - Angina pectoris, unspecified, I25.10 - Atherosclerotic heart disease of ho-chunk coronary artery without angina pectoris NM cardiolite stress test Today R07.2 - Precordial pain CA echo transthoracic complete Today R06.02 - Shortness of breath Coding Level of Care Code New Pt Level 4 (16393) Complex EM visit Add On G2211 Diagnoses Bradycardia R00.1 Coronary artery calcification seen on CT scan I25.10 Simple chronic bronchitis J41.0 COPD type: chronic bronchitis Chronic bronchitis type: simple
[2025-04-25 13:03] VITALS: BP 120/54; PULSE 57; BMI 23.1
--- OUTSIDE RECORDS SUMMARY | 2025-04-25 16:07 | XMS_ITS | Encounter Summary ---
Author Organization [facility] Address [address] [place] [address] Care Team Providers Care Coastal Tug Mate Name Role Phone Gavin Villareal MD Primary Care Provider Encounter Details Date Type Department Care Team (Late st Contact Info) Description 12/26/2024 Lab Requisition [facility] - Main Lab [address] [facility] [employer] [place] [address] Hai Lockett MD [address] [place] [id number] Encounter for other general examination Social History Tobacco Use Types Packs/Day Years Used Date Smoking Tobacco: Former Smokeless Tobacco: Never Comments Unknown Sex and Gender Information Value Date Recorded Sex Assigned at Not on file Legal Sex Female 7:24 PM EST Gender Identity Not on file Sexual Orientation Not on file documented as of this encounter Plan of Treatment Not on file documented as of this encounter Procedures Procedure Name Priority Date/Time Associated Diagnosis Comments LAVENDER - EDTA Routine 12/26/2024 5:26 AM EDT Encounter for other general examination THYROID STIMULATING HORMONE Routine 12/26/2024 5:26 AM EDT Encounter for other general examination THYROXINE FREE Routine 12/26/2024 5:26 AM EDT Encounter for other general examination MAGNESIUM Routine 12/26/2024 5:26 AM EDT Encounter for other general examination BASIC METABOLIC PANEL Routine 12/26/2024 5:26 AM EDT Encounter for other general examination documented in this encounter Results * Thyroxine free (12/26/2024 5:26 AM EDT) Free T4 0.88 0.70 - 1.80 ng/dL LAB CHEMISTRY METHOD 12/27/2024 3:13 PM EDT [facility] Blood Venous blood specimen / Unknown Venipuncture / Unknown 12/26/2024 5:26 AM EDT 12/26/2024 11:22 AM EDT us Hai Lockett MD LAB BLOOD ORDERABLES Final Resu lt Performing Organization Address City/[facility]/ZIP Co de Phone Number [facility] [address] [place] [address], [place] [phone] * Lavender tube (12/26/2024 5:26 AM EDT) Pathologist [facility] Extra Tube Hold for add-ons. 12/26/2024 1:01 PM EDT [facility] Comment:Auto resulted. Blood Venous blood specimen / Unknown Venipuncture / Unknown 12/26/2024 5:26 AM EDT 12/26/2024 11:22 AM EDT us Hai Lockett MD LAB BLOOD ORDERABLES Final Resu lt Performing Organization Address City/[facility]/ZIP Co de Phone Number [facility] [address] [place] [address], [place] [phone] * (ABNORMAL) Thyroid stimulating hormone (12/26/2024 5:26 AM EDT) Pathologist [facility] TSH 7.82(H) 0.40 - 4.00 mcIU/mL LAB CHEMISTRY METHOD 12/26/2024 2:06 PM EDT [facility] Blood Venous blood specimen / Unknown Venipuncture / Unknown 12/26/2024 5:26 AM EDT 12/26/2024 11:22 AM EDT us Hai Lockett MD LAB BLOOD ORDERABLES Final Resu lt Performing Organization Address City/[facility]/ZIP Co de Phone Number [facility] [address] [place] [address], [place] [phone] * Magnesium (12/26/2024 5:26 AM EDT) Pathologist [facility] Magnesium 2.3 1.9 - 2.6 mg/dL LAB CHEMISTRY METHOD 12/26/2024 12:50 PM EDT [facility] Blood Venous blood specimen / Unknown Venipuncture / Unknown 12/26/2024 5:26 AM EDT 12/26/2024 11:22 AM EDT us Hai Lockett MD LAB BLOOD ORDERABLES Final Resu lt Performing Organization Address [facility]/ZIP Co de Phone Number [facility] [address] [place] [address], [place] [phone] * (ABNORMAL) Basic metabolic panel (12/26/2024 5:26 AM EDT) [facility] Sodium 143 133 - 145 mmol/L LAB CHEMISTRY METHOD 12/26/2024 12:50 PM [facility] Potassium 4.3 3.5 - 5.5 mmol/L LAB CHEMISTRY METHOD 12/26/2024 12:50 PM [facility] Chloride 104 96 - 110 mmol/L LAB CHEMISTRY METHOD 12/26/2024 12:50 PM [facility] CO2 32 21 - 32 mmol/L LAB CHEMISTRY METHOD 12/26/2024 12:50 PM [facility] Anion Gap 7 3 - 11 LAB CHEMISTRY METHOD 12/26/2024 12:50 PM [facility] Glucose 67(L) 70 - 100 mg/dL LAB CHEMISTRY METHOD 12/26/2024 12:50 PM [facility] BUN 13 5 - 25 mg/dL LAB CHEMISTRY METHOD 12/26/2024 12:50 PM EDT [facility] Creatinine 0.60 0.50 - 1.10 mg/dL LAB CHEMISTRY METHOD 12/26/2024 12:50 PM EDT [facility] eGFR 90 >=60 mL/min/1. 73m2 LAB CHEMISTRY METHOD 12/26/2024 12:50 PM EDT [facility] Comment:Calculation based on the Chronic Kidney Disease Epidemiology Collaboration (CKD-EPI) equation refit without adjustment for race. BUN/Creatinine Ratio 21.7 LAB CHEMISTRY METHOD 12/26/2024 12:50 PM EDT [facility] Calcium 7.9(L) 8.5 - 10.5 mg/dL LAB CHEMISTRY METHOD 12/26/2024 12:50 PM EDT [facility] Blood Venous blood specimen / Unknown Venipuncture / Unknown 12/26/2024 5:26 AM EDT 12/26/2024 11:22 AM EDT us Hai Lockett MD LAB BLOOD ORDERABLES Final Resu lt [facility] [address] [place] [address], documented in this encounter Visit Diagnoses Diagnosis Encounter for other general examination documented in this encounter Additional Health Concerns Infection Onset Date Last Indicated Resolved Time Rotavirus 12/22/2024 12/22/2024 documented as of this encounter Care Teams Coastal Tug Mate Relationship Specialty Start Date End Date Gavin Villareal MD [address] [address] PCP - General Family Medicine 07/24/24 documented as of this encounter
--- OUTSIDE RECORDS SUMMARY | 2025-04-25 16:07 | XMS_ITS | Encounter Summary ---
Author Organization [facility] Address [address] [place] [address] Care Team Providers Care Director Of Content Marketing Name Role Phone Gavin Villareal MD Primary Care Provider [phone] Encounter Details Date Type Department Care Team (Late st Contact Info) Description 12/23/2024 Lab Requisition [facility] - Main Lab [address] [facility] [place] [address] Hai Lockett MD [address] [place] [address] Encounter for other general examination; Diarrhea, unspecified Social History Tobacco Use Types Packs/Day Years [...] Procedure Name Priority Date/Time Associated Diagnosis Comments GASTROINTESTINAL PATHOGENS BY PCR Routine 12/22/2024 8:00 PM EDT Encounter for other general examination Diarrhea, unspecified documented in this encounter Results * (ABNORMAL) Gastrointestinal pathogens molecular study (12/22/2024 8:00 PM EDT) Campylobacter Detection by PCR Not Detected Not Detected LAB MICROBIOLOGY METHOD 5 2:40 PM EDT [facility] Plesiomonas shigelloides Detection by PCR Not Detected Not Detected LAB MICROBIOLOGY METHOD 5 2:40 PM EDT [facility] Salmonella Detection by PCR Not Detected Not Detected LAB MICROBIOLOGY METHOD 5 2:40 PM EDT [facility] Vibrio Detection by PCR Not Detected Not Detected LAB MICROBIOLOGY METHOD 5 2:40 PM EDT [facility] Vibrio cholerae Detection by PCR Not Detected Not Detected LAB MICROBIOLOGY METHOD 5 2:40 PM EDT [facility] Yersinia enterocolitica Detection by PCR Not Detected Not Detected LAB MICROBIOLOGY METHOD 5 2:40 PM EDT [facility] Enteroaggregative E coli EAEC Detection by PCR Not Detected Not Detected LAB MICROBIOLOGY METHOD 5 2:40 PM EDT [facility] Enteropathogenic E coli EPEC Detection Not Detected Not Detected LAB MICROBIOLOGY METHOD 5 2:40 PM EDT [facility] Enterotoxigenic E coli ETEC LTST Detection Not Detected Not Detected LAB MICROBIOLOGY METHOD 5 2:40 PM EDT [facility] Shiga-like toxin producing E coli STEC STX1 STX2 Det Not Detected Not Detected LAB MICROBIOLOGY METHOD 5 2:40 PM EDT [facility] Shigella Enteroinvasive E coli EIEC Detection Not Detected Not Detected LAB MICROBIOLOGY METHOD 5 2:40 PM EDT [facility] Cryptosporidium Detection by PCR Not Detected Not Detected LAB MICROBIOLOGY METHOD 5 2:40 PM EDT [facility] Cyclospora cayetanensis Detection by PCR Not Detected Not Detected LAB MICROBIOLOGY METHOD 5 2:40 PM EDT [facility] Entamoeba histolytica Detection by PCR Not Detected Not Detected LAB MICROBIOLOGY METHOD 5 2:40 PM EDT [facility] Giardia lamblia Detection by PCR Not Detected Not Detected LAB MICROBIOLOGY METHOD 5 2:40 PM EDT [facility] Adenovirus F 40 41 Detection by PCR Not Detected Not Detected LAB MICROBIOLOGY METHOD 5 2:40 PM EDT [facility] Astrovirus Detection by PCR Not Detected Not Detected LAB MICROBIOLOGY METHOD 5 2:40 PM EDT [facility] Norovirus GI GII Detection by PCR Not Detected LAB MICROBIOLOGY METHOD 5 2:40 PM EDT [facility] Sapovirus Detection by PCR Not Detected Not Detected LAB MICROBIOLOGY METHOD 5 2:40 PM EDT [facility] Rotavirus A Detection by PCR Detected(A ) Not Detected LAB MICROBIOLOGY METHOD 5 2:40 PM EDT [facility] Stool Rectum structure / Unknown Non-blood Collection / Unknown 12/22/2024 8:00 PM EDT 12/23/2024 11:20 AM EDT Narrative [facility] - 12/23/2024 2:40 PM EDT PCR testing is much more sensitive than traditional techniques and allows for the detection of low numbers of stool pathogens. The clinical correlation of PCR results with the need for treatment and clinical outcomes has not been established. Therefore the results of PCR testing for stool pathogens must be taken into clinical context when making treatment decisions. This is a diagnostic test only, repeat testing for cure is not advised. You may consider infectious disease consult for additional guidance. Testing Performed by [facility] Hai Lockett MD LAB MICROBIOLOGY [facility] Final Result [facility] [address] [place] [address], documented in this encounter Visit Diagnoses Diagnosis Encounter for other general examination Diarrhea, unspecified documented in this encounter Additional Health Concerns Infection Onset Date Last Indicated Resolved Time Rotavirus 12/22/2024 12/22/2024 Gastrointestinal Rule-Out 12/23/2024 12/22/2024 2:40 PM EDT documented as of this encounter Care Teams Director Of Content Marketing Relationship Specialty Start Date End Date Gavin Villareal MD [address] [address] PCP - General Family Medicine 07/24/24 documented as of this encounter
--- OUTSIDE RECORDS SUMMARY | 2025-04-25 16:07 | XMS_ITS | Clinical Summary ---
Author Organization [facility] [address] [facility] Address [address] [place] [address] Phone Care Team Providers Care Fuel Storage Technician Name Role Phone Gavin Villareal MD Primary Care Provider [phone] Allergies Active Allergy Reactions Criticality Noted Date [...] (200 unit) per tablet Take by mouth. Activ e escitalopram (LEXAPRO) 10 mg tablet Take 10 mg by mouth daily. 2 tabs Active levothyroxine (SYNTHROID, LEVOTHROID) 75 mcg tablet Take 75 mcg by mouth daily. Active multivit-min/iron /folic acid/K (ADULTS MULTIVITAMIN ORAL) Multiple Vitamins-[place] als (MULTIVITAMIN ADULT) Tab Take by mouth. Active omega-3 acid ethyl esters (LOVAZA) 1 gram capsule Take by mouth. Activ e traZODone (DESYREL) 50 mg tablet Take 50 mg by mouth at bedtime. Active omega 4-shm-adz-fish oil (Fish OiL) 1,000 (120-180) mg capsule Take by mouth. 8 Active montelukast (SINGULAIR) 10 mg tablet Take 1 tablet (10 mg total) by mouth 1 (one) time each day. 9 Active pravastatin (PRAVACHOL) 20 mg tablet Take 1 tablet (20 mg total) by mouth. 5 Active tiotropium (SPIRIVA RESPIMAT) 2.5 mcg/actuation inhalation spray Inhale 2 puffs every day by inhalation route for 30 days. 1 Active magnesium oxide (MAG-OX) 400 mg (241.3 elemental magnesium) tablet Take 1 tablet (400 mg total) by mouth 1 (one) time each day if needed. 5 Active flaxseed oiL 1,000 mg capsule Take 1 capsule (1,000 mg total) by mouth 1 (one) time each day. Active calcium citrate-vitamin D3 200 mg-6.25 mcg (250 unit) tablet Take 2 tablets by mouth. 5 Active budesonide-formot Bridger (SYMBICORT) 160-4.5 mcg/actuation inhaler Inhale 2 puffs by mouth 2 (two) times a day. Active ascorbic acid (VITAMIN C) 1,000 mg tablet Take 1 tablet (1,000 mg total) by mouth 1 (one) time each day. Active Bacillus coagulans-inulin (Probiotic Formula, inulin,) 1 billion-250 cell-mg capsule Take by mouth. 3 Active PANCREATIN, BULK, MISC 1,400 mg po 3 x day Active Active Problems Problem Noted Date Diagnosed Date Abnormal mammogram 12/25/2024 Allergic rhinitis 12/25/2024 Anxiety state 12/25/2024 Candidal vulvovaginitis 12/25/2024 Cervical spondylosis 12/25/2024 Degeneration of lumbar intervertebral disc 12/25 Cramp in lower leg associated with rest 12/26/19 Malaise and fatigue 12/25/2024 Essential hypertension 12/25/2024 Disorder of bursae of shoulder region 12/25/2024 Obesity 12/25/2024 Poor short-term memory 12/25/2024 Pure hypercholesterolemia 12/25/2024 Tubular adenoma 12/25/2024 Urinary tract infectious disease 12/25/2024 Vaginitis 12/25/2024 Varicose veins of lower extremity 12/25/2024 Vascular insufficiency 11/22/2024 Gallstone 06/15/2024 Dysuria 03/14/2024 Increased frequency of urination 03/14/2024 COVID-19 06/17/2022 Generalized pain 06/17/2022 Pancreatic insufficiency 05/22/2022 Elevated blood-pressure read ing without diagnosis of hypertension 02/24/2022 Wahl's esophagus 08/29/2021 Irritable bowel syndrome 08/29/2021 Hyperlipidemia 08/11/2017 Hypothyroid 08/11/2017 Rheumatoid arthritis, adult ([facility] V24, [facility] V28) 08/11/2017 Chronic obstructive pulmonar y disease ([facility] V24, [facility] V28) 06/21/2017 Feces contents abnormal 12/27/2013 Overview (12/25/2024): RECORDED 12/27/2013 12:51PM BY LAM HOOKS MD, PHONE ENCOUNTER Cough 07/25/2013 Overview (12/25/2024): RECORDED 07/25/2013 2:43PM BY ANEUDY REYNOLDS MA, OFFICE VISIT Gastroesophageal reflux disease 09/29/2012 Overview (12/25/2024): RECORDED 09/29/2012 1:08PM BY KOSTA ROD MA, ANNOTATION/ADDENDUM Osteoporosis 08/02/2012 Overview (12/25/2024): RECORDED 08/02/2012 8:56AM BY ANEUDY REYNOLDS MA, ANNOTATION/ADDENDUM Brain concussion 06/22/2012 Overview (12/25/2024): STORY: BRIEF LOC AFTER FALL IN [facility] 06/06. CT HEAD NEGATIVE; RECORDED 06/22/2012 10:05AM BY ANEUDY REYNOLDS MA, ANNOTATION/ADDENDUM Chronic neck pain 06/22/2012 Overview (12/25/2024): RECORDED 06/22/2012 10:05AM BY ANEUDY REYNOLDS MA, ANNOTATION/ADDENDUM Parotitis 12/25/2009 Overview (12/25/2024): RECORDED 12/25/2009 1:32PM BY LAM HOOKS MD, ANNOTATION/ADDENDUM Lumbar sprain 03/20/2009 Overview (12/25/2024): RECORDED 03/20/2009 8:43AM BY ALBERTO CALLAWAY, ANNOTATION/ADDENDUM Acute nonsuppurative otitis media 03/28/2008 Overview (12/25/2024): IMPRESSION: LEFT TM WITH LARGE EFFUSION, PT WITH MILD VERTIGO, NOT DRIVING DUE TO THIS CURRENTLY, TREAT WITH ZPAK; RECORDED 03/28/2008 11:04AM BY ANEUDY REYNOLDS MA, ANNOTATION/ADDENDUM Pain in thoracic spine 03/28/2008 Overview (12/25/2024): RECORDED 03/28/2008 10:32PM BY LAM HOOKS MD, ANNOTATION/ADDENDUM Malignant neoplasm of the li p, oral cavity, and pharynx ([facility] V24, [facility] V28) 03/28/2008 Overview (12/25/2024): RECORDED 03/28/2008 10:32PM BY LAM HOOKS MD, ANNOTATION/ADDENDUM Neuralgia 12/15/2006 Overview (12/25/2024): RESOLVED DATE: 12/15/2006; RECORDED 12/15/2006 2:03PM BY LAM HOOKS MD, OFFICE VISIT Encounters Date Type Department Care Team Description 02/07/2025 Telephone Gastroenterology - [address] [place] [phone] Verónica Luis PA 01/25/2025 Telephone Gastroenterology - [address] [place] [phone] Symone Sarabia MA 01/24/2025 2:20 PM EDT Office Visit Gastroenterology - [address] [place] [phone] Verónica Luis PA Right upper quadrant abdominal pain (Primary Dx) from Last 3 Months Surgical History Surgery Date Site/Laterality Comments COLONOSCOPY 01/07/2022 TAx3 ESOPHAGOGASTRODUODENOSCOPY 01/07/2022 negative for wahl's COLONOSCOPY 06/01/2014 TAx3 ESOPHAGOGASTRODUODENOSCOPY 06/01/2014 Wahl's negative for dysplasia Medical History Medical History Date Comments Chronic obstructive pulmonar y disease ([facility] V24, [facility] V28) 06/21/2017 DX:Chronic obstructive pulm onary disease ([facility]) Hyperlipidemia 08/11/2017 DX:Hyperlipidemi a Hypothyroid 08/11/2017 DX:Hypothyroid Rheumatoid arthritis, adult ([facility] V24, [facility] V28) 08/11/2017 DX:Rheumatoid arthritis, corina lt ([facility]) Family History Medical History Relation Name Comments Colon cancer Neg Hx Colon polyps Neg Hx Social History Tobacco Use Types Packs/Day Years Used Date Smoking Tobacco: Former Smokeless Tobacco: Never Alcohol Use Standard Drinks/Week Comments Not Currently 0 (1 standard drink = 0.6 oz pur e alcohol) Comments Unknown Sex and Gender Information Value [...] - Inhaled Oxygen Concentration - - Weight 56.7 kg (125 lb) 01/24/2025 2:12 PM EDT Height 157.5 cm (5' 2 ) 01/24/2025 2:12 PM EDT Body Mass Index 22.86 01/24/2025 2:12 PM EDT Plan of Treatment Health Maintenance Due Date Last Done Comments Cholesterol Screening (Lipid Panel) 06/13/2022 Falls Risk Assessment 06/13/2022 Medicare Annual Wellness Visit 06/13/2022 Osteoporosis Screening (Bone Density Screening) 06/13/2022 Social Influencers of Health Screening 06/13/2022 Depression Screening 07/12/2024 COVID-19 Vaccine ( season) 2025 05/18/2021, 09/17/2020, 08/26/2020 Influenza Vaccine (#1) 2025 4, 04/19/2023, 05/11/2022, Additional history exists Hypertension/CHF/CAD Annual BMP Blood Test 01/24/2026 01/24/2025, 12/26/2024, 12/22/2024, Additional history exists DTaP,Tdap,and Td Vaccines (3 - Td or Tdap) 07/22/2028 07/22/2018, 03/28/2008 Pneumococcal Vaccine: 50+ Years Completed 08/02/2015, 08/15/2008, 08/14/2004 Zoster Vaccines Completed 04/29/2019, 0702/2019, 12/10/2010 RSV Immunization Adult Patients Completed 07/24/2023 HIB Vaccines Aged Out No longer eligi [...] age to complete this topic Meningococcal B Vaccine Aged Out No l onger eligible based on patient's age to complete this topic RSV Immunization Patients Under 20 months Aged Out No longer eligible based on patient's age to complete this topic Varicella Vaccines Aged Out No longer eligible based on patient's age to complete this topic Procedures Procedure Name Priority Date/Time Associated Diagnosis Comments CBC WITH AUTO DIFFERENTIAL Routine 01/24/2025 3:00 PM EDT Right upper quadrant abdominal pain LIPASE Routine 01/24/2025 3:00 PM EDT Right upper quadrant abdominal pain COMPREHENSIVE METABOLIC PANEL Routine 01/24/2025 3:00 PM EDT Right upper quadrant abdominal pain CBC AND DIFFERENTIAL Routine 01/24/2025 3:00 PM EDT Right upper quadrant abdominal pain from Last 3 Months Results * CBC auto differential (01/24/2025 3:00 PM EDT) [facility] WBC 5.5 4.8 - 10.8 K/mcL LAB HEMETOLOGY METHOD 01/24/2025 4:[address] [facility] RBC 4.10 3.80 - 4.80 M/mcL LAB [facility] Hemoglobin 12.5 11.5 - 16.0 g/dL LAB HEMETOLOGY METHOD 01/24/2025 4:[address] [facility] Hematocrit 38.6 35.0 - 47.0 % LAB HEMETOLOGY METHOD [facility]/24[facility]25 [facility] MCV 95.1 79.0 - 98.0 FL LAB HEMETOLOGY METHOD 01/24/2025 4:[address] [facility] MCH 30.8 27.0 - 32.0 pcg LAB HEMETOLOGY METHOD 01/24/2025 4:[address] [facility] MCHC 32.4 32.0 - 37.0 g/dL LAB HEMETOLOGY METHOD 01/24/2025 4:[address] [facility] RDW 13.7 11.0 - 15.0 % LAB HEMETOLOGY METHOD 01/24/2025 4:[address] [facility] Platelets 274 130 - 400 K/mcL LAB HEMETOLOGY METHOD 01/24/2025 4:[address] [facility] MPV 10.7 7.0 - 11.0 FL LAB HEMETOLOGY METHOD [facility]/24/[facility]25 [facility] NRBC 0.0 <1.0 % LAB HEMETOLOGY METHOD [facility]/24[facility] NRBC Absolute 0.00 <0.10 K/mcL LAB HEMETOLOGY METHOD 01/24/2025 4:23 PM EDT [facility] Neutrophils Relative 67.8 % LAB HEMETOLOGY METHOD [facility]/24[facility]25 [facility] Lymphocytes Relative 20.9 % LAB HEMETOLOGY METHOD 01/24/2025 4:[address] [facility] Monocytes Relative 9.7 % LAB HEMETOLOGY METHOD 01/24/2025 4:[address] [facility] Eosinophils Relative 0.7 % LAB HEMETOLOGY METHOD 01/24/2025 4:[address] [facility] Basophils Relative 0.7 % LAB HEMETOLOGY METHOD 01/24/2025 4:[address] [facility] Immature Granulocytes Relative 0.2 % LAB HEMETOLOGY METHOD 01/24/2025 4:[address] [facility] Neutrophils Absolute 3.72 1.50 - 7.00 K/mcL LAB HEMETOLOGY METHOD 01/24/2025 4:[address] [facility] Lymphocytes Absolute 1.15 1.00 - 5.00 K/mcL LAB HEMETOLOGY METHOD 01/24/2025 4:[address] [facility] Monocytes Absolute 0.53 0.20 - 1.00 K/mcL LAB HEMETOLOGY METHOD 01/24/2025 4:[address] [facility] Eosinophils Absolute 0.04 0.00 - 0.50 K/mcL LAB HEMETOLOGY METHOD 01/24/2025 4:[address] [facility] Basophils Absolute 0.04 0.00 - 0.20 K/mcL LAB HEMETOLOGY METHOD 01/24/2025 4:[address] [facility] Immature Granulocytes Absolute 0.01 0.00 - 0.03 K/mcL LAB HEMETOLOGY METHOD 01/24/2025 4:[address] [facility] Blood Venous blood specimen / Unknown Venipuncture / Unknown 01/24/2025 3:00 PM EDT 01/24/2025 4:07 PM EDT Verónica Luis MT LAB BLOOD ORDERABLES Final Resu lt Performing Organization Address [facility]/ZIP Co de Phone Number [facility] [address] [place] [address], [place] [phone] * Lipase (01/24/2025 3:00 PM EDT) Lipase 23 13 - 75 unit/L LAB CHEMISTRY METHOD 01/24/2025 6:16 PM EDT [facility] Blood Venous blood specimen / Unknown Venipuncture / Unknown 01/24/2025 3:00 PM EDT 01/24/2025 4:07 PM EDT Verónica Luis MT LAB BLOOD ORDERABLES Final Resu lt Performing Organization Address [facility]/ZIP Co de Phone Number [facility] [address] [place] [address], [place] [phone] * Comprehensive metabolic panel (01/24/2025 3:00 PM EDT) Sodium 140 133 - 145 mmol/L LAB CHEMISTRY METHOD 01/24/2025 6:16 PM EDT [facility] Potassium 3.8 3.5 - 5.5 mmol/L LAB CHEMISTRY METHOD 01/24/2025 6:16 PM EDT [facility] Chloride 105 96 - 110 mmol/L LAB CHEMISTRY METHOD 01/24/2025 6:16 PM EDT [facility] CO2 30 21 - 32 mmol/L LAB CHEMISTRY METHOD 01/24/2025 6:16 PM EDT [facility] Anion Gap 5 3 - 11 LAB CHEMISTRY METHOD 01/24/2025 6:16 PM EDT [facility] Glucose 71 70 - 100 mg/dL LAB CHEMISTRY METHOD 01/24/2025 6:[address] [facility] BUN 15 5 - 25 mg/dL LAB CHEMISTRY METHOD 01/24/2025 6:[address] [facility] Creatinine 0.60 0.50 - 1.10 mg/dL LAB CHEMISTRY METHOD 01/24/2025 6:[address] [facility] eGFR 90 >=60 mL/min/1. 73m2 LAB CHEMISTRY METHOD 01/24/2025 6:[address] [facility] Comment:Calculation based on the Chronic Kidney Disease Epidemiology Collaboration (CKD-EPI) equation refit without adjustment for race. BUN/Creatinine Ratio 25.0 LAB CHEMISTRY METHOD 01/24/2025 6:[address] [facility] Calcium 9.5 8.5 - 10.5 mg/dL LAB CHEMISTRY METHOD 01/24/2025 6:[address] [facility] AST (SGOT) 12 10 - 42 unit/L LAB CHEMISTRY METHOD 01/24/2025 6:[address] [facility] ALT (SGPT) 18 10 - 60 unit/L LAB CHEMISTRY METHOD 01/24/2025 6:[address] [facility] Alkaline Phosphatase 80 42 - 121 unit/L LAB CHEMISTRY METHOD 01/24/2025 6:[address] [facility] Total Protein 6.9 6.0 - 8.0 g/dL LAB CHEMISTRY METHOD 01/24/2025 6:[address] [facility] Albumin 3.9 3.2 - 5.0 g/dL LAB CHEMISTRY METHOD 01/24/2025 6:[address] [facility] Total Bilirubin 0.4 0.0 - 1.4 mg/dL LAB CHEMISTRY METHOD 01/24/2025 6:[address] [facility] Blood Venous blood specimen / Unknown Venipuncture / Unknown 01/24/2025 3:00 PM EDT 01/24/2025 4:07 PM EDT us Verónica ANTON LAB BLOOD ORDERABLES Final Resu lt [place] ([facility]) [facility] [address] [place] [address], [place] [phone] from Last 3 Months Additional Health Concerns Infection Onset Date Last Indicated Rotavirus 12/22/2024 12/22/2024 Insurance MEDICARE BLUE [place] - [place] MEDICARE ADVANTAGE [facility] Care Teams Fuel Storage Technician Relationship Specialty Start Date End Date Gavin Villareal MD [address] [phone] PCP - General Family Medicine 07/24/24
--- OUTSIDE RECORDS SUMMARY | 2025-04-25 16:07 | XMS_ITS | Encounter Summary ---
Author Organization [facility] Address [address] [place] [address] Care Team Providers Care Clinical Data Specialist Name Role Phone Gavin Villareal MD Primary Care Provider Encounter Details Date Type Department Care Team (Late st Contact Info) Description 12/22/[address] [facility] - [facility] Lab [address] [facility] [employer] [address] Hai Lockett MD [address] [place] [id number] Encounter for other general examination Social History [...] CBC auto differential (12/22/2024 6:07 AM EDT) [facility] WBC 7.6 4.8 - 10.8 K/mcL LAB HEMETOLOGY METHOD 12/22/2024 8:46 AM [facility] RBC 4.00 3.80 - 4.80 M/mcL LAB HEMETOLOGY METHOD 12/22/2024 8:46 AM [facility] Hemoglobin 12.4 11.5 - 16.0 g/dL LAB HEMETOLOGY METHOD 12/22/2024 8:46 AM [facility] Hematocrit 38.7 35.0 - 47.0 % LAB HEMETOLOGY METHOD 12/22/2024 8:46 AM [facility] MCV 96.5 79.0 - 98.0 FL LAB HEMETOLOGY METHOD 12/22/2024 8:46 AM [facility] MCH 30.9 27.0 - 32.0 pcg LAB HEMETOLOGY METHOD 12/22/2024 8:46 AM [facility] MCHC 32.0 32.0 - 37.0 g/dL LAB HEMETOLOGY METHOD 12/22/2024 8:46 AM [facility] RDW 14.5 11.0 - 15.0 % LAB HEMETOLOGY METHOD 12/22/2024 8:46 AM [facility] Platelets 250 130 - 400 K/mcL LAB HEMETOLOGY METHOD 12/22/2024 8:46 AM [facility] MPV 10.8 7.0 - 11.0 FL LAB HEMETOLOGY METHOD 12/22/2024 8:46 AM [facility] NRBC 0.0 <1.0 % LAB HEMETOLOGY METHOD 12/22/2024 8:46 AM [facility] NRBC Absolute 0.00 <0.10 K/mcL LAB HEMETOLOGY METHOD 12/22/2024 8:46 AM [facility] Neutrophils Relative 81.8 % LAB HEMETOLOGY METHOD 12/22/2024 8:46 AM [facility] Lymphocytes Relative 7.7 % LAB HEMETOLOGY METHOD 12/22/2024 8:46 AM [facility] Monocytes Relative 7.9 % LAB HEMETOLOGY METHOD 12/22/2024 8:46 AM [facility] Eosinophils Relative 1.7 % LAB HEMETOLOGY METHOD 12/22/2024 8:46 AM [facility] Basophils Relative 0.4 % LAB HEMETOLOGY METHOD 12/22/2024 8:46 AM [facility] Immature Granulocytes Relative 0.5 % LAB HEMETOLOGY METHOD 12/22/2024 8:46 AM [facility] Neutrophils Absolute 6.24 1.50 - 7.00 K/mcL LAB HEMETOLOGY METHOD 12/22/2024 8:46 AM [facility] Lymphocytes Absolute 0.59(L) 1.00 - 5.00 K/mcL LAB HEMETOLOGY METHOD 12/22/2024 8:46 AM [facility] Monocytes Absolute 0.60 0.20 - 1.00 K/mcL LAB HEMETOLOGY METHOD 12/22/2024 8:46 AM [facility] Eosinophils Absolute 0.13 0.00 - 0.50 K/mcL LAB HEMETOLOGY METHOD 12/22/2024 8:46 AM [facility] Basophils Absolute 0.03 0.00 - 0.20 K/mcL LAB HEMETOLOGY METHOD 12/22/2024 8:46 AM [facility] Immature Granulocytes Absolute 0.04(H) 0.00 - 0.03 K/mcL LAB HEMETOLOGY METHOD 12/22/2024 8:46 AM EDT [facility] Blood Venous blood specimen / Unknown Venipuncture / Unknown 12/22/2024 6:07 AM EDT 12/22/2024 8:08 AM EDT Hai Lockett MD LAB BLOOD ORDERABLES Final Resu lt [facility] [address] [place] [address], [place] [phone] * (ABNORMAL) Procalcitonin (12/22/2024 6:07 AM EDT) Procalcitonin 0.17(H) <=0.16 ng/mL LAB CHEMISTRY METHOD 12/22/2024 11:10 AM EDT [facility] Blood Venous blood specimen / Unknown Venipuncture / Unknown 12/22/2024 6:07 AM EDT 12/22/2024 8:08 AM EDT Narrative [facility] - 12/22/2024 11:10 AM EDT Procalcitonin [...] ORDERABLES Final Resu lt Performing Organization Address [facility]/ZIP Co de Phone Number [facility] [address] [place] [address], * Lipase (12/22/2024 6:07 AM EDT) Pathologist [facility] Lipase 14 13 - 75 unit/L LAB CHEMISTRY METHOD 12/22/2024 10:07 AM EDT [facility] Blood Venous blood specimen / Unknown Venipuncture / Unknown 12/22/2024 6:07 AM EDT 12/22/2024 8:08 AM EDT Hai Lockett MD LAB BLOOD ORDERABLES Final Resu lt Performing Organization Address [facility]/ZIP Co de Phone Number [facility] [address] [place] [address], [place] [phone] * (ABNORMAL) Comprehensive metabolic panel (12/22/2024 6:07 AM EDT) [facility] Sodium 138 133 - 145 mmol/L LAB CHEMISTRY METHOD 12/22/2024 10:10 AM [facility] Potassium 3.9 3.5 - 5.5 mmol/L LAB CHEMISTRY METHOD 12/22/2024 10:10 AM [facility] Chloride 102 96 - 110 mmol/L LAB CHEMISTRY METHOD 12/22/2024 10:10 AM [facility] CO2 29 21 - 32 mmol/L LAB CHEMISTRY METHOD 12/22/2024 10:10 AM [facility] Anion Gap 7 3 - 11 LAB CHEMISTRY METHOD 12/22/2024 10:10 AM [facility] Glucose 71 70 - 100 mg/dL LAB CHEMISTRY METHOD 12/22/2024 10:10 AM [facility] BUN 15 5 - 25 mg/dL LAB CHEMISTRY METHOD 12/22/2024 10:10 AM [facility] Creatinine 0.52 0.50 - 1.10 mg/dL LAB CHEMISTRY METHOD 12/22/2024 10:10 AM [facility] eGFR 93 >=60 mL/min/1. 73m2 LAB CHEMISTRY METHOD 12/22/2024 10:10 AM [facility] Comment:Calculation based on the Chronic Kidney Disease Epidemiology Collaboration (CKD-EPI) equation refit without adjustment for race. BUN/Creatinine Ratio 28.8 LAB CHEMISTRY METHOD 12/22/2024 10:10 AM [facility] Calcium 8.3(L) 8.5 - 10.5 mg/dL LAB CHEMISTRY METHOD 12/22/2024 10:10 AM [facility] AST (SGOT) 26 10 - 42 unit/L LAB CHEMISTRY METHOD 12/22/2024 10:10 AM [facility] ALT (SGPT) 70(H) 10 - 60 unit/L LAB CHEMISTRY METHOD 12/22/2024 10:10 AM [facility] Alkaline Phosphatase 67 42 - 121 unit/L LAB CHEMISTRY METHOD 12/22/2024 10:10 AM [facility] Total Protein 5.3(L) 6.0 - 8.0 g/dL LAB CHEMISTRY METHOD 12/22/2024 10:10 AM [facility] Albumin 3.1(L) 3.2 - 5.0 g/dL LAB CHEMISTRY METHOD 12/22/2024 10:10 AM [facility] Total Bilirubin 0.4 0.0 - 1.4 mg/dL LAB CHEMISTRY METHOD 12/22/2024 10:10 AM [facility] Blood Venous blood specimen / Unknown Venipuncture / Unknown 12/22/2024 6:07 AM EDT 12/22/2024 8:08 AM EDT us Hai Lockett MD LAB BLOOD ORDERABLES Final Resu lt [facility] [address] [place] [address], documented in this encounter Visit Diagnoses Diagnosis Encounter for other general examination documented in this encounter Additional Health Concerns Infection Onset Date Last Indicated Resolved Time Rotavirus 12/22/2024 12/22/2024 Gastrointestinal Rule-Out 12/23/2024 12/22/2024 2:40 PM EDT documented as of this encounter Care Teams Clinical Data Specialist Relationship Specialty Start Date End Date Gavin Villareal MD [address] [phone] PCP - General Family Medicine 07/24/24 documented as of this encounter
--- OUTSIDE RECORDS SUMMARY | 2025-04-25 16:08 | XMS_ITS | Data Portability ---
Author Organization [facility], Main Office Address [address] [place] [address] Care Team Providers Care Research Technician Name Role Phone JASWINDER LIMNO Surgical Elastic Knitter GARY AQUINO Rail Operations Controller [phone] KAREN MAHONEY Vascular Surgeon [facility] RANCHO BENSON Phys. Med. & Rehab [phone] HEATHER VILLAREAL Primary Care Provider ROJAS GREENE Facility Security Officer [facility] Neurologist NAN COULTER Returned Goods Repairer MAGDI PATINO Logging Rafter Laborer [facility] Assessment Encounter Date Assessment Date Assessment LastModified by Organization Details LastModified Time 01/05/2025 01/05/2025 Discussed with patient the signs/symptoms warranted for a return to office visit and/or an ER visit. Patient understood and agreed with the plan. [email or web address] Not available 01/05/2025 10:46:40 04/16/2025 04/16/2025 Diagnostic Workup: -Order CBC, CMP, TSH, bile acids, ferritin, iron, TIBC, ESR, and CRP to assess for systemic causes of pruritus and inflammation. -Obtain a chest X-ray to evaluate for respiratory or infectious etiology, given shortness of breath and low-grade fever. Medications: -Start fexofenadine 60 mg twice daily for pruritus. -Begin a short course of prednisone 10 mg daily for 5 days to assess for improvement in itching and inflammation. Assessment of Infectious Etiology: -COVID-19 and influenza negative. -Monitor for worsening fever, respiratory distress, or new symptoms. Blood pressure: Elevated today, possibly related to aggravation from itching. Patient is otherwise asymptomatic. Will monitor and recheck BP in 2 weeks. Follow-Up: -Follow-up with my colleague in 2 weeks to reassess response to therapy. Supportive Measures: -Continue Aveeno moisturizer after showering. -Maintain lukewarm water bathing. -Avoid known irritants and use gentle, fragrance-free products. [email or web address] Not available 04/16/2025 17:20:43 Plan of Treatment Reminders Order Date Submit Date Provider Last Modified By Organization Details Last Modified Time Details Appointments FOLLOW UP 2024 01:45P M DESEAN RAMIREZ Not available Not available Not available [id number] 2024 01:00P M DESEAN RAMIREZ Not available Not available Not available Lab rapid influen za virus A + B and SARS CoV + SARS CoV 2 Ag panel, IA, upper respira tory specime n 2024 025 [email or web address] In-Office Order, Internal Use Only DO Not Attach Compendium DO Not Attach Compendium, Do Not Delete/merge, [id number] 04/16/2025 15:31:45 TSH + free T4, serum 2024 [facility] (Centralized Electronic Ordering - All Locations), Patient Can Go To The Location Of Their Choice, [id number] 04/18/2025 10:06:00 CBC w/ auto diff 2024 025 [facility] (Centralized Electronic Ordering - All Locations), Patient Can Go To The Location Of Their Choice, [id number] 04/18/2025 10:06:01 CMP, serum or plasma 2024 025 [facility] (Centralized Electronic Ordering - All Locations), Patient Can Go To The Location Of Their Choice, [id number] 04/18/2025 10:06:02 bile acid, quant, serum 2024 025 [facility] (Centralized Electronic Ordering - All Locations), Patient Can Go To The Location Of Their Choice, [address] 04/18/2025 10:06:05 iron + TIBC + ferriti n, serum 2024 025 [place] [facility] (Centralized Electronic Ordering - All Locations), Patient Can Go To The Location Of Their Choice, [id number] 04/18/2025 10:06:00 erythro cyte sedimen tation rate by westerg remigio method 2024 025 [facility] (Centralized Electronic Ordering - All Locations), Patient Can Go To The Location Of Their Choice, [id number] 04/18/2025 10:06:03 C reactiv e protein , QN, serum or plasma 2024 025 [place] [facility] (Centralized Electronic Ordering - All Locations), Patient Can Go To The Location Of Their Choice, [id number] 04/18/2025 10:06:04 vitamin D, 25-hydr oxy, total, serum 2024 025 [place] [facility] [address], [place], [address], 04/13/2025 08:07:44 TSH + free T4, serum 2024 025 [place] [facility]), Patient Can Go To The Location Of Their Choice, [id number] 02/14/2025 12:05:47 rapid SARS CoV 2 Ag, QL IA, respira tory specime n 2024 [email or web address] In-Office Order, Internal Use Only DO Not Attach Compendium DO Not Attach Compendium, Do Not Delete/merge, 12/02/2024 11:38:32 strep group A, DNA, swab 2024 [email or web address] In-Office Order, Internal Use Only DO Not Attach Compendium DO Not Attach Compendium, Do Not Delete/merge, 12/02/2024 12:34:12 Referral None recorde d. Procedures None recorde d. Surgeries None recorde d. Imaging XR, chest, 2 view 2024 [facility], [address], [place], [address], 04/16/2025 15:40:59 Medication Orders fexofen adine 60 mg tablet 2024 [facility][id number], [address], [place], [id number], 04/16/2025 15:32:01 prednis one 10 mg tablet 2024 [facility] #38805, [address] [place] [address], [id number], 04/16/2025 17:11:00 cetiriz ine 10 mg tablet 2024 [facility] #64845, [address] [place] [address], [id number], 04/16/2025 14:50:56 hydroxy zine HCl 10 mg tablet 2024 [facility] #97967, [address] [place] [address], [id number], 04/16/2025 14:51:05 cyclosp orine 0.05 % eye drops in a dropper ette 2024 On license of [facility] #77501, [address] [place] [address], [id number], 01/05/2025 10:27:04 doxycyc line hyclate 100 mg capsule 2024 [facility] #31729, [address] [place] [address], [id number], 12/16/2024 05:00:54 Patient TargetsNo targets recorded. Patient Instructions Encounter Date Encounter Id Patient Instructions Last Modified By Organization Details Last Modified Time 04/12/2025 [id number] Patient will follow up and keep appointment as scheduled. [email or web address] Not available 04/14/2025 08:32:18 04/16/2025 [id number] high blood pressure: care instructions [email or web address] Not available 04/16/2025 17:20:44 learning about high blood pressure [email or web address] Not available 04/16/2025 17:20:44 hypothyroidism: care instructions [email or web address] Not available 04/16/2025 15:31:45 Reason for Referral None Reported. Results Created Date Observation Date Name Description Value Unit Range Abnormal Flag Note LastModifiedBy Organization Detail LastModifiedTime 12/17/19 25 12/16/2024 CBC WITH AUTO DIFFE RENTI AL WBC 7.2 K/mcL 4.8-10 .8 Not Available [facility] U/S Dept [address] [place] [address] [place], [address], 12/16/2024 10:53:38 12/17/19 25 12/16/2024 CBC WITH AUTO DIFFE RENTI AL RBC 3.60 M/mcL 3.80-4 .80 low Not Available [facility]/ Dept [address] [place] [address] [place], [address], 12/16/2024 10:53:38 12/17/19 25 12/16/2024 CBC WITH AUTO DIFFE RENTI AL hemoglobin 11.1 g/dL 11.5-1 6.0 low Not Available [facility]/ Dept [address] [place] [address] [place], [address], 12/16/2024 10:53:38 12/17/19 25 12/16/2024 CBC WITH AUTO DIFFE RENTI AL hematocrit 34.2 % 35.0-4 7.0 low Not Available [facility] [address] [place] [address] [place], [address], 12/16/2024 10:53:38 12/17/19 25 12/16/2024 CBC WITH AUTO DIFFE RENTI AL MCV 95.3 fL 79.0-9 8.0 Not Available [facility] [address] [place] [address] [place], [address], 12/16/2024 10:53:38 12/17/19 25 12/16/2024 CBC WITH AUTO DIFFE RENTI AL MCH 30.9 pcg 27.0-3 2.0 Not Available [facility] [address] [place] [address] [place], [address], 12/16/2024 10:53:38 12/17/19 25 12/16/2024 CBC WITH AUTO DIFFE RENTI AL MCHC 32.5 g/dL 32.0-3 7.0 Not Available [facility]/[address] [place], [address], 12/16/2024 10:53:38 12/17/19 25 12/16/2024 CBC WITH AUTO DIFFE RENTI AL RDW 14.3 % 11.0-1 5.0 Not Available [facility] [address] [place] [address] [place], [address], 12/16/2024 10:53:38 12/17/19 25 12/16/2024 CBC WITH AUTO DIFFE RENTI AL platelets 227 K/mcL 130-40 0 Not Available [facility] [address] [place], [place] [address], [address], 12/16/2024 10:53:38 12/17/19 25 12/16/2024 CBC WITH AUTO DIFFE RENTI AL MPV 11.3 fL 7.0-11 .0 high Not Available [facility] [address] [place], [place] [address], [address], 12/16/2024 10:53:38 12/17/19 25 12/16/2024 CBC WITH AUTO DIFFE RENTI AL NRBC 0.0 % <1.0 Not Available [facility] [address] [place], [place] [address]wy, [place], [address], 12/16/2024 10:53:38 12/17/19 25 12/16/2024 CBC WITH AUTO DIFFE RENTI AL NRBC absolute 0.00 K/mcL <0.10 Not Available [facility]/S Dept [facility] [place], [address], 12/16/2024 10:53:38 12/17/19 25 12/16/2024 CBC WITH AUTO DIFFE RENTI AL neutrophils relative 60.2 % Not Available [facility] [address] [place] [address] [place], [address], 12/16/2024 10:53:38 12/17/19 25 12/16/2024 CBC WITH AUTO DIFFE RENTI AL lymphocytes relative 29.6 % Not Available [facility] [address] [place] [address] [place], [address], 12/16/2024 10:53:38 12/17/19 25 12/16/2024 CBC WITH AUTO DIFFE RENTI AL monocytes relative 7.6 % Not Available [facility] [place], [address], 12/16/2024 10:53:38 12/17/19 25 12/16/2024 CBC WITH AUTO DIFFE RENTI AL eosinophils relative 1.5 % Not Available [facility] [address] [place] [address] [place], [address], 12/16/2024 10:53:38 12/17/19 25 12/16/2024 CBC WITH AUTO DIFFE RENTI AL basophils relative 0.8 % Not Available [facility] [address] [place] [address] [place], [address], 12/16/2024 10:53:38 12/17/19 25 12/16/2024 CBC WITH AUTO DIFFE RENTI AL immature granulocytes relative 0.3 % Not Available [facility]/S Dept [address] [place] [address] [place], [address], 12/16/2024 10:53:38 12/17/19 25 12/16/2024 CBC WITH AUTO DIFFE RENTI AL neutrophils absolute 4.36 K/mcL 1.50-7 .00 Not Available [facility] [address] [place] [address] [place], [address], 12/16/2024 10:53:38 12/17/19 25 12/16/2024 CBC WITH AUTO DIFFE RENTI AL lymphocytes absolute 2.14 K/mcL 1.00-5 .00 Not Available [facility]/S Dept [address] [place] [address] [place], [address], 12/16/2024 10:53:38 12/17/19 25 12/16/2024 CBC WITH AUTO DIFFE RENTI AL monocytes absolute 0.55 K/mcL 0.20-1 .00 Not Available [facility] [address] [place] [address] [place], [address], 12/16/2024 10:53:38 12/17/19 25 12/16/2024 CBC WITH AUTO DIFFE RENTI AL eosinophils absolute 0.11 K/mcL 0.00-0 .50 Not Available [facility] [address] [place] [address] [place], [address], 12/16/2024 10:53:38 12/17/19 25 12/16/2024 CBC WITH AUTO DIFFE RENTI AL basophils absolute 0.06 K/mcL 0.00-0 .20 Not Available [facility] [address] [place] [address] [place], [address], 12/16/2024 10:53:38 12/17/19 25 12/16/2024 CBC WITH AUTO DIFFE RENTI AL immature granulocytes absolute 0.02 K/mcL 0.00-0 .03 Not Available [facility] [place], [address], 12/16/2024 10:53:38 12/17/19 25 12/16/2024 CBC WITH AUTO DIFFE RENTI AL note See Report [facility], [address], [place], [place] [address] Not Available [facility] [address] [place] [address] [place], [address], 12/16/2024 10:53:38 12/17/19 25 12/16/2024 MAGNE SIUM magnesium 2.3 mg/dL 1.9-2. 6 Not Available [facility] [address] [place] [address] [place], [address], 12/16/2024 11:27:28 12/17/19 25 12/16/2024 MAGNE SIUM note See Report [facility], [address], [place], [place] [address] Not Available [facility] [address] [place], [place] [address]Al[place]ii[place], [address], 12/16/2024 11:27:28 12/17/19 25 12/16/2024 COMPR EHENS SHIMON METAB OLIC PANEL sodium 144 mmol/ L 133-14 5 Not Available [facility] [address] [place] [address] [place], [address], 12/16/2024 11:29:09 12/17/19 25 12/16/2024 COMPR EHENS SHIMON METAB OLIC PANEL potassium 4.0 mmol/ L 3.5-5. 5 Not Available [facility] [address] [place] [address] [place], [address], 12/16/2024 11:29:09 12/17/19 25 12/16/2024 COMPR EHENS SHIMON METAB OLIC PANEL chloride 109 mmol/ L 96-110 Not Available [facility]/ Dept [facility] [place], [address], 12/16/2024 11:29:09 12/17/19 25 12/16/2024 COMPR EHENS SHIMON METAB OLIC PANEL CO2 30 mmol/ L 21-32 Not Available [facility] [place], [address], 12/16/2024 11:29:09 12/17/19 25 12/16/2024 COMPR EHENS SHIMON METAB OLIC PANEL anion gap 5 3-11 Not Available [facility]/ Dept [facility] [place], [address], 12/16/2024 11:29:09 12/17/19 25 12/16/2024 COMPR EHENS SHIMON METAB OLIC PANEL glucose 67 mg/dL 70-100 low Not Available [facility] [address] [place], [place] [address], [address], 12/16/2024 11:29:09 12/17/19 25 12/16/2024 COMPR EHENS SHIMON METAB OLIC PANEL BUN 18 mg/dL 5-25 Not Available [facility] [address] [place], [place] [address]Al[place]iiq [place], [address], 12/16/2024 11:29:09 12/17/19 25 12/16/2024 COMPR EHENS SHIMON METAB OLIC PANEL creatinine 0.55 mg/dL 0.50-1 .10 Not Available [facility] [address] [place], [address], 12/16/2024 11:29:09 12/17/19 25 12/16/2024 COMPR EHENS SHIMON METAB OLIC PANEL eGFR 92 mL/mi n/1.7 3m2 >=60 Calcu latio n based on the Chron ic Kidne y Disea se Epide miolo gy Colla borat ion (CKD- EPI) equat ion refit witho ut adjus tment for race. Not Available [facility] U/S Dept [address] [place] [address] [place], [address], 12/16/2024 11:29:09 12/17/19 25 12/16/2024 COMPR EHENS SHIMON METAB OLIC PANEL BUN/creatini ne ratio 32.7 Not Available [facility]/S Dept [address] [place] [address] [place], [address], 12/16/2024 11:29:12/17/19 25 12/16/2024 COMPR EHENS SHIMON METAB OLIC PANEL calcium 8.4 mg/dL 8.5-10 .5 low Not Available [facility] [address] [place] [address] [place], [address], 12/16/2024 11:29:12/17/19 25 12/16/2024 COMPR EHENS SHIMON METAB OLIC PANEL AST (SGOT) 16 unit/ L 10-42 Not Available [facility] [address] [place] [address] [place], [address], 12/16/2024 11:29:09 12/17/19 25 12/16/2024 COMPR EHENS SHIMON METAB OLIC PANEL ALT (SGPT) 25 unit/ L 10-60 Not Available [facility] [address] [place] [address] [place], [address], 12/16/2024 11:29:09 12/17/19 25 12/16/2024 COMPR EHENS SHIMON METAB OLIC PANEL alkaline phosphatase 59 unit/ L 42-121 Not Available [facility] [address] [place] [address] [place], [address], 12/16/2024 11:29:09 12/17/19 25 12/16/2024 COMPR EHENS SHIMON METAB OLIC PANEL total protein 5.2 g/dL 6.0-8. 0 low Not Available [facility] [place], [address], 12/16/2024 11:29:09 12/17/19 25 12/16/2024 COMPR EHENS SHIMON METAB OLIC PANEL albumin 3.1 g/dL 3.2-5. 0 low Not Available [facility] [address] [place] [address] [place], [address], 12/16/2024 11:29:09 12/17/19 25 12/16/2024 COMPR EHENS SHIMON METAB OLIC PANEL total bilirubin 0.2 mg/dL 0.0-1. 4 Not Available [facility] [address] [place] [address] [place], [address], 12/16/2024 11:29:12/17/19 25 12/16/2024 COMPR EHENS SHIMON METAB OLIC PANEL note See Report [facility], [address], [place] de[place]re d, [facility] [place] [place] [address] Not Available [facility] [address] [place], [place] [address], [address], 12/16/2024 11:29:09 12/22/19 25 12/21/2024 COMPL ETE BLOOD COUNT WBC 11.9 K/mcL 4.8-10 .8 high Not Available [facility] [address] [place] [address] [place], [address], 12/21/2024 09:14:12 12/22/19 25 12/21/2024 COMPL ETE BLOOD COUNT RBC 4.40 M/mcL 3.80-4 .80 Not Available [facility] [address] [place] [address] [place], [address], 12/21/2024 09:14:12 12/22/1912/21/2024 COMPL ETE BLOOD COUNT hemoglobin 13.5 g/dL 11.5-1 6.0 Not Available [facility]/S Dept [facility] [place], [address], 12/21/2024 09:14:12 12/22/1912/21/2024 COMPL ETE BLOOD COUNT hematocrit 42.5 % 35.0-4 7.0 Not Available [facility] [address] [place], [place] [address], [address], 12/21/2024 09:14:12 12/22/1912/21/2024 COMPL ETE BLOOD COUNT MCV 97.3 fL 79.0-9 8.0 Not Available [facility] [address] [place], [place] [address]Alutiiq [place], [address], 12/21/2024 09:14:12 12/22/1912/21/2024 COMPL ETE BLOOD COUNT MCH 30.9 pcg 27.0-3 2.0 Not Available [facility] [address] [place], [place] [address]Alutiiq [place], [address], 12/21/2024 09:14:12 12/22/1912/21/2024 COMPL ETE BLOOD COUNT MCHC 31.8 g/dL 32.0-3 7.0 low Not Available [facility] [address] [place] [address] [place], [address], 12/21/2024 09:14:12 12/22/1912/21/2024 COMPL ETE BLOOD COUNT RDW 14.6 % 11.0-1 5.0 Not Available [facility] [address] [place] [address] [place], [address], 12/21/2024 09:14:12 12/22/19 25 12/21/2024 COMPL ETE BLOOD COUNT platelets 307 K/mcL 130-40 0 Not Available [address] [place], [address], 12/21/2024 09:14:12 12/22/19 25 12/21/2024 COMPL ETE BLOOD COUNT MPV 10.9 fL 7.0-11 .0 Not Available [address] [place], [address], 12/21/2024 09:14:12 12/22/19 25 12/21/2024 COMPL ETE BLOOD COUNT NRBC 0.0 % <1.0 Not Available [address], [address], 12/21/2024 09:14:12 12/22/19 25 12/21/2024 COMPL ETE BLOOD COUNT NRBC absolute 0.00 K/mcL <0.10 Not Available [address], [address], 12/21/2024 09:14:12 12/22/19 25 12/21/2024 COMPL ETE BLOOD COUNT note See Report [facility], [address], [place], [facility] [place] [address] Not Available [facility] [address] [place] [address], [address], 12/21/2024 09:14:12 12/22/19 25 12/21/2024 BASIC METAB OLIC PANEL sodium 140 mmol/ L 133-14 5 Not Available [facility] [address] [place] [address], [address], 12/21/2024 09:50:08 12/22/19 25 12/21/2024 BASIC METAB OLIC PANEL potassium 4.0 mmol/ L 3.5-5. 5 Not Available [place] [address] [place], [address], 12/21/2024 09:50:08 12/22/19 25 12/21/2024 BASIC METAB OLIC PANEL chloride 101 mmol/ L 96-110 Not Available [place] [address] [place], [address], 12/21/2024 09:50:08 12/22/19 25 12/21/2024 BASIC METAB OLIC PANEL CO2 33 mmol/ L 21-32 high Not Available [place] [address] [place], [address], 12/21/2024 09:50:08 12/22/19 25 12/21/2024 BASIC METAB OLIC PANEL anion gap 6 3-11 Not Available [place] [address] [place], [address], 12/21/2024 09:50:08 12/22/19 25 12/21/2024 BASIC METAB OLIC PANEL glucose 74 mg/dL 70-100 Not Available [address] [place], [address], 12/21/2024 09:50:08 12/22/19 25 12/21/2024 BASIC METAB OLIC PANEL BUN 23 mg/dL 5-25 Not Available [address] [place], [address], 12/21/2024 09:50:08 12/22/19 25 12/21/2024 BASIC METAB OLIC PANEL creatinine 0.56 mg/dL 0.50-1 .10 Not Available [place] [address] [place], [address], 12/21/2024 09:50:08 12/22/19 25 12/21/2024 BASIC METAB OLIC PANEL eGFR 91 mL/mi n/1.7 3m2 >=60 Calcu latio n based on the Chron ic Kidne y Disea se Epide miolo gy Colla borat ion (CKD- EPI) equat ion refit witho ut adjus tment for race. Not Available [facility] U/S Dept [address] [place] [address] [place], [address], 12/21/2024 09:50:08 12/22/19 25 12/21/2024 BASIC METAB OLIC PANEL BUN/creatini ne ratio 41.1 Not Available [facility]/S Dept [address] [place] [address] [place], [address], 12/21/2024 09:50:08 12/22/19 25 12/21/2024 BASIC METAB OLIC PANEL calcium 8.6 mg/dL 8.5-10 .5 Not Available [facility]/S Dept [address] [place] [address] [place], [address], 12/21/2024 09:50:08 12/22/19 25 12/21/2024 BASIC METAB OLIC PANEL note See Report [facility], [address], [place], [place] [address] Not Available [facility]/S Dept [address] [place], [place] [address], [address], 12/21/2024 09:50:08 12/23/19 25 12/22/2024 CBC WITH AUTO DIFFE RENTI AL WBC 7.6 K/mcL 4.8-10 .8 Not Available [facility]/S Dept [address] [place] [address] [place], [address], 12/22/2024 08:48:18 12/23/19 25 12/22/2024 CBC WITH AUTO DIFFE RENTI AL RBC 4.00 M/mcL 3.80-4 .80 Not Available [facility] U/S Dept [facility] [place], [address], 12/22/2024 08:48:18 12/23/1912/22/2024 CBC WITH AUTO DIFFE RENTI AL hemoglobin 12.4 g/dL 11.5-1 6.0 Not Available [facility] [address] [place], [address], 12/22/2024 08:48:18 12/23/1912/22/2024 CBC WITH AUTO DIFFE RENTI AL hematocrit 38.7 % 35.0-4 7.0 Not Available [facility]/S Dept [facility] De[address] Far[address]wy, [place], [address], 12/22/2024 08:48:18 12/23/1912/22/2024 CBC WITH AUTO DIFFE RENTI AL MCV 96.5 fL 79.0-9 8.0 Not Available [facility]/S Dept [facility] [place], [address], 12/22/2024 08:48:18 12/23/1912/22/2024 CBC WITH AUTO DIFFE RENTI AL MCH 30.9 pcg 27.0-3 2.0 Not Available [facility] [address] [place], [place] [address]Al[place], [address], 12/22/2024 08:48:18 12/23/1912/22/2024 CBC WITH AUTO DIFFE RENTI AL MCHC 32.0 g/dL 32.0-3 7.0 Not Available [facility] [address] [place], [address], 12/22/2024 08:48:18 12/23/1912/22/2024 CBC WITH AUTO DIFFE RENTI AL RDW 14.5 % 11.0-1 5.0 Not Available [facility] [place], [address], 12/22/2024 08:48:18 12/23/1912/22/2024 CBC WITH AUTO DIFFE RENTI AL platelets 250 K/mcL 130-40 0 Not Available [facility] Dejon [place], [address], 12/22/2024 08:48:18 12/23/19 25 12/22/2024 CBC WITH AUTO DIFFE RENTI AL MPV 10.8 fL 7.0-11 .0 Not Available [facility] Dejon [place], [address], 12/22/2024 08:48:18 12/23/1912/22/2024 CBC WITH AUTO DIFFE RENTI AL NRBC 0.0 % <1.0 Not Available [facility] [place], [address], 12/22/2024 08:48:18 12/23/1912/22/2024 CBC WITH AUTO DIFFE RENTI AL NRBC absolute 0.00 K/mcL <0.10 Not Available [facility] [address] [place], [place] [address]Al[address] [place]reje [place], [address], 12/22/2024 08:48:18 12/23/1912/22/2024 CBC WITH AUTO DIFFE RENTI AL neutrophils relative 81.8 % Not Available [facility] [place] [place], [address], 12/22/2024 08:48:18 12/23/1912/22/2024 CBC WITH AUTO DIFFE RENTI AL lymphocytes relative 7.7 % Not Available [facility] [address] [place] [place], [address], 12/22/2024 08:48:18 12/23/19 25 12/22/2024 CBC WITH AUTO DIFFE RENTI AL monocytes relative 7.9 % Not Available [facility]/S Dept [facility] [place], [address], 12/22/2024 08:48:18 12/23/19 25 12/22/2024 CBC WITH AUTO DIFFE RENTI AL eosinophils relative 1.7 % Not Available [facility]/S Dept [address] [place] [address] [place], [address], 12/22/2024 08:48:18 12/23/19 25 12/22/2024 CBC WITH AUTO DIFFE RENTI AL basophils relative 0.4 % Not Available [facility] [address] [place], [place] [address]E[place]ie [place], [address], 12/22/2024 08:48:18 12/23/1912/22/2024 CBC WITH AUTO DIFFE RENTI AL immature granulocytes relative 0.5 % Not Available [facility] [address] [place] [address] [place], [address], 12/22/2024 08:48:18 12/23/1912/22/2024 CBC WITH AUTO DIFFE RENTI AL neutrophils absolute 6.24 K/mcL 1.50-7 .00 Not Available [facility]/S Dept [address] [place], [place] [address]E[place]ie [place], [address], 12/22/2024 08:48:18 12/23/1912/22/2024 CBC WITH AUTO DIFFE RENTI AL lymphocytes absolute 0.59 K/mcL 1.00-5 .00 low Not Available [facility] [address] [place], [place] [address]E[place]ie [place], [address], 12/22/2024 08:48:18 12/23/19 25 12/22/2024 CBC WITH AUTO DIFFE RENTI AL monocytes absolute 0.60 K/mcL 0.20-1 .00 Not Available [facility] [address] [place] [address] [place], [address], 12/22/2024 08:48:18 12/23/19 25 12/22/2024 CBC WITH AUTO DIFFE RENTI AL eosinophils absolute 0.13 K/mcL 0.00-0 .50 Not Available [facility] [address] [place] [address] [place], [address], 12/22/2024 08:48:18 12/23/19 25 12/22/2024 CBC WITH AUTO DIFFE RENTI AL basophils absolute 0.03 K/mcL 0.00-0 .20 Not Available [facility] [address] [place] [address] [place], [address], 12/22/2024 08:48:18 12/23/19 25 12/22/2024 CBC WITH AUTO DIFFE RENTI AL immature granulocytes absolute 0.04 K/mcL 0.00-0 .03 high Not Available [facility] [address] [place] [address] [place], [address], 12/22/2024 08:48:18 12/23/19 25 12/22/2024 CBC WITH AUTO DIFFE RENTI AL note See Report high [facility], [address], [place], [place] [address] Not Available [facility]/S Dept [address] [place] [address] [place], [address], 12/22/2024 08:48:18 12/23/1912/22/2024 LIPAS E lipase 14 unit/ L Not Available [facility] [address] [place] [address] [place], [address], 12/22/2024 10:09:23 12/23/19 25 12/22/2024 LIPAS E note See Report [facility], [address], [place], [place] [address] Not Available [facility]/S Dept [address] [place], [place] [address], [address], 12/22/2024 10:09:23 12/23/19 25 12/22/2024 COMPR EHENS SHIMON METAB OLIC PANEL sodium 138 mmol/ L 133-14 5 Not Available [facility]/S Dept [address] [place], [place] [address], [address], 12/22/2024 10:11:50 12/23/19 25 12/22/2024 COMPR EHENS SHIMON METAB OLIC PANEL potassium 3.9 mmol/ L 3.5-5. 5 Not Available [facility] [address] [place] [address], [address], 12/22/2024 10:11:50 12/23/19 25 12/22/2024 COMPR EHENS SHIMON METAB OLIC PANEL chloride 102 mmol/ L 96-110 Not Available [facility]/S Dept [address] [place] [address] [place], [address], 12/22/2024 10:11:50 12/23/19 25 12/22/2024 COMPR EHENS SHIMON METAB OLIC PANEL CO2 29 mmol/ L 21-32 Not Available [facility]/S Dept [address] [place] [address] [place] [place], [address], 12/22/2024 10:11:50 12/23/19 25 12/22/2024 COMPR EHENS SHIMON METAB OLIC PANEL anion gap 7 3-11 Not Available [facility]/S Dept [address] [place] [address] [place], [address], 12/22/2024 10:11:50 12/23/19 25 12/22/2024 COMPR EHENS SHIMON METAB OLIC PANEL glucose 71 mg/dL 70-100 Not Available [facility]/ Dept [facility] [place], [address], 12/22/2024 10:11:50 12/23/19 25 12/22/2024 COMPR EHENS SHIMON METAB OLIC PANEL BUN 15 mg/dL 5-25 Not Available [facility] [place], [address], 12/22/2024 10:11:50 12/23/19 25 12/22/2024 COMPR EHENS SHIMON METAB OLIC PANEL creatinine 0.52 mg/dL 0.50-1 .10 Not Available [facility] [address] [place] [address] [place], [address], 12/22/2024 10:11:50 12/23/19 25 12/22/2024 COMPR EHENS SHIMON METAB OLIC PANEL eGFR 93 mL/mi n/1.7 3m2 >=60 Calcu latio n based on the Chron ic Kidne y Disea se Epide miolo gy Colla borat ion (CKD- EPI) equat ion refit witho ut adjus tment for race. Not Available [facility] [address] [place] [address] [place], [address], 12/22/2024 10:11:50 12/23/19 25 12/22/2024 COMPR EHENS SHIMON METAB OLIC PANEL BUN/creatini ne ratio 28.8 Not Available [facility] [address] [place] [address] [place], [address], 12/22/2024 10:11:50 12/23/19 25 12/22/2024 COMPR EHENS SHIMON METAB OLIC PANEL calcium 8.3 mg/dL 8.5-10 .5 low Not Available [facility] [address] [place] [address] [place], [address], 12/22/2024 10:11:50 12/23/19 25 12/22/2024 COMPR EHENS SHIMON METAB OLIC PANEL AST (SGOT) 26 unit/ L 10-42 Not Available [facility]/S Dept [facility] [place], [address], 12/22/2024 10:11:50 12/23/19 25 12/22/2024 COMPR EHENS SHIMON METAB OLIC PANEL ALT (SGPT) 70 unit/ L 10-60 high Not Available [facility]/S Dept [facility] [address], [place], [address], 12/22/2024 10:11:50 12/23/19 25 12/22/2024 COMPR EHENS SHIMON METAB OLIC PANEL alkaline phosphatase 67 unit/ L 42-121 Not Available [facility]/S Dept [facility] [address], [place], [address], 12/22/2024 10:11:50 12/23/19 25 12/22/2024 COMPR EHENS SHIMON METAB OLIC PANEL total protein 5.3 g/dL 6.0-8. 0 low Not Available [facility] [address] [place], [address], 12/22/2024 10:11:50 12/23/19 25 12/22/2024 COMPR EHENS SHIMON METAB OLIC PANEL albumin 3.1 g/dL 3.2-5. 0 low Not Available [facility]/S Dept [facility] [address], [place], [address], 12/22/2024 10:11:50 12/23/19 25 12/22/2024 COMPR EHENS SHIMON METAB OLIC PANEL total bilirubin 0.4 mg/dL 0.0-1. 4 Not Available [facility] [address], [place], [address], 12/22/2024 10:11:50 12/23/19 25 12/22/2024 COMPR EHENS SHIMON METAB OLIC PANEL note See Report [facility], [address], [place], [place] [facility] [place] [address] Not Available [facility]/S Dept [address] [place] [address] [place], [address], 12/22/2024 10:11:50 12/23/19 25 12/22/2024 PROCA LCITO DAKOTAH procalcitoni n 0.17 NG/mL <=0.16 high Not Available [facility] [address] [place] [address], [address], 12/22/2024 11:13:05 12/23/19 25 12/22/2024 PROCA LCITO DAKOTAH note See Report high [facility], [address], [place], [facility] [place] [address] Not Available [facility]/S Dept [address] [place] [address], [address], 12/22/2024 11:13:05 12/24/19 25 12/22/2024 GASTR OINTE VILLA L PATHO GENS MOLEC ULAR STUDY campylobacte r detection by PCR Not Detect ed not detect ed Not Available [facility] [address] [place] [address] [place], [address], 12/23/2024 14:43:08 12/24/19 25 12/22/2024 GASTR OINTE VILLA L PATHO GENS MOLEC ULAR STUDY plesiomonas shigelloides detection by PCR Not Detect ed not detect ed Not Available [facility] [address] [place] [address], [address], 12/23/2024 14:43:08 12/24/19 25 12/22/2024 GASTR OINTE VILLA L PATHO GENS MOLEC ULAR STUDY salmonella detection by PCR Not Detect ed not detect ed Not Available [facility] [address] [place], [place] [address]E[place]ie [place], [address], 12/23/2024 14:43:08 12/24/19 25 12/22/2024 GASTR OINTE VILLA L PATHO GENS MOLEC ULAR STUDY vibrio detection by PCR Not Detect ed not detect ed Not Available [facility] [address] [place] [address] [place], [address], 12/23/2024 14:43:08 12/24/19 25 12/22/2024 GASTR OINTE VILLA L PATHO GENS MOLEC ULAR STUDY vibrio cholerae detection by PCR Not Detect ed not detect ed Not Available [facility] [address] [place] [address], [address], 12/23/2024 14:43:08 12/24/19 25 12/22/2024 GASTR OINTE VILLA L PATHO GENS MOLEC ULAR STUDY yersinia enterocoliti ca detection by PCR Not Detect ed not detect ed Not Available [facility] [address] [place] [address] [place], [address], 12/23/2024 14:43:08 12/24/19 25 12/22/2024 GASTR OINTE VILLA L PATHO GENS MOLEC ULAR STUDY enteroaggreg ative E coli eaec detection by PCR Not Detect ed not detect ed Not Available [facility] [address] [place] [address] [place], [address], 12/23/2024 14:43:08 12/24/19 25 12/22/2024 GASTR OINTE VILLA L PATHO GENS MOLEC ULAR STUDY enteropathog enic E coli epec detection Not Detect ed not detect ed Not Available [facility] [address] [place] [address], [address], 12/23/2024 14:43:08 12/24/19 25 12/22/2024 GASTR OINTE VILLA L PATHO GENS MOLEC ULAR STUDY enterotoxige liu E coli etec ltst detection Not Detect ed not detect ed Not Available [facility]/[address], [address], 12/23/2024 14:43:08 12/24/19 25 12/22/2024 GASTR OINTE VILLA L PATHO GENS MOLEC ULAR STUDY shiga-like toxin producing E coli stec stx1 stx2 det Not Detect ed not detect ed Not Available [facility] [address] [place] [address], [address], 12/23/2024 14:43:08 12/24/19 25 12/22/2024 GASTR OINTE VILLA L PATHO GENS MOLEC ULAR STUDY shigella enteroinvasi ve E coli eiec detection Not Detect ed not detect ed Not Available [facility] [address] [place] [address], [address], 12/23/2024 14:43:08 12/24/19 25 12/22/2024 GASTR OINTE VILLA L PATHO GENS MOLEC ULAR STUDY cryptosporid ium detection by PCR Not Detect ed not detect ed Not Available [facility] [address] [place] [address], [address], 12/23/2024 14:43:08 12/24/19 25 12/22/2024 GASTR OINTE VILLA L PATHO GENS MOLEC ULAR STUDY cyclospora cayetanensis detection by PCR Not Detect ed not detect ed Not Available [facility] [address] [place] [address], [address], 12/23/2024 14:43:08 12/24/19 25 12/22/2024 GASTR OINTE VILLA L PATHO GENS MOLEC ULAR STUDY entamoeba histolytica detection by PCR Not Detect ed not detect ed Not Available [facility] [address] [place], [place] [address], [address], 12/23/2024 14:43:08 12/24/19 25 12/22/2024 GASTR OINTE VILLA L PATHO GENS MOLEC ULAR STUDY giardia lamblia detection by PCR Not Detect ed not detect ed Not Available [facility] [address] [place], [place] [address]ie [place], [address], 12/23/2024 14:43:08 12/24/19 25 12/22/2024 GASTR OINTE VILLA L PATHO GENS MOLEC ULAR STUDY adenovirus F 40 41 detection by PCR Not Detect ed not detect ed Not Available [facility] [address] [place], [place] [address]lety [facility], [address], 12/23/2024 14:43:08 12/24/19 25 12/22/2024 GASTR OINTE VILLA L PATHO GENS MOLEC ULAR STUDY astrovirus detection by PCR Not Detect ed not detect ed Not Available [facility] [address] [place], [place] [address], [address], 12/23/2024 14:43:08 12/24/19 25 12/22/2024 GASTR OINTE VILLA L PATHO GENS MOLEC ULAR STUDY norovirus GI gii detection by PCR Not Detect ed Not Available [facility] [address] [place], [place] [address]ie [place], [address], 12/23/2024 14:43:08 12/24/19 25 12/22/2024 GASTR OINTE VILLA L PATHO GENS MOLEC ULAR STUDY sapovirus detection by PCR Not Detect ed not detect ed Not Available [facility] [address] [place], [place] [address]ie [place], [address], 12/23/2024 14:43:08 12/24/19 25 12/22/2024 GASTR OINTE VILLA L PATHO GENS MOLEC ULAR STUDY rotavirus A detection by PCR Detect ed not detect ed abnormal Not Available [facility]/S Dept [address] [place], [place] [address], [address], 12/23/2024 14:43:08 12/24/19 25 12/23/2024 GASTR OINTE VILLA L PATHO GENS MOLEC ULAR STUDY .note See Note Origi nal Order ing Provi lelo: SHANTHI BEE R [facility] - Labor atory - [address], [place], [place] [address] Not Available [facility]/S Dept [address] [place], [place] [address], [address], 12/23/2024 14:43:08 12/27/19 25 12/26/2024 MAGNE SIUM magnesium 2.3 mg/dL 1.9-2. 6 Not Available [facility]/S Dept [address] [place], [place] [address] [place], [address], 12/26/2024 12:52:37 12/27/19 25 12/26/2024 MAGNE SIUM note See Report [facility], [address], [place], [place] [address] Not Available [facility]/S Dept [address] [place], [place] [address] [place], [address], 12/26/2024 12:52:37 12/27/19 25 12/26/2024 BASIC METAB OLIC PANEL sodium 143 mmol/ L 133-14 5 Not Available [facility]/S Dept [address] [place], [place] [address] [place], [address], 12/26/2024 12:52:38 12/27/19 25 12/26/2024 BASIC METAB OLIC PANEL potassium 4.3 mmol/ L 3.5-5. 5 Not Available [facility] [place], [address], 12/26/2024 12:52:38 12/27/19 25 12/26/2024 BASIC METAB OLIC PANEL chloride 104 mmol/ L 96-110 Not Available [facility] [place], [address], 12/26/2024 12:52:38 12/27/19 25 12/26/2024 BASIC METAB OLIC PANEL CO2 32 mmol/ L 21-32 Not Available [facility] [place], [address], 12/26/2024 12:52:38 12/27/19 25 12/26/2024 BASIC METAB OLIC PANEL anion gap 7 3-11 Not Available [facility] [place], [address], 12/26/2024 12:52:38 12/27/19 25 12/26/2024 BASIC METAB OLIC PANEL glucose 67 mg/dL 70-100 low Not Available [facility] [place], [address], 12/26/2024 12:52:38 12/27/19 25 12/26/2024 BASIC METAB OLIC PANEL BUN 13 mg/dL 5-25 Not Available [facility] [place], [address], 12/26/2024 12:52:38 12/27/19 25 12/26/2024 BASIC METAB OLIC PANEL creatinine 0.60 mg/dL 0.50-1 .10 Not Available [facility] [place], [address], 12/26/2024 12:52:38 12/27/19 25 12/26/2024 BASIC METAB OLIC PANEL eGFR 90 mL/mi n/1.7 3m2 >=60 Calcu latio n based on the Chron ic Kidne y Disea se Epide miolo gy Colla borat ion (CKD- EPI) equat ion refit witho ut adjus tment for race. Not Available [facility]/S Dept [address] [place] [address], [address], 12/26/2024 12:52:38 12/27/19 25 12/26/2024 BASIC METAB OLIC PANEL BUN/creatini ne ratio 21.7 Not Available [facility] [address] [place] [address], [place], [address], 12/26/2024 12:52:38 12/27/19 25 12/26/2024 BASIC METAB OLIC PANEL calcium 7.9 mg/dL 8.5-10 .5 low Not Available [facility]/S Dept [address] [place] [address], [place], [address], 12/26/2024 12:52:38 12/27/19 25 12/26/2024 BASIC METAB OLIC PANEL note See Report low [facility], [address], [place], [place] [address] Not Available [facility]/ Dept [address] [place] [address], [place], [address], 12/26/2024 12:52:38 12/27/19 25 12/26/2024 THYRO ID STIMU LATIN G HORMO NE TSH 7.82 mciu/ mL 0.40-4 .00 high Not Available [facility]/S Dept [address] [place] [address], [place], [address], 12/26/2024 14:08:04 12/27/19 25 12/26/2024 THYRO ID STIMU LATIN G HORMO NE note See Report high [facility], [address], [place], [place] [address] Not Available [facility] Dept [address] [facility] [place], [address], 12/26/2024 14:08:04 12/28/19 25 12/26/2024 THYRO XINE FREE free T4 0.88 NG/dL 0.70-1 .80 Not Available [facility]/S Dept [address] [place], [place] [address], [address], 12/27/2024 15:15:44 12/28/19 25 12/26/2024 THYRO XINE FREE note See Report [facility], [address], [place], [place] [address] Not Available [facility]/S Dept [address] [facility] [place], [address], 12/27/2024 15:15:44 12/03/19 25 12/02/2024 strep group A, DNA, swab ID NOW Strep A 2 (rapid molecular test) negati ve Not Available In-Office Order Internal Use Only DO Not Attach Compendium DO Not Attach Compendium, Do Not Delete/merge, [id number] 12/02/2024 11:49:54 12/03/19 25 12/02/2024 rapid SARS CoV 2 Ag, QL IA, respi rator y speci men RAPID SARS COV 2 negati ve Not Available In-Office Order Internal Use Only DO Not Attach Compendium DO Not Attach Compendium, Do Not Delete/merge, [id number] 12/02/2024 11:24:46 01/25/20 25 01/24/2025 CBC WITH AUTO DIFFE RENTI AL WBC 5.5 K/mcL 4.8-10 .8 Not Available [facility]/S Dept [address] [facility] [place], [address], 01/24/2025 16:25:15 01/25/20 25 01/24/2025 CBC WITH AUTO DIFFE RENTI AL RBC 4.10 M/mcL 3.80-4 .80 Not Available [facility]/S Dept [facility] [address], [place], [address], 01/24/2025 16:25:15 01/25/20 25 01/24/2025 CBC WITH AUTO DIFFE RENTI AL hemoglobin 12.5 g/dL 11.5-1 6.0 Not Available [facility]/S Dept [facility] [place], [address], 01/24/2025 16:25:15 01/25/20 25 01/24/2025 CBC WITH AUTO DIFFE RENTI AL hematocrit 38.6 % 35.0-4 7.0 Not Available [facility]/S Dept [facility] [address], [place], [address], 01/24/2025 16:25:15 01/25/20 25 01/24/2025 CBC WITH AUTO DIFFE RENTI AL MCV 95.1 fL 79.0-9 8.0 Not Available [facility]/S Dept [facility] [place], [address], 01/24/2025 16:25:15 01/25/20 25 01/24/2025 CBC WITH AUTO DIFFE RENTI AL MCH 30.8 pcg 27.0-3 2.0 Not Available [facility]/S Dept [facility] [place], [address], 01/24/2025 16:25:15 01/25/20 25 01/24/2025 CBC WITH AUTO DIFFE RENTI AL MCHC 32.4 g/dL 32.0-3 7.0 Not Available [facility]/S Dept [facility] [place], [address], 01/24/2025 16:25:15 01/25/20 25 01/24/2025 CBC WITH AUTO DIFFE RENTI AL RDW 13.7 % 11.0-1 5.0 Not Available [facility] [place], [address], 01/24/2025 16:25:15 01/25/20 25 01/24/2025 CBC WITH AUTO DIFFE RENTI AL platelets 274 K/mcL 130-40 0 Not Available [facility] [place], [address], 01/24/2025 16:25:15 01/25/2001/24/2025 CBC WITH AUTO DIFFE RENTI AL MPV 10.7 fL 7.0-11 .0 Not Available [facility] [place], [address], 01/24/2025 16:25:15 01/25/20 25 01/24/2025 CBC WITH AUTO DIFFE RENTI AL NRBC 0.0 % <1.0 Not Available [facility] [place], [address], 01/24/2025 16:25:15 01/25/2001/24/2025 CBC WITH AUTO DIFFE RENTI AL NRBC absolute 0.00 K/mcL <0.10 Not Available [facility] [place], [address], 01/24/2025 16:25:15 01/25/2001/24/2025 CBC WITH AUTO DIFFE RENTI AL neutrophils relative 67.8 % Not Available [facility] [address] [place], [place] [address], [address], 01/24/2025 16:25:15 01/25/20 25 01/24/2025 CBC WITH AUTO DIFFE RENTI AL lymphocytes relative 20.9 % Not Available [facility] [place], [address], 01/24/2025 16:25:15 01/25/20 25 01/24/2025 CBC WITH AUTO DIFFE RENTI AL monocytes relative 9.7 % Not Available [facility] [facility] [place], [address], 01/24/2025 16:25:15 01/25/20 25 01/24/2025 CBC WITH AUTO DIFFE RENTI AL eosinophils relative 0.7 % Not Available [facility]/S Dept [address] [place], [place] [address]lety [facility], [address], 01/24/2025 16:25:15 01/25/20 25 01/24/2025 CBC WITH AUTO DIFFE RENTI AL basophils relative 0.7 % Not Available [facility] [address] [place], [place] [address]lety [facility], [address], 01/24/2025 16:25:15 01/25/20 25 01/24/2025 CBC WITH AUTO DIFFE RENTI AL immature granulocytes relative 0.2 % Not Available [facility] [address] [place], [place] [address], [address], 01/24/2025 16:25:15 01/25/20 25 01/24/2025 CBC WITH AUTO DIFFE RENTI AL neutrophils absolute 3.72 K/mcL 1.50-7 .00 Not Available [facility]/S Dept [address] [place], [place] [address] [place], [address], 01/24/2025 16:25:15 01/25/20 25 01/24/2025 CBC WITH AUTO DIFFE RENTI AL lymphocytes absolute 1.15 K/mcL 1.00-5 .00 Not Available [facility] [address] [place], [place] [address]lety [facility], [address], 01/24/2025 16:25:15 01/25/20 25 01/24/2025 CBC WITH AUTO DIFFE RENTI AL monocytes absolute 0.53 K/mcL 0.20-1 .00 Not Available [facility] U/S Dept [address] [place] [address] [place], [address], 01/24/2025 16:25:15 01/25/20 25 01/24/2025 CBC WITH AUTO DIFFE RENTI AL eosinophils absolute 0.04 K/mcL 0.00-0 .50 Not Available [facility]/S Dept [address] [place], [place] [address]y[facility] [place], [address], 01/24/2025 16:25:15 01/25/20 25 01/24/2025 CBC WITH AUTO DIFFE RENTI AL basophils absolute 0.04 K/mcL 0.00-0 .20 Not Available [facility]/S Dept [address] [place] [address], [address], 01/24/2025 16:25:15 01/25/20 25 01/24/2025 CBC WITH AUTO DIFFE RENTI AL immature granulocytes absolute 0.01 K/mcL 0.00-0 .03 Not Available [facility]/S Dept [address] [place], [place] [address], [address], 01/24/2025 16:25:15 01/25/20 25 01/24/2025 CBC WITH AUTO DIFFE RENTI AL note See Report [facility], [address], Harmony carrera d, [facility] [place] [address] Not Available [facility] U/S Dept [address] [place], [place] [address], [address], 01/24/2025 16:25:15 01/25/20 25 01/24/2025 COMPR EHENS SHIMON METAB OLIC PANEL sodium 140 mmol/ L 133-14 5 Not Available [facility]/S Dept [address] [place], [place] [address], [address], 01/24/2025 18:17:43 01/25/20 25 01/24/2025 COMPR EHENS SHIMON METAB OLIC PANEL potassium 3.8 mmol/ L 3.5-5. 5 Not Available [facility]/S Dept [facility] [place], [address], 01/24/2025 18:17:43 01/25/20 25 01/24/2025 COMPR EHENS SHIMON METAB OLIC PANEL chloride 105 mmol/ L 96-110 Not Available [facility]/S Dept [address] [place] [address] [place], [address], 01/24/2025 18:17:43 01/25/20 25 01/24/2025 COMPR EHENS SHIMON METAB OLIC PANEL CO2 30 mmol/ L 21-32 Not Available [facility]/S Dept [address] [place] [address] [place], [address], 01/24/2025 18:17:43 01/25/20 25 01/24/2025 COMPR EHENS SHIMON METAB OLIC PANEL anion gap 5 3-11 Not Available [facility]/S Dept [address] [place] [address] [place] [place], [address], 01/24/2025 18:17:43 01/25/20 25 01/24/2025 COMPR EHENS SHIMON METAB OLIC PANEL glucose 71 mg/dL 70-100 Not Available [facility]/S Dept [address] [place] [address] [place] [place], [address], 01/24/2025 18:17:43 01/25/20 25 01/24/2025 COMPR EHENS SHIMON METAB OLIC PANEL BUN 15 mg/dL 5-25 Not Available [facility]/S Dept [address] [place] [address] [place], [address], 01/24/2025 18:17:43 01/25/20 25 01/24/2025 COMPR EHENS SHIMON METAB OLIC PANEL creatinine 0.60 mg/dL 0.50-1 .10 Not Available [facility] U/S Dept [facility] [place], [address], 01/24/2025 18:17:43 01/25/2001/24/2025 COMPR EHENS SHIMON METAB OLIC PANEL eGFR 90 mL/mi n/1.7 3m2 >=60 Calcu latio n based on the Chron ic Kidne y Disea se Epide miolo gy Colla borat ion (CKD- EPI) equat ion refit witho ut adjus tment for race. Not Available [facility]/S Dept [facility] [place], [address], 01/24/2025 18:17:43 01/25/20 25 01/24/2025 COMPR EHENS SHIMON METAB OLIC PANEL BUN/creatini ne ratio 25.0 Not Available [facility]/S Dept [facility] De[place], [address], 01/24/2025 18:17:43 01/25/20 25 01/24/2025 COMPR EHENS SHIMON METAB OLIC PANEL calcium 9.5 mg/dL 8.5-10 .5 Not Available [facility]/S Dept [facility] [place], [address], 01/24/2025 18:17:43 01/25/20 25 01/24/2025 COMPR EHENS SHIMON METAB OLIC PANEL AST (SGOT) 12 unit/ L 10-42 Not Available [facility]/S Dept [facility] [address] [place], [address], 01/24/2025 18:17:43 01/25/20 25 01/24/2025 COMPR EHENS SHIMON METAB OLIC PANEL ALT (SGPT) 18 unit/ L 10-60 Not Available [facility]/S Dept [facility] [place], [address], 01/24/2025 18:17:43 01/25/20 25 01/24/2025 COMPR EHENS SHIMON METAB OLIC PANEL alkaline phosphatase 80 unit/ L 42-121 Not Available [facility] U/S Dept [facility] [place], [address], 01/24/2025 18:17:43 01/25/20 25 01/24/2025 COMPR EHENS SHIMON METAB OLIC PANEL total protein 6.9 g/dL 6.0-8. 0 Not Available [facility] U/S Dept [address] [place] [address] [place], [address], 01/24/2025 18:17:43 01/25/20 25 01/24/2025 COMPR EHENS SHIMON METAB OLIC PANEL albumin 3.9 g/dL 3.2-5. 0 Not Available [facility]/S Dept [address] [place] [address] [facility] [place], [address], 01/24/2025 18:17:43 01/25/20 25 01/24/2025 COMPR EHENS SHIMON METAB OLIC PANEL total bilirubin 0.4 mg/dL 0.0-1. 4 Not Available [facility]/S Dept [address] [place] [address] [place], [address], 01/24/2025 18:17:43 01/25/20 25 01/24/2025 COMPR EHENS SHIMON METAB OLIC PANEL note See Report [facility], [address], Harmony carrera d, [facility] [place] [address] Not Available [facility] U/S Dept [address] [place] [address] [place] [place], [address], 01/24/2025 18:17:43 01/25/20 25 01/24/2025 LIPAS E lipase 23 unit/ L 13-75 Not Available [facility] U/S Dept [address] [place] [address] [place] [place], [address], 01/24/2025 18:17:45 01/25/20 25 01/24/2025 LIPAS E note See Report [facility] Cecilia al Eliere r, [address], Harmony carrera d, [place] [address] Not Available [facility] U/S Dept [address], [place], [address], 01/24/2025 18:17:45 02/14/20 25 02/14/2025 LIPID PANEL cholesterol, total 181 mg/dL 100-19 9 normal Not Available [facility] ([facility]) [address] [place], [address], 02/14/2025 08:06:46 02/14/20 25 02/14/2025 LIPID PANEL triglyceride s 50 mg/dL 0-149 normal Not Available [facility] ([facility]) [address] [place], [address], 02/14/2025 08:06:46 02/14/20 25 02/14/2025 LIPID PANEL HDL cholesterol 62 mg/dL >39 normal Not Available [facility] ([facility]) [address] [place], [address], 02/14/2025 08:06:46 02/14/20 25 02/14/2025 LIPID PANEL VLDL cholesterol qiana 10 mg/dL 5-40 Not Available [facility] ([facility]) [address] [place], [address], 02/14/2025 08:06:46 02/14/20 25 02/14/2025 LIPID PANEL LDL chol calc ([facility]) 109 mg/dL 0-99 above high normal Not Available [facility] ([facility]) [address] [place], [address], 02/14/2025 08:06:46 02/14/20 25 02/14/2025 LIPID PANEL 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 Not Available [facility] ([facility]) [address] [facility], [place], [address], 02/14/2025 08:06:46 02/14/20 25 02/14/2025 ALT+A ST AST (SGOT) 18 IU/L 0-40 normal Not Available [facility] ([facility]) [address] [place], [address], 02/14/2025 08:06:47 02/14/20 25 02/14/2025 ALT+A ST ALT (SGPT) 9 IU/L 0-32 normal Not Available [facility] ([facility]) [address] [place], [address], 02/14/2025 08:06:47 02/14/20 25 02/14/2025 TSH+F REE T4 TSH 1.510 uIU/m L 0.450- 4.500 normal Not Available [facility] ([facility]) [address] [place], [address], 02/14/2025 12:05:47 02/14/20 25 02/14/2025 TSH+F REE T4 T4,free(dire ct) 1.24 NG/dL 0.82-1 .77 normal Not Available [facility] ([facility]) [address] [place], [address], 02/14/2025 12:05:47 04/16/20 25 04/17/2025 FE+TI BC+FE R iron bind.cap.(TI BC) 311 ug/dL 250-45 0 normal Not Available [facility] ([facility]) [address] [place], [address], 04/18/2025 10:05:59 04/16/20 25 04/17/2025 FE+TI BC+FE R UIBC 239 ug/dL 118-36 9 normal Not Available [facility] ([facility]) [address] [place], [address], 04/18/2025 10:05:59 04/16/20 25 04/17/2025 FE+TI BC+FE R iron 72 ug/dL 27-139 normal Not Available [facility] ([facility]) [address] [place], [address], 04/18/2025 10:05:59 04/16/2004/17/2025 FE+TI BC+FE R iron saturation 23 % 15-55 normal Not Available [facility] ([facility]) [address] [place], [address], 04/18/2025 10:05:59 04/16/2004/17/2025 FE+TI BC+FE R ferritin 135 NG/mL 15-150 normal Not Available [facility] ([facility]) [address] [place], [address], 04/18/2025 10:05:59 04/16/2004/17/2025 TSH+F REE T4 TSH 1.300 uIU/m L 0.450- 4.500 normal Not Available [facility] ([facility]) [address] [place], [address], 04/18/2025 10:06:00 04/16/2004/17/2025 TSH+F REE T4 T4,free(dire ct) 1.31 NG/dL 0.82-1 .77 normal Not Available [facility] ([facility]) [address] [place], [address], 04/18/2025 10:06:00 04/16/2004/17/2025 CBC WITH DIFFE RENTI AL/PL ATELE T WBC 5.5 x10e3 /uL 3.4-10 .8 normal Not Available [facility] ([facility]) [address] [place], [address], 04/18/2025 10:06:01 04/16/20 25 04/17/2025 CBC WITH DIFFE RENTI AL/PL ATELE T RBC 4.15 x10e6 /uL 3.77-5 .28 normal Not Available [facility] ([facility]) [address] [facility], [place], [address], 04/18/2025 10:06:01 04/16/2004/17/2025 CBC WITH DIFFE RENTI AL/PL ATELE T hemoglobin 12.5 g/dL 11.1-1 5.9 normal Not Available [facility] ([facility]) [address] [place], [address], 04/18/2025 10:06:01 04/16/2004/17/2025 CBC WITH DIFFE RENTI AL/PL ATELE T hematocrit 39.0 % 34.0-4 6.6 normal Not Available [facility] ([facility]) [address] [place], [address], 04/18/2025 10:06:01 04/16/2004/17/2025 CBC WITH DIFFE RENTI AL/PL ATELE T MCV 94 fL 79-97 normal Not Available [facility] ([facility]) [address] [place], [address], 04/18/2025 10:06:01 04/16/2004/17/2025 CBC WITH DIFFE RENTI AL/PL ATELE T MCH 30.1 pg 26.6-3 3.0 normal Not Available [facility] ([facility]) [address] [place], [address], 04/18/2025 10:06:01 04/16/20 25 04/17/2025 CBC WITH DIFFE RENTI AL/PL ATELE T MCHC 32.1 g/dL 31.5-3 5.7 normal Not Available [facility] ([facility]) [address] [place], [address], 04/18/2025 10:06:01 04/16/20 25 04/17/2025 CBC WITH DIFFE RENTI AL/PL ATELE T RDW 12.9 % 11.7-1 5.4 Not Available [facility] ([facility]) [address] [facility], [place], [address], 04/18/2025 10:06:01 04/16/20 25 04/17/2025 CBC WITH DIFFE RENTI AL/PL ATELE T platelets 276 x10e3 /uL 150-45 0 normal Not Available [facility] ([facility]) [address] [facility], [place], [address], 04/18/2025 10:06:01 04/16/2004/17/2025 CBC WITH DIFFE RENTI AL/PL ATELE T neutrophils 67 % not estab. normal Not Available [facility] ([facility]) [address] [facility], [place], [address], 04/18/2025 10:06:01 04/16/20 25 04/17/2025 CBC WITH DIFFE RENTI AL/PL ATELE T lymphs 23 % not estab. normal Not Available [facility] ([facility]) [address] [facility], [place], [address], 04/18/2025 10:06:01 04/16/20 25 04/17/2025 CBC WITH DIFFE RENTI AL/PL ATELE T monocytes 8 % not estab. normal Not Available [facility] ([facility]) [address] [facility], [place], [address], 04/18/2025 10:06:01 04/16/20 25 04/17/2025 CBC WITH DIFFE RENTI AL/PL ATELE T eos 1 % not estab. normal Not Available [facility] ([facility]) [address] [facility], [place], [address], 04/18/2025 10:06:01 04/16/20 25 04/17/2025 CBC WITH DIFFE RENTI AL/PL ATELE T basos 1 % not estab. normal Not Available [facility] ([facility]) [address] [facility], [place], [address], 04/18/2025 10:06:01 04/16/20 25 04/17/2025 CBC WITH DIFFE RENTI AL/PL ATELE T immature cells FILM PROCESS OPERATOR Not Available [facility] ([facility]) [address] [facility], [place], [address], 04/18/2025 10:06:01 04/16/20 25 04/17/2025 CBC WITH DIFFE RENTI AL/PL ATELE T neutrophils (absolute) 3.7 x10e3 /uL 1.4-7. 0 normal Not Available [facility] ([facility]) [address] [facility], [place], [address], 04/18/2025 10:06:01 04/16/20 25 04/17/2025 CBC WITH DIFFE RENTI AL/PL ATELE T lymphs (absolute) 1.3 x10e3 /uL 0.7-3. 1 normal Not Available [facility] ([facility]) [address] [facility], [place], [address], 04/18/2025 10:06:01 04/16/20 25 04/17/2025 CBC WITH DIFFE RENTI AL/PL ATELE T monocytes(ab solute) 0.5 x10e3 /uL 0.1-0. 9 normal Not Available [facility] ([facility]) [address] [place], [address], 04/18/2025 10:06:01 04/16/20 25 04/17/2025 CBC WITH DIFFE RENTI AL/PL ATELE T eos (absolute) 0.1 x10e3 /uL 0.0-0. 4 normal Not Available [facility] ([facility]) [address] [facility], [place], [address], 04/18/2025 10:06:01 04/16/20 25 04/17/2025 CBC WITH DIFFE RENTI AL/PL ATELE T baso (absolute) 0.0 x10e3 /uL 0.0-0. 2 normal Not Available [facility] ([facility]) [address] [facility], [place], [address], 04/18/2025 10:06:01 04/16/20 25 04/17/2025 CBC WITH DIFFE RENTI AL/PL ATELE T immature granulocytes 0 % not estab. Not Available [facility] ([facility]) [address] [facility], [place], [address], 04/18/2025 10:06:01 04/16/20 25 04/17/2025 CBC WITH DIFFE RENTI AL/PL ATELE T immature grans (abs) 0.0 x10e3 /uL 0.0-0. 1 Not Available [facility] ([facility]) [address] [facility], [place], [address], 04/18/2025 10:06:01 04/16/20 25 04/17/2025 CBC WITH DIFFE RENTI AL/PL ATELE T NRBC FILM PROCESS OPERATOR Not Available [facility] ([facility]) [address] [facility], [place], [address], 04/18/2025 10:06:01 04/16/20 25 04/17/2025 CBC WITH DIFFE RENTI AL/PL ATELE T hematology comments: FILM PROCESS OPERATOR Not Available [facility] ([facility]) [address] [facility], [place], [address], 04/18/2025 10:06:01 04/16/20 25 04/17/2025 COMP. METAB OLIC PANEL (14) glucose 73 mg/dL 70-99 normal Not Available [facility] ([facility]) [address] [facility], [place], [address], 04/18/2025 10:06:02 04/16/20 25 04/17/2025 COMP. METAB OLIC PANEL (14) BUN 15 mg/dL 8-27 normal Not Available [facility] ([facility]) [address] [facility] [place], [address], 04/18/2025 10:06:02 04/16/20 25 04/17/2025 COMP. METAB OLIC PANEL (14) creatinine 0.58 mg/dL 0.57-1 .00 normal Not Available [facility] ([facility]) [address] [facility] [place], [address], 04/18/2025 10:06:02 04/16/20 25 04/17/2025 COMP. METAB OLIC PANEL (14) eGFR 90 mL/mi n/1.7 3 >59 normal Not Available [facility] ([facility]) [address] [facility] [place], [address], 04/18/2025 10:06:02 04/16/20 25 04/17/2025 COMP. METAB OLIC PANEL (14) BUN/creatini ne ratio 26 12-28 normal Not Available [facility] ([facility]) [address] [facility] [place], [address], 04/18/2025 10:06:02 04/16/20 25 04/17/2025 COMP. METAB OLIC PANEL (14) sodium 142 mmol/ L 134-14 4 normal Not Available [facility] ([facility]) [address] [facility] [place], [address], 04/18/2025 10:06:02 04/16/20 25 04/17/2025 COMP. METAB OLIC PANEL (14) potassium 4.2 mmol/ L 3.5-5. 2 normal Not Available [facility] ([facility]) [address] [facility] [place], [address], 04/18/2025 10:06:02 04/16/20 25 04/17/2025 COMP. METAB OLIC PANEL (14) chloride 102 mmol/ L 96-106 normal Not Available [facility] ([facility]) [address] [facility] [place], [address], 04/18/2025 10:06:02 04/16/20 25 04/17/2025 COMP. METAB OLIC PANEL (14) carbon dioxide, total 26 mmol/ L 20-29 normal Not Available [facility] ([facility] [address] [facility] [place], [address], 04/18/2025 10:06:02 04/16/20 25 04/17/2025 COMP. METAB OLIC PANEL (14) calcium 9.5 mg/dL 8.7-10 .3 normal Not Available [facility] ([facility]) [address] [facility] [place], [address], 04/18/2025 10:06:02 04/16/20 25 04/17/2025 COMP. METAB OLIC PANEL (14) protein, total 6.6 g/dL 6.0-8. 5 normal Not Available [facility] ([facility]) [address] [facility] [place], [address], 04/18/2025 10:06:02 04/16/2004/17/2025 COMP. METAB OLIC PANEL (14) albumin 4.5 g/dL 3.7-4. 7 normal Not Available [facility] ([facility]) [address] [facility] [place], [address], 04/18/2025 10:06:02 04/16/20 25 04/17/2025 COMP. METAB OLIC PANEL (14) globulin, total 2.1 g/dL 1.5-4. 5 Not Available [facility] ([facility]) [address] [facility] [place], [address], 04/18/2025 10:06:02 04/16/20 25 04/17/2025 COMP. METAB OLIC PANEL (14) bilirubin, total 0.3 mg/dL 0.0-1. 2 normal Not Available [facility] ([facility]) [address] [facility] [place], [address], 04/18/2025 10:06:02 04/16/20 25 04/17/2025 COMP. METAB OLIC PANEL (14) alkaline phosphatase 84 IU/L 48-129 normal Not Available [facility] ([facility]) [address] [facility], [place], [address], 04/18/2025 10:06:02 04/16/20 25 04/17/2025 COMP. METAB OLIC PANEL (14) AST (SGOT) 18 IU/L 0-40 normal Not Available [facility] ([facility]) [address] [facility], [place], [address], 04/18/2025 10:06:02 04/16/20 25 04/17/2025 COMP. METAB OLIC PANEL (14) ALT (SGPT) 14 IU/L 0-32 normal Not Available [facility] ([facility]) [address] [facility], [place], [address], 04/18/2025 10:06:02 04/16/20 25 04/17/2025 SEDIM ENTAT ION RATE- WESTE RGREN sedimentatio n rate-westerg remigio 9 mm/HR 0-40 normal Not Available [facility] ([facility]) [address] [place], [address], 04/18/2025 10:06:03 04/16/20 25 04/17/2025 C-KYLER CTIVE PROTE IN, QUANT C-reactive protein, quant <1 mg/L 0-10 Not Available [facility] ([facility]) [address] [facility], [place], [address], 04/18/2025 10:06:04 04/16/20 25 04/18/2025 BILE ACIDS bile acids 5.5 umol/ L 0.0-10 .0 normal Not Available [facility] ([facility]) [address] [place], [address], 04/18/2025 10:06:05 04/16/20 25 04/16/2025 rapid influ ferny virus A + B and SARS CoV + SARS CoV 2 Ag panel , IA, upper respi rator y speci men Unknown Analyte negati ve Not Available In-Office Order Internal Use Only DO Not Attach Compendium DO Not Attach Compendium, Do Not Delete/merge, [id number] 04/16/2025 14:55:01 04/16/20 25 04/16/2025 rapid influ ferny virus A + B and SARS CoV + SARS CoV 2 Ag panel , [place], upper respi rator y speci men Unknown Analyte negati ve Not Available In-Office Order Internal Use Only DO Not Attach Compendium DO Not Attach Compendium, Do Not Delete/merge, [id number] 04/16/2025 14:55:01 04/16/20 25 04/16/2025 rapid influ ferny virus A + B and SARS CoV + SARS CoV 2 Ag panel , IA, upper respi rator y speci men Unknown Analyte negati ve Not Available In-Office Order Internal Use Only DO Not Attach Compendium DO Not Attach Compendium, Do Not Delete/merge, [id number] 04/16/2025 14:55:01 12/13/19 25 12/12/2024 XR, chest , 2 view No observ ation record ed. [email or web address] [facility] (Medical Records) [address] [place] [address], [id number], 12/13/2024 08:02:24 12/13/19 25 12/12/2024 XR, chest No observ ation record ed. [facility] (Medical Records) [address] [place] [address], [id number], 12/13/2024 08:00:31 12/13/19 25 12/12/2024 NM, lung scan, venti latio n/per fusio n No observ ation record ed. [facility] (Medical Records) [address] [place] [address], [id number], 12/13/2024 08:01:11 04/17/20 25 04/16/2025 XR, chest , 2 view Chest 2 Views Fronta l and Lat Reason : upper respir atory sympto m COMPAR NICANOR: None. FINDIN GS: LINES AND TUBES: None. LUNGS AND PLEURA : Hyperi nflate d with flatte oscar of diaphr agm and mildly promin ent inters titial markin gs assist ant with emphys reynaldo. Normal pulmon harsha vascul arity. No eviden ce of pleura l effusi on. No pneumo thorax . HEART, MEDIAS TINUM AND WILLIS: Heart is normal in size. Aorta is calcif ied. BONES AND SOFT TISSUE S: No acute abnorm ality. Mild S-shap ed scolio sis of the thorac ic spine with associ ated degene rative change s. IMPRES PAULINE: Mild bilate ral emphys reynaldo withou t eviden ce of superi mposed acute abnorm ality WSN: [id number] Orderi ng Physic lindsey: Demetrio Villareal Dictat ed By: Daniel Orozco MD, V Dictat ed Date/T corinne: 9:42 am Review ed By: Freddy hernandez MD, Daniel Vazquez Signed By: Daniel Orozco MD, V Signed Date/T corinne: 9:42 am Transc ribed By: DEVAN Transc ribed Date/T corinne: 9:26 am Patien t Class: Outpat ient [email or web address] [facility] (Outpt Imaging) [address] [facility], [place], [address], 04/19/2025 17:26:10 04/17/20 25 04/16/2025 XR, chest , 2 view No observ ation record ed. [email or web address] [facility] [address] , [place], [address], 04/18/2025 11:36:33 Result Notes Documentation Provider Name and Address Organization Details Recorded Time Xr, Chest, 2 View : Chest 2 Views Frontal and Lat Reason: upper respiratory symptom COMPARISON: None. FINDINGS: LINES AND TUBES: None. 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 Normal pulmonary vascularity. No evidence of pleural effusion. No pneumothorax. HEART, MEDIASTINUM AND WILLIS: Heart is normal in size. Aorta is calcified. BONES AND SOFT TISSUES: No acute abnormality. Mild S-shaped scoliosis of the thoracic spine with associated degenerative changes. IMPRESSION: Mild bilateral emphysema without evidence of superimposed acute abnormality WSN: [id number] Ordering Physician: Heather Villareal Dictated By: Daniel Hoffman MD, V Dictated Date/Time: 04/17/25 9:42 am Reviewed By: Daniel Hoffman MD, V Signed By: Daniel Hoffman MD, V Signed Date/Time: 04/17/25 9:42 am Transcribed By: DEVAN Transcribed Date/Time: 04/17/25 9:26 am [facility] 17[facility]26[facility]10 Problems Name Problem SNOMED Code Status Onset Date Resolution Date Notes Provider Name and Address Organization Details Recorded Time Mammogra phy abnormal [id number] Completed 12/24/2017 Chris Boss MD [address] [facility] [address], [place], [address] , [facility] 8 14:17:14 Allergic rhinitis 13845197 Active Not Available [facility] 0 13:22:56 Anxiety state 655899538 Active Not Available [facility] 0 13:22:56 Disorder of bursa of shoulder region 91141067 Completed 12/24/2017 Chris Boss MD [address] [facility] [address], [place], [address] , [facility] 8 14:16:54 Essentia l hyperten pauline 28864338 Active Not Available [facility] 0 13:22:56 Malaise and fatigue 540771214 Com[facility]16[facility] 6 11:07:17 Gastroes ophageal reflux disease 219344086 Active Not Available [facility] 0 13:22:56 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 Completed 05/24/2023 Heather Villareal MD [address], [place], [address] , [facility] 3 12:01:08 Hyperlip idemia 16808984 Active Not Available [facility] 0 13:22:56 Hypothyr oidism 63125646 Active Not Available [facility] 0 13:22:56 Obesity 622448610 Completed 05/26/2024 Heather Villareal MD [address], [place], [address] , [facility] 4 13:17:25 Osteopor osis 41104683 Completed 12/24/2017 Chris Boss MD [address], [place], [address] , [facility] 8 14:16:50 Cramp in lower leg associat ed with rest 751384308 Completed 05/24/2023 Heather Villareal MD [address] [facility] [address], [place], [address] , [facility] 3 12:00:10 Urinary tract infectio us disease 00134146 Completed 06/16/2016 ALBERTO Kaur, [facility] 6 11:07:26 Varicose veins of lower extremit y 31855014 Active Not Available [facility] 0 13:22:56 Candidal vulvovag initis 73096010 Completed 06/16/2016 ALBERTO Kaur, [facility] 6 11:07:30 Chronic obstruct shimon pulmonar y disease 91190938 Active Not Available [facility] 0 13:22:56 Fatigue 38775767 Completed 06/16/2016 ALBERTO Kaur, [facility] 6 11:07:36 Degenera tion of lumbar interver tebral disc 53820880 Active Not Available [facility] 0 13:22:56 Tubular adenoma 834659530 Active Not Available [facility] 0 13:22:56 Poor short-te rm memory 305715175 Active Not Available [facility] 0 13:22:56 On examinat ion - varicose veins Completed 06/16/2016 ALBERTO Kaur, [facility] 6 11:07:44 Menopaus e present 994990437 Completed 05/22/2022 Heather Villareal MD [address], [place], [address] , [facility] 2 06:31:30 Acute sinusiti s 34025279 Completed 06/16/2016 ALBERTO Kaur, [facility] 6 11:07:07 Vaginiti s 66422004 Completed 06/16/2016 ALBERTO Kaur, [facility] 6 11:07:21 Acute exacerba tion of chronic obstruct shimon pulmonar y disease 203981851 Completed 12/24/2017 Chris Boss MD [address], [place], [address] , [facility] 8 14:17:10 Cervical spondylo sis 975771425 Active Not Available [facility] 0 13:22:56 Neuralgi a 79222981 Completed 200601/23/2014 RESOLVED DATE: 12/16/19 07; RECORDED 12/16/19 07 2:03PM BY CHRIS BOSS MD, OFFICE VISIT ALBERTO Kaur, [facility] 6 10:53:01 Neuralgi a 66547104 Completed 200602/15/2014 RESOLVED DATE: 12/16/19 07; RECORDED 12/16/19 07 2:03PM BY CHRIS BOSS MD, OFFICE VISIT ALBERTO Kaur, [facility] 6 10:53:01 Neuralgi a 76525105 Completed 200602/16/2014 RESOLVED DATE: 12/16/19 07; RECORDED 12/16/19 07 2:03PM BY CHRIS BOSS MD, OFFICE VISIT ALBERTO Kaur, [facility] 6 10:53:01 Acute secretor y otitis media 730130513 Completed 200701/23/2014 IMPRESSI ON: LEFT TM WITH LARGE EFFUSION , PT WITH MILD VERTIGO, NOT DRIVING DUE TO THIS CURRENTL Y, TREAT WITH ZPAK; RECORDED 03/28/20 08 11:04AM BY ANEUDY CAMARGO MA, ANNOTATI ON/ADDEN DUM ALBERTO Kaur, [facility] 6 10:53:01 Acute pharyngi tis 797906494 Completed 200701/23/2014 RECORDED 03/28/20 08 11:04AM BY ANEUDY CAMARGO MA, ANNOTATI ON/ADDEN DUM ALBERTO Boateng, [facility] 5 10:59:22 Acute sinusiti s 86075300 Completed 200701/23/2014 IMPRESSI ON: 1 WEEK OF SYMPTOMS , LOTS OF SINUS PRESSURE AND VERTIGO; RECORDED 03/28/20 08 11:04AM BY ANEUDY CAMARGO MA, BRICE ON/ADDEN DUM ALBERTO Kaur, [facility] 6 11:07:08 Administ ration of diphther ia and tetanus vaccine Completed 200701/23/2014 RECORDED 03/28/20 08 10:58AM BY ANEUDY CAMARGO MA, OFFICE VISIT ALBERTO Kaur, [facility] 6 10:53:01 Malignan t neoplasm of lip, oral cavity and pharynx 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 Completed 200701/23/2014 RECORDED 03/28/20 08 10:32PM BY CHRIS BOSS MD, ANNOTATI ON/ADD DUM ALBERTO Kaur, [facility] 6 10:53:01 Pain in thoracic spine 159218108 Completed 200701/23/2014 RECORDED 03/28/20 08 10:32PM BY CHRIS BOSS MD, ANNOTATI ON/ADD DUM ALBERTO Kaur, [facility] 6 10:53:01 Speciali naresh medical examinat ion Completed 200701/23/2014 RECORDED 03/28/20 08 11:04AM BY ANEUDY CAMARGO MA, BRICE ON/ADDEN DUM ALBERTO Kaur, [facility] 6 10:53:01 Acute secretor y otitis media 929417005 Completed 200702/15/2014 IMPRESSI ON: LEFT TM WITH LARGE EFFUSION , PT WITH MILD VERTIGO, NOT DRIVING DUE TO THIS CURRENTL Y, TREAT WITH ZPAK; RECORDED 03/28/20 08 11:04AM BY ANEUDY CAMARGO MA, BRICE ON/ADD ALBERTO Kaur, [facility] 6 10:53:01 Acute pharyngi tis 657222445 Completed 200702/15/2014 RECORDED 03/28/20 08 11:04AM BY ANEUDY CAMARGO MA, ANNOTATI ON/ADD DUM ALBERTO Boateng, [facility] 5 10:59:22 Acute sinusiti s 56913687 Completed 200702/15/2014 IMPRESSI ON: 1 WEEK OF SYMPTOMS , LOTS OF SINUS PRESSURE AND VERTIGO; RECORDED 03/28/20 08 11:04AM BY ANEUDY CAMARGO MA, BRICE ON/ADD DUM ALBERTO Kaur, [facility] 6 11:07:08 Administ ration of diphther ia and tetanus vaccine Completed 200702/15/2014 RECORDED 03/28/20 08 10:58AM BY ANEUDY CAMARGO MA, OFFICE VISIT ALBERTO Kaur, [facility] 6 10:53:01 Malignan t neoplasm of lip, oral cavity and pharynx 273703799 Completed 200702/15/2014 RECORDED 03/28/20 08 10:32PM BY CHRIS BOSS MD, ANNOTATI ON/ADD DUM ALBERTO Kaur [facility] 6 10:53:01 Pain in thoracic spine 053379789 Completed 200702/15/2014 RECORDED 03/28/20 08 10:32PM BY CHRIS BOSS MD, ANNOTATI ON/ADD DUM ALBERTO Kaur, [facility] 6 10:53:01 Speciali naresh medical examinat ion Completed 200702/15/2014 RECORDED 03/28/20 08 11:04AM BY ANEDUY CAMARGO MA, ANNOTKAM ON/ADD DUM ALBERTO Kaur, [facility] 6 10:53:01 Acute secretor y otitis media 421676564 Completed 200702/16/2014 IMPRESSI ON: LEFT TM WITH LARGE EFFUSION , PT WITH MILD VERTIGO, NOT DRIVING DUE TO THIS CURRENTL Y, TREAT WITH ZPAK; RECORDED 03/28/20 08 11:04AM BY ANEUDY CAMARGO MA, ANNOTKAM ON/ADD DUM ALBERTO Kaur, [facility] 6 10:53:01 Acute pharyngi tis 059372573 Completed 200702/16/2014 RECORDED 03/28/20 08 11:04AM BY ANEUDY CAMARGO MA, BRICE ON/ADDEN DUM ALBERTO Boateng, [facility] 5 10:59:22 Acute sinusiti s 29704901 Completed 200702/16/2014 IMPRESSI ON: 1 WEEK OF SYMPTOMS , LOTS OF SINUS PRESSURE AND VERTIGO; RECORDED 03/28/20 08 11:04AM BY ANEUDY CAMARGO MA, ANNOTKAM ON/ADD DUM ALBERTO Kaur [facility] 6 11:07:08 Administ ration of diphther ia and tetanus vaccine Completed 200702/16/2014 RECORDED 03/28/20 08 10:58AM BY ANEUDY CAMARGO MA, OFFICE VISIT ALBERTO Kaur [facility] 6 10:53:01 Malignan t neoplasm of lip, oral cavity and pharynx 199048328 Completed 200702/16/2014 RECORDED 03/28/20 08 10:32PM BY CHRIS BOSS MD, BRICE ON/ADD DUM ALBERTO Kaur [facility] 6 10:53:01 Pain in thoracic spine 900303467 Completed 200702/16/2014 RECORDED 03/28/20 08 10:32PM BY CHRIS BOSS MD, BRICE ON/ADD DUM ALBERTO Kaur [facility] 6 10:53:01 Speciali zed medical examinat ion Completed 200702/16/2014 RECORDED 03/28/20 08 11:04AM BY ANEUDY CAMARGO MA, BRICE ON/ADDEN DUM ALBERTO Kaur [facility] 6 10:53:01 Active or passive immuniza tion Completed 200801/23/2014 RECORDED 08/15/19 09 11:18AM BY CHRIS BOSS MD, OFFICE VISIT ALBERTO Kaur, [facility] 6 10:53:01 Active or passive immuniza tion Completed 200802/15/2014 RECORDED 08/15/19 09 11:18AM BY CHRIS BOSS MD, OFFICE VISIT ALBERTO Kaur, [facility] 6 10:53:01 Active or passive immuniza tion Completed 200802/16/2014 RECORDED 08/15/19 09 11:18AM BY CHRIS BOSS MD, OFFICE VISIT ALBERTO Kaur, [facility] 6 10:53:01 Inflamma tory disorder of extremit y Completed 200801/23/2014 RECORDED 03/20/20 09 8:43AM BY TRUDY SIERRAATI ON/ADDEN DUM Aneudy ALBERTO Garcia [facility] 6 10:53:01 Respirat ory finding Completed 200801/23/2014 RECORDED 03/20/20 09 8:42AM BY TRUDY SIERRAATI ON/ADDEN DUM Aneudy ALBERTO Garcia, [facility] 6 10:53:01 Lumbar sprain 850603025 Completed 200801/23/2014 RECORDED 03/20/20 09 8:43AM BY TRUDY SIERRAATI ON/ADDEN DUM Aneudy ALBERTO Garcia, [facility] 6 10:53:01 Screenin g for malignan t neoplasm of colon Completed 200801/23/2014 RECORDED 03/20/20 09 8:42AM BY ALBERTO CALLAWAY ANNOTATI ON/ADDEN DUM Aneudy ALBERTO Garcia, [facility] 6 10:53:01 Inflamma tory disorder of extremit y Completed 200802/15/2014 RECORDED 03/20/20 09 8:43AM BY ALBERTO CALLAWAY, ANNOTATI ON/ADDEN DUM Aneudy Ladonna-Ma ALBERTO lockett, [facility] 6 10:53:01 Respirat ory finding Completed 200802/15/2014 RECORDED 03/20/20 09 8:42AM BY TRUDY SIERRAATI ON/ADDEN DUM Aneudy Ladonna-Ma ALBERTO lockett, [facility] 6 10:53:01 Lumbar sprain 528531094 Completed 200802/15/2014 RECORDED 03/20/20 09 8:43AM BY TRUDY SIERRAATI ON/ADDEN DUM Aneudy Ladonna-Ma ALBERTO lockett, [facility] 6 10:53:01 Inflamma tory disorder of extremit y Completed 200802/16/2014 RECORDED 03/20/20 09 8:43AM BY TRUDY SIERRAATI ON/ADDEN DUM Aneudy Ladonna-ALBERTO Prado, [facility] 6 10:53:01 Respirat ory finding Completed 200802/16/2014 RECORDED 03/20/20 09 8:42AM BY TRUDY SIERRAATI ON/ADDEN DUM Aneudy Ladonna-ALBERTO Prado, [facility] 6 10:53:01 Lumbar sprain 711536006 Completed 200802/16/2014 RECORDED 03/20/20 09 8:43AM BY TRUDY SIERRAATI ON/ADDEN DUM Aneudy Ladonna-ALBERTO Prado, [facility] 6 10:53:01 Parotiti s 27711828 Completed 200901/23/2014 RECORDED 12/26/19 10 1:32PM BY CHRIS BOSS MD, ANNOTATI ON/ADDEN DUM Aneudy Ladonna-Ma ttos, [place] null, [facility] 6 10:53:01 Parotiti s 32664703 Completed 200902/15/2014 RECORDED 12/26/19 10 1:32PM BY CHRIS BOSS MD, ANNOTATI ON/ADDEN DUM ALBERTO Kaur, [facility] 6 10:53:01 Parotiti s 16922229 Completed 200902/16/2014 RECORDED 12/26/19 10 1:32PM BY CHRIS BOSS MD, ANNOTATI ON/ADDEN DUM ALBERTO Kaur, [facility] 6 10:53:01 Screenin g for malignan t neoplasm of breast Completed 201101/23/2014 RECORDED 06/22/20 12 10:05AM BY ANEUDY CAMARGO MA, ANNOTKAM ON/ADDEN DUM ALBERTO Kaur, [facility] 6 10:53:01 Neck pain 54803936 Completed 201101/23/2014 RECORDED 06/22/20 12 10:05AM BY ANEUDY CAMARGO MA, ANNOTKAM ON/ADDEN DUM Heather Villareal MD [address] [facility] [address], [facility] [place], [address] , [facility] 2 09:56:35 Concussi on injury of brain 717885156 Completed 201101/23/2014 STORY: BRIEF LOC AFTER FALL IN [facility] NT 06/06. CT HEAD NEGATIVE ; RECORDED 06/22/20 12 10:05AM BY ANEUDY CAMARGO MA ANNOTKAM ON/ADDEN DUM ALBERTO Kaur, [facility] 6 10:53:01 Antibody measurem ent [id number] Completed 201101/23/2014 RECORDED 06/22/20 12 10:05AM BY ANEUDY CAMARGO MA, ANNOTATI ON/ADDEN DUM ALBERTO Kaur, [facility] 6 10:53:01 Administ ration of viral vaccine Completed 201101/23/2014 RECORDED 06/22/20 12 10:05AM BY ANEUDY CAMARGO MA, ANNOTATI ON/ADDEN DUM ALBERTO Kaur, [facility] 6 10:53:01 Screenin g for malignan t neoplasm of breast Completed 201102/15/2014 RECORDED 06/22/20 12 10:05AM BY ANEUDY CAMARGO MA, ANNOTATI ON/ADDEN DUM Aneudy lockett [place] null, [facility] 6 10:53:01 Neck pain 16070202 Completed 201102/15/2014 RECORDED 06/22/20 12 10:05AM BY ANEUDY CAMARGO MA, ANNOTATI ON/ADDEN DUM Heather Villareal MD [address] [facility] [address], [place], [address] , [facility] 2 09:56:35 Concussi on injury of brain 781418708 Completed 201102/15/2014 STORY: BRIEF LOC AFTER FALL IN [facility]A NT 06/06. CT HEAD NEGATIVE ; RECORDED 06/22/20 12 10:05AM BY ANEUDY CAMARGO MA, ANNOTATI ON/ADDEN DUM ALBERTO Kaur, [facility] 6 10:53:01 Antibody measurem ent [id number] Completed 201102/15/2014 RECORDED 06/22/20 12 10:05AM BY ANEUDY CAMARGO MA, ANNOTATI ON/ADDEN DUM ALBERTO Kaur, [facility] 6 10:53:01 Administ ration of viral vaccine Completed 201102/15/2014 RECORDED 06/22/20 12 10:05AM BY ANEUDY CAMARGO MA, ANNOTATI ON/ADDEN DUM ALBERTO Kaur, [facility] 6 10:53:01 Screenin g for malignan t neoplasm of breast Completed 201102/16/2014 RECORDED 06/22/20 12 10:05AM BY ANEUDY CAMARGO MA, ANNOTATI ON/ADDEN DUM ALBERTO Kaur, [facility] 6 10:53:01 Neck pain 96586143 Completed 201102/16/2014 RECORDED 06/22/20 12 10:05AM BY ANEUDY CAMARGO MA, ANNOTATI ON/ADDEN DUM Heather Villareal MD [address] [facility] [address], [facility] [place], [address] , [facility] 2 09:56:35 Concussi on injury of brain 832293781 Completed 201102/16/2014 STORY: BRIEF LOC AFTER FALL IN [facility]A NT 06/06. CT HEAD NEGATIVE ; RECORDED 06/22/20 12 10:05AM BY ANEUDY CAMARGO MA, ANNOTATI ON/ADDEN DUM ALBERTO Kaur, [facility] 6 10:53:01 Antibody measurem ent [id number] Completed 201102/16/2014 RECORDED 06/22/20 12 10:05AM BY ANEUDY CAMARGO MA, ANNOTATI ON/ADDEN DUM ALBERTO Kaur, [facility] 6 10:53:01 Administ ration of viral vaccine Completed 201102/16/2014 RECORDED 06/22/20 12 10:05AM BY ANEUDY CAMARGO MA, ANNOTKAM ON/ADDEN DUM ALBERTO Kaur, [facility] 6 10:53:01 Hypothyr oidism 82426415 Completed 201201/23/2014 RECORDED 08/02/19 13 8:56AM BY ANEUDY CAMARGO MA, ANNOTATI ON/ADDEN DUM Aneudy ALBERTO Garcia, [facility] 6 10:53:01 Osteopor osis 45069628 Completed 201201/23/2014 RECORDED 08/02/19 13 8:56AM BY ANEUDY CAMARGO MA, ANNOTATI ON/ADDEN DUM Chris Boss MD [address] [address], [place], [address] [facility] 8 14:16:50 Gastroes ophageal reflux disease 585062087 Completed 201201/23/2014 RECORDED 09/30/19 13 1:08PM BY KOSTA ROD MA, ANNOTKAM ON/ADDEN DUM Aneudy ALBERTO Garcia, [facility] 6 10:53:01 Influenz a with respirat ory manifest ation other than pneumoni a Completed 201201/23/2014 RECORDED 09/30/19 13 1:08PM BY KOSTA ROD MA, BRICE ON/ADDEN DUM ALBERTO Kaur, [facility] 6 10:53:01 Gastroes ophageal reflux disease 894941187 Completed 201202/15/2014 RECORDED 09/30/19 13 1:08PM BY KOSTA ROD MA, BRICE ON/ADDEN DUM Aneudy ALBERTO Garcia, [facility] 6 10:53:01 Influenz a with respirat ory manifest ation other than pneumoni a Completed 201202/15/2014 RECORDED 09/30/19 13 1:08PM BY KOSTA ROD MA, ANNOTATI ON/ADDEN DUM ALBERTO Kaur, [facility] 6 10:53:01 Gastroes ophageal reflux disease 148430108 Completed 201202/16/2014 RECORDED 09/30/19 13 1:08PM BY KOSTA ROD MA, ANNOTKAM ON/ADDEN DUM ALBERTO Kaur, [facility] 6 10:53:01 Influenz a with respirat ory manifest ation other than pneumoni a Completed 201202/16/2014 RECORDED 09/30/19 13 1:08PM BY KOSTA ROD MA, BRICE ON/ADDEN DUM ALBERTO Kaur, [facility] 6 10:53:01 Adult health examinat ion Completed 201201/23/2014 RECORDED 10/14/19 13 1:06PM BY ANEUDY CAMARGO MA, ANNOTKAM ON/ADDEN DUM ALBERTO Kaur, [facility] 6 10:53:01 Influenz a vaccine needed 02649453178 06 Completed 201201/23/2014 RECORDED 04/28/20 13 11:07AM BY ANEUDY CAMARGO MA, NURSE VISIT ALBERTO Kaur, [facility] 6 10:53:01 Influenz a vaccine needed 25117391458 06 Completed 201202/15/2014 RECORDED 04/28/20 13 11:07AM BY ANEUDY CAMARGO MA, NURSE VISIT ALBERTO Kaur, [facility] 6 10:53:01 Influenz a vaccine needed 84563033876 06 Completed 201202/16/2014 RECORDED 04/28/20 13 11:07AM BY ANEUDY CAMARGO MA, NURSE VISIT ALBERTO Kaur, [facility] 6 10:53:01 Cough 42665304 Completed 201307/26/2014 RECORDED 07/25/19 14 2:43PM BY ANEUDY CAMARGO MA, OFFICE VISIT ALBERTO Kaur, [facility] 6 10:53:01 Feces contents abnormal 586093323 Completed 201307/26/2014 RECORDED 12/28/19 14 12:51PM BY CHRIS BOSS MD, PHONE ENCOUNTE R ALBERTO Kaur, [facility] 6 10:53:01 Osteopen ia 041496309 Active 2014 Not Available [facility] 0 13:22:56 Chronic neck pain 84450271941 07 Active 2018 Not Available [facility] 0 13:22:56 Chavez' s esophagu s 050646663 Active 2021 Heather Villareal MD [address], [place], [address] , [facility] 2 08:18:35 Irritabl e bowel syndrome 49194343 Active 2021 Heather Villareal MD [address], [place], [address] , [facility] 2 12:12:58 Elevated blood-pr essure reading without diagnosi s of hyperten pauline 198675872 Completed 202103/04/2022 Heather Villareal MD [address], [place], [address] , [facility] 2 13:02:11 Pancreat ic insuffic iency 54545009 Active 2021 Heather Villareal MD [address], [place], [address] , [facility] 2 06:31:53 COVID-19 368438736 Completed 202110/15/2022 Soy Coleman MD [address], [place], [address] , [facility] 3 15:03:48 Generali zed aches and pains 27895120 Completed 202105/26/2024 Heather Villareal MD [address], [place], [address] , [facility] 4 13:16:55 Dysuria 24236921 Completed 202305/26/2024 Heather Villareal MD [address], [place], [address] , [facility] 4 13:16:50 Increase d frequenc y of urinatio n 918835234 Completed 202305/26/2024 Heather Villareal MD [address], [place], [address] , [facility] 4 13:17:01 Ex-smoke r 5958025 Active 2023 Hetaher Villareal MD [address], [place], [address] , [facility] 4 13:18:24 Gallston e 545903256 Active 2023 Heather Villareal MD [address], [place], [address] , [facility] 4 21:03:59 Vascular insuffic iency 62536426 Active 2024 Heather Villareal MD [address], [place], [address] , [facility] 5 11:51:56 Acute pharyngi tis 852433022 Active 2024 Sin tello MA sharla [facility] 10:59:22 Problem Notes None recorded. Procedures Surgical History Date Name Laterality Status Provider Name and Address Organization Details Recorded Time 04/16/20 25 radiographic imaging procedure completed Daja Robledo [facility] 04/18/2025 11:32:45 05/26/20 24 Advanced Care Planning completed Karis Silva [facility] 06/05/2024 13:16:09 02/22/20 24 Cataract Surgery completed Heather Villareal MD [address] [facility], [place], [address], [facility] 05/26/2024 13:20:11 02/17/20 24 Most Recent Mammogram completed Elmira Black [facility] 02/18/2024 08:33:56 05/24/20 23 Advanced Care Planning completed Heather Villareal MD [address] [facility], [place], [address], [facility] 05/23/2023 17:55:11 05/22/20 22 Advanced Care Planning completed Heather Villareal MD [address] [facility], [place], [address], [facility] 05/22/2022 09:50:39 02/27/20 21 Advanced Care Planning completed Heather Villareal MD [address] [facility], [place], [address], [facility] 02/26/2021 06:36:54 03/01/20 20 Six-Item Cognitive Test completed Aneudy johnson MA [facility] 03/01/2020 14:33:08 02/21/20 19 Mini-Cog Test completed Aneudy johnson MA [facility] 02/20/2019 11:06:55 12/25/19 18 Mini-Cog Test completed Aneudy johnson MA [facility] 12/24/2017 13:31:17 12/17/19 18 Mammogram screening completed Batool Loza [facility] 12/16/2017 16:33:01 12/22/19 17 Fall Risk Assessment completed Aneudy johnson MA [facility] 12/21/2016 10:15:56 12/22/19 17 Mini-Cog Test completed Aneudy johnson MA [facility] 12/21/2016 10:16:43 07/31/19 16 Fall Risk Assessment completed Aneudy johnson MA [facility] 07/31/2015 11:03:38 07/31/19 16 Mini-Cog Test completed Aneudy johnson MA [facility] 07/31/2015 11:06:58 03/20/20 15 Most Recent Bone Density completed Aneudy johnson MA [facility] 07/31/2015 10:54:43 07/26/19 15 Fall Risk Assessment completed Aneudy johnson MA [facility] 07/26/2014 10:39:22 07/26/19 15 Mini-Cog Test completed Aneudy johnson MA [facility] 07/26/2014 10:43:08 06/01/20 14 Date of Last Colonoscopy completed Aneudy johnson MA [facility] 12/21/2016 10:13:16 06/01/20 14 Colonoscopy completed Aneudy johnson MA [facility] 12/21/2016 10:13:08 06/01/20 14 endoscopy and biopsy of upper gastrointestinal tract completed Aneudy johnson MA [facility] 09/02/2019 09:18:07 Breast Biopsy completed Aneudy johnson MA [facility] 07/26/2014 10:25:34 Arthroscopic Surgery completed Aneudy johnson MA [facility] 07/26/2014 10:25:34 Imaging Results None recorded. Procedure Notes None recorded. Medical Equipment None Reported. Allergies Allergen ID Allergen Name Allergen Category Reaction Reaction Severity Criticality Documentation Date Start Date Code Code System Note Provider Name and Address Organization Details Recorded Time 56167 juventino extract food Not available Not available Not available 07/31/2015 40866 10 RxNorm ALBERTO Orta, [facility] 6 10:48:50 3373 codeine medicatio n tachycard ia Not available Not available 01/23/2014 2670 RxNorm ALBERTO Orta, [facility] 0 14:14:39 3375 banana extract food,medi cation other Not available Not available 01/23/2014 80701 9 RxNorm RANDA Mary [address] [facility] [address], [place], [address], [facility] 5 21:22:42 3376 Iodinated contrast media (substanc e) medicatio n anaphylax is severe Not available 01/23/2014 77850 2004 SNOMED ALBERTO Orta, [facility] 0 14:15:47 20622 methylpre dnisolone medicatio n tachycard ia mild Not available 06/30/2022 6902 RxNorm ALBERTO Zaragoza, [facility] 2 13:26:19 94160 ondansetr on medicatio n headache Not available Not available 06/30/2022 42931 RxNorm ALBERTO Zaragoza, [facility] 2 13:27:11 15480 Fioricet medicatio n Not available Not available low 05/24/2023 10804 4 RxNorm confu pauline. Heather Villareal MD [address], [place], [address], [facility] 3 11:59:29 Medications Name Sig Start Date [...] Available prednison e 10 mg tablet TAKE 1 TABLET BY MOUTH EVERY DAY WITH MEALS FOR 5 DAYS active Not Available Not Available No t Available doxycycli ne hyclate 100 mg capsule [...] Not Available Not Available No t Available fexofenad ine 60 mg tablet Take 1 tablet twice a day by oral route for 90 days. 2024 active Not Available Not Available Not Avai lable cetirizin e 10 mg tablet TAKE 1 TABLET BY MOUTH EVERY DAY DIRECTED 04/16 completed Not Available Not Available Not Available [...] MOUTH THREE TIMES DAILY FOR 7 DAYS active Not Available Not Available No t Available nifedipin e ER 30 mg tablet,ex [...] 13 1:47PM BY TESSIE CELIS, MEDICATI ON AUTO-JEANE CTIVATIO N; Not Available [...] FOR PAIN. MAY FILL FOR LESSER QUANTITY . PLEASE FILL WHEN DUE active Not Available Not Available No t [...] TABLET BY MOUTH EVERY DAY AT BEDTIME active Not Available Not Available No t Available gabapenti n 100 mg capsule Take 1 capsule 3 times a day by oral route as needed for 30 days. 12/06 completed Not Available Not Available Not Available azelastin e 137 mcg (0.1 %) nasal spray [place] 1 spray twice a day by intranas [...] completed Not Available Not Available Not Available hydroxyzi ne HCl 10 mg tablet TAKE 1 TABLET BY MOUTH EVERY 6 HOURS FOR 10 DAYS NEEDED 04/16 completed Not Available Not Available Not Available [...] 07 11:13AM BY MILENA CAMACHO, MEDICATI ON AUTO-JEANE CTIVATIO N; Not Available [...] completed Not Available Not Available Not Available [place] Saline 0.65 % nasal drops Take 1 [...] 07 11:13AM BY MILENA CAMACHO, MEDICATI ON AUTO-JEANE CTIVATIO N; Not Available [...] 137 mcg-fluti casone 50 mcg/spray nasal spray [place] 1 spray twice a day by intranas [...] Not Available Not Available Not Available Complete [place] 700 mg-1,500 mg capsule Take 1 capsule [...] Updated DateTime 5 156.21 cm 23 kg/m2 79426.4 5 g 87 /min 96 % 96 % 98.2 [degF] 131/55 mm[Hg] Sin jacinto MA [facility] 5 11:04:31 Date Recorded Body height Body mass index (BMI) Body weight Oxygen saturation Oxygen saturation in Arterial blood by Pulse oximetry Heart rate Body temperature Systolic And Diastolic Provider Name and Address Organization Details Last Updated DateTime 5 156.21 cm 22.9 kg/m2 68009.8 6 g 96 % 96 % 73 /min 97.6 [degF] 129/77 mm[Hg] Renata Castro MA [facility] 5 10:10:27 Date Recorded Body height Body mass index (BMI) Body weight Systolic And Diastolic Systolic And Diastolic Systolic And Diastolic Provider Name and Address Organization Details Last Updated DateTime 5 156.21 cm 23 kg/m2 76343.4 5 g 162/60 mm[Hg] 156/60 mm[Hg] 146/60 mm[Hg] Aneudy hernandez MA [facility] 5 15:55:11 Date Recorded Body height Body mass index (BMI) Body weight Heart rate Oxygen saturation Oxygen saturation in Arterial blood by Pulse oximetry Body temperature Systolic And Diastolic Systolic And Diastolic Provider Name and Address Organization Details Last Updated DateTime 5 156.21 cm 23 kg/m2 83196.4 5 g 60 /min 97 % 97 % 98.8 [degF] 152/64 mm[Hg] 150/67 mm[Hg] Aneudy hernandez MA [facility] 5 14:43:42 Social History Question Answer Notes LastModified by Organizat ion Details LastModified Time Tobacco Smoking Status [facility]24 16:42:43 Do You Have An Advance Directive? Yes [employer] Information not available 05/24/2023 Is [...] When Did You Quit Smoking? 18+yearssin shona lorenzo [facility] Information not available 11/22/2024 Live Alone Or [...] 03/19/2020 Have You Recently Traveled To A [place] [address] High Risk Area Or Gathering In The Last 10 Days? No abolcun Information not available 08/23/2020 What Was The Date Of Your Most Recent Tobacco Screening? 04/16/2025 Information not available 04/16/2025 How Many Children Do You Have? 4 [...] Age Did You Start Smoking Tobacco? 27 1965 Information not available 11/22/2024 Are You Passively [...] not available 07/26/2014 Are you able to walk independently without assistance or assistive devices? YESASSIST occasionally uses a cane Information not available 05/24/2023 Are you able to care for yourself independently? 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 Never used electronic cigarettes Information not available 09/02/2019 What is your exercise level? Occasional walking (in good weather) Information not available 02/26/2021 Mental Status None recorded. Family History Relationship Description Onset Age of this Age Resolved Age Notes LastModified by Organization Details LastModified Time Father Malignant neoplasm of kidney [email or web address] s Not available 01/25/2014 [...] Recorded Time Td (adult) 8 completed Xin magdaleno, [facility] 04/16/2020 11:10:19 Influenza, split virus, trivalent, PF 5 [facility] 11:10:20 Pneumococcal conjugate PCV 13 6 completed ALBERTO Chacko, [facility] 03/04/2022 10:51:01 zoster recombinant 9 completed ALBERTO Chacko, [facility] 06/10/2021 15:33:36 zoster recombinant 9 [facility] 06/10/2021 15:33:35 Influenza, high-dose, trivalent, PF 9 completed Xin magdaleno, [facility] 04/16/2020 11:10:20 Influenza, high-dose, quadrivalent, PF 0 completed ALBERTO Zaragoza, [facility] 02/24/2022 11:04:29 COVID-19, mRNA, LNP-S, PF, 30 mcg/0.3 mL dose 1 completed ALBERTO Chacko, [facility] 06/10/2021 15:33:35 COVID-19, mRNA, LNP-S, PF, 30 mcg/0.3 mL dose 1 completed ALBERTO Chacko, [facility] 06/10/2021 15:33:35 Influenza, adjuvanted, quadrivalent, PF 1 completed ALBERTO Chacko, [facility] 06/10/2021 15:33:35 zoster live 1 completed ALBERTO Chacko, [facility] 06/10/2021 15:33:35 COVID-19, mRNA, LNP-S, PF, 30 mcg/0.3 mL dose 1 completed ALBERTO Chacko, [facility] 06/10/2021 15:33:35 Influenza, high-dose, trivalent, PF 8 completed ALBERTO Chacko, [facility] 06/10/2021 15:33:35 zoster live 9 completed ALBERTO Chacko, [facility] 06/10/2021 15:33:36 Influenza, split virus, trivalent, PF 4 completed ALBERTO Chacko, [facility] 03/04/2022 10:51:01 Td (adult), 2 Lf tetanus toxoid, preservative free, adsorbed 9 completed ALBERTO Chacko, [facility] 03/04/2022 10:51:01 Influenza, high-dose, trivalent, PF 6 completed ALBERTO Chacko, [facility] 03/04/2022 10:51:01 Influenza, high-dose, trivalent, PF 7 completed ALBERTO Chacko, [facility] 03/04/2022 10:51:01 Influenza, high-dose, quadrivalent, PF 2 completed ALBERTO Zaragoza, [facility] 06/17/2022 10:59:18 Influenza, high-dose, quadrivalent, PF 3 completed ALBERTO Chacko, [facility] 04/28/2023 11:20:14 RSV, recombinant, protein subunit RSVpreF, adjuvant reconstituted, 0.5 mL, PF 4 completed ALBERTO Glover, [facility] 11/24/2023 10:53:14 Influenza, adjuvanted, trivalent, PF 4 completed Katie Mahoney LPN null, [facility] 06/05/2024 14:17:27 Pneumococcal conjugate PCV 13 6 completed Not Available [facility] 04/16/2025 14:03:26 Influenza, split virus, trivalent, preservative 3 completed Xin Servin null, [facility] 04/16/2020 11:10:20 pneumococcal polysaccharide PPV23 5 completed Xin Servin null, [facility] 04/16/2020 11:10:20 Influenza, split virus, trivalent, preservative 6 completed Xin Servin null, [facility] 04/16/2020 11:10:20 Influenza, split virus, trivalent, preservative 7 completed Xin Servin null, [facility] 04/16/2020 11:10:20 Influenza, split virus, trivalent, preservative 8 completed Xin Servin null, [facility] 04/16/2020 11:10:20 pneumococcal polysaccharide PPV23 9 completed Xin Servin null, [facility] 04/16/2020 11:10:20 Influenza, split virus, trivalent, preservative 9 completed Xin Servin null, [facility] 04/16/2020 11:10:20 Novel [id number], all formulations 0 completed Xin Servin null, [facility] 04/16/2020 11:10:20 Influenza, split virus, trivalent, preservative 0 completed Xin Servin null, [facility] 04/16/2020 11:10:20 Influenza, split virus, trivalent, preservative 1 completed Xin Servin null, [facility] 04/16/2020 11:10:20 Influenza, split virus, trivalent, preservative 2 completed Xinsravanthi magdaleno, [facility] 04/16/2020 11:10:20 Influenza, split virus, trivalent, preservative 3 completed Xin Servin sharla, [facility] 04/16/2020 11:10:20 Past Encounters Encounter ID Performer Location Encounter Start Date Encounter Closed Date Diagnosis/Indication Diagnosis SNOMED-CT Code Diagnosis ICD10 Code Diagnosis IMO Codes Diagnosis Note [id number] Chris Boss MD Main Office [address] [place] [address] 01/25/2014 10:17:09 01/25/2014 11:36:27 Hypothyroidism 57200891 Essential hypertension 44739618 Hyperlipidemia 47163606 Chronic ob structive pulmonary disease 49298461 Fatigue 75116815 [id number] autoEComm erce [address] [facility] [place] [address] 08/19/2005 00:00:00 [id number] autoEComm erce [address] [facility] [place] [address] 10/19/2005 00:00:00 [id number] autoEComm erce [address] [facility] [place] [address] 02/02/2006 00:00:00 [id number] autoEComm erce [address] [facility] [place] [address] 05/07/2006 00:00:00 [id number] autoEComm erce [address] [facility] [place] [address] 10/25/2006 00:00:00 [id number] autoEComm erce [address] [facility] [place] [address] 11/09/2006 00:00:00 [id number] autoEComm erce [address] [facility] [place] [address] 12/01/2006 00:00:00 [id number] [address] [place] [address] 12/15/2006 00:00:00 [id number] auto[address]Comm erce [address] [place] [address] 03/17/2007 00:00:00 [id number] auto[address]Comm erce [address] [place] [address] 03/23/2007 00:00:00 [id number] autoEComm erce [address] [place] [address] 06/22/2007 00:00:00 [id number] autoEComm erce [address] [facility] [address] [place] [address] 07/13/2007 00:00:00 [id number] autoEComm erce [address] [facility] [place] [address] 10/05/2007 00:00:00 [id number] autoEComm erce [address] [facility] [place] [address] 12/21/2007 00:00:00 [id number] autoEComm erce [address] [facility] [place] [address] 03/28/2008 00:00:00 [id number] autoEComm erce [address] [facility] [place] [address] 07/26/2008 00:00:00 [id number] autoEComm erce [address] [facility] [place] [address] 08/15/2008 00:00:00 [id number] autoEComm erce [address] [place] [address] 09/25/2008 00:00:00 [id number] autoEComm erce [address] [facility] [address] [place] [address] 03/20/2009 00:00:00 [id number] autoEComm erce [address] [facility] [place] [address] 09/18/2009 00:00:00 [id number] autoEComm erce [address] [facility] [address] [place] [address] 12/19/2009 00:00:00 [id number] autoEComm erce [address] [place] [address] 12/25/2009 00:00:00 [id number] autoEComm erce [address] [facility] [address] [place] [address] 06/11/2010 00:00:00 [id number] autoEComm erce [address] [facility] [place] [address] 06/25/2010 00:00:00 [id number] autoEComm erce [address] [facility] [place] [address] 12/22/2010 00:00:00 [id number] autoEComm erce [address] [facility] [place] [address] 06/17/2011 00:00:00 [id number] autoEComm erce [address] [facility] [place] [address] 12/23/2011 00:00:00 [id number] autoEComm erce [address] [facility] [place] [address] 06/22/2012 00:00:00 [id number] autoEComm erce [address] [facility] [place] [address] 09/29/2012 00:00:00 [id number] autoEComm erce [address] [facility] [place] [address] 10/13/2012 00:00:00 [id number] autoEComm erce [address] [facility] [place] [address] 12/14/2012 00:00:00 [id number] autoEComm erce [address] [facility] [place] [address] 07/25/2013 00:00:00 [id number] Chris Boss MD Main Office [address] [place] [address] 04/18/2014 11:22:53 04/18/2014 12:16:44 Neck pain 85468804 [id number] Chris Boss MD Main Office [address] [place] [address] [address] [place] [address] 05/10/2014 16:24:32 05/10/2014 16:37:59 Needs influenza immunization 141176211 [id number] Chris Boss MD Main Office [address] [address] [place] [address] 07/26/2014 10:28:44 07/26/2014 11:29:56 Adult health examination 418307726 G0439 Hypothyroidism 79450340 Hyperlipidemia 69230059 Gastroesop hageal reflux disease 777045856 Tubular adenoma 083568857 05/2014 Poor short -term memory 675243295 Neck pain 60146412 [id number] Chris Boss MD Main Office [address] [address] [place] [address] 01/24/2015 10:27:30 01/24/2015 11:19:35 Hyperlipidemia 72989796 Hypothyroidism 91336661 Essential hypertension 08616615 On examina tion - varicose veins 955329567 Fatigue 31722159 Body mass index 30+ - obesity 941296622 Menopause present 777123260 [id number] Chris Boss MD Main Office [address] [address] [place] [address] 04/03/2015 13:38:32 04/03/2015 14:35:36 Acute sinusitis 18387746 Vaginitis 95730360 [id number] Emily Navarrete PA-C Main Office [address] [address] [place] [address] 06/11/2015 11:28:13 06/11/2015 11:56:21 Acute exacerbation of chronic obstructive pulmonary disease 543675137 J44.1 Acute exacerb. of COPD. Start Zithromax at 500 mg qd for 1 week. Mucinex 600 mg BID. Increase Symbicort to 160 mcg 2 puffs BID and ProAir PRN. Rest and fluids. Return in 1 week if not significan tly improved. [id number] Chris Boss MD Main Office [address] [address] [place] [address] 07/31/2015 10:43:29 07/31/2015 11:42:24 Adult health examination 708272515 Z00.00 G0439 Essential hypertension 63994022 I10 Hypothyroidism 92828214 E03.9 Anxiety state 298939831 F41.1 Varicose v eins of lower extremity 78677431 I83.819 Administra tion of pneumococcal vaccine 29725617 Z23 Hyperlipidemia 43519508 E78.5 Chronic ob structive pulmonary disease 33849066 J44.9 [id number] Chris Boss MD Main Office [address] [address] [place] [address] 03/13/2016 10:58:43 03/13/2016 11:57:53 Pure hypercholesterolemia 888197476 E78.0 Essential hypertension 68123152 I10 Hypothyroidism 28721417 E03.9 Influenza vaccine needed 8418816840 106 Z23 Body mass index 30+ - obesity 489990170 Z68.30 Acute exac erbation of chronic obstructive pulmonary disease 142250325 J44.[address] Aquino for pulmonary [id number] Chris Boss MD Main Office [address] [address] [place] [address] 06/16/2016 10:58:08 06/16/2016 11:46:36 Essential hypertension 19331968 I10 Hypothyroidism 21759859 E03.9 Hyperlipidemia 01878714 E78.5 [id number] Chris Boss MD Main Office [address] [address] [place] [address] 12/21/2016 10:00:17 12/21/2016 10:44:18 Adult health examination 923979348 Z00.00 Essential hypertension 88347323 I10 Hypothyroidism 76413151 E03.9 Anxiety state 160393641 F41.1 Hyperlipidemia 58444676 E78.5 Chronic ob structive pulmonary disease 34235537 J44.[address] Aquino [id number] RANDA Mary Main Office [address] [address] [place] [address] 04/09/2017 10:38:19 04/09/2017 11:55:00 Cough 18203131 R05 Likely associated with recent illness and allergic rhinitis, instructed to take plenty of fluids and have adequate rest. Acute sinusitis 49600583 J01.90 Discussed to start regimen of doxycyclin e and fluticason e as directed. Instructed to stay hydrated with adequate rest Allergic rhinitis 131546 04 J30.9 Advised to take cetirizine as directed throughout remainder of Fall season for relief. [id number] America choi MD Main Office [address] [place] [address] 04/24/2017 10:29:53 04/26/2017 15:46:29 Influenza vaccine needed 4056840883 106 Z23 [id number] Emily Navarrete PA-C Main Office [address] [place] [address] 06/14/2017 10:42:30 06/14/2017 11:29:30 Acute exacerbation of chronic obstructive pulmonary disease 281388389 J44.1 Pt has 5 day history of [...] improvemen t in symptoms or worsening symptoms [id number] Chris Boss MD Main Office [address] [place] [address] 06/25/2017 10:52:48 06/25/2017 11:53:59 Essential hypertension 01376220 I10 Acute exac erbation of chronic bronchitis 489817184 J44.1 Candidiasis of vagina 72 637960 B37.3 [id number] Emily Navarrete PA-C Main Office [address] [place] [address] 07/14/2017 12:55:11 07/14/2017 14:14:35 Chronic obstructive pulmonary disease 08923459 J44.9 Post COPD exacerbati on. Seen by pulmonolog ist and had steroid taper with improvemen t in symptoms. F/u with pulm. as scheduled . Essential hypertension 42445891 I10 sO FAR BORDERLINE ELEVATED WITHOUT MEDS. pt. IS ADVISED TO KEEP SODIUM DOWN and check BP at home. If BP is 150 or over systolic, pt. is advised to return to the office to be started on meds. Fatigue 19599368 R53.83 Ordered cbc to r/o anemia will tx if abnormal findings.H /o hypothyroi dism check TSH, pt on [id number] Alber Navarrete PA-C Main Office [address] [facility] [address] [place] [address] 11/15/2017 15:06:30 11/15/2017 16:55:17 Pain of wrist region 45840474 M25.531 will check xray for further eval - if + fx will refer to neos. if neg - then go to OT as dir. wear wrist splint [id number] Chris Boss MD Main Office [address] [address] [place] [address] 12/24/2017 13:11:33 12/24/2017 14:34:59 Essential hypertension 05589538 I10 Pure hypercholesterolemia 999478750 E78.00 Hypothyroidism 95212222 E03.9 Administra tion of diphtheria, pertussis, and tetanus vaccine 012306641 Z23 Varicella vaccination 68 241200 Z23 Varicose v eins of lower extremity 30920663 I83.819 Chronic constipation 236 168773 K59.09 Chronic ob structive pulmonary disease 75587929 J44.[address] Aquino Obesity 819828171 E66.9 Body mass index 30+ - obesity 819550798 Z68.32 Osteopenia 402999527 M85 .80 Mild on DEXA 2014. Repeat 2019 [id number] Chris Boss MD Main Office [address] [facility] [address] [place] [address] 07/22/2018 10:26:49 07/22/2018 11:47:38 Chronic obstructive pulmonary disease 47529301 J44.[address] Aquino Requires a tetanus booster 832983240 Z23 Hypothyroidism 34947394 E03.9 Chronic he adache disorder 182107286 G44.89 Chronic neck pain 537143 7096 107 M54.2 Dizziness 272724403 R42 Dyspnea on exertion 6084 5006 R06.09 [id number] Soy Coleman MD Main Office [address] [address] [place] [address] 12/12/2018 15:39:09 12/12/2018 16:39:58 Neck pain 16323988 M54.2 chronic - worse lately - no radicular symptoms - will get pmr eval, trial c celebrex - advised pt to stop advil but could still use tyl prn, cont moist heat [id number] Chris Boss MD Main Office [address] [address] [place] [address] 02/20/2019 10:39:53 02/20/2019 11:48:14 Adult health examination 372451242 Z00.00 Pure hypercholesterolemia 871694680 E78.00 Essential hypertension 17717505 I10 Hypothyroidism 99948013 E03.9 Skin tag 051045056 L91.8 Chronic neck pain 431219 3791 107 M54.2 Chronic ob structive pulmonary disease 54567523 J44.[address] Aquino Obesity 883828414 E66.9 Z68.30 [id number] Chris Boss MD Main Office [address] [address] [place] [address] 09/02/2019 09:11:20 09/02/2019 10:09:06 Essential hypertension 92546657 I10 Hypothyroidism 15453711 E03.9 Hyperlipidemia 15381195 E78.5 Chronic ob structive pulmonary disease 57839878 J44.[address] Aquino [id number] Soy Coleman MD Main Office [address] [address] [place] [address] 10/01/2019 08:46:45 10/11/2019 10:49:31 Pruritic disorder 990144573 L29.9 Sounds like an allergic reaction. Not sure it's related to the antibiotic . No evidence of systemic allergic reaction. See if prednisone helps while arranging office eval. Acute exac erbation of chronic bronchitis 966833805 J44.1 [id number] Soy Coleman MD Main Office [address] [address] [place] [address] 10/03/2019 08:57:36 10/03/2019 11:03:46 Allergic reaction 689593529 T78.40XD ? if related to recent infection or other potential allergen. Responding well to prednisone but pt has not tolerated very well. Will accelerate the taper by dropping to 30mg and decreasing dose by 10mg every 2 days. Advised to call if still having side effects or if symptoms recur. [id number] Chris Boss MD [place] [address] [address] 03/01/2020 12:49:27 03/04/2020 11:06:45 Adult health examination 545471339 Z00.00 Essential hypertension 99432917 I10 Hypothyroidism 15244757 E03.9 Pure hypercholesterolemia 962006883 E78.00 Body mass index 30+ - obesity 295862020 E66.9 Cervical spondylosis 387 358154 M47.812 Chronic neck pain 735828 1514 107 M54.2 Chronic ob structive pulmonary disease 60264436 J44.[address] Miles Velasquez on of lumbar intervertebral disc 84849386 M51.36 Hyperlipidemia 35920331 E78.5 [id number] Soy Coleman MD [address] [address] 03/19/2020 08:35:12 03/19/2020 10:42:25 Chronic neck pain 7604382681 107 M54.2 encouraged pt to stop nsaids, cont tyl, moist heat, hep, and to give pssp a call for f/u visit - to consider jus injxn - - meanwhile, trial of low dose gabapentin - advised pt to cut traz dose at hs in 1/2 so as not to get too sedated [id number] Chris Boss MD [address] [address] 08/23/2020 08:22:44 08/23/2020 10:50:17 Chronic obstructive pulmonary disease 31206337 J44.[address] Aquino Cervical spondylosis 387 580719 M47.812 Chronic neck pain 468808 7643 107 M54.2 Essential hypertension 46929839 I10 Hyperlipidemia 27574787 E78.5 Hypothyroidism 41492651 E03.9 Body mass index 30+ - obesity 306480846 E66.9 Osteopenia 310365560 M85 .80 Mild on DEXA 2015. Fatigue 33095103 R53.83 [id number] Chris Boss MD [facility] [address] [facility] [address] [place] [address] 12/06/2020 14:25:32 12/10/2020 12:45:18 Fatigue 98953286 R53.83 Hypothyroidism 26081113 E03.9 Essential hypertension 80397053 I10 Increased frequency of urination 288927585 R35.0 [id number] Heather Villareal MD Main Office [address] [facility] [address] [place] [address] 12/11/2020 09:56:12 12/11/2020 10:50:39 Abdominal pain 82740776 R10.9 I suspect this is unlikely IBD related as history not consistent (non bloody bowel movement and only had 2 episodes) However for reassuranc e will get ESR/CRP.-P atient symptoms are very vague and difuse given age will get CT with just PO contrast and not IV as she cannot tolerate IV contrast due to allergies. Counseling [id number] Z71 .9 Referral for counseling with [facility] / SETH [facility]. Please provide patient with contact info to schedule their appointmen tJudi # email: [email or web address] Acute conjunctivitis 537 08832 H10.33 poor vision due to cataracts was suppose to see Dr. England 2 weeks ago for f/u but missed apt. Advised her to reschedule sam.I suspect she has allergic vs bacterial conjunctiv itis (due to yellow crusting) Will have her to abx eye drop and antihistam ine eye drops. Anxiety state [id number] F41.1 On celexa 10, does not want to increase does open to counseling , will give her referral for counseling . Essential hypertension 87090908 I10 HTN is on her problem list however I don't see her on any medication .Lifestyle modificati on advised, will f/u for BP check in 2 days if still elevated will start tx.Red flags discussed. [id number] Heather Villareal MD Main Office [address] [facility] [address] [place] [address] 12/13/2020 08:56:17 12/13/2020 09:47:23 Essential hypertension 16270346 I10 BP stable without medication . With dizziness and age will hold meds and provide cuff to check. Dizziness 739218691 R42 EKG WNLOrthost atic preformed: 122/80, 57 [id number] /82, 56 xufagx232/ 80, 60 standingDi x hallpike suggestive of BPPV, with advance age, soft HR will hold meclizine for now and opt for PT for BPPV.In addition HR on softer side which could be due to trazadone which patient did not want to adjust - will monitor. Abdominal pain 90685496 R10.9 Cw to have pain will do trial of PPI at bed time.Advis ed to avoid food triggers, avoid eating 2 hrs before bed and keeping head of bed elevated.C T pending. Hypothyroidism 66574707 E03.9 [id number] Heather Villareal MD Main Office [address] [facility] [address] [facility] [place] [address] 12/27/2020 09:30:12 12/27/2020 10:15:07 Essential hypertension 67988036 I10 BP stable without medication . With dizziness and age will hold meds advised to continue to check BPCw lifestyle modificati on Dizziness 225343364 R42 Resolved - has PT if needed for BPPV Abdominal pain 36386645 R10.9 Resolved - result reviewed with patient Acute conjunctivitis 537 11802 H10.33 Stable with eye drops, refilled today. Gallstone 590216337 K80. 20 Asymptomat ic, counseling provided. Diverticul osis of colon without diverticulitis 920475825 K57.30 High fiber diet encouraged and education provided. Anxiety state 199569087 F41.1 Reached out to ashley Doss to hear back[facility] [place] [id number] Heather Villareal MD Main Office [address] [facility] 207 [facility] [place] [address] 02/26/2021 10:26:46 02/26/2021 11:13:12 Adult health examination 491255366 Z00.00 Patient was counseled on healthy diet, [...] discussed. Advance di rective discussed with patient 459833678 Z71.89 MOLST and HCP provided to patient she will review with family and bring back to me at next visit. Screening for malignant neoplasm of breast 867537368 Z12.39 high risk per screening in 2018, will repeat. Hypothyroidism 77984945 E03.9 stable on levothyrox ine [id number] Heather Villareal MD Main Office [address] [facility] [address] [place] [address] 06/10/2021 15:25:14 06/10/2021 16:46:13 Abdominal pain 58518708 R10.9 Epigastric pain, not worsened with eating [...] if any lab work derangemen t's. Hypothyroidism 08965755 E03.9 stable on levothyrox inewill retest TSH given ongoing fatigue and weakness Diarrhea 91710460 R19.7 Could consider c.diff given recent atbx use so will test for this as well but also seems less likely.Lik ariana IBS flare w/ intermitte nt diarrhea and constipati on secondary to dietary changes.Al so could consider diverticul osis but unlikely to be diverticul itis at this time. Malaise and fatigue 2717 87659 R53.81 pt concerned about having the flu given weakness and fatigue, will order testing but seems less likely. [id number] Heather Villareal MD Main Office [address] [facility] [address] [place] [address] 08/29/2021 11:23:00 08/29/2021 12:10:30 Chronic obstructive pulmonary disease 11073999 J44.9 No symptoms, stable on inhalerCw follow up with pulmonolog ist Dr. Aquino Chavez's esophagus 3029 21657 K22.70 Advised to follow up with GI to schedule EGD Tubular adenoma 62489519 7 D36.9 Over due for colonscopy advised follow up with GI as she had declined on recent visit.She tells me she will call them to schedule for October. Hypothyroidism 63865427 E03.9 stable on levothyrox inewill retest TSH Irritable bowel syndrome 59434894 K58.9 Good control with bentyl, refilled today. Essential hypertension 89973396 I10 BP stable without medication . With dizziness and age will hold meds advised to continue to check BPCw lifestyle modificati on [id number] Heather Villareal MD Main Office [address] [facility] [address] [place] [address] 11/25/2021 13:41:42 11/25/2021 14:41:58 Upper abdominal pain 64110345 R10.10 DDx include:Ga stritis/Ga stroenteri tis: as tender in epigastric regionIBSA dvised to take PPI BIDHas had multiple imaging, is passing gas so unlikely obstructio nsHas EGD/colo with GI soon, also advised follow up with GI.Will get labs an stool studies again.Also advised at home covid testHydrat ion and BRAT diet discussedR ed flag discussed and when to go to ED. Diarrhea 15784773 R19.7 Will get stool studies Anxiety state 162629326 F41.1 Was following psychiatry PA who no longer reached out to her needs new therapist will provide referral. [id number] Heather Villareal MD Main Office [address] [facility] [address] [place] [address] 02/24/2022 11:01:35 02/24/2022 12:01:42 Acute cervical sprain 080227592 S13.4XXA Pt. reports doing well taking tramadol. recommend to take twice daily with tylenol ER in between or 600 mg of advil. Heat alternatin g with cold packs 10 min each every few hrs for 1-2 days. Elevated blood-pressure reading without diagnosis of hypertension 589051597 R03.0 likely secondary to pain. better pain control is advised. Pt. has AWV scheduled in 1 week to recheck BP. [id number] Heather Villareal MD Main Office [address] [place] [address] 03/04/2022 10:44:38 03/04/2022 12:10:41 Screening for malignant neoplasm of breast 653038326 Z12.39 high risk per screening in 2018, will repeat. Hypothyroidism 62905816 E03.9 stable on levothyrox ine Cervical spondylosis 387 747480 M47.812 Will start light PT, Lidocaine patch.Shor t course of tramadol at bed time only. Risk of sedation discussed. Will also refer to physiatry. Dizziness 814880617 R42 I believe triggered to by neck issues.No red flags. Essential hypertension 65967276 I10 BP slightly elevated, could be due to discomfort at pain will hold adjustment . Chavez's esophagus 3029 01987 K22.70 On PPI concerned about bone health.dis cussed that we can consider reducing to 20mg next vist. Neck pain 55492579 M54.2 [id number] Heather Villareal MD Main Office [address] [address] [place] [address] 04/07/2022 10:58:42 04/07/2022 11:34:33 Cervical spondylosis 679173596 M47.812 Notes doing better with PT Essential hypertension 90481267 I10 BP well controlled today. Chavez's esophagus 3029 87680 K22.70 cw ppi given barretts [id number] Heather Villareal MD Main Office [address] [address] [place] [address] 05/22/2022 09:26:48 05/22/2022 10:24:40 Adult health examination 983805991 Z00.00 Patient was counseled on healthy diet, [...] discussed. Advance di rective discussed with patient 853279771 Z71.89 MOLST and HCP provided to patient she will review with family and bring back to me at next visit. Screening for malignant neoplasm of breast 005373289 Z12.39 high risk per screening in 2018, will repeat. Pure hypercholesterolemia 380238200 E78.00 [id number] Lasha Alejandro MD Telehealt h [address] [facility] 207 [place] [address] 06/17/2022 08:40:24 06/17/2022 13:53:40 COVID-19 562409110 U07.1 Hydration, rest, if feeling better quarantine [...] on paxlovid) Generalize d aches and pains 40927555 R52 patient states everythin g hurts, don't want to get up . Requests short script for tramadol to help with pain. Will refill, encouraged to ensure she is takign deep breaths, may lay prone as needed. Chronic ob structive pulmonary disease 65044804 J44.9 Using her inhalers and montelukas t as directed, not having any SOB at this time. [id number] MELIA DE LA FUENTE MD Main Office [address] [place], [place] [address] 06/23/2022 14:42:14 06/23/2022 15:27:14 COVID-19 395608300 U07.1 - pt was diagnosed with COVID-19 [...] will follow-up in one week Acute diarrhea 753508795 R19.7 - most likely due to paxlovid- pt just finished the course of medication therefore most likely still the likely cause her diarrhea- pt advised to stay hydrated with pedialyte or Gatorade- pt advised to continue the BRAT diet Chronic ob structive pulmonary disease 30019826 J44.9 - pt has hx of COPD and since being diagnosed with COVID-19 pt has been having SOB- will give course of steroids to help with SOB- c/w albuterol inhaler and nebulizer as needed- c/w spiriva and symbicort- ED precaution s given Nausea and vomiting 1692 1999 R11.2 - pt is complainin g of nausea, ordered zofran to be taking as needed Dysuria 42244411 R30.0 - pt complainin g of dysuria- will check UA, if positive will send antibiotic s [id number] Lasha Alejandro MD Telehealt h [address] [facility] [address] [place] [address] 06/24/2022 09:36:47 06/24/2022 10:33:00 COVID-19 743856007 U07.1 Hydration, rest, if feeling better quarantine [...] she will stop statin while on paxlovid) [id number] MELIA DE LA FUENTE MD Main Office [address] [place] [address] 06/30/2022 12:47:52 06/30/2022 14:10:27 COVID-19 848378954 U07.1 - pt was diagnosed with COVID-19 on 06/17- pt was treated with paxlovid- it could be that symptoms at this point are most likely due to rebound effects from the paxlovid- blood work was WNL Acute diarrhea 923333067 R19.7 - now resolved- most likely due to paxlovid- pt just finished the course of medication therefore most likely still the likely cause her diarrhea- pt advised to stay hydrated with pedialyte or Gatorade Chronic ob structive pulmonary disease 42115692 J44.9 - SOB has improved- pt did not complete course of steroids due to anxiety that occurred with medication - c/w albuterol inhaler and nebulizer as needed- c/w spiriva and symbicort- ED precaution s given Nausea and vomiting 1692 1999 R11.2 - resolved- pt is complainin g of nausea, ordered zofran to be taking as needed Fatigue 85107583 R53.83 - pt continues to have weakness after COVID-19- symptoms are most likely due to the virus- RTC in two week to check for improvemen t [id number] MELIA DE LA FUENTE MD Main Office [address] [facility] [address] [place] [address] 07/14/2022 10:43:57 07/14/2022 14:26:46 Fatigue 64652518 R53.83 - pt continues to have weakness after COVID-19- symptoms are most likely due to the virus- symptoms can last up to 3 months, there is concern however that patient could become physically decontione d because she is spending most of time either in bed or on the couch. COVID-19 110350011 U07.1 - pt was diagnosed with COVID-19 on 06/17- pt was treated with paxlovid- it could be that symptoms at this point are most likely due to rebound effects from the paxlovid- blood work was WNL Physical deconditioning 0718404413 9102 R68.89 - pt has spent about [...] is currently living alone and managing alone [id number] Heather Villareal MD Main Office [address] [address] [place] [address] 08/24/2022 12:55:54 08/24/2022 13:38:05 Hyperlipidemia 81466284 E78.5 We discussed, choosing wisely campaign regarding statin use, she has not had a stroke and heart attack and is now 82 we had a shared decision that we will do a low potent statin first then consider to discontinu e after. Essential hypertension 54531472 I10 Low sodium diet discussedC ounseled on medication adherence - will start ccb home bp has been elevated. Side affects discussed. Counseled on diet/exerc iseAdvised to keep BP daily BP log and technique counseled. Red flags of HTN emergency discussed and when to go to ED. [id number] Heather Villareal MD Main Office [address] [facility] [address] [place] [address] 09/07/2022 13:42:14 09/07/2022 14:22:08 Essential hypertension 86450741 I10 Low sodium diet discussedC ounseled on medication adherence - tolerating ccb without side affect, bp acceptable for age, will hold further adjustment .Counseled on diet/exerc iseAdvised to keep BP daily BP log and technique counseled. Red flags of HTN emergency discussed and when to go to ED. [id number] Soy Coleman MD Main Office [address] [place] [address] 10/15/2022 14:07:23 10/15/2022 15:16:33 Chronic obstructive pulmonary disease 74451817 J44.9 Did not tolerate Medrol last Fall, so will try prednisone instead. Cough 69391848 R05.9 Currently it seems that allergies are triggering her COPD. Will focus on reducing inflammati on. INB/worse would consider CXR and possibly abx depending on symptoms. Allergic rhinitis 365619 04 J30.9 Try adding antihistam ine. Regular nasal saline irrigation advised as well. [id number] Heather Villareal MD Main Office [address] [address] [place] [address] 01/06/2023 13:09:16 01/06/2023 13:57:33 Essential hypertension 71462265 I10 BP stable. Continue medication s as directed. Limit amount of salts and carbs and sugars. Polyuria 69371427 R35.89 Cervical spondylosis 387 171295 M47.812 pt is requesting few tramadol for her neck pain. [id number] DESEAN RAMIREZ Main Office [address] [address] [place] [address] 03/03/2023 10:34:36 03/03/2023 11:15:41 Acute sinusitis 09938758 J01.90 [id number] Heather Villareal MD Main Office [address] [place] [address] [place] [address] 03/05/2023 09:36:53 03/05/2023 10:24:15 Pain of shoulder region 68090588 M25.511 Will do meloxicam advised not use other otc nsaidWill get XR. Advised PT only if XR wnl.Will refer to physiatry as she will likely need injections , she cannot tolerated PO steroid inject but likely could do IM. [id number] Heather Villareal MD Main Office [address] [facility] [address] [place] [address] 04/05/2023 14:00:42 04/05/2023 15:35:08 Weight loss 19565286 R63.4 Weight stablized will continue to monitor. Acute sinusitis 15948248 J01.90 Will do doxy, since augmentin did not work. Advised to avoid sunlight and avoid ca2+ rich food. But take with food to avoid nausea.Cov id neg.Will do low dose prednisone since higher dose affects her stomach.Co vid today neg.Will also do flonase combo with azelastine .Will do azelastine . eye dropCont. ayr saline spray. Essential hypertension 05554210 I10 bp high today, she is in pain from sinuses, otherwise asymptomat ic, will have her keep checking bp.Will follow up 1mo. [id number] Heather Villareal MD Main Office [address] [address] [place] [address] 04/14/2023 13:47:28 04/14/2023 14:25:36 Essential hypertension 22441216 I10 bp better today. Sinusitis 87106717 J32.9 Cont, nasal spray, despite 2abx still having sx will get CT sinus and refer to ent. Watering of eyes have improved. [id number] Heather Villareal MD Main Office [address] [address] [place] [address] 04/28/2023 11:08:07 04/28/2023 12:25:52 Headache 27846430 R51.9 Likely migraine variant vs rebound headaches from excess analgesic use. Given all her meds and age will hold triptans will refer to neuro, will also get neuro imaging as she tells me she can't live with these headaches. Advised to avoid otc tylenol due to rebound and bc fioricet contains little tylenol.Co ol compress advised. Allergic rhinitis 678658 04 J30.9 Cont. current tx add [id number] Heather Villareal MD Main Office [address] [address] [place] [address] 05/24/2023 11:08:52 05/24/2023 12:19:15 Advance directive discussed with patient 151112349 Z71.89 MOLST and HCP provided to patient she will review with family and bring back to me at next visit after reviewing he choices today. Adult heal th examination 434868685 Z00.00 Patient was counseled on healthy diet, [...] discussed. Screening for malignant neoplasm of breast 857796916 Z12.39 high risk per screening in 2018, will repeat. Fatigue 63506340 R53.83 Z00.00 Hyperlipidemia 85713236 E78.5 Z00.00 We discussed, choosing wisely campaign regarding statin use, she has not had a stroke and heart attack and is now 82 we had a shared decision that we will do a low potent statin first then consider to discontinu e after. Essential hypertension 89033469 I10 Bp stable. Hypothyroidism 24436023 E03.9 stable on levothyrox ine Administra tion of pneumococcal vaccine 10997295 Z23 [id number] Heather Villareal MD Main Office [address] [place] [address] 11/24/2023 10:40:09 11/24/2023 11:23:22 Allergic rhinitis 57481974 J30.9 Could not tolerate antihistam ine.Will refer to security systems engineer. Chronic ob structive pulmonary disease 19523746 J44.9 No symptoms, stable on inhalerCw follow up with pulmonolog ist Dr. Aquino Chronic neck pain 727798 8325 107 M54.2 Follows [facility] Chavez's esophagus 3029 20698 K22.70 cw ppi given barretts, follows GI Pain of left calf 228307 6157 222653 M79.662 Milton DVT score 1, calf tenderness present.Wi ll try to get urgent DVT r/o, if wnl coud be 2/2 to PVD.Milton DVT: 1 [id number] Lasha Alejandro MD Main Office [address] [facility] [address] [place] [address] 12/02/2023 09:35:13 12/02/2023 10:08:16 Cough 47564032 R05.9 negative for flu Viral uppe r respiratory tract infection 869605320 J06.9 x4 days of URI symptoms; cough, congestion , body aches, fatigue-co nservative measuremen ts of steam showers, honey with tea, and neti pot provides some relief-PE; lungs were CTA b/l-in office flu test was negative-d iscussed with pt to continue with conservati ve measuremen ts and discussed OTC medication s for symptomati c relief [id number] MELIA DE LA FUENTE MD Telehealt h [address] [facility] [address] [place] [address] 12/05/2023 14:43:45 12/08/2023 10:10:28 Pneumonia 140818993 J18.9 - pt has been having a [...] 6084 5006 R06.09 - please see above [id number] Lasha Alejandro MD Main Office [address] [facility] [address] [facility] [place] [address] 12/08/2023 14:27:23 12/08/2023 15:24:26 Cough 75838277 R05.9 She cannot take codeine because of tachycardi a. Acute exac erbation of chronic obstructive pulmonary disease 964586147 J44.1 Complete course of prednisone and doxycyclin e. [id number] Lasha Alejandro MD Main Office [address] [place] [address] 02/09/2024 10:06:26 02/09/2024 10:34:35 Pre-surgery evaluation 369234505 Z01.818 No medical contraindi cations to proposed procedure. Edmundo Perioperat shimon Cardiac Risk was calculated and the risk for perioperat shimon IN is 0.1%. May proceed to surgery as planned.-n o ekg or labwork were requested by surgeon Cataract 884213174 H26.9 pre-operat shimon medical clearance for right eye cataract surgery with Dr. Rojas Greene (NPI#: [id number] ) of [facility] on 02/22/24. Under topical anesthesia . Essential hypertension 62587629 I10 In office BP of 151/63 then 136/68-on nifedipine 30mg QD [id number] Soy Coleman MD Main Office [address] [place] [address] 03/14/2024 09:51:39 03/14/2024 11:59:44 Dysuria 65960919 R30.0 Urine dip is negative. Increased frequency of urination 942793668 R35.0 30 minutes spent assessing patient, reviewing labs and prior data.Uncle ar etiology of urinary frequency as urine dip is completely normal. Urine will be sent for culture. lower back pain x 3 days is likely flare of her lumbar arthropath y.Recommen d Tylenol ES for pain every 4-6 hrs. Advised her to return to clinic if symptoms worsens or no improvemen anjali Eva on of lumbar intervertebral disc 44802173 M51.36 Recommend to take otc pain meds, apply hitting pad and stretch. PT. was reassured. [id number] Heather Villareal MD Main Office [address] [place] [address] 05/26/2024 12:52:15 05/26/2024 14:03:49 Adult health examination 682230160 Z00.00 Patient was counseled on healthy diet, [...] discussed. Advance di rective discussed with patient 165614070 Z71.89 MOLST and HCP provided to patient she will review with family and bring back to me at next visit after reviewing he choices today. Fatigue 44489780 R53.83 Z00.00 R73.01 Hyperlipidemia 03551816 E78.5 Z00.00 Essential hypertension 68218194 I10 bp borderline she was little under the weather otherwise at home it was acceptable . She will come back in 2 weeks for a follow up. She is otherwise asymptomat ic, advised to bring bp cuff. Hypothyroidism 24464540 E03.9 stable on levothyrox ine [id number] Chris Boss MD Main Office [address] [facility] [address] [place] [address] 06/05/2024 14:06:12 06/05/2024 15:19:11 Acute exacerbation of chronic obstructive pulmonary disease 397293563 J44.[address] Aquino for pulmonary Dyspnea 378856482 R06.00 [id number] Heather Villareal MD Main Office [address] [address] [place] [address] 06/13/2024 11:01:19 06/13/2024 12:13:27 Essential hypertension 81666000 I10 BP well controlled will continue current regimen. She brought home, cuff and it was compared to office cuff.Will continue current regimen. Upper abdominal pain 831 71162 R10.10 Was seen in urgent care, sx resolved will get notes. She will follow up PRN. Left upper quadrant pain 065565999 R10.12 Pain was sharp radiating to back.Sx [...] and agreed with the plan. Rib pain 822016524 R07.8 1 suspected costo.Will get xray ensure no fx.Denies trauma hx.Warm compress advisedNo rash noted.If pain does not improve call for follow up. [id number] Heather Villareal MD Main Office [address] [address] [place] [address] 11/14/2024 13:49:54 11/14/2024 14:29:28 Laceration of ear region 624499751 S01.312A 109314 No signs of infection: Skin barrier is compromise d, advised otc bacitracin for 1 week. Avoid irritant like sunglasses , peroxide etoh.preca utions discussed. No role for PO abx for now. Follow up 11/22/24 [id number] Heather Villareal MD Main Office [address] [address] [place] [address] 11/22/2024 11:12:31 11/22/2024 11:58:54 Chronic obstructive pulmonary disease 67014897 J44.9 No symptoms, stable on inhalerCw follow up with pulmonolog ist Dr. Miles liao 823993034 T14.8XXA 67559 Improving, no signs of infection. Chronic neck pain 059603 3916 107 M54.2 Follows [facility] Vascular insufficiency 19412881 I87.2 88560 Essential hypertension 49035621 I10 BP well controlled will continue current regimen. She had brought home cuff in the past and it was comparable to office cuff.Will continue current regimen. Varicose v eins of lower extremity 17341454 I83.819 [id number] Lasha Alejandro MD Main Office [address] [address] [place] [address] 12/02/2024 10:41:53 12/02/2024 11:41:07 Acute pharyngitis 349771691 J02.9 Still able to eat and swallow w/o problems making acute pharyngiti s less of an issue. Acute exac erbation of chronic obstructive pulmonary disease 217110011 J44.1 370251 Breathing does not appear labored and exam is normal so will not do a course of prednisone . She will take an abx for a week and call if she worsens or the symptoms persist. [id number] Heather Villareal MD Main Office [address] [address] [place] [address] 12/29/2024 10:25:43 01/31/2025 23:36:26 [id number] Lasha Alejandro MD Main Office [address] [address] [place] [address] 01/05/2025 10:02:19 01/05/2025 10:32:26 Essential hypertension 52949879 I10 -bp in office at goal-c/w current regimen Hypothyroidism 91483753 E03.9 -had elevated TSH of 7.82>will repeat levels in 6 weeks-like ly elevated d/t recent illness/ex acerbation Dry eyes 508177153 H04.1 23 6631212 Transition of care 49519 41013 105 Z78.9 15353399 reviewed rehabilita tion documentat ion Acute exac erbation of chronic obstructive pulmonary disease [id number] J44.1 [id number] -completed 5 day course of prednisone -f/u with pulmonolog y who prescribed a portable O2 tank-used O2 nightly-in office O2 sat of 96% Anxiety state [id number] F41.1 c/w escitalopr am 20mg QD [id number] Soy Coleman MD Main Office [address] [facility] [address] [place] [address] 04/12/2025 14:47:12 04/12/2025 15:55:56 Pruritic dermatitis [id number] L30.8 564 unsure of etiology - ? d/t dry skincheck vit d levelrec fragrance free moisturizi ng lotion (stop calamine spray) - aveeno or eucerintri al with daily zyrtec with prn hydroxyzin eif no better then see derm - pending see ne derm 05.06.25 Vitamin D deficiency [id number] E55.9 [id number] Heather Villareal MD Main Office [address] [facility] [address] [place] [address] 04/16/2025 14:01:36 04/16/2025 15:40:59 Pruritic dermatitis [id number] L30.8 564 Hypothyroidism 84379530 E03.9 [id number] Upper resp iratory tract finding [id number] R09.89 [id number] Essential hypertension 25179124 I10 Health Concerns Section Related Observation LastModified by Organization Detai ls LastModified Time None Recorded Concern Status LastModified by Organization Details LastModified Time None Recorded Advance Directives Directive Y: Power of Fuel Cell 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 and [facility] Payers Insurance Date Sequence Insurance Name Policy Number Policy Sanchez Covered Member ID Sanchez Member ID Guarantor Name 04/18/2025 1 [place] [employer] Stacey Stevenson [id number] Stacey Stevenson 04/18/2025 2 [place] [id number] Stacey Stevenson [id number] Stacey Stevenson Notes Date Note Type Note Provider Name and Address Organization Details Recorded Time 5 text/html ROS as noted in the HPI She has been having a sore throat, body aches, LIANG and chills over the last 3 days. Also with fatigue and a mild dry cough. She denies any fever. Has taken tylenol and advil with some help. No known ill contacts. She states that she uses oxygen over night. She has COPD and is followed by Dr Aquino. Lasha Alejandro MD [address], [address], [facility] 12/02/2024 13:06:58 5 text/html Hospitalization Contact RecordReported by PatientHospitalization Contact RecordFor follow up, patient reportshospital: snf,admit date: (please enter in format 'mm/dd/yyyy') (12/15/2024),date of discharge: (please enter in format 'mm/dd/yyyy') (12/28/2024), anddate of contact: (please enter in format 'mm/dd/yyyy') (12/29/2024)([facility]).Medicare covered inpatient stay? yes Medicare CLYDE with in 48 working hours? yes High Complexity code valid on or before:December Moderate Complexity code valid on or before: January HCP on file? no MOLST on file? no Discharge Summary available? yes 84 year old female transferred to [facility] from [facility] for further medical management and conditioning due to acute exacerbation of COPD. During SNF stay patient received OT, PT, Retirement . services were 5 days a week for 3 hours. Patient made great improvements with rehab program. Patient also completed 5 days course of prednisone during SNF stay , completed course on 12/20/2024. Discharge home with Philip ZAPATA, initial visit will be today 12/29/2024 . Animal Breeder CLYDE call to patient regarding discharge status. Patient is happy to be home. Report breathing is stable using nebulizer and inhaler as needed. reports is in a cool area due to weather becoming warmer. Noted has ac on . Appetite and fluid intake is well , aware activities as tolerated . denies chest pain, excessive shortness of breath, nausea , vomiting, numbness, tingling, visual changes, headaches or gait imbalance, uses walker or cane for assistance as needed . Patient does reports some weakness and fatigue feels its from her thryoid being mildly elevated . Reviewed discharge medications with patient does have questioning regarding thyroid med sent to provider for review. Patient will be calling radio mechanic to sent up Apurva for hospital follow up on 01/05/2025 . DESEAN RAMIERZ [address] [facility] [address], [place], [address], [facility] 01/31/2025 23:36:24 5 text/html ROS as noted in the [facility] Hospitalization Contact RecordFor follow up, patient reports hospital: snf, admit date: (12/15/2024), date of discharge: (12/28/2024), and date of contact: (12/29/2024).Medicare covered inpatient stay? yesMedicare CLYDE with in 48 working hours? yesHigh Complexity code valid on or before:DecemberModerate Complexity code valid on or before:JanuaryHCP on file? noMOLST on file? noDischarge Summary available? yes84 year old female transferred to [facility] from [facility] for further medical management and conditioning due to acute exacerbation of COPD.During SNF stay patient received OT, PT, Retirement . services were 5 days a week for 3 hours. Patient made great improvements with rehab program.Patient also completed 5 days course of prednisone during SNF stay , completed course on 12/20/2024. Discharge home with Philip ZAPATA, initial visit will be today 12/29/2024 .Animal Breeder CLYDE call to patient regarding discharge status. [...] to provider for review.Patient will be calling radio mechanic to sent up Apurva for hospital follow up on 01/05/2025 . DESEAN RAMIREZ [address] [facility] [address], [place], [address], [facility] 01/05/2025 12:37:51 5 text/html Patient c/o itchy rash all over x 5 days.She denies new foods or medications. No new laundry detergent or skin care.She has been using a calamine spray.pt states cannot tolerate benadryl Alber Landon MOISE [address] [facility] [address], [place], [address], [facility] 04/14/2025 08:32:54 5 text/html The patient is an 84-year-old female who was previously evaluated by my colleague for generalized pruritus. She denies any new foods, detergents, skincare products, or changes in medication. She was prescribed cetirizine and hydroxyzine, but experienced difficulty breathing after taking them and subsequently discontinued both medications. She reports using Aveeno moisturizer after showering and bathing in lukewarm water, yet continues to experience diffuse itching. She notes a subjective low-grade fever (99 F) today and expresses concern for possible upper respiratory infection, influenza, or COVID-19, though she has not been tested. She denies other URI symptoms but endorses generalized body aches and shortness of breath. She is a poor historian, and her symptoms are nonspecific. Prior workup by my colleague included a vitamin D level, which was normal. Her blood pressure was elevated today, which could be related to aggravation from itching. She is otherwise asymptomatic. Heather Villareal MD [address] [facility] [address], [place], [address], [facility] 04/16/2025 17:21:05 OBGyn Episode No OBEpisode recorded.
--- OUTSIDE RECORDS SUMMARY | 2025-04-25 16:08 | XMS_ITS | Encounter Summary ---
Author Organization [facility] Address [address] [place] [address] Care Team Providers Care Veterinary Technology Instructor Name Role Phone Gavin Villareal MD Primary Care Provider Encounter Details Date Type Department Care Team (Late st Contact Info) Description 12/16/[address] [facility] - Main Lab [address] [facility] [place] [address] Hai Lockett MD [address] [place] [id number] Encounter for other general examination Social History [...] Diagnosis Comments CBC WITH AUTO DIFFERENTIAL Routine 12/16/2024 6:12 AM EDT Encounter for other general examination CBC AND DIFFERENTIAL Routine 12/16/2024 6:12 AM EDT Encounter for other general examination MAGNESIUM Routine 12/16/2024 6:12 AM EDT Encounter for other general examination COMPREHENSIVE METABOLIC PANEL Routine 12/16/2024 6:12 AM EDT Encounter for other general examination documented in this encounter Results * (ABNORMAL) CBC auto differential (12/16/2024 6:12 AM EDT) [facility] WBC 7.2 4.8 - 10.8 K/mcL LAB HEMETOLOGY METHOD 12/16/2024 10:52 AM [facility] RBC 3.60(L) 3.80 - 4.80 M/mcL LAB HEMETOLOGY METHOD 12/16/2024 10:52 AM [facility] Hemoglobin 11.1(L) 11.5 - 16.0 g/dL LAB HEMETOLOGY METHOD 12/16/2024 10:52 AM [facility] Hematocrit 34.2(L) 35.0 - 47.0 % LAB HEMETOLOGY METHOD 12/16/2024 10:52 AM [facility] MCV 95.3 79.0 - 98.0 FL LAB HEMETOLOGY METHOD 12/16/2024 10:52 AM [facility] MCH 30.9 27.0 - 32.0 pcg LAB HEMETOLOGY METHOD 12/16/2024 10:52 AM [facility] MCHC 32.5 32.0 - 37.0 g/dL LAB HEMETOLOGY METHOD 12/16/2024 10:52 AM [facility] RDW 14.3 11.0 - 15.0 % LAB HEMETOLOGY METHOD 12/16/2024 10:52 AM [facility] Platelets 227 130 - 400 K/mcL LAB HEMETOLOGY METHOD 12/16/2024 10:52 AM [facility] MPV 11.3(H) 7.0 - 11.0 FL LAB HEMETOLOGY METHOD 12/16/2024 10:52 AM [facility] NRBC 0.0 <1.0 % LAB HEMETOLOGY METHOD 12/16/2024 10:52 AM [facility] NRBC Absolute 0.00 <0.10 K/mcL LAB HEMETOLOGY METHOD 12/16/2024 10:52 AM [facility] Neutrophils Relative 60.2 % LAB HEMETOLOGY METHOD 12/16/2024 10:52 AM [facility] Lymphocytes Relative 29.6 % LAB HEMETOLOGY METHOD 12/16/2024 10:52 AM [facility] Monocytes Relative 7.6 % LAB HEMETOLOGY METHOD 12/16/2024 10:52 AM [facility] Eosinophils Relative 1.5 % LAB HEMETOLOGY METHOD 12/16/2024 10:52 AM [facility] Basophils Relative 0.8 % LAB HEMETOLOGY METHOD 12/16/2024 10:52 AM [facility] Immature Granulocytes Relative 0.3 % LAB HEMETOLOGY METHOD 12/16/2024 10:52 AM [facility] Neutrophils Absolute 4.36 1.50 - 7.00 K/mcL LAB HEMETOLOGY METHOD 12/16/2024 10:52 AM [facility] Lymphocytes Absolute 2.14 1.00 - 5.00 K/mcL LAB HEMETOLOGY METHOD 12/16/2024 10:52 AM [facility] Monocytes Absolute 0.55 0.20 - 1.00 K/mcL LAB HEMETOLOGY METHOD 12/16/2024 10:52 AM [facility] Eosinophils Absolute 0.11 0.00 - 0.50 K/mcL LAB HEMETOLOGY METHOD 12/16/2024 10:52 AM [facility] Basophils Absolute 0.06 0.00 - 0.20 K/mcL LAB HEMETOLOGY METHOD 12/16/2024 10:52 AM [facility] Immature Granulocytes Absolute 0.02 0.00 - 0.03 K/mcL LAB HEMETOLOGY METHOD 12/16/2024 10:52 AM [facility] Blood Venous blood specimen / Unknown Venipuncture / Unknown 12/16/2024 6:12 AM EDT 12/16/2024 9:36 AM EDT us Hai Lockett MD LAB BLOOD ORDERABLES Final Resu lt Performing Organization Address [facility]/ZIP Co de Phone Number [facility] [address] [place] [address], [place] [phone] * Magnesium (12/16/2024 6:12 AM EDT) Pathologist [facility] Magnesium 2.3 1.9 - 2.6 mg/dL LAB CHEMISTRY METHOD 12/16/2024 11:25 AM EDT [facility] Blood Venous blood specimen / Unknown Venipuncture / Unknown 12/16/2024 6:12 AM EDT 12/16/2024 9:36 AM EDT us Hai Lockett MD LAB BLOOD ORDERABLES Final Resu lt Performing Organization Address City/[facility]/ZIP Co de Phone Number [facility] [address] [place] [address], [place] [phone] * (ABNORMAL) Comprehensive metabolic panel (12/16/2024 6:12 AM EDT) [facility] Sodium 144 133 - 145 mmol/L LAB CHEMISTRY METHOD 12/16/2024 11:27 AM EDT [facility] Potassium 4.0 3.5 - 5.5 mmol/L LAB CHEMISTRY METHOD 12/16/2024 11:27 AM EDT [facility] Chloride 109 96 - 110 mmol/L LAB CHEMISTRY METHOD 12/16/2024 11:27 AM EDT [facility] CO2 30 21 - 32 mmol/L LAB CHEMISTRY METHOD 12/16/2024 11:27 AM EDT [facility] Anion Gap 5 3 - 11 LAB CHEMISTRY METHOD 12/16/2024 11:27 AM EDT [facility] Glucose 67(L) 70 - 100 mg/dL LAB CHEMISTRY METHOD 12/16/2024 11:27 AM [facility] BUN 18 5 - 25 mg/dL LAB CHEMISTRY METHOD 12/16/2024 11:27 AM [facility] Creatinine 0.55 0.50 - 1.10 mg/dL LAB CHEMISTRY METHOD 12/16/2024 11:27 AM [facility] eGFR 92 >=60 mL/min/1. 73m2 LAB CHEMISTRY METHOD 12/16/2024 11:27 AM [facility] Comment:Calculation based on the Chronic Kidney Disease Epidemiology Collaboration (CKD-EPI) equation refit without adjustment for race. BUN/Creatinine Ratio 32.7 LAB CHEMISTRY METHOD 12/16/2024 11:27 AM [facility] Calcium 8.4(L) 8.5 - 10.5 mg/dL LAB CHEMISTRY METHOD 12/16/2024 11:27 AM [facility] AST (SGOT) 16 10 - 42 unit/L LAB CHEMISTRY METHOD 12/16/2024 11:27 AM [facility] ALT (SGPT) 25 10 - 60 unit/L LAB CHEMISTRY METHOD 12/16/2024 11:27 AM [facility] Alkaline Phosphatase 59 42 - 121 unit/L LAB CHEMISTRY METHOD 12/16/2024 11:27 AM [facility] Total Protein 5.2(L) 6.0 - 8.0 g/dL LAB CHEMISTRY METHOD 12/16/2024 11:27 AM [facility] Albumin 3.1(L) 3.2 - 5.0 g/dL LAB CHEMISTRY METHOD 12/16/2024 11:27 AM [facility] Total Bilirubin 0.2 0.0 - 1.4 mg/dL LAB CHEMISTRY METHOD 12/16/2024 11:27 AM [facility] Blood Venous blood specimen / Unknown Venipuncture / Unknown 12/16/2024 6:12 AM EDT 12/16/2024 9:36 AM EDT us Hai Lockett MD LAB BLOOD ORDERABLES Final Resu lt [facility] ([facility]) [facility] [address] [place] [address], documented in this encounter Visit Diagnoses Diagnosis Encounter for other general examination documented in this encounter Additional Health Concerns Infection Onset Date Last Indicated Resolved Time Rotavirus 12/22/2024 12/22/2024 Gastrointestinal Rule-Out 12/23/2024 12/22/2024 2:40 PM EDT documented as of this encounter Care Teams Veterinary Technology Instructor Relationship Specialty Start Date End Date Gavin Villareal MD [address] [address] PCP - General Family Medicine 07/24/24 documented as of this encounter
--- OUTSIDE RECORDS SUMMARY | 2025-04-25 16:08 | XMS_ITS | Encounter Summary ---
Author Organization [facility] Address [address] [place] [address] Care Team Providers Care Technical Assistant Name Role Phone Gavin Villareal MD Primary Care Provider [phone] Encounter Details Date Type Department Care Team (Late st Contact Info) Description 12/21/2024 Lab Requisition [facility] - Main Lab [address] [place] [address] Hai Lockett MD [address] [place] [address] Encounter for other general examination Social History [...] Procedure Name Priority Date/Time Associated Diagnosis Comments COMPLETE BLOOD COUNT Routine 12/21/2024 6:29 AM EDT Encounter for other general examination BASIC METABOLIC PANEL Routine 12/21/2024 6:29 AM EDT Encounter for other general examination documented in this encounter Results * (ABNORMAL) Complete blood count (12/21/2024 6:29 AM EDT) WBC 11.9(H) 4.8 - 10.8 K/Health system LAB HEMETOLOGY METHOD 12/21/2024 9:[address] [facility] RBC 4.40 3.80 - 4.80 M/Health system LAB HEMETOLOGY METHOD 12/21/2024 9:11 AM [facility] Hemoglobin 13.5 11.5 - 16.0 g/dL LAB HEMETOLOGY METHOD 12/21/2024 9:11 AM [facility] Hematocrit 42.5 35.0 - 47.0 % LAB HEMETOLOGY METHOD 12/21/2024 9:11 AM [facility] MCV 97.3 79.0 - 98.0 FL LAB HEMETOLOGY METHOD 12/21/2024 9:11 AM [facility] MCH 30.9 27.0 - 32.0 pcg LAB HEMETOLOGY METHOD 12/21/2024 9:11 AM [facility] MCHC 31.8(L) 32.0 - 37.0 g/dL LAB HEMETOLOGY METHOD 12/21/2024 9:11 AM [facility] RDW 14.6 11.0 - 15.0 % LAB HEMETOLOGY METHOD 12/21/2024 9:11 AM [facility] Platelets 307 130 - 400 K/mcL LAB HEMETOLOGY METHOD 12/21/2024 9:11 AM [facility] MPV 10.9 7.0 - 11.0 FL LAB HEMETOLOGY METHOD 12/21/2024 9:11 AM [facility] NRBC 0.0 <1.0 % LAB HEMETOLOGY METHOD 12/21/2024 9:11 AM [facility] NRBC Absolute 0.00 <0.10 K/mcL LAB HEMETOLOGY METHOD 12/21/2024 9:11 AM [facility] Blood Venous blood specimen / Unknown Venipuncture / Unknown 12/21/2024 6:29 AM EDT 12/21/2024 8:39 AM EDT us Hai Lockett MD LAB BLOOD ORDERABLES Final Resu lt [facility] [address] [place] [address], * (ABNORMAL) Basic metabolic panel (12/21/2024 6:29 AM EDT) Sodium 140 133 - 145 mmol/L LAB CHEMISTRY METHOD 12/21/2024 9:48 AM [facility] Potassium 4.0 3.5 - 5.5 mmol/L LAB CHEMISTRY METHOD 12/21/2024 9:48 AM [facility] Chloride 101 96 - 110 mmol/L LAB CHEMISTRY METHOD 12/21/2024 9:48 AM [facility] CO2 33(H) 21 - 32 mmol/L LAB CHEMISTRY METHOD 12/21/2024 9:48 AM [facility] Anion Gap 6 3 - 11 LAB CHEMISTRY METHOD 12/21/2024 9:48 AM [facility] Glucose 74 70 - 100 mg/dL LAB CHEMISTRY METHOD 12/21/2024 9:48 AM [facility] BUN 23 5 - 25 mg/dL LAB CHEMISTRY METHOD 12/21/2024 9:48 AM [facility] Creatinine 0.56 0.50 - 1.10 mg/dL LAB CHEMISTRY METHOD 12/21/2024 9:48 AM [facility] eGFR 91 >=60 mL/min/1. 73m2 LAB CHEMISTRY METHOD 12/21/2024 9:48 AM [facility] Comment:Calculation based on the Chronic Kidney Disease Epidemiology Collaboration (CKD-EPI) equation refit without adjustment for race. BUN/Creatinine Ratio 41.1 LAB CHEMISTRY METHOD 12/21/2024 9:48 AM [facility] Calcium 8.6 8.5 - 10.5 mg/dL LAB CHEMISTRY METHOD 12/21/2024 9:48 AM [facility] Blood Venous blood specimen / Unknown Venipuncture / Unknown 12/21/2024 6:29 AM EDT 12/21/2024 8:39 AM EDT us Hai Lockett MD LAB BLOOD ORDERABLES Final Resu lt [facility] [address] [place] [address], documented in this encounter Visit Diagnoses Diagnosis Encounter for other general examination documented in this encounter Additional Health Concerns Infection Onset Date Last Indicated Resolved Time Rotavirus 12/22/2024 12/22/2024 Gastrointestinal Rule-Out 12/23/2024 12/22/2024 2:40 PM EDT documented as of this encounter Care Teams Technical Assistant Relationship Specialty Start [place] [address] [place] [phone] PCP - General Family Medicine 07/24/24 documented as of this encounter
== END 2025-04-25 13:24 | disposition home or self-care (01) ==
LOC: HO.HCS 12:44
PROVIDERS: PCP Family Medicine; Visit Provider Internal Medicine
DX: R00.1 Bradycardia, unspecified (principal); I25.10 Atherosclerotic heart disease of native coronary artery without angina pectoris; J41.0 Simple chronic bronchitis
CPT/HCPCS: 99214; G2211

== ENCOUNTER → 2025-04-25 12:44 | Outpatient (BNVA) | payer MEDICARE, SELFPAY | PROVIDERS: PCP Family Medicine; Visit Provider Internal Medicine | DX: I25.10 Atherosclerotic heart disease of native coronary artery without angina pectoris (principal); R00.1 Bradycardia, unspecified; J41.0 Simple chronic bronchitis | CPT/HCPCS: 99212 ==

== ENCOUNTER 2025-05-22 10:48 | Outpatient (AMB) | payer MEDICARE, SELFPAY ==
--- OUTSIDE RECORDS SUMMARY | 2023-11-24 10:00 | XMS_ITS | Continuity of Care Document ---
Author Organization [facility] Address [address] [place] [address] [address] [place] [phone] Phone Care Team Providers Care Client Server Programmer Name Role Phone Giovanni OVALLE, MELECIO, [place], Jimy Unavailable U navailable Procedures Procedure Date Duplex Scan-extrem Veins; Uni/ CT & MA M Advance Directives Directive Yes / No Effective Date File Name No Information Encounters Encounter Description Practice Location Reason(s) For Visit Diagnoses Date Provider Providers Copied on Encounter [facility], [address] [place] [address] [address], [place], [id number], [place] tel:[phone] [facility] [place] Pain in left leg 4 Giovanni OVALLE, MELECIO, [place] Ahn. [address] [facility] 302, [facility] [place], [id number] , [place]. tel:[phone] Referring Provider: Gavin Villareal MD, [address] [facility] [address] [facility] 207, [facility] [place], [address]. tel:[phone] Family History Family Member Type Diagnosis Age At Onset No Information Payers Payer name Insurance type Covered libertarian ID Authoriza tion(s) Medicare ALBERTO DELATORRE [id number] BCBS ALBERTO BRADLEY [id number] Social History Type Description Quantity Date Captured Comments Sex Female Smoking Status No Information Chief Complaint And Reason For Visit No Information Reason For Referral Reason For Referral No Information History Of Present Illness Encounter Date Complaint History Of Prese nt Illness No Information Functional Status Date Functional Assessmen t No Information Instructions Date Instruction Additional Infor mation No Information Assessments Type Assessment Date No Information Patient Care Teams Name Effective Dates (start - stop) Status Members No Information
[2025-05-22 10:56] VITALS: BP 124/52; PULSE 60; O2SAT 96; BMI 22.8
--- NOTE | 2025-05-22 10:56 | MHC.OFFVIS ---
Vital Signs 05/22/25 10:56 Height 5 ft 2 in Weight 124 lb 8.979 oz BMI 22.8 BP 124/52 L Blood Pressure Location Lt brachial Position Sitting Pulse 60 Pulse Source Pulse Oximeter Pulse Oximetry (%) 96 Oxygen Delivery Method Room Air Intake Visit Reasons: COPD Protective Services Officer Required: No Allergies codeine Allergy (Severe, Verified 05/22/25 11:01) Rapid Heartbeat morphine Allergy (Severe, Verified 05/22/25 11:01) Rapid Heartbeat quetiapine Allergy (Severe, Verified 05/22/25 11:01) Difficulty Breathing IV Contrast Dye Allergy (Severe, Uncoded 12/12/24 16:47) Rapid Heartbeat Sulfamethoxazole Allergy (Severe, Uncoded 12/12/24 16:47) Rapid Heartbeat HPI Comments Details: The patient is a 85 y/o woman with a history of COPD. She was treated for COPD exacerbation during the last visit in this was a follow-up visit. Overall she is feeling a lot better. She completed the antibiotics and the prednisone. She is still having some cough which is nonproductive in nature. [id number] severity. The inhalers have been helpful. We did review her blood work which resolved relatively benign. She however is having some difficulties with her medications because she hit the donut hole and cannot afford her Spiriva. Will try to find something more financially reasonable for the patient at this time. \ 11/25/2022 the patient is here for pulmonary follow-up visit. The patient overall has been doing fair. She has had significant headaches and sinus pressure. She has been struggling with this for some time. The patient was given loratadine but resulted in adverse effects and she could not take it. She also has a hard time tolerating prednisone because it affects her mood. She has been using her respiratory therapy with good effect. Denies any significant shortness of breath although she does have dyspnea with activity. Will have her undergo a chest x-ray. The meantime going to start her on additional nasal therapies to improve her nasal allergies are likely affecting her sinuses. Will be reasonable also to treat him hoarse for sinusitis with doxycycline. 04/21/2023 the patient is here for pulmonary follow-up visit. The patient is still complaining of significant headaches. She feels like it is her sinus. She is been treated with multiple antibiotics for. It seems to be the case now lasting 4 months. She did have a sinus CT scan done at [facility] which I did review her. It appears that she does not have any evidence of sinusitis. The patient will be following up with ENT as well. I did recommend she gets evaluated for underlying headaches. The patient also having significant photosensitivity. She did follow-up with her eye doctor. At least from a respiratory status the patient is doing fairly well. She continues on the Spiriva and the Symbicort. She has not required her rescue inhaler. We did review her last chest x-ray demonstrating a small retrosternal pulmonary nodule. Will go ahead and repeat the chest x-ray at this time. The nodule still there we then will cuss a CT scan of the chest to better address the findings. 10/20/2023 the patient is here for a pulmonary follow-up visit. She continues to have significant frontal headaches. She did undergo CT scan of the sinuses which is reassuring. She is working closely with her pain specialist that she is having significant neck pain that may be contributing to her headaches. The patient also underwent a CT scan of the chest which was personally by me. The patient does have couple subcentimeter pulmonary nodules that will need follow-up. She also has [id number] emphysema secondary to her history of smoking. Patient continues on the Symbicort Spiriva which appeared to be effective. She also has a rescue inhaler but she does not use it often. At this point the patient will continue with current respiratory therapy and she will have a repeat CT scan sometime in June. Will follow-up after her CT scan. If she has any issues prior to that she will call for an earlier assessment. 11/18/2023 the patient is here for a pulmonary follow-up visit. The patient overall has been doing well. She still complaining of findings headaches from the headaches. Moderate severity. The lights still bothering her. She did try the Astelin nasal spray but she did not tolerated as it made her jittery and bad taste. She has been using the fluticasone nasal spray and also the singular at nighttime. She continues on the Symbicort and Spiriva. Will go ahead and start her on small dose of antihistamine therapy. I do believe that she needs it. We did review her blood work demonstrating an elevated IgE consistent with allergies. In addition to that she had a CT scan of the sinuses demonstrating thickening of the mucosa of the ethmoid sinuses all the other sinus or okay. Respiratory garcia patient is doing well. She will continue with the current respiratory therapy. If the patient is no better she will need a referral to Allergy. 03/08/2024 the patient is here for a pulmonary follow-up visit. Overall she is doing well from a respiratory status. Her allergies are better controlled at this time. She was able to back off on the allergy medicine. She continues on the Spiriva and Symbicort. This has been affecting beneficial. The patient gets the Spiriva donated. In addition to that she does have a CT scan scheduled for 07/31/2024 to follow-up with the pulmonary nodules. No further recommendations at this time. Will follow-up in 6-8 months. The patient has any issues or any abnormal findings on the CT scan will go ahead and see her soone 10/16/2024 the patient is here for a pulmonary follow-up visit. She has been having hard time with the breathing for the last few weeks. She did go on a prednisone taper that did improve her breathing significantly but then she ran out started getting worse again. She does use her respiratory inhalers as prescribed. She is wondering if she needs oxygen. She does state also that she has episodes of shortness of breath and chest tightness that wake her up at nighttime. Moderate severity. She does respond well to the nebulized treatment. The patient did have a CT scan back in 2023 which we personally reviewed. She appears to have a hiatal hernia. In addition to that emphysematous lungs were hyperinflated due to the COPD. We did go for a 6 minute walk test. The patient did not desaturate enough to need oxygen. Although she did go to 93 % for period of time. The patient will undergo an overnight oximetry while sleeping to see if she needs any oxygen with sleep. In the meantime because of a hiatal hernia on her pancreatic disease and gallbladder disease I worry that she could be having some micro aspirations resulting in bronchospasms at nighttime. Therefore did ask her to sleep elevated with risers or a wedge. In the meantime will start her on omeprazole to see if this provides some relief and also will do a lower dose prednisone for longer to help with the current wheezing. She will continue with the current respiratory therapy. Will follow-up in 2-3 months. 12/12/2024 the patient is here for a pulmonary sick visit. She wishes seen about 2 months ago and the patient was given further antibiotics over the phone because of worsening respiratory symptoms. She was initially on doxycycline and then was not responding she was placed on Augmentin. Although give her diarrhea and she stopped it after a couple days. She went back on doxycycline but she just has not felt well. She feels very short of breath and also complaining of chest pressure and pain. The patient could not tolerate the symptoms and a longer made her sick visit. During the visit we did take her for walking oximetry the patient did desaturate briefly to 88% walking on room air. She did good just on 1 L nasal cannula. She already has oxygen for the nighttime so which is added a portable tank order for her to have with be cylinders. In the meantime we also had get blood work. Her D-dimer did come back significantly elevated actually critically elevated at 1500. I did call her explained to her the seriousness of the matter the patient was agreeable to go to the ER today. 01/18/2025 the patient is here for pulmonary follow-up visit. She was hospitalized briefly and subsequently went to rehab. She has been home now for few weeks and it has been on VNA. She still has issues with shortness of breath with activity moderate severity. She does desaturate down to the low 80s. She is still waiting to be set up with the oxygen at home. I did reach out to the [employer], [employer] to help her facilitate the portable oxygen concentrator for better portability outside of the home and also oxygen to use at nighttime. She does continue to use her respiratory medications as prescribed. We did review her blood work. Her CO2 is slightly elevated consistent with chronic hypercarbic respiratory failure. Will go ahead and monitor her closely. Right now she needs to be careful with any opiates or any medications that can suppress her respiratory drive. If her CO2 worsens we may need to talk about having her undergo an in-lab sleep study. Will follow-up with a repeat blood gas in 3-4 months. If he has any issues prior to the next visit she will call for further recommendations. 05/22/2025 the patient is here for pulmonary follow-up visit. Overall she is doing well. She noticing increased shortness of breath at home and she started using her nebulizer and her symptoms did improve. She continues with respiratory inhalers with good response. The patient denies any significant phlegm. She is going to monitor closely and if it worsens she can always call and I can send her some medications. We did talk about her oxygen. The patient does have significant hypoxia at nighttime. She is concerned about CO2 retention so therefore will have her decrease the oxygen at nighttime to 1 L while sleeping. The patient will continue to take her respiratory inhalers as prescribed and her nebulizer twice a day. If she has any issues she can always call further recommendations otherwise she will follow-up in 4-6 months. [facility] Medical History Bradycardia Hiatal hernia Pulmonary nodule Limb swelling Dyspnea COPD (chronic obstructive pulmonary disease) Family History (Updated 04/25/25 @ 13:08 by Mary Arroyo CMA) Mother Heart attack Social History Household Members: None Housing: Apartment Do you presently have visiting nurse or other home services: No Patient Tobacco Use Status: Former Tobacco user Tobacco use type: Cigarette Years Smoked: 35 years service: No Review of Systems Const Denies headache(s), Denies night sweats, Reports weakness and Reports weight loss ENT Denies change in voice, Denies headache(s), Denies lip swelling, Denies mouth pain and Denies tongue swelling Card Reports chest pain, Reports dyspnea and Reports dyspnea on exertion Resp Reports cough, Reports dyspnea, Reports dyspnea on exertion and Reports wheezing GI Denies abdominal pain Musc Reports as per HPI and Reports back pain Neuro Denies Neuro-related abnormal movements, Denies headache(s) and Reports weakness Psych Denies no additional complaints Dashawn/Lymph Denies easy bleeding and Denies lymphadenopathy Aller/Immun Denies lip swelling, Denies tongue swelling and Reports wheezing Physical Exam Vital Signs: Last Vital Signs Pulse 60 05/22/25 10:56 BP 124/52 L 05/22/25 10:56 Pulse Ox 96 05/22/25 10:56 Oxygen Delivery Method Room Air 05/22/25 10:56 BMI result Body Mass Index 22.8 Const Other: Patient in moderate distress due to pain. General: cooperative and healthy appearing Nutritional Appearance: well nourished Orientation/consciousness: patient oriented x3 Limitations: no limitations HEENT Head: Yes normal to inspection General nose exam: Abnormal external nose present and Nasal discharge present Eyes General: appearance normal, both eyes and all related structures Neck Neck: Yes supple Chest Chest palpation & inspection: normal palpation of entire chest wall Resp Effort & Inspection: normal respiratory effort Auscultation: no wheezes and diminished lung sounds Cardio Rate: regular rate Rhythm: regular rhythm Heart sounds: S1 normal heart sound present and S2 normal heart sound present GI Palpation (GI): Soft to palpation and nontender Auscultation: normal bowel sounds Neuro General: patient oriented x3 Assessment & Plan Assessment & Plan (1) Dyspnea: Comment: significant small airways disease. Responding very well to the bronchodilator therapy Code(s): R06.00 - Dyspnea, unspecified Category: Medical Qualifiers: Dyspnea type: dyspnea on exertion Qualified Code(s): R06.00 - Dyspnea, unspecified (2) COPD (chronic obstructive pulmonary disease): Code(s): J44.9 - Chronic obstructive pulmonary disease, unspecified Category: Medical Qualifiers: COPD type: chronic bronchitis Chronic bronchitis type: simple Qualified Code(s): J41.0 - Simple chronic bronchitis (3) Pulmonary nodule: Code(s): R91.1 - Solitary pulmonary nodule Category: Medical (4) Hiatal hernia: Code(s): K44.9 - Diaphragmatic hernia without obstruction or gangrene Category: Medical Plan short-acting beta agonist as needed continue Symbicort and Spiriva continue Fluticasone daily Neti bottle with distilled water and packet use Mucinex as needed sleep with HOB elevated reflux diet oxygen 1l/min with activity and 1L/min while sleeping F/U 4-6 months Coding Level of Care Code Est Pt Level 4 (90237) Complex EM visit Add On G2211 Diagnoses Dyspnea on exertion R06.00 Dyspnea type: dyspnea on exertion Simple chronic bronchitis J41.0 COPD type: chronic bronchitis Chronic bronchitis type: simple Pulmonary nodule R91.1 Hiatal hernia K44.9 Time Spent (min) 17
--- OUTSIDE RECORDS SUMMARY | 2025-05-22 12:56 | XMS_ITS | Encounter Summary ---
Author Organization [facility] Address [address] [place] [address] Care Team Providers Care Pill Machine Operator Name Role Phone Gavin Villareal MD Primary Care Provider [phone] Encounter Details Date Type Department Care Team (Late st Contact Info) Description 12/23/2024 Lab Requisition [facility] - Main Lab [address] [facility] [place] [address] Hai Lokcett MD [address] [place] [id number] Encounter for other general examination; Diarrhea, unspecified [...] LAB MICROBIOLOGY METHOD 5 2:40 PM EDT [facility] Plesiomonas shigelloides Detection by PCR Not Detected Not Detected LAB MICROBIOLOGY METHOD 5 2:40 PM EDT [facility] Salmonella Detection by PCR Not Detected Not Detected LAB MICROBIOLOGY METHOD 5 2:40 PM EDT [facility] Vibrio Detection by PCR Not Detected Not Detected LAB MICROBIOLOGY METHOD 5 2:40 PM EDT [facility] Vibrio cholerae Detection by PCR Not Detected Not Detected LAB MICROBIOLOGY METHOD 5 2:40 PM EDT [facility] Yersinia enterocolitica Detection by PCR Not Detected Not Detected LAB MICROBIOLOGY METHOD 5 2:40 PM EDT [facility] Enteroaggregative E coli EAEC Detection by PCR Not Detected Not Detected LAB MICROBIOLOGY METHOD 5 2:40 PM EDT [facility] Enteropathogenic E coli EPEC Detection Not Detected Not Detected LAB MICROBIOLOGY METHOD 5 2:40 PM EDT [facility] Enterotoxigenic E coli ETEC LTST Detection Not Detected Not Detected LAB MICROBIOLOGY METHOD 5 2:40 PM EDT [facility] Shiga-like toxin producing E coli STEC STX1 STX2 Det Not Detected Not Detected LAB MICROBIOLOGY METHOD 5 2:40 PM EDT [facility] Shigella Enteroinvasive E coli EIEC Detection Not Detected Not Detected LAB MICROBIOLOGY METHOD 5 2:40 PM EDT [facility] Cryptosporidium Detection by PCR Not Detected Not Detected LAB MICROBIOLOGY METHOD 5 2:40 PM EDT [facility] Cyclospora cayetanensis Detection by PCR Not Detected Not Detected LAB MICROBIOLOGY METHOD 5 2:40 PM EDT [facility] Entamoeba histolytica Detection by PCR Not Detected Not Detected LAB MICROBIOLOGY METHOD 5 2:40 PM EDT [facility] Giardia lamblia Detection by PCR Not Detected Not Detected LAB MICROBIOLOGY METHOD 5 2:40 PM EDT [facility] Adenovirus F 40 41 Detection by PCR Not Detected Not Detected LAB MICROBIOLOGY METHOD 5 2:40 PM EDT [facility] Astrovirus Detection by PCR Not Detected Not Detected LAB MICROBIOLOGY METHOD 5 2:40 PM EDT [facility] Norovirus GI GII Detection by PCR Not Detected LAB MICROBIOLOGY METHOD 5 2:40 PM EDT [facility] Sapovirus Detection by PCR Not Detected Not Detected LAB MICROBIOLOGY METHOD 5 2:40 PM EDT [facility] Rotavirus A Detection by PCR Detected(A ) Not Detected LAB MICROBIOLOGY METHOD 5 2:40 PM EDT [facility] Stool Rectum structure / Unknown Non-blood Collection / Unknown 12/22/2024 8:00 PM EDT 12/23/2024 11:20 AM EDT Narrative [facility] - 12/23/2024 2:40 PM EDT [...] Lockett MD LAB MICROBIOLOGY - [facility] Final Result [facility] [address] [place] [address], documented in this encounter Visit Diagnoses Diagnosis Encounter for other general examination Diarrhea, unspecified documented in this encounter Additional Health Concerns Infection Onset Date Last Indicated Resolved Time Rotavirus 12/22/2024 12/22/2024 Gastrointestinal Rule-Out 12/23/2024 12/22/2024 2:40 PM EDT documented as of this encounter Care Teams Pill Machine Operator Relationship Specialty Start Date End Date Gavin Villareal MD [address] [address] PCP - General Family Medicine 07/24/24 documented as of this encounter
--- OUTSIDE RECORDS SUMMARY | 2025-05-22 12:56 | XMS_ITS | Encounter Summary ---
Author Organization [facility] Address [address] [place] [address] Care Team Providers Care Greenhouse Instructor Name Role Phone Gavin Villareal MD Primary Care Provider [phone] Encounter Details Date Type Department Care Team (Late st Contact Info) Description 12/22/2024 Lab Requisition [facility] - Main Lab 299 [facility] [employer] [place] [address] aHi Lockett MD [address] [place] [address] Encounter for other general examination Social History [...] CBC auto differential (12/22/2024 6:07 AM EDT) [facility] WBC 7.6 4.8 - 10.8 K/mcL LAB HEMETOLOGY METHOD 12/22/2024 8:46 AM [facility] RBC 4.00 3.80 - 4.80 M/mcL LAB HEMETOLOGY METHOD 12/22/2024 8:46 AM [facility] Hemoglobin 12.4 11.5 - 16.0 g/dL LAB HEMETOLOGY METHOD 12/22/2024 8:46 AM [facility] Hematocrit 38.7 35.0 - 47.0 % LAB HEMETOLOGY METHOD 12/22/2024 8:46 AM [facility] MCV 96.5 79.0 - 98.0 FL LAB HEMETOLOGY METHOD 12/22/2024 8:46 AM [facility] MCH 30.9 27.0 - 32.0 pcg LAB HEMETOLOGY METHOD 12/22/2024 8:46 AM [facility] MCHC 32.0 32.0 - 37.0 g/dL LAB HEMETOLOGY METHOD 12/22/2024 8:46 AM [facility] RDW 14.5 11.0 - 15.0 % LAB HEMETOLOGY METHOD 12/22/2024 8:46 AM [facility] Platelets 250 130 - 400 K/mcL LAB HEMETOLOGY METHOD 12/22/2024 8:46 AM [facility] MPV 10.8 7.0 - 11.0 FL LAB HEMETOLOGY METHOD 12/22/2024 8:46 AM [facility] NRBC 0.0 <1.0 % LAB HEMETOLOGY METHOD 12/22/2024 8:46 AM [facility] NRBC Absolute 0.00 <0.10 K/mcL LAB HEMETOLOGY METHOD 12/22/2024 8:46 AM [facility] Neutrophils Relative 81.8 % LAB HEMETOLOGY METHOD 12/22/2024 8:46 AM [facility] Lymphocytes Relative 7.7 % LAB HEMETOLOGY METHOD 12/22/2024 8:46 AM [facility] Monocytes Relative 7.9 % LAB HEMETOLOGY METHOD 12/22/2024 8:46 AM [facility] Eosinophils Relative 1.7 % LAB HEMETOLOGY METHOD 12/22/2024 8:46 AM [facility] Basophils Relative 0.4 % LAB HEMETOLOGY METHOD 12/22/2024 8:46 AM [facility] Immature Granulocytes Relative 0.5 % LAB HEMETOLOGY METHOD 12/22/2024 8:46 AM [facility] Neutrophils Absolute 6.24 1.50 - 7.00 K/mcL LAB HEMETOLOGY METHOD 12/22/2024 8:46 AM [facility] Lymphocytes Absolute 0.59(L) 1.00 - 5.00 K/mcL LAB HEMETOLOGY METHOD 12/22/2024 8:46 AM [facility] Monocytes Absolute 0.60 0.20 - 1.00 K/mcL LAB HEMETOLOGY METHOD 12/22/2024 8:46 AM [facility] Eosinophils Absolute 0.13 0.00 - 0.50 K/mcL LAB HEMETOLOGY METHOD 12/22/2024 8:46 AM [facility] Basophils Absolute 0.03 0.00 - 0.20 K/mcL LAB HEMETOLOGY METHOD 12/22/2024 8:46 AM [facility] Immature Granulocytes Absolute 0.04(H) 0.00 - 0.03 K/mcL LAB HEMETOLOGY METHOD 12/22/2024 8:46 AM EDT [facility] Blood Venous blood specimen / Unknown Venipuncture / Unknown 12/22/2024 6:07 AM EDT 12/22/2024 8:08 AM EDT Hai Lockett MD LAB BLOOD ORDERABLES Final Resu lt [facility] [address] [place] [address], [place] [phone] * (ABNORMAL) Procalcitonin (12/22/2024 6:07 AM EDT) [...] ORDERABLES Final Resu lt Performing Organization Address [facility]/ZIP Co de Phone Number [facility] [address] [place] [address], * Lipase (12/22/2024 6:07 AM EDT) Pathologist [facility] Lipase 14 13 - 75 unit/L LAB CHEMISTRY METHOD 12/22/2024 10:07 AM EDT [facility] Blood Venous blood specimen / Unknown Venipuncture / Unknown 12/22/2024 6:07 AM EDT 12/22/2024 8:08 AM EDT Hai Lockett MD LAB BLOOD ORDERABLES Final Resu lt Performing Organization Address [facility]/ZIP Co de Phone Number [facility] [address] [place] [address], [place] [phone] * (ABNORMAL) Comprehensive metabolic panel (12/22/2024 6:07 AM EDT) [facility] Sodium 138 133 - 145 mmol/L LAB CHEMISTRY METHOD 12/22/2024 10:10 AM [facility] Potassium 3.9 3.5 - 5.5 mmol/L LAB CHEMISTRY METHOD 12/22/2024 10:10 AM [facility] Chloride 102 96 - 110 mmol/L LAB CHEMISTRY METHOD 12/22/2024 10:10 AM [facility] CO2 29 21 - 32 mmol/L LAB CHEMISTRY METHOD 12/22/2024 10:10 AM [facility] Anion Gap 7 3 - 11 LAB CHEMISTRY METHOD 12/22/2024 10:10 AM [facility] Glucose 71 70 - 100 mg/dL LAB CHEMISTRY METHOD 12/22/2024 10:10 AM [facility] BUN 15 5 - 25 mg/dL LAB CHEMISTRY METHOD 12/22/2024 10:10 AM [facility] Creatinine 0.52 0.50 - 1.10 mg/dL LAB CHEMISTRY METHOD 12/22/2024 10:10 AM [facility] eGFR 93 >=60 mL/min/1. 73m2 LAB CHEMISTRY METHOD 12/22/2024 10:10 AM [facility] Comment:Calculation based on the Chronic Kidney Disease Epidemiology Collaboration (CKD-EPI) equation refit without adjustment for race. BUN/Creatinine Ratio 28.8 LAB CHEMISTRY METHOD 12/22/2024 10:10 AM [facility] Calcium 8.3(L) 8.5 - 10.5 mg/dL LAB CHEMISTRY METHOD 12/22/2024 10:10 AM [facility] AST (SGOT) 26 10 - 42 unit/L LAB CHEMISTRY METHOD 12/22/2024 10:10 AM [facility] ALT (SGPT) 70(H) 10 - 60 unit/L LAB CHEMISTRY METHOD 12/22/2024 10:10 AM [facility] Alkaline Phosphatase 67 42 - 121 unit/L LAB CHEMISTRY METHOD 12/22/2024 10:10 AM [facility] Total Protein 5.3(L) 6.0 - 8.0 g/dL LAB CHEMISTRY METHOD 12/22/2024 10:10 AM [facility] Albumin 3.1(L) 3.2 - 5.0 g/dL LAB CHEMISTRY METHOD 12/22/2024 10:10 AM [facility] Total Bilirubin 0.4 0.0 - 1.4 mg/dL LAB CHEMISTRY METHOD 12/22/2024 10:10 AM [facility] Blood Venous blood specimen / Unknown Venipuncture / Unknown 12/22/2024 6:07 AM EDT 12/22/2024 8:08 AM EDT us Hai Lockett MD LAB BLOOD ORDERABLES Final Resu lt [facility] LAB [address] [place] [address], documented in this encounter Visit Diagnoses Diagnosis Encounter for other general examination documented in this encounter Additional Health Concerns Infection Onset Date Last Indicated Resolved Time Rotavirus 12/22/2024 12/22/2024 Gastrointestinal Rule-Out 12/23/2024 12/22/2024 2:40 PM EDT documented as of this encounter Care Teams Greenhouse Instructor Relationship Specialty Start Date End Date Gavin Villareal MD [address] [address] PCP - General Family Medicine 07/24/24 documented as of this encounter
--- OUTSIDE RECORDS SUMMARY | 2025-05-22 12:56 | XMS_ITS | Encounter Summary ---
Author Organization [facility] Address [address] [place] [address] Care Team Providers Care Repair Mechanic Name Role Phone Gavin Villareal MD Primary Care Provider [phone] Encounter Details Date Type Department Care Team (Late st Contact Info) Description 12/26/2024 Lab Requisition [facility] - Main Lab 299 [facility] [place] [address] Hai Lockett MD [address] [place] [phone] Encounter for other general examination Social History [...] LAB CHEMISTRY METHOD 12/27/2024 3:13 PM EDT [facility] Blood Venous blood specimen / Unknown Venipuncture / Unknown 12/26/2024 5:26 AM EDT 12/26/2024 11:22 AM EDT us Hai Lockett MD LAB BLOOD ORDERABLES Final Resu lt Performing Organization Address City/[facility]/ZIP Co de Phone Number [facility] [address] [place] [address], [place] [phone] * Lavender tube (12/26/2024 5:26 AM EDT) Pathologist [facility] Extra Tube Hold for add-ons. 12/26/2024 1:01 PM EDT [facility] Comment:Auto resulted. Blood Venous blood specimen / Unknown Venipuncture / Unknown 12/26/2024 5:26 AM EDT 12/26/2024 11:22 AM EDT us Hia Lockett MD LAB BLOOD ORDERABLES Final Resu lt Performing Organization Address City/[facility]/ZIP Co de Phone Number [facility] [address] [place] [address], [place] [phone] * (ABNORMAL) Thyroid stimulating hormone (12/26/2024 5:26 AM EDT) Pathologist [facility] TSH 7.82(H) 0.40 - 4.00 mcIU/mL LAB CHEMISTRY METHOD 12/26/2024 2:06 PM EDT [facility] Blood Venous blood specimen / Unknown Venipuncture / Unknown 12/26/2024 5:26 AM EDT 12/26/2024 11:22 AM EDT us Hai Lockett MD LAB BLOOD ORDERABLES Final Resu lt Performing Organization Address City/[facility]/ZIP Co de Phone Number [facility] [address] [place] [address], [place] [phone] * Magnesium (12/26/2024 5:26 AM EDT) Pathologist [facility] Magnesium 2.3 1.9 - 2.6 mg/dL LAB CHEMISTRY METHOD 12/26/2024 12:50 PM EDT [facility] Blood Venous blood specimen / Unknown Venipuncture / Unknown 12/26/2024 5:26 AM EDT 12/26/2024 11:22 AM EDT us Hai Lockett MD LAB BLOOD ORDERABLES Final Resu lt Performing Organization Address [facility]/ZIP Co de Phone Number [facility] [address] [place] [address], [place] [phone] * (ABNORMAL) Basic metabolic panel (12/26/2024 5:26 AM EDT) [facility] Sodium 143 133 - 145 mmol/L LAB CHEMISTRY METHOD 12/26/2024 12:50 PM [facility] Potassium 4.3 3.5 - 5.5 mmol/L LAB CHEMISTRY METHOD 12/26/2024 12:50 PM [facility] Chloride 104 96 - 110 mmol/L LAB CHEMISTRY METHOD 12/26/2024 12:50 PM [facility] CO2 32 21 - 32 mmol/L LAB CHEMISTRY METHOD 12/26/2024 12:50 PM [facility] Anion Gap 7 3 - 11 LAB CHEMISTRY METHOD 12/26/2024 12:50 PM [facility] Glucose 67(L) 70 - 100 mg/dL LAB CHEMISTRY METHOD 12/26/2024 12:50 PM [facility] BUN 13 5 - 25 mg/dL LAB CHEMISTRY METHOD 12/26/2024 12:50 PM EDT [facility] Creatinine 0.60 0.50 - 1.10 mg/dL LAB CHEMISTRY METHOD 12/26/2024 12:50 PM EDT [facility] eGFR 90 >=60 mL/min/1. 73m2 LAB CHEMISTRY METHOD 12/26/2024 12:50 PM EDT [facility] Comment:Calculation based on the Chronic Kidney Disease Epidemiology Collaboration (CKD-EPI) equation refit without adjustment for race. BUN/Creatinine Ratio 21.7 LAB CHEMISTRY METHOD 12/26/2024 12:50 PM EDT [facility] Calcium 7.9(L) 8.5 - 10.5 mg/dL LAB CHEMISTRY METHOD 12/26/2024 12:50 PM EDT [facility] Blood Venous blood specimen / Unknown Venipuncture / Unknown 12/26/2024 5:26 AM EDT 12/26/2024 11:22 AM EDT us Hai Lockett MD LAB BLOOD ORDERABLES Final Resu lt [facility] [address] [place] [address], documented in this encounter Visit Diagnoses Diagnosis Encounter for other general examination documented in this encounter Additional Health Concerns Infection Onset Date Last Indicated Resolved Time Rotavirus 12/22/2024 12/22/2024 documented as of this encounter Care Teams Repair Mechanic Relationship Specialty Start Date End Date Gavin Villareal MD [address] [phone] PCP - General Family Medicine 07/24/24 documented as of this encounter
--- OUTSIDE RECORDS SUMMARY | 2025-05-22 12:56 | XMS_ITS | Encounter Summary ---
Author Organization [facility] Address [address] [place] [address] Care Team Providers Care Paperhanger Contractor Name Role Phone Gavin Villareal MD Primary Care Provider [phone] Encounter Details Date Type Department Care Team (Late st Contact Info) Description 12/21/2024 Lab Requisition [facility] - Main Lab [address] [place] [address] Hai Lockett MD [address] [place] [phone] Encounter for other general examination Social History [...] AM EDT) WBC 11.9(H) 4.8 - 10.8 K/[facility] LAB HEMETOLOGY METHOD 12/21/2024 9:11 AM EDT [facility] RBC 4.40 3.80 - 4.80 M/[facility] LAB HEMETOLOGY METHOD 12/21/2024 9:[address] [facility] LAB Hemoglobin 13.5 11.5 - 16.0 g/dL LAB HEMETOLOGY METHOD 12/21/2024 9:[address] [facility] LAB Hematocrit 42.5 35.0 - 47.0 % LAB HEMETOLOGY METHOD 12/21/2024 9:[address] [facility] LAB MCV 97.3 79.0 - 98.0 FL LAB HEMETOLOGY METHOD 12/21/2024 9:[address] [facility] LAB MCH 30.9 27.0 - 32.0 pcg LAB HEMETOLOGY METHOD 12/21/2024 9:[address] [facility] LAB MCHC 31.8(L) 32.0 - 37.0 g/dL LAB HEMETOLOGY METHOD 12/21/2024 9:[address] [facility] LAB RDW 14.6 11.0 - 15.0 % LAB HEMETOLOGY METHOD 12/21/2024 9:[address] [facility] LAB Platelets 307 130 - 400 K/mcL LAB HEMETOLOGY METHOD 12/21/2024 9:[address] [facility] LAB MPV 10.9 7.0 - 11.0 FL LAB HEMETOLOGY METHOD 12/21/2024 9:[address] [facility] LAB NRBC 0.0 <1.0 % LAB HEMETOLOGY METHOD 12/21/2024 9:[address] [facility] LAB NRBC Absolute 0.00 <0.10 K/mcL LAB HEMETOLOGY METHOD 12/21/2024 9:[address] [facility] LAB Blood Venous blood specimen / Unknown Venipuncture / Unknown 12/21/2024 6:29 AM EDT 12/21/2024 8:39 AM EDT us Hai Lockett MD LAB BLOOD ORDERABLES Final Resu lt [facility] [address] [place] [address], * (ABNORMAL) Basic metabolic panel (12/21/2024 6:29 AM EDT) Sodium 140 133 - 145 mmol/L LAB CHEMISTRY METHOD 12/21/2024 9:[address] [facility] Potassium 4.0 3.5 - 5.5 mmol/L LAB CHEMISTRY METHOD 12/21/2024 9:[address] [facility] Chloride 101 96 - 110 mmol/L LAB CHEMISTRY METHOD 12/21/2024 9:[address] [facility] CO2 33(H) 21 - 32 mmol/L LAB CHEMISTRY METHOD 12/21/2024 9:[address] [facility] Anion Gap 6 3 - 11 LAB CHEMISTRY METHOD 12/21/2024 9:[address] [facility] Glucose 74 70 - 100 mg/dL LAB CHEMISTRY METHOD 12/21/2024 9:[address] [facility] BUN 23 5 - 25 mg/dL LAB CHEMISTRY METHOD 12/21/2024 9:[address] [facility] Creatinine 0.56 0.50 - 1.10 mg/dL LAB CHEMISTRY METHOD 12/21/2024 9:[address] [facility] LAB eGFR 91 >=60 mL/min/1. 73m2 LAB CHEMISTRY METHOD 12/21/2024 9:[address] [facility] LAB Comment:Calculation based on the Chronic Kidney Disease Epidemiology Collaboration (CKD-EPI) equation refit without adjustment for race. BUN/Creatinine Ratio 41.1 LAB CHEMISTRY METHOD 12/21/2024 9:[address] [facility] Calcium 8.6 8.5 - 10.5 mg/dL LAB CHEMISTRY METHOD 12/21/2024 9:[address] [facility] LAB Blood Venous blood specimen / Unknown Venipuncture / Unknown 12/21/2024 6:29 AM EDT 12/21/2024 8:39 AM EDT us Hai Lockett MD LAB BLOOD ORDERABLES Final Resu lt [facility] [address] [place] [address], documented in this encounter Visit Diagnoses Diagnosis Encounter for other general examination documented in this encounter Additional Health Concerns Infection Onset Date Last Indicated Resolved Time Rotavirus 12/22/2024 12/22/2024 Gastrointestinal Rule-Out 12/23/2024 12/22/2024 2:40 PM EDT documented as of this encounter Care Teams Paperhanger Contractor Relationship Specialty [place] [address] [place] [phone] PCP - General Family Medicine 07/24/24 documented as of this encounter
--- OUTSIDE RECORDS SUMMARY | 2025-05-22 12:56 | XMS_ITS | Clinical Summary ---
Author Organization [facility] 299 [facility] Address [address] [place] [address] Phone Care Team Providers Care Schedule Maker Name Role Phone Gavin Villareal MD Primary Care Provider [phone] Allergies Active Allergy Reactions Criticality Noted Date [...] multivit-min/iron /folic acid/K (ADULTS MULTIVITAMIN ORAL) Multiple Vitamins-[place] als (MULTIVITAMIN ADULT) Tab Take by mouth. Active omega-3 acid ethyl esters (LOVAZA) 1 gram capsule Take by mouth. Activ e traZODone (DESYREL) 50 mg tablet Take 50 mg by mouth at bedtime. Active omega 7-hri-fdw-fish oil (Fish OiL) 1,000 (120-180) mg capsule [...] Hyperlipidemia 08/11/2017 Hypothyroid 08/11/2017 Rheumatoid arthritis, adult ([facility] V24, [facility]/ [facility] V28) 08/11/2017 Chronic obstructive pulmonar y disease ([facility] V24, [facility] V28) 06/21/2017 Feces contents abnormal 12/27/2013 Overview [...] the li p, oral cavity, and pharynx ([facility] V24, [facility] V28) 03/28/2008 Overview (12/25/2024): RECORDED 03/28/2008 10:32PM BY LAM HOOKS MD, ANNOTATION/ADDENDUM Neuralgia 12/15/2006 Overview (12/25/2024): RESOLVED DATE: 12/15/2006; RECORDED 12/15/2006 2:03PM BY LAM HOOKS MD, OFFICE VISIT Surgical History Surgery Date Site/Laterality Comments COLONOSCOPY 01/07/2022 TAx3 ESOPHAGOGASTRODUODENOSCOPY 01/07/2022 negative for wahl's COLONOSCOPY 06/01/2014 TAx3 ESOPHAGOGASTRODUODENOSCOPY 06/01/2014 Wahl's negative for dysplasia Medical History Medical History Date Comments Chronic obstructive pulmonar y disease ([facility] V24, [facility] V28) 06/21/2017 DX:Chronic obstructive pulm onary disease (HCC) Hyperlipidemia 08/11/2017 DX:Hyperlipidemi a Hypothyroid 08/11/2017 DX:Hypothyroid Rheumatoid arthritis, adult ([facility] V24, [facility] V28) 08/11/2017 DX:Rheumatoid arthritis, corina lt ([facility]) Family History Medical History Relation Name Comments [...] 05/18/2021, 09/17/2020, 08/26/2020 Influenza Vaccine (#1) 2025 , 04/19/2023, 05/11/2022, Additional history exists Hypertension/CHF/CAD Annual BMP Blood Test 01/24/2026 01/24/2025, 12/26/2024, 12/22/2024, Additional history exists DTaP,Tdap,and Td Vaccines (3 - Td or Tdap) 07/22/2028 07/22/2018, 03/28/2008 Pneumococcal Vaccine: 50+ Years Completed 08/02/2015, 08/15/2008, 08/14/2004 Zoster Vaccines Completed 04/29/2019, 02/2019, 12/10/2010 RSV Immunization Adult Patients Completed [...] Procedure Name Priority Date/Time Associated Diagnosis Comments COMPREHENSIVE METABOLIC PANEL Routine 01/24/2025 3:00 PM EDT Right upper quadrant abdominal pain from Last 3 Months or Most Recently Relevant to Health Maintenance Results * Comprehensive metabolic panel (01/24/2025 3:00 PM EDT) Sodium 140 133 - 145 mmol/L LAB CHEMISTRY METHOD 01/24/2025 6:16 PM [facility] Potassium 3.8 3.5 - 5.5 mmol/L LAB CHEMISTRY METHOD 01/24/2025 6:16 PM [facility] Chloride 105 96 - 110 mmol/L LAB CHEMISTRY METHOD 01/24/2025 6:16 PM [facility] CO2 30 21 - 32 mmol/L LAB CHEMISTRY METHOD 01/24/2025 6:16 PM [facility] Anion Gap 5 3 - 11 LAB CHEMISTRY METHOD 01/24/2025 6:16 PM [facility] Glucose 71 70 - 100 mg/dL LAB CHEMISTRY METHOD 01/24/2025 6:16 PM [facility] BUN 15 5 - 25 mg/dL LAB CHEMISTRY METHOD 01/24/2025 6:16 PM [facility] Creatinine 0.60 0.50 - 1.10 mg/dL LAB CHEMISTRY METHOD 01/24/2025 6:16 PM [facility] LAB eGFR 90 >=60 mL/min/1. 73m2 LAB CHEMISTRY METHOD 01/24/2025 6:16 PM [facility] LAB Comment:Calculation based on the Chronic Kidney Disease Epidemiology Collaboration (CKD-EPI) equation refit without adjustment for race. BUN/Creatinine Ratio 25.0 LAB CHEMISTRY METHOD 01/24/2025 6:16 PM [facility] Calcium 9.5 8.5 - 10.5 mg/dL LAB CHEMISTRY METHOD 01/24/2025 6:16 PM [facility] AST (SGOT) 12 10 - 42 unit/L LAB CHEMISTRY METHOD 01/24/2025 6:16 PM [facility] ALT (SGPT) 18 10 - 60 unit/L LAB CHEMISTRY METHOD 01/24/2025 6:16 PM [facility] Alkaline Phosphatase 80 42 - 121 unit/L LAB CHEMISTRY METHOD 01/24/2025 6:16 PM [facility] Total Protein 6.9 6.0 - 8.0 g/dL LAB CHEMISTRY METHOD 01/24/2025 6:16 PM [facility] Albumin 3.9 3.2 - 5.0 g/dL LAB CHEMISTRY METHOD 01/24/2025 6:16 PM [facility] Total Bilirubin 0.4 0.0 - 1.4 mg/dL LAB CHEMISTRY METHOD 01/24/2025 6:16 PM [facility] Blood Venous blood specimen / Unknown Venipuncture / Unknown 01/24/2025 3:00 PM EDT 01/24/2025 4:07 PM EDT [facility] LAB BLOOD ORDERABLES Final Resu lt [facility] LAB [address] [place] [address], from Last 3 Months or Most Recently Relevant to Health Maintenance Additional Health Concerns Infection Onset Date Last Indicated Rotavirus 12/22/2024 12/22/2024 Insurance MEDICARE BLUE [place] - [place] MEDICARE ADVANTAGE [facility] Care Teams Schedule Maker Relationship Specialty Start Date End Date Gavin Villareal MD [address] [phone] PCP - General Family Medicine 07/24/24
--- OUTSIDE RECORDS SUMMARY | 2025-05-22 12:56 | XMS_ITS | Encounter Summary ---
Author Organization [facility] Address [address] [place] [address] Care Team Providers Care Cutter Inspector Name Role Phone Gavin Villareal MD Primary Care Provider [phone] Encounter Details Date Type Department Care Team (Late st Contact Info) Description 12/16/2024 Lab Requisition [facility] - Main Lab [address] [facility] [place] [address] Hai Lockett MD [address] [place] [id number] Encounter for other general examination Social History [...] CBC auto differential (12/16/2024 6:12 AM EDT) [facility] WBC 7.2 4.8 - 10.8 K/mcL LAB HEMETOLOGY METHOD 12/16/2024 10:52 AM [facility] RBC 3.60(L) 3.80 - 4.80 M/mcL LAB HEMETOLOGY METHOD 12/16/2024 10:52 AM [facility] Hemoglobin 11.1(L) 11.5 - 16.0 g/dL LAB HEMETOLOGY METHOD 12/16/2024 10:52 AM [facility] Hematocrit 34.2(L) 35.0 - 47.0 % LAB HEMETOLOGY METHOD 12/16/2024 10:52 AM [facility] MCV 95.3 79.0 - 98.0 FL LAB HEMETOLOGY METHOD 12/16/2024 10:52 AM [facility] MCH 30.9 27.0 - 32.0 pcg LAB HEMETOLOGY METHOD 12/16/2024 10:52 AM [facility] MCHC 32.5 32.0 - 37.0 g/dL LAB HEMETOLOGY METHOD 12/16/2024 10:52 AM [facility] RDW 14.3 11.0 - 15.0 % LAB HEMETOLOGY METHOD 12/16/2024 10:52 AM [facility] Platelets 227 130 - 400 K/mcL LAB HEMETOLOGY METHOD 12/16/2024 10:52 AM [facility] MPV 11.3(H) 7.0 - 11.0 FL LAB HEMETOLOGY METHOD 12/16/2024 10:52 AM [facility] NRBC 0.0 <1.0 % LAB HEMETOLOGY METHOD 12/16/2024 10:52 AM [facility] NRBC Absolute 0.00 <0.10 K/mcL LAB HEMETOLOGY METHOD 12/16/2024 10:52 AM [facility] Neutrophils Relative 60.2 % LAB HEMETOLOGY METHOD 12/16/2024 10:52 AM [facility] Lymphocytes Relative 29.6 % LAB HEMETOLOGY METHOD 12/16/2024 10:52 AM [facility] Monocytes Relative 7.6 % LAB HEMETOLOGY METHOD 12/16/2024 10:52 AM [facility] Eosinophils Relative 1.5 % LAB HEMETOLOGY METHOD 12/16/2024 10:52 AM [facility] Basophils Relative 0.8 % LAB HEMETOLOGY METHOD 12/16/2024 10:52 AM [facility] Immature Granulocytes Relative 0.3 % LAB HEMETOLOGY METHOD 12/16/2024 10:52 AM [facility] Neutrophils Absolute 4.36 1.50 - 7.00 K/mcL LAB HEMETOLOGY METHOD 12/16/2024 10:52 AM [facility] Lymphocytes Absolute 2.14 1.00 - 5.00 K/mcL LAB HEMETOLOGY METHOD 12/16/2024 10:52 AM [facility] Monocytes Absolute 0.55 0.20 - 1.00 K/mcL LAB HEMETOLOGY METHOD 12/16/2024 10:52 AM [facility] Eosinophils Absolute 0.11 0.00 - 0.50 K/mcL LAB HEMETOLOGY METHOD 12/16/2024 10:52 AM [facility] Basophils Absolute 0.06 0.00 - 0.20 K/mcL LAB HEMETOLOGY METHOD 12/16/2024 10:52 AM [facility] Immature Granulocytes Absolute 0.02 0.00 - 0.03 K/mcL LAB HEMETOLOGY METHOD 12/16/2024 10:52 AM [facility] Blood Venous blood specimen / Unknown Venipuncture / Unknown 12/16/2024 6:12 AM EDT 12/16/2024 9:36 AM EDT us Hai Lockett MD LAB BLOOD ORDERABLES Final Resu lt Performing Organization Address [facility]/ZIP Co de Phone Number [facility] [address] [place] [address], [place] [phone] * Magnesium (12/16/2024 6:12 AM EDT) Pathologist [facility] Magnesium 2.3 1.9 - 2.6 mg/dL LAB CHEMISTRY METHOD 12/16/2024 11:25 AM EDT [facility] Blood Venous blood specimen / Unknown Venipuncture / Unknown 12/16/2024 6:12 AM EDT 12/16/2024 9:36 AM EDT us Hai Lockett MD LAB BLOOD ORDERABLES Final Resu lt Performing Organization Address City/[facility]/ZIP Co de Phone Number [facility] [address] [place] [address], [place] [phone] * (ABNORMAL) Comprehensive metabolic panel (12/16/2024 6:12 AM EDT) [facility] Sodium 144 133 - 145 mmol/L LAB [...] mg/dL LAB CHEMISTRY METHOD 12/16/2024 11:27 AM [facility] BUN 18 5 - 25 mg/dL LAB CHEMISTRY METHOD 12/16/2024 11:27 AM [facility] Creatinine 0.55 0.50 - 1.10 mg/dL LAB CHEMISTRY METHOD 12/16/2024 11:27 AM [facility] eGFR 92 >=60 mL/min/1. 73m2 LAB CHEMISTRY METHOD 12/16/2024 11:27 AM [facility] Comment:Calculation based on the Chronic Kidney Disease Epidemiology Collaboration (CKD-EPI) equation refit without adjustment for race. BUN/Creatinine Ratio 32.7 LAB CHEMISTRY METHOD 12/16/2024 11:27 AM [facility] Calcium 8.4(L) 8.5 - 10.5 mg/dL LAB CHEMISTRY METHOD 12/16/2024 11:27 AM [facility] AST (SGOT) 16 10 - 42 unit/L LAB CHEMISTRY METHOD 12/16/2024 11:27 AM [facility] ALT (SGPT) 25 10 - 60 unit/L LAB CHEMISTRY METHOD 12/16/2024 11:27 AM [facility] Alkaline Phosphatase 59 42 - 121 unit/L LAB CHEMISTRY METHOD 12/16/2024 11:27 AM [facility] Total Protein 5.2(L) 6.0 - 8.0 g/dL LAB CHEMISTRY METHOD 12/16/2024 11:27 AM [facility] Albumin 3.1(L) 3.2 - 5.0 g/dL LAB CHEMISTRY METHOD 12/16/2024 11:27 AM [facility] Total Bilirubin 0.2 0.0 - 1.4 mg/dL LAB CHEMISTRY METHOD 12/16/2024 11:27 AM [facility] Blood Venous blood specimen / Unknown Venipuncture / Unknown 12/16/2024 6:12 AM EDT 12/16/2024 9:36 AM EDT us Hai Lockett MD LAB BLOOD ORDERABLES Final Resu lt [facility] ([facility] [address] [place] [address], documented in this encounter Visit Diagnoses Diagnosis Encounter for other general examination documented in this encounter Additional Health Concerns Infection Onset Date Last Indicated Resolved Time Rotavirus 12/22/2024 12/22/2024 Gastrointestinal Rule-Out 12/23/2024 12/22/2024 2:40 PM EDT documented as of this encounter Care Teams Cutter Inspector Relationship Specialty Start Date End Date Gavin Villareal MD [address] [address] PCP - General Family Medicine 07/24/24 documented as of this encounter
== END 2025-05-22 11:31 | disposition home or self-care (01) ==
PROVIDERS: PCP Family Medicine; Visit Provider Hospitalist
DX: R06.00 Dyspnea, unspecified (principal); J41.0 Simple chronic bronchitis; R91.1 Solitary pulmonary nodule; K44.9 Diaphragmatic hernia without obstruction or gangrene
CPT/HCPCS: 99214; G2211

== ENCOUNTER → 2025-05-22 10:48 | Outpatient (BNVA) | payer MEDICARE, SELFPAY | PROVIDERS: PCP Family Medicine; Visit Provider Hospitalist | DX: J41.0 Simple chronic bronchitis (principal); R91.1 Solitary pulmonary nodule; K44.9 Diaphragmatic hernia without obstruction or gangrene; R06.00 Dyspnea, unspecified | CPT/HCPCS: 99212 ==

== ENCOUNTER → 2025-06-26 08:46 | Outpatient (REF) | payer MEDICARE, SELFPAY ==
--- NOTE | ~2025-06-26 | NM_ITS ---
Lexiscan Myocardial perfusion study Indication: Precordial chest pain to evaluate for myocardial ischemia Technique: The patient was brought in for a Lexiscan perfusion study on 06/26/2025 and was injected 0.4 mg of Lexiscan intravenously. Within a minute of this injection 25 mCi of sestamibi was given intravenously. Images were obtained using the SPECT gamma camera interlaced with the gating device. Images were obtained in supine position. Resting perfusion study was performed on 06/28/2025. Patient was administered 25 mCi of sestamibi intravenously at rest. Images were then obtained in supine position. Images were processed with the software and compared side to side in short axis, horizontal long axis and vertical long axis views. Images obtained without without CT attenuation. Total DLP 100 mGy-cm Findings: The stress perfusion study showed nonattenuated images show mildly reduced uptake in the lateral wall of the LV myocardium. Remainder of the LV myocardium is normally perfused. Attenuation corrected images show mildly reduced uptake in the apex of the LV myocardium.. The gated study shows normal LV systolic function with calculated LVEF of 73%. LV cavity is normal in size. The gated study shows normal systolic wall thickening and contraction of segments. Resting study shows nonattenuated images show normal uptake of radiotracer in all segments of the LV myocardium. Attenuated corrected images are suboptimal. Gating at rest reveals normal systolic wall motion with ejection fraction at 74%. The findings are consistent with equivocal for reversible defect of the lateral wall suggestive of ischemia.. NM/NM cardiolite stress test Impression: 1. Myocardial perfusion imaging study shows equivocal for lateral wall ischemia 2. Gated LVEF is 73% 3. Transient ischemic dilatation not present Nondiagnostic for on EKG. Electronically signed by: Tim Kwon MD 06/28/2025 04:38 PM [facility]
--- NOTE | 2025-06-26 08:49 | CA_ITS ---
Transthoracic Echocardiogram Patient (Last, First, Middle): Stacey Stevenson, Gender: F Date of : 1940 Age: 85 Procedure Date: 06/26/2025 Procedure Type: Transthoracic Echocardiogram Location: OP Height: 157.48 cm Weight: 56.25 kg BSA: 1.56 m2 Heart Rate: 60 bpm BP: 124 / 52 mmHg Translator: SB Referring MD: Zeeshan Lima MD [place] Man: Tim Kwon MD Symptoms: R06.02 - Shortness of breath Study Quality: Adequate ECG Rhythm: Sinus Conclusions: - 1. Hyperdynamic LV ejection fraction greater than 70% with pseudonormal filling pattern 2. Mildly dilated left atrium 3. Normal cardiac valvular Dopplers 4. Upper limits with normal RV systolic pressure 5. No gross pericardial effusion Findings Left Ventricle Normal left ventricular cavity size. There is normal left ventricular wall thickness. The left ventricular systolic function is hyperdynamic. The visually estimated ejection fraction is >70%. Spectral Doppler is indicative of a pseudonormal filling pattern. E/E prime ratio is between 8 and 15 consistent with indeterminate filling pressures. Right Ventricle Normal right ventricular cavity size and systolic function. Atria The left atrium is mildly dilated. There is lipomatous hypertrophy of the interatrial septum. There is no evidence of interatrial shunt. The right atrium is normal in size. Aortic Valve The aortic valve was not well visualized. There is no aortic valve stenosis. There is no aortic valve regurgitation. Mitral Valve Normal mitral valve structure and function. There is trace mitral valve regurgitation. There is no mitral valve stenosis. Pulmonic Valve The pulmonic valve is likely normal. Tricuspid Valve Normal tricuspid valve structure. There is mild tricuspid valve regurgitation. Normal right atrial pressure. There is no evidence of pulmonary hypertension. Great Vessels All visible segments of the aorta are normal in size. The pulmonary artery was not well visualized. There is no dilatation of the ascending aorta measuring 3.40 cm. Venous The inferior vena cava is normal in size and collapses greater than 50% with inspiration. Pericardium/Pleural There is no evidence of pericardial effusion. Prior Study Comparison No prior study available for comparison. Measurements 2D Linear Measurements IVSd: 0.69 0.6-0.9/0.6-1.0 cm LVIDd: 4.82 3.9-5.3/4.2-5.9 cm LVIDd Index: 3.09 2.4-3.2/2.2-3.1 cm/m2 LVIDs: 3.17 2.0-3.6 cm LVPWd: 0.75 0.7-1.1 cm LA Diam: 3.90 2.7-3.8/3.0-4.0 cm LAIDs Index: 2.50 1.5-2.3 cm/m2 LV Mass: 138.18 67-162/88-224 g LV Mass Index: 88.58 43-95/49-115 g/m2 LVOT Diam: 1.90 3.0+(-)1.3 cm 2D Systolic Function EF 4C: 70.90 >55% EF 2C: 74.80 >55% EF BiP: 71.70 >55% Mitral Valve MV Pk E: 0.87 MV PK A: 0.62 MV Decel Time: 224.00 E/A: 1.40 E'Lateral: 9.03 E'Medial: 6.31 E/E' Med: 13.70 E/E' Lat: 9.60 PHT: 66.00 MVA PHT: 3.33 Decel Vermilion: 3.86 Aortic Valve AoV Pk Jesse: 1.53 AoV Pk Grad: 9.00 RAKESH: 3.03 LVOT LVOT Pk Jesse: 1.63 LVOT Mn Jesse: 0.95 LVOT VTI: 0.33 LVOT Pk Grad: 11.00 LVOT Mn Grad: 4.00 LVOT Diam: 1.90 LVOT Area: 2.84 Diastolic Function MV Pk E: 0.87 MV Pk A: 0.62 E/A: 1.40 E'Medial: 6.31 E/E' Med: 13.70 E' Laterial: 9.03 E/E' Lat: 9.60 Right Ventricle TAPSE (mm): 27.20 TVS' Jesse: 14.50 Tricuspid Valve TR Pk Jesse: 2.90 TR Pk Grad: 34.00 RA Press: 3.00 RVSP: 37.00 Great Vessels Aorta Sinus of Valsalva: 3.10 2.0-3.5 cm Ao Asc: 3.40 2.1-3.4 cm Pulmonary Valve PV Pk Jesse: 1.15 Peak PV Grad: 5.00 IA Pk Jesse: 2.05 Updated in Other Vendor System with Status of Final Tim Kwon MD electronically signed on 06/26/2025 1:31:45 PM with status of Final
--- NOTE | 2025-06-26 08:49 | CA_ITS ---
Acquisition Time: 2025-06-26 09:49:39 Total Exercise Time: 00:02:00 Test Indications: Dyspnea,Abnormal ECG Medications: SEE H&P Protocol: LEXISCAN Max HR: 85 BPM 62% of Pred: 137 BPM Max BP: 144/66 mmHG Max Work Load: 1.0 METS Pharmacological stress test with Lexiscan while pt swings her legs in chair, with reports of SOB, abdominal discomfort, and headache, with isolated PVCs, with normotensive response to injection. Nondiagnostic EKG for ischemia. In recovery, pt treated with IVP Aminophylline 75 mg to reverse Lexiscan after which pt slowly feeling back to baseline. Nuclear images pending. Test reviewed with Dr. Atkins. Referred By: Zeeshan Lima Electronically Signed By: Malcolm Liu
--- OUTSIDE RECORDS SUMMARY | 2025-06-26 09:26 | XMS_ITS | Encounter Summary ---
Author Organization [facility] Address [address] [place] [address] Care Team Providers Care Pipe Fitter Helper Name Role Phone Gavin Villareal MD Primary Care Provider Encounter Details Date Type Department Care Team (Late st Contact Info) Description 12/22/2024 Lab Requisition [facility] - Main Lab [address] [facility] [place] [address] Hai Lockett MD [address] [place] [address] Encounter for other general examination Social History [...] CBC auto differential (12/22/2024 6:07 AM EDT) [facility] WBC 7.6 4.8 - 10.8 K/mcL LAB HEMETOLOGY METHOD 12/22/2024 8:46 AM [facility] RBC 4.00 3.80 - 4.80 M/mcL LAB HEMETOLOGY METHOD 12/22/2024 8:46 AM [facility] Hemoglobin 12.4 11.5 - 16.0 g/dL LAB HEMETOLOGY METHOD 12/22/2024 8:46 AM [facility] Hematocrit 38.7 35.0 - 47.0 % LAB HEMETOLOGY METHOD 12/22/2024 8:46 AM [facility] MCV 96.5 79.0 - 98.0 FL LAB HEMETOLOGY METHOD 12/22/2024 8:46 AM [facility] MCH 30.9 27.0 - 32.0 pcg LAB HEMETOLOGY METHOD 12/22/2024 8:46 AM [facility] MCHC 32.0 32.0 - 37.0 g/dL LAB HEMETOLOGY METHOD 12/22/2024 8:46 AM [facility] RDW 14.5 11.0 - 15.0 % LAB HEMETOLOGY METHOD 12/22/2024 8:46 AM [facility] Platelets 250 130 - 400 K/mcL LAB HEMETOLOGY METHOD 12/22/2024 8:46 AM [facility] MPV 10.8 7.0 - 11.0 FL LAB HEMETOLOGY METHOD 12/22/2024 8:46 AM [facility] NRBC 0.0 <1.0 % LAB HEMETOLOGY METHOD 12/22/2024 8:46 AM [facility] NRBC Absolute 0.00 <0.10 K/mcL LAB HEMETOLOGY METHOD 12/22/2024 8:46 AM [facility] Neutrophils Relative 81.8 % LAB HEMETOLOGY METHOD 12/22/2024 8:46 AM [facility] Lymphocytes Relative 7.7 % LAB HEMETOLOGY METHOD 12/22/2024 8:46 AM [facility] Monocytes Relative 7.9 % LAB HEMETOLOGY METHOD 12/22/2024 8:46 AM [facility] Eosinophils Relative 1.7 % LAB HEMETOLOGY METHOD 12/22/2024 8:46 AM [facility] Basophils Relative 0.4 % LAB HEMETOLOGY METHOD 12/22/2024 8:46 AM [facility] Immature Granulocytes Relative 0.5 % LAB HEMETOLOGY METHOD 12/22/2024 8:46 AM [facility] Neutrophils Absolute 6.24 1.50 - 7.00 K/mcL LAB HEMETOLOGY METHOD 12/22/2024 8:46 AM [facility] Lymphocytes Absolute 0.59(L) 1.00 - 5.00 K/mcL LAB HEMETOLOGY METHOD 12/22/2024 8:46 AM [facility] Monocytes Absolute 0.60 0.20 - 1.00 K/mcL LAB HEMETOLOGY METHOD 12/22/2024 8:46 AM [facility] Eosinophils Absolute 0.13 0.00 - 0.50 K/mcL LAB HEMETOLOGY METHOD 12/22/2024 8:46 AM [facility] Basophils Absolute 0.03 0.00 - 0.20 K/mcL LAB HEMETOLOGY METHOD 12/22/2024 8:46 AM [facility] Immature Granulocytes Absolute 0.04(H) 0.00 - 0.03 K/mcL LAB HEMETOLOGY METHOD 12/22/2024 8:[address] [facility] Blood Venous blood specimen / Unknown Venipuncture / Unknown 12/22/2024 6:07 AM EDT 12/22/2024 8:08 AM EDT Hai Lockett MD LAB BLOOD ORDERABLES Final Resu lt [facility] [address] [place] [address], [place] [phone] * (ABNORMAL) Procalcitonin (12/22/2024 6:07 AM EDT) Procalcitonin 0.17(H) <=0.16 ng/mL LAB CHEMISTRY METHOD 12/22/2024 11:[address] [facility] Blood Venous blood specimen / Unknown Venipuncture / Unknown 12/22/2024 6:07 AM EDT 12/22/2024 8:[address] [facility] - 12/22/2024 11:10 AM EDT [...] ORDERABLES Final Resu lt Performing Organization Address [facility]/ZIP Co de Phone Number [facility] [address] [place] [address], * Lipase (12/22/2024 6:07 AM EDT) Pathologist [facility] Lipase 14 13 - 75 unit/L LAB CHEMISTRY METHOD 12/22/2024 10:[address] [facility] Blood Venous blood specimen / Unknown Venipuncture / Unknown 12/22/2024 6:07 AM EDT 12/22/2024 8:08 AM EDT Hai Lockett MD LAB BLOOD ORDERABLES Final Resu lt Performing Organization Address [facility]/ZIP Co de Phone Number [facility] [address] [place] [address], [place] [phone] * (ABNORMAL) Comprehensive metabolic panel (12/22/2024 6:07 AM EDT) [facility] Sodium 138 133 - 145 mmol/L LAB CHEMISTRY METHOD 12/22/2024 10:10 AM [facility] Potassium 3.9 3.5 - 5.5 mmol/L LAB CHEMISTRY METHOD 12/22/2024 10:10 AM [facility] Chloride 102 96 - 110 mmol/L LAB CHEMISTRY METHOD 12/22/2024 10:10 AM [facility] CO2 29 21 - 32 mmol/L LAB CHEMISTRY METHOD 12/22/2024 10:10 AM [facility] Anion Gap 7 3 - 11 LAB CHEMISTRY METHOD 12/22/2024 10:10 AM [facility] Glucose 71 70 - 100 mg/dL LAB CHEMISTRY METHOD 12/22/2024 10:10 AM [facility] BUN 15 5 - 25 mg/dL LAB CHEMISTRY METHOD 12/22/2024 10:10 AM [facility] Creatinine 0.52 0.50 - 1.10 mg/dL LAB CHEMISTRY METHOD 12/22/2024 10:10 AM [facility] eGFR 93 >=60 mL/min/1. 73m2 LAB CHEMISTRY METHOD 12/22/2024 10:10 AM [facility] Comment:Calculation based on the Chronic Kidney Disease Epidemiology Collaboration (CKD-EPI) equation refit without adjustment for race. BUN/Creatinine Ratio 28.8 LAB CHEMISTRY METHOD 12/22/2024 10:10 AM [facility] Calcium 8.3(L) 8.5 - 10.5 mg/dL LAB CHEMISTRY METHOD 12/22/2024 10:10 AM [facility] AST (SGOT) 26 10 - 42 unit/L LAB CHEMISTRY METHOD 12/22/2024 10:10 AM [facility] ALT (SGPT) 70(H) 10 - 60 unit/L LAB CHEMISTRY METHOD 12/22/2024 10:10 AM [facility] Alkaline Phosphatase 67 42 - 121 unit/L LAB CHEMISTRY METHOD 12/22/2024 10:10 AM [facility] Total Protein 5.3(L) 6.0 - 8.0 g/dL LAB CHEMISTRY METHOD 12/22/2024 10:10 AM [facility] Albumin 3.1(L) 3.2 - 5.0 g/dL LAB CHEMISTRY METHOD 12/22/2024 10:10 AM [facility] Total Bilirubin 0.4 0.0 - 1.4 mg/dL LAB CHEMISTRY METHOD 12/22/2024 10:10 AM [facility] Blood Venous blood specimen / Unknown Venipuncture / Unknown 12/22/2024 6:07 AM EDT 12/22/2024 8:08 AM EDT us Hai Lockett MD LAB BLOOD ORDERABLES Final Resu lt [facility] [address] [place] [address], documented in this encounter Visit Diagnoses Diagnosis Encounter for other general examination documented in this encounter Additional Health Concerns Infection Onset Date Last Indicated Resolved Time Rotavirus 12/22/2024 12/22/2024 Gastrointestinal Rule-Out 12/23/2024 12/22/2024 2:40 PM EDT documented as of this encounter Care Teams Pipe Fitter Helper Relationship Specialty Start Date End Date Gavin Villareal MD [address] [address] PCP - General Family Medicine 07/24/24 documented as of this encounter
--- OUTSIDE RECORDS SUMMARY | 2025-06-26 09:26 | XMS_ITS | Encounter Summary ---
Author Organization [facility] Address [address] [place] [address] Care Team Providers Care Junior Bookkeeper Name Role Phone Gavin Villareal MD Primary Care Provider [phone] Encounter Details Date Type Department Care Team (Late st Contact Info) Description 12/26/2024 Lab Requisition [facility] - Main Lab [address] [facility] [place] [address] Hai Lockett MD [address] [place] [address] Encounter for other general examination Social History [...] LAB CHEMISTRY METHOD 12/27/2024 3:13 PM EDT [facility] Blood Venous blood specimen / Unknown Venipuncture / Unknown 12/26/2024 5:26 AM EDT 12/26/2024 11:22 AM EDT us Hai Lockett MD LAB BLOOD ORDERABLES Final Resu lt Performing Organization Address City/[facility]/ZIP Co de Phone Number [facility] [address] [place] [address], [place] [phone] * Lavender tube (12/26/2024 5:26 AM EDT) Pathologist [facility] Extra Tube Hold for add-ons. 12/26/2024 1:01 PM EDT [facility] Comment:Auto resulted. Blood Venous blood specimen / Unknown Venipuncture / Unknown 12/26/2024 5:26 AM EDT 12/26/2024 11:22 AM EDT us Hai Lockett MD LAB BLOOD ORDERABLES Final Resu lt Performing Organization Address City/[facility]/ZIP Co de Phone Number [facility] [address] [place] [address], [place] [phone] * (ABNORMAL) Thyroid stimulating hormone (12/26/2024 5:26 AM EDT) Pathologist [facility] TSH 7.82(H) 0.40 - 4.00 mcIU/mL LAB CHEMISTRY METHOD 12/26/2024 2:06 PM EDT [facility] Blood Venous blood specimen / Unknown Venipuncture / Unknown 12/26/2024 5:26 AM EDT 12/26/2024 11:22 AM EDT us Hai Lockett MD LAB BLOOD ORDERABLES Final Resu lt Performing Organization Address City/[facility]/ZIP Co de Phone Number [facility] [address] [place] [address], [place] [phone] * Magnesium (12/26/2024 5:26 AM EDT) Pathologist [facility] Magnesium 2.3 1.9 - 2.6 mg/dL LAB CHEMISTRY METHOD 12/26/2024 12:50 PM EDT [facility] Blood Venous blood specimen / Unknown Venipuncture / Unknown 12/26/2024 5:26 AM EDT 12/26/2024 11:22 AM EDT us Hai Lockett MD LAB BLOOD ORDERABLES Final Resu lt Performing Organization Address [facility]/ZIP Co de Phone Number [facility] [address] [place] [address], [place] [phone] * (ABNORMAL) Basic metabolic panel (12/26/2024 5:26 AM EDT) [facility] Sodium 143 133 - 145 mmol/L LAB CHEMISTRY METHOD 12/26/2024 12:50 PM [facility] Potassium 4.3 3.5 - 5.5 mmol/L LAB CHEMISTRY METHOD 12/26/2024 12:50 PM [facility] Chloride 104 96 - 110 mmol/L LAB CHEMISTRY METHOD 12/26/2024 12:50 PM [facility] CO2 32 21 - 32 mmol/L LAB CHEMISTRY METHOD 12/26/2024 12:50 PM [facility] Anion Gap 7 3 - 11 LAB CHEMISTRY METHOD 12/26/2024 12:50 PM [facility] Glucose 67(L) 70 - 100 mg/dL LAB CHEMISTRY METHOD 12/26/2024 12:50 PM [facility] BUN 13 5 - 25 mg/dL LAB CHEMISTRY METHOD 12/26/2024 12:50 PM EDT [facility] Creatinine 0.60 0.50 - 1.10 mg/dL LAB CHEMISTRY METHOD 12/26/2024 12:50 PM EDT [facility] eGFR 90 >=60 mL/min/1. 73m2 LAB CHEMISTRY METHOD 12/26/2024 12:50 PM EDT [facility] Comment:Calculation based on the Chronic Kidney Disease Epidemiology Collaboration (CKD-EPI) equation refit without adjustment for race. BUN/Creatinine Ratio 21.7 LAB CHEMISTRY METHOD 12/26/2024 12:50 PM EDT [facility] Calcium 7.9(L) 8.5 - 10.5 mg/dL LAB CHEMISTRY METHOD 12/26/2024 12:50 PM EDT [facility] Blood Venous blood specimen / Unknown Venipuncture / Unknown 12/26/2024 5:26 AM EDT 12/26/2024 11:22 AM EDT us Hai Lockett MD LAB BLOOD ORDERABLES Final Resu lt [facility] [address] [place] [address], documented in this encounter Visit Diagnoses Diagnosis Encounter for other general examination documented in this encounter Additional Health Concerns Infection Onset Date Last Indicated Resolved Time Rotavirus 12/22/2024 12/22/2024 documented as of this encounter Care Teams Junior Bookkeeper Relationship Specialty Start Date End Date Gavin Villareal MD [address] [address] PCP - General Family Medicine 07/24/24 documented as of this encounter
--- OUTSIDE RECORDS SUMMARY | 2025-06-26 09:26 | XMS_ITS | Encounter Summary ---
Author Organization [facility] Address [address] [place] [address] Care Team Providers Care Resident Care Director Name Role Phone Gavin Villareal MD Primary Care Provider [phone] Encounter Details Date Type Department Care Team (Late st Contact Info) Description 12/16/2024 Lab Requisition [facility] - Main Lab [address] [facility] [place] [address] Hai Lockett MD [address] [place] [address] Encounter for other general examination Social History [...] CBC auto differential (12/16/2024 6:12 AM EDT) [facility] WBC 7.2 4.8 - 10.8 K/mcL LAB HEMETOLOGY METHOD 12/16/2024 10:52 AM [facility] RBC 3.60(L) 3.80 - 4.80 M/mcL LAB HEMETOLOGY METHOD 12/16/2024 10:52 AM [facility] Hemoglobin 11.1(L) 11.5 - 16.0 g/dL LAB HEMETOLOGY METHOD 12/16/2024 10:52 AM [facility] Hematocrit 34.2(L) 35.0 - 47.0 % LAB HEMETOLOGY METHOD 12/16/2024 10:52 AM [facility] MCV 95.3 79.0 - 98.0 FL LAB HEMETOLOGY METHOD 12/16/2024 10:52 AM [facility] MCH 30.9 27.0 - 32.0 pcg LAB HEMETOLOGY METHOD 12/16/2024 10:52 AM [facility] MCHC 32.5 32.0 - 37.0 g/dL LAB HEMETOLOGY METHOD 12/16/2024 10:52 AM [facility] RDW 14.3 11.0 - 15.0 % LAB HEMETOLOGY METHOD 12/16/2024 10:52 AM [facility] Platelets 227 130 - 400 K/mcL LAB HEMETOLOGY METHOD 12/16/2024 10:52 AM [facility] MPV 11.3(H) 7.0 - 11.0 FL LAB HEMETOLOGY METHOD 12/16/2024 10:52 AM [facility] NRBC 0.0 <1.0 % LAB HEMETOLOGY METHOD 12/16/2024 10:52 AM [facility] NRBC Absolute 0.00 <0.10 K/mcL LAB HEMETOLOGY METHOD 12/16/2024 10:52 AM [facility] Neutrophils Relative 60.2 % LAB HEMETOLOGY METHOD 12/16/2024 10:52 AM [facility] Lymphocytes Relative 29.6 % LAB HEMETOLOGY METHOD 12/16/2024 10:52 AM [facility] Monocytes Relative 7.6 % LAB HEMETOLOGY METHOD 12/16/2024 10:52 AM [facility] Eosinophils Relative 1.5 % LAB HEMETOLOGY METHOD 12/16/2024 10:52 AM [facility] Basophils Relative 0.8 % LAB HEMETOLOGY METHOD 12/16/2024 10:52 AM [facility] Immature Granulocytes Relative 0.3 % LAB HEMETOLOGY METHOD 12/16/2024 10:52 AM [facility] Neutrophils Absolute 4.36 1.50 - 7.00 K/mcL LAB HEMETOLOGY METHOD 12/16/2024 10:52 AM [facility] Lymphocytes Absolute 2.14 1.00 - 5.00 K/mcL LAB HEMETOLOGY METHOD 12/16/2024 10:52 AM [facility] Monocytes Absolute 0.55 0.20 - 1.00 K/mcL LAB HEMETOLOGY METHOD 12/16/2024 10:52 AM [facility] Eosinophils Absolute 0.11 0.00 - 0.50 K/mcL LAB HEMETOLOGY METHOD 12/16/2024 10:52 AM [facility] Basophils Absolute 0.06 0.00 - 0.20 K/mcL LAB HEMETOLOGY METHOD 12/16/2024 10:52 AM [facility] Immature Granulocytes Absolute 0.02 0.00 - 0.03 K/mcL LAB HEMETOLOGY METHOD 12/16/2024 10:52 AM [facility] Blood Venous blood specimen / Unknown Venipuncture / Unknown 12/16/2024 6:12 AM EDT 12/16/2024 9:36 AM EDT us Hai Lockett MD LAB BLOOD ORDERABLES Final Resu lt Performing Organization Address [facility]/ZIP Co de Phone Number [facility] [address] [place] [address], [place] [phone] * Magnesium (12/16/2024 6:12 AM EDT) Pathologist [facility] Magnesium 2.3 1.9 - 2.6 mg/dL LAB CHEMISTRY METHOD 12/16/2024 11:25 AM EDT [facility] Blood Venous blood specimen / Unknown Venipuncture / Unknown 12/16/2024 6:12 AM EDT 12/16/2024 9:36 AM EDT us Hai Lockett MD LAB BLOOD ORDERABLES Final Resu lt Performing Organization Address City/[facility]/ZIP Co de Phone Number [facility] [address] [place] [address], [place] [phone] * (ABNORMAL) Comprehensive metabolic panel (12/16/2024 6:12 AM EDT) [facility] Sodium 144 133 - 145 mmol/L LAB [...] mg/dL LAB CHEMISTRY METHOD 12/16/2024 11:27 AM [facility] BUN 18 5 - 25 mg/dL LAB CHEMISTRY METHOD 12/16/2024 11:27 AM [facility] Creatinine 0.55 0.50 - 1.10 mg/dL LAB CHEMISTRY METHOD 12/16/2024 11:27 AM [facility] eGFR 92 >=60 mL/min/1. 73m2 LAB CHEMISTRY METHOD 12/16/2024 11:27 AM [facility] Comment:Calculation based on the Chronic Kidney Disease Epidemiology Collaboration (CKD-EPI) equation refit without adjustment for race. BUN/Creatinine Ratio 32.7 LAB CHEMISTRY METHOD 12/16/2024 11:27 AM [facility] Calcium 8.4(L) 8.5 - 10.5 mg/dL LAB CHEMISTRY METHOD 12/16/2024 11:27 AM [facility] AST (SGOT) 16 10 - 42 unit/L LAB CHEMISTRY METHOD 12/16/2024 11:27 AM [facility] ALT (SGPT) 25 10 - 60 unit/L LAB CHEMISTRY METHOD 12/16/2024 11:27 AM [facility] Alkaline Phosphatase 59 42 - 121 unit/L LAB CHEMISTRY METHOD 12/16/2024 11:27 AM [facility] Total Protein 5.2(L) 6.0 - 8.0 g/dL LAB CHEMISTRY METHOD 12/16/2024 11:27 AM [facility] Albumin 3.1(L) 3.2 - 5.0 g/dL LAB CHEMISTRY METHOD 12/16/2024 11:27 AM [facility] Total Bilirubin 0.2 0.0 - 1.4 mg/dL LAB CHEMISTRY METHOD 12/16/2024 11:27 AM [facility] Blood Venous blood specimen / Unknown Venipuncture / Unknown 12/16/2024 6:12 AM EDT 12/16/2024 9:36 AM EDT us Hai Lockett MD LAB BLOOD ORDERABLES Final Resu lt [facility] ([facility]) [facility] [address] [place] [address], documented in this encounter Visit Diagnoses Diagnosis Encounter for other general examination documented in this encounter Additional Health Concerns Infection Onset Date Last Indicated Resolved Time Rotavirus 12/22/2024 12/22/2024 Gastrointestinal Rule-Out 12/23/2024 12/22/2024 2:40 PM EDT documented as of this encounter Care Teams Resident Care Director Relationship Specialty Start Date End Date Gavin Villareal MD [address] [address] PCP - General Family Medicine 07/24/24 documented as of this encounter
--- OUTSIDE RECORDS SUMMARY | 2025-06-26 09:26 | XMS_ITS | Clinical Summary ---
Author Organization [facility] 299 [facility] Address [address] [place] [address] Phone Care Team Providers Care Seam Rubbing Machine Operator Name Role Phone Gavin Villareal MD Primary Care Provider [phone] Allergies Active Allergy Reactions Criticality Noted Date [...] multivit-min/iron /folic acid/K (ADULTS MULTIVITAMIN ORAL) Multiple Vitamins-[place] als (MULTIVITAMIN ADULT) Tab Take by mouth. Active omega-3 acid ethyl esters (LOVAZA) 1 gram capsule Take by mouth. Activ e traZODone (DESYREL) 50 mg tablet Take 50 mg by mouth at bedtime. 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 Overview (12/25/2024): RECORDED 03/28/2008 10:32PM BY LAM HOOKS MD, ANNOTATION/ADDENDUM Neuralgia 12/15/2006 Overview (12/25/2024): RESOLVED DATE: 12/15/2006; RECORDED 12/15/2006 2:03PM BY LAM HOOKS MD, OFFICE VISIT Surgical History Surgery Date Site/Laterality Comments COLONOSCOPY 01/07/2022 TAx3 ESOPHAGOGASTRODUODENOSCOPY 01/07/2022 negative for wahl's COLONOSCOPY 06/01/2014 TAx3 ESOPHAGOGASTRODUODENOSCOPY 06/01/2014 Wahl's negative for dysplasia Medical History Medical History Date Comments Chronic obstructive pulmonar y disease ([facility] V24, [facility] V28) 06/21/2017 DX:Chronic obstructive pulm onary disease (HCC) Hyperlipidemia 08/11/2017 DX:Hyperlipidemi a Hypothyroid 08/11/2017 DX:Hypothyroid Rheumatoid arthritis, adult (CMS/HCC V24, [facility] V28) 08/11/2017 DX:Rheumatoid arthritis, corina lt ([facility]) Family History Medical History Relation Name Comments [...] on file Sexual Orientation Not on file Last Filed Vital Signs Vital Sign Reading [...] mmol/L LAB CHEMISTRY METHOD 01/24/2025 6:16 PM [facility] Potassium 3.8 3.5 - 5.5 mmol/L LAB CHEMISTRY METHOD 01/24/2025 6:16 PM [facility] Chloride 105 96 - 110 mmol/L LAB CHEMISTRY METHOD 01/24/2025 6:16 PM [facility] CO2 30 21 - 32 mmol/L LAB CHEMISTRY METHOD 01/24/2025 6:16 PM [facility] Anion Gap 5 3 - 11 LAB CHEMISTRY METHOD 01/24/2025 6:16 PM [facility] Glucose 71 70 - 100 mg/dL LAB CHEMISTRY METHOD 01/24/2025 6:16 PM [facility] BUN 15 5 - 25 mg/dL LAB CHEMISTRY METHOD 01/24/2025 6:16 PM [facility] Creatinine 0.60 0.50 - 1.10 mg/dL LAB CHEMISTRY METHOD 01/24/2025 6:16 PM T [facility] eGFR 90 >=60 mL/min/1. 73m2 LAB CHEMISTRY METHOD 01/24/2025 6:16 PM [facility] Comment:Calculation based on the Chronic Kidney Disease Epidemiology Collaboration (CKD-EPI) equation refit without adjustment for race. BUN/Creatinine Ratio 25.0 LAB CHEMISTRY METHOD 01/24/2025 6:16 PM T [facility] Calcium 9.5 8.5 - 10.5 mg/dL LAB CHEMISTRY METHOD 01/24/2025 6:16 PM [facility] AST (SGOT) 12 10 - 42 unit/L LAB CHEMISTRY METHOD 01/24/2025 6:16 PM [facility] ALT (SGPT) 18 10 - 60 unit/L LAB CHEMISTRY METHOD 01/24/2025 6:16 PM [facility] Alkaline Phosphatase 80 42 - 121 unit/L LAB CHEMISTRY METHOD 01/24/2025 6:16 PM [facility] Total Protein 6.9 6.0 - 8.0 g/dL LAB CHEMISTRY METHOD 01/24/2025 6:16 PM [facility] Albumin 3.9 3.2 - 5.0 g/dL LAB CHEMISTRY METHOD 01/24/2025 6:16 PM [facility] Total Bilirubin 0.4 0.0 - 1.4 mg/dL LAB CHEMISTRY METHOD 01/24/2025 6:16 PM [facility] Blood Venous blood specimen / Unknown Venipuncture / Unknown 01/24/2025 3:00 PM EDT 01/24/2025 4:07 PM EDT us Verónica ANTON LAB BLOOD ORDERABLES Final Resu lt [facility] [address] [place], [place] [address] [phone] from Last 3 Months or Most Recently Relevant to Health Maintenance Additional Health Concerns Infection Onset Date Last Indicated Rotavirus 12/22/2024 12/22/2024 Insurance MEDICARE BL[place] - [place] MEDICARE [place] [address] Care Teams Seam Rubbing Machine Operator Relationship Specialty Start Date End Date Gavin Villareal MD [address] [phone] PCP - General Family Medicine 07/24/24
--- OUTSIDE RECORDS SUMMARY | 2025-06-26 09:26 | XMS_ITS | Encounter Summary ---
Author Organization [facility] Address [address] [place] [address] Care Team Providers Care Plastic Tubing Insulation Supervisor Name Role Phone Gavin Villareal MD Primary Care Provider [phone] Encounter Details Date Type Department Care Team (Late st Contact Info) Description 12/23/2024 Lab Requisition [facility] - Main Lab [address] [facility] [place] [address] Hai Lockett MD [address] [place] [address] Encounter for other general examination; Diarrhea, unspecified [...] Lockett MD LAB MICROBIOLOGY - [facility]AL [facility] Final Result [facility] [address] [place] [address], documented in this encounter Visit Diagnoses Diagnosis Encounter for other general examination Diarrhea, unspecified documented in this encounter Additional Health Concerns Infection Onset Date Last Indicated Resolved Time Rotavirus 12/22/2024 12/22/2024 Gastrointestinal Rule-Out 12/23/2024 12/22/2024 2:40 PM EDT documented as of this encounter Care Teams Plastic Tubing Insulation Supervisor Relationship Specialty Start Date End Date Gavin Villareal MD [address] [address] PCP - General Family Medicine 07/24/24 documented as of this encounter
--- OUTSIDE RECORDS SUMMARY | 2025-06-26 09:26 | XMS_ITS | Encounter Summary ---
Author Organization [facility] Address [address] [place] [address] Care Team Providers Care Automotive Tire Tester Name Role Phone Gavin Villareal MD Primary Care Provider [phone] Encounter Details Date Type Department Care Team (Late st Contact Info) Description 12/21/2024 Lab Requisition [facility] - Main Lab [address] [place] [address] Hai Lockett MD [address] [place] [phone] Encounter for other general examination Social History [...] AM EDT) WBC 11.9(H) 4.8 - 10.8 K/[facility] LAB HEMETOLOGY METHOD 12/21/2024 9:11 AM EDT [facility] RBC 4.40 3.80 - 4.80 M/[facility] LAB HEMETOLOGY METHOD 12/21/2024 9:11 AM [facility] Hemoglobin 13.5 11.5 - 16.0 g/dL LAB HEMETOLOGY METHOD 12/21/2024 9:11 AM [facility] Hematocrit 42.5 35.0 - 47.0 % LAB HEMETOLOGY METHOD 12/21/2024 9:11 AM [facility] MCV 97.3 79.0 - 98.0 FL LAB HEMETOLOGY METHOD 12/21/2024 9:11 AM [facility] MCH 30.9 27.0 - 32.0 pcg LAB HEMETOLOGY METHOD 12/21/2024 9:11 AM [facility] MCHC 31.8(L) 32.0 - 37.0 g/dL LAB HEMETOLOGY METHOD 12/21/2024 9:11 AM [facility] RDW 14.6 11.0 - 15.0 % LAB HEMETOLOGY METHOD 12/21/2024 9:11 AM [facility] Platelets 307 130 - 400 K/mcL LAB HEMETOLOGY METHOD 12/21/2024 9:11 AM [facility] MPV 10.9 7.0 - 11.0 FL LAB HEMETOLOGY METHOD 12/21/2024 9:11 AM [facility] NRBC 0.0 <1.0 % LAB HEMETOLOGY METHOD 12/21/2024 9:11 AM [facility] NRBC Absolute 0.00 <0.10 K/mcL LAB HEMETOLOGY METHOD 12/21/2024 9:11 AM [facility] Blood Venous blood specimen / Unknown Venipuncture / Unknown 12/21/2024 6:29 AM EDT 12/21/2024 8:39 AM EDT us Hai Lockett MD LAB BLOOD ORDERABLES Final Resu lt [facility] [address] [place] [address], * (ABNORMAL) Basic metabolic panel (12/21/2024 6:29 AM EDT) Sodium 140 133 - 145 mmol/L LAB CHEMISTRY METHOD 12/21/2024 9:48 AM [facility] Potassium 4.0 3.5 - 5.5 mmol/L LAB CHEMISTRY METHOD 12/21/2024 9:48 AM [facility] Chloride 101 96 - 110 mmol/L LAB CHEMISTRY METHOD 12/21/2024 9:48 AM [facility] CO2 33(H) 21 - 32 mmol/L LAB CHEMISTRY METHOD 12/21/2024 9:48 AM [facility] Anion Gap 6 3 - 11 LAB CHEMISTRY METHOD 12/21/2024 9:48 AM [facility] Glucose 74 70 - 100 mg/dL LAB CHEMISTRY METHOD 12/21/2024 9:48 AM [facility] BUN 23 5 - 25 mg/dL LAB CHEMISTRY METHOD 12/21/2024 9:48 AM [facility] Creatinine 0.56 0.50 - 1.10 mg/dL LAB CHEMISTRY METHOD 12/21/2024 9:48 AM [facility] eGFR 91 >=60 mL/min/1. 73m2 LAB CHEMISTRY METHOD 12/21/2024 9:48 AM [facility] Comment:Calculation based on the Chronic Kidney Disease Epidemiology Collaboration (CKD-EPI) equation refit without adjustment for race. BUN/Creatinine Ratio 41.1 LAB CHEMISTRY METHOD 12/21/2024 9:48 AM [facility] Calcium 8.6 8.5 - 10.5 mg/dL LAB CHEMISTRY METHOD 12/21/2024 9:48 AM [facility] Blood Venous blood specimen / Unknown Venipuncture / Unknown 12/21/2024 6:29 AM EDT 12/21/2024 8:39 AM EDT us Hai Lockett MD LAB BLOOD ORDERABLES Final Resu lt [facility] ([facility] [address] [place] [address], documented in this encounter Visit Diagnoses Diagnosis Encounter for other general examination documented in this encounter Additional Health Concerns Infection Onset Date Last Indicated Resolved Time Rotavirus 12/22/2024 12/22/2024 Gastrointestinal Rule-Out 12/23/2024 12/22/2024 2:40 PM EDT documented as of this encounter Care Teams Automotive Tire Tester Relationship Specialty [place] [address] [place] [phone] PCP - General Family Medicine 07/24/24 documented as of this encounter
== END ==
LOC: HO.CARD 08:46
PROVIDERS: PCP Family Medicine; Visit Provider Internal Medicine
DX: I25.10 Atherosclerotic heart disease of native coronary artery without angina pectoris (principal); R07.2 Precordial pain; R00.1 Bradycardia, unspecified; R06.02 Shortness of breath
CPT/HCPCS: 78452; 93017; 93242; 93306; A9500; J0280; J2785

== ENCOUNTER → 2025-06-26 08:49 | Outpatient (BNV) | payer MEDICARE, SELFPAY | PROVIDERS: PCP Family Medicine | DX: I51.7 Cardiomegaly (principal); I49.3 Ventricular premature depolarization; R51.9 Headache, unspecified; R06.02 Shortness of breath | CPT/HCPCS: 78452; 93016; 93018; 93306 ==